=== PATIENT | male | born 1950 | race Caucasian/White ===

== ENCOUNTER → 2019-11-13 12:15 | Outpatient (CLI) | payer MEDICARE, SELFPAY ==
--- NOTE | ~2019-11-13 | MR_ITS ---
EXAMINATION: MR shoulder LT wo con DATE: 11/13/2019 13:08 INDICATION: Left shoulder pain and limited range of motion TECHNIQUE: Magnetic resonance imaging (MRI) of the left shoulder was performed without intravenous co ntrast. Sequences included axial PD-weighted FS FSE, coronal oblique PD-weighted FS FSE, coronal obli que T2-weighted FS FSE, sagittal PD-weighted FS FSE, and sagittal T1-weighted SE. COMPARISON: Left shoulder radiographs dated 11/04/2019 FINDINGS: Coracoacromial arch: The acromion undersurface is curved in morphology (type II). The coracoacromial ligament is normal. M ild acromioclavicular osteoarthritis. Rotator cuff: Mild supraspinatus and infraspinatus tendinopathy most prominent at the conjoined portion of the tend ons. The teres minor and subscapularis tendons are normal. No rotator cuff tendon tear. Normal rotato r cuff muscle bulk and signal. Biceps tendon, glenoid labrum and glenohumeral cartilage: Long head of the biceps tendon is normal. Circumferential labral tear most severe at the posterosuper ior glenoid where there is secondary degenerative tearing. Diffuse partial thickness cartilage loss a long the humeral head and glenoid with regions of more severe chondral ulceration and fissuring with minimal underlying subarticular edema at the cephalad aspect of the glenoid and at the superomedial a spect of the humeral head. Fluid: Proportional small amount of fluid in the glenohumeral joint and long head biceps tendon sheath. Ther e is mild synovitis at the axillary recess as well as along the biceps tendon sheath. No loose osteoc hondral bodies. Mild increased fluid signal in the subacromial/subdeltoid bursa consistent with minim al bursitis. Bones: Normal marrow signal with no edema, fracture or pathologic marrow replacing process. Mild cystic napoles ge at the greater tuberosity. IMPRESSION: 1. Moderate supraspinatus and infraspinatus tendinopathy without discrete tear. 2. Mild to moderate glenohumeral osteoarthritis with diffuse labral tear and with small regions of hi gh-grade chondromalacia at the glenoid and humeral head. 3. Mild acromioclavicular osteoarthritis. Reviewed, dictated and finalized at location A. IMPRESSION: 1. Moderate supraspinatus and infraspinatus tendinopathy without discrete tear. 2. Mild to moderate glenohumeral osteoarthritis with diffuse labral tear and wi th small regions of high-grade chondromalacia at the glenoid and humeral head. 3. Mild acromioclavicular osteoarthritis.
== END ==
PROVIDERS: Visit Provider Orthopaedic Surgery
DX: M19.012 Primary osteoarthritis, left shoulder (principal)
CPT/HCPCS: 73221

== ENCOUNTER 2019-12-18 12:51 | Outpatient (CLI) | payer MEDICARE, SELFPAY ==
--- NOTE | 2020-01-01 15:16 | WPDHOMESLEEP ---
Sleep Study - Home Date of Study: 12/18/19 Ordering Provider: Andrea Farias MD Interpreting Physician: Evette Carpenter MD Home Sleep Study Type: Apnea Link Air Height: 1.75 m Weight: 91.626 kg Body Mass Index: 29.8 Brawley: 9 Reason for Sleep Study Snoring, waking at night, nocturia, daytime sleepiness Sleep History Jonathan Quijano Jr is a 69 yo man 5 feet 9 inches tall weighing 202 lb with BMI 29.8 kg/m sq with poor quality of sleep. Some nights he wakes frequently to use the bathroom. The most sleep he can achieve is 5 -6 hours a night. He attributes waking at 5:00 a.m. to his wake time for work over the years. He has been having problems with his sleep for several years. There is a family history of sleep apnea in his father. He snores frequently, and frequently it is loud enough to disturb others. He rarely has trouble falling asleep with a cold, never wakes up gasping for breath and rarely has breathing problems at night witnessed by others. He never sweats excessively at night nor has noticed his heart pounding or beating irregularly at night. He occasionally falls asleep in the day, occasionally involuntarily, never while driving. He does not feel paralyzed on falling asleep or waking, rarely has vivid dream like scenes on waking or falling asleep. He is never afraid to go to sleep and rarely has nightmares. He rarely remembers his dreams and rarely has racing thoughts. He does not feel sad or depressed, rarely feels anxious, denies muscular tension, does not notice parts of his body jerking, and does not kick at night. He occasionally has uncomfortable feelings in his legs at night. He does not grind his teeth at night, often is awakened by pain at night, rarely feels stiff in the am. He has memory problems. He constantly is bothered by pain in the day. Bedtime is 10:00 - 11:00 p.m. falling asleep in 5 minutes or less, wakes in the middle of the night at most 2-4 times, and when he wakes at night, he usually will stay in bed but sometimes watches TV in the living room. He wakes between 4:30 - 5:30 a.m. often refreshed. He feels better in the morning than other times of day, however on occasion is so sleepy he can barely keep his eyes open. He has gained 25 lb in the last year. He drinks 10 cups of coffee in the morning, occasionally takes a nap. A short nap can be refreshing. 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, hypertension, hyperlipidemia, GERD [facility] Family History Family History (Updated 01/01/20 @ 16:37 by Evette Carpenter MD) Father Family history of thyroid disease Diabetes mellitus Family history of chronic obstructive pulmonary disease Obstructive sleep apnea Grandparent Diabetes mellitus Mother Depression Father Family history of diabetes mellitus in first degree relative Family history of emphysema Sibling Family history of malignant neoplasm of cervix Other Family history of congestive heart failure Social History Social History (Updated 01/01/20 @ 16:30 by Evette Carpenter MD) Smoking packs per day: 1 Smoking cigarettes per day: 20.0 Years smoked: 50 Smoking pack-years: 50.00 Smoking status: Former smoker Second hand tobacco smoke exposure: No Smoking end date: 02/05/19 Alcohol intake: current Alcohol use details: 6-8 beers once a month Substance use: never Substance use type: does not use Additional occupation/education comments: Retired from [employer] and [employer] Gender identity (if verbalized by the patient): Male Medications aspirin 81 mg tablet,delayed release 81 mg PO DAILY 05/03/19 [History Confirmed 12/19/19] simvastatin 10 mg tablet 10 mg PO QPM tablet 05/03/19 [History Confirmed 12/19/19] Bifidobacterium infantis 4 mg capsule 4 mg PO DAILY 10/03/19 [History Confirmed 12/19/19] ascorbic acid (vitamin C) 1,000 mg tablet 1 gm PO DAILY 10/03/19 [History Confirmed
[2020-01-01 16:38] VITALS: BMI 29.8
== END 2019-12-18 12:52 | disposition home or self-care (01) ==
LOC: ANHCSM 12:51
PROVIDERS: PCP Family Medicine; Visit Provider Family Medicine
DX: G47.33 Obstructive sleep apnea (adult) (pediatric) (principal); R40.0 Somnolence
CPT/HCPCS: 95806

== ENCOUNTER 2020-06-03 08:42 | Outpatient (CLI) | payer MEDICARE, SELFPAY ==
--- NOTE | ~2020-06-03 | CT_ITS ---
EXAMINATION: CT lung screening DATE: 06/03/2020 09:13 INDICATION: Z87.891 - Personal history of nicotine dependence Z12.2 Encounter for screening for malig nant neoplasm of respi... TECHNIQUE: Computed tomography (CT) of the chest was performed without intravenous contrast. Addition al 3D reconstructions utilizing coronal maximum intensity projection (MIP) were performed. Automated exposure control and iterative reconstruction technique were employed. The dose-length product was 19 8.32 mGy-cm. COMPARISON: None FINDINGS: Mild to moderate upper lobe predominant emphysema. There are fine reticular opacities with peripheral predominance along the anterior aspect of the bilateral upper lobes and at the basilar and lateral a spect of the bilateral lower lobes. Tiny calcified right upper lobe nodule consistent with old granul omatous disease. No other suspicious pulmonary nodules, pneumonia or pleural effusion. Heart size is normal. Atherosclerotic coronary artery calcification is. Small amount of aortic valve calcification. No pericardial effusion. Thoracic aorta is normal in caliber. No pathologically enlarged thoracic ly mphadenopathy. 8.4 cm exophytic cyst at the upper pole of the right kidney. Diffuse hepatic steatosis . Upper lumbar levoscoliosis centered at T3-T4 there is likely developmental fusion both anteriorly a nd of the right posterior elements. IMPRESSION: 1. Lung-RADS category 1: Negative. Continue annual screening with noncontrast low-dose chest CT in 12 months. 2. Mild to moderate upper lobe predominant emphysema with fine peripheral reticular opacities along p ortions of the upper and lower lobes which could represent atelectasis or nonspecific mild chronic in terstitial lung disease. Reviewed, dictated and finalized at location B. Y II PAINTER IMPRESSION: 1. Lung-RADS category 1: Negative. Continue annual screening with noncontrast l ow-dose chest CT in 12 months. 2. Mild to moderate upper lobe predominant emphysema with fine peripheral retic ular opacities along portions of the upper and lower lobes which could represen t atelectasis or nonspecific mild chronic interstitial lung disease.
--- NOTE | ~2020-06-03 | US_ITS ---
EXAMINATION: US aorta [facility] DATE: 06/03/2020 09:24 INDICATION: Abdominal aortic aneurysm screening. TECHNIQUE: Grayscale, color Doppler, and pulsed Doppler images of the aorta and common iliac arteries were obtained. COMPARISON: CT abdomen and pelvis/01/2006 FINDINGS: The aorta is normal in caliber. The right common iliac artery is normal in caliber. The left common i liac artery is normal in caliber. IMPRESSION: 1. No abdominal aortic aneurysm. Reviewed, dictated and finalized at location A. ICAL INSTRUMENT TECHNICIAN
== END 2020-06-03 08:43 | disposition home or self-care (01) ==
PROVIDERS: PCP Family Medicine; Visit Provider Family Medicine
DX: Z12.2 Encounter for screening for malignant neoplasm of respiratory organs (principal); Z87.891 Personal history of nicotine dependence
CPT/HCPCS: 71271; 76706

== ENCOUNTER 2020-06-10 23:55 | Inpatient (IN) | payer MEDICARE, SELFPAY ==
--- NOTE | ~2020-06-10 | XR_ITS ---
EXAMINATION: XR chest 1V portable INDICATION: Chest pain TECHNIQUE: Portable AP chest at 0016 hours COMPARISON: CT, 06/03/2020 FINDINGS: There is moderate emphysema. No pleural effusion or pneumothorax is identified. The cardiom ediastinal silhouette is normal. IMPRESSION: 1. No acute cardiopulmonary abnormality. Reviewed, dictated and finalized at location A. HIATRIC SOCIAL WORKER
[2020-06-10 23:57] VITALS: PULSE 91; RESP 30
[2020-06-11] VITALS (41 sets, daily range): BP systolic 86–156; BP diastolic 50–105; PULSE 67–96; RESP 11–30; TEMP 36.4–36.7; O2SAT 89–100; BMI 31.8
--- NOTE | 2020-06-11 | ECHO_ITS ---
Patient Info Name: Jonathan Quijano Age: 69 years : 1950 Gender: Male Ht: 69 in Wt: 202 lbs BSA: 2.14 m2 HR: 78 bpm BP: 156 / 95 mmHg Heart Rhythm: Sinus Rhythm Technical Quality: Good Exam Date: 06/11/2020 8:18 AM Exam Location: [facility] Pulmonary Patient Status: Inpatient Admit Date: 06/11/2020 Staff Ordering Physician: Ruben Perkins MD Electrical Equipment Assembler: Perry Samuel, EMILY, RT Attending Provider: Ruben Perkins MD Exam Type: CA echo dop color flow w con Study Info Indications I21.3 - ST elevation (STEMI) myocardial infarction of unspecified site Strain analysis performed. Complete two-dimensional, color flow and Doppler transthoracic echocardiogram is performed with contrast to opacify the left ventricle and to improve the deliniation of the left ventricle endocardial borders. Summary 1. Left ventricular chamber dimension is mildly enlarged. 2. Left ventricular systolic function is normal, estimated at 50-55%. 3. There is moderately increased left ventricular wall thickness. 4. The left ventricular diastolic function is grade II diastolic dysfunction. 5. Global longitudinal strain is abnormal at -14 %. 6. The inferior wall, basal anterolateral wall, mid anterolateral wall, basal inferolateral wall, and mid inferolateral wall are hypokinetic. 7. Left atrial chamber dimension is mildly enlarged. 8. There is mild aortic valve regurgitation. 9. There is moderate mitral valve regurgitation. 10. There is mild tricuspid valve regurgitation. 11. Moderate pulmonary hypertension, estimated pulmonary arterial systolic pressure is 52 mmHg. 12. There is mild pulmonic regurgitation. 13. Strain analysis performed. Left Ventricle Left ventricular chamber dimension is mildly enlarged. Left ventricular systolic function is normal, estimated at 50-55%. There is moderately increased left ventricular wall thickness. The left ventricular diastolic function is grade II diastolic dysfunction. Global longitudinal strain is abnormal at -14 %. The inferior wall, basal anterolateral wall, mid anterolateral wall, basal inferolateral wall, and mid inferolateral wall are hypokinetic. All other bundy appear normal. Right Ventricle Right ventricular chamber dimension is normal. Right ventricular systolic function is normal. Left Atria Left atrial chamber dimension is mildly enlarged. Right Atria Right atrial chamber dimension is normal. Atrial Septum Intact interatrial septum visualized by color flow imaging. Aortic Valve The aortic valve is trileaflet. There is moderate aortic valve sclerosis. There is no aortic valve stenosis. There is mild aortic valve regurgitation. Pulmonic Valve The pulmonic valve is normal. There is no pulmonic valve stenosis. There is mild pulmonic regurgitation. Mitral Valve The mitral valve has normal leaflets. There is no mitral valve stenosis. There is moderate mitral valve regurgitation. Tricuspid Valve The tricuspid valve leaflets are normal. There is no significant tricuspid valve stenosis. There is mild tricuspid valve regurgitation. Moderate pulmonary hypertension, estimated pulmonary arterial systolic pressure is 52 mmHg. Pericardium/Pleural The pericardium appears normal. There is trivial pericardial effusion. Inferior Vena Cava Normal inferior vena cava with <50% collapse upon inspiration consistent with elevated right atrial pressure, 10 mmHg. Aorta The aortic root size at the sinus of Valsal
--- NOTE | 2020-06-11 00:11 | ED.CHESTPAIN ---
HPI - Chest Pain General Chief Complaint: Chest Pain Stated Complaint: chest pain Time Seen by Provider: 06/11/20 00:07 History of Present Illness HPI narrative: 69 yo male presents to the ED for chest pain. Severe crushing chest pain for the past 2 hours. Associated with SOB and nausea. He has never had this type of pain before. He denies any active medical problems. Chart review shows that he has HTN, PAD. Related Data Home Medications Medication Instructions Recorded Confirmed aspirin 81 mg tablet,delayed 81 mg PO DAILY 05/03/19 04/28/20 release Bifidobacterium infantis 4 mg 4 mg PO DAILY 10/03/19 04/28/20 capsule ascorbic acid (vitamin C) 1,000 mg 1 gm PO DAILY 10/03/19 04/28/20 tablet omega-3 fatty acids 1,000 mg 1,000 mg PO DAILY 10/03/19 04/28/20 capsule nnjcsrhobfwh-objtljeu-wrkory PO 11/05/19 04/28/20 naproxen sodium PO BID 11/05/19 04/28/20 Allergies Allergy/AdvReac Type Severity Reaction Status Date / Time No Known Allergies Allergy Unknown Verified 06/11/20 00:18 Review of Systems Review of Systems: All systems reviewed & are unremarkable except as noted in HPI and below Constitutional: Constitutional: Denies fever(s) and Denies weakness Cardiovascular: Cardiovascular: Reports chest pain and Reports radiating jaw, neck or arm pain Respiratory: Respiratory: Reports dyspnea Gastrointestinal: Gastrointestinal: Reports nausea Musculoskeletal: Musculoskeletal: Denies back pain Neurologic: Reports system reviewed and no additional complaints, except as documented PMF Past Medical History Medical History Arthritis Dyslipidemia Erectile dysfunction Esophagitis Essential (primary) hypertension History of blood clots PAD (peripheral artery disease) Shortness of breath Vision abnormalities Weight gain Surgical History Surgical History H/O hemorrhoidectomy (~2009) H/O rectal sphincterotomy (~11/2010) 11/2010 History of femoropopliteal bypass left - right - 02/19 Family History Family History Father Family history of thyroid disease Diabetes mellitus Family history of chronic obstructive pulmonary disease Obstructive sleep apnea Grandparent Diabetes mellitus Mother Depression Father Family history of diabetes mellitus in first degree relative Family history of emphysema Sibling Family history of malignant neoplasm of cervix Other Family history of congestive heart failure Social History Social History Smoking packs per day: 1 Smoking cigarettes per day: 20.0 Years smoked: 50 Smoking pack-years: 50.00 Smoking status: Former smoker Second hand tobacco smoke exposure: No Smoking end date: 02/05/19 Alcohol intake: current Substance use: never Substance use type: does not use Additional occupation/education comments: Retired from [employer] Gender identity (if verbalized by the patient): Male Exam Const: General: alert and diaphoretic Orientation/consciousness: patient oriented x3 Other: moderate distress. HENMT: Head: normal to inspection Resp: Effort & Inspection: normal respiratory effort Auscultation: clear to auscultation bilaterally Cardio: Rate: regular rate Rhythm: regular rhythm GI: GI Palp: Yes Soft to palpation and No Tenderness to palpation present (GI) Skin: General skin exam: normal color Neuro: General: patient oriented x3, moves all extremities and CN's II-XI intact bilaterally Speech: normal speech Extrem: General: normal to inspection Course Vital Signs Vital signs: Vital Signs Pulse Rate 91 06/10/20 23:57 Respiratory Rate 30 H 06/10/20 23:57 Pulse Rate 89 06/11/20 00:47 Respiratory Rate 16 06/11/20 00:47
[2020-06-11 00:13] LABS: Basophils Absolute Auto 0.1 K/mm3 (0.0-0.1); Basophils Percent Auto 0.7 % (0.2-1.2); Eosinophils Absolute Auto 0.6 K/mm3 (0-0.3); Eosinophils Percent Auto 6.2 % (0-4.4); Hematocrit 47.3 % (42.0-52.0); Hemoglobin 15.6 g/dL (14.0-18.0); Immature Granulocyte Absolute 0.03 K/mm3 (0.00-0.031); Immature Granulocyte Percent A 0.3 % (0-0.5); Lymphocytes Absolute Auto 4.16 K/mm3 (0.9-3.2); Lymphocytes Percent Auto 45.2 % (18.3-44.2); Mean Corpuscular Hemoglobin 30.4 pg (26-34); Mean Platelet Volume 9.5 fl (7.4-10.4); Monocytes Absolute Auto 1.1 K/mm3 (0.1-0.6); Monocytes Percent Auto 11.8 % (2.6-8.5); Neutrophils Absolute Auto 3.3 K/mm3 (1.3-6.7); Neutrophils Percent Auto 35.8 % (45.5-73.1); Platelet Count Result 203 k/mm3 (150-375); Red Blood Count 5.14 M/mm3 (4.6-6.20); Red Cell Distribution Width 14.5 % (11.5-14.5); White Blood Count 9.2 K/mm3 (4.5-10.0)
[2020-06-11] MEDS: TICAGRELOR 90 MG TABLET 180 MG PO (00:20)
[2020-06-11 00:21] LABS: INR 0.9; Prothrombin Time 13.1 Seconds (11.1-14.7)
[2020-06-11 00:22] LABS: Partial Thromboplastin Time 28.7 SECONDS (22.3-36.8)
[2020-06-11 00:23] LABS: Alanine Aminotransferase 57 U/L (4-50); Albumin Level 4.2 g/dL (3.5-5.1); Alkaline Phosphatase 76 U/L (38-126); Anion Gap 7 mmol/L (8-16); Aspartate Amino Transferase 78 U/L (17-59); Bilirubin,Total 0.4 mg/dL (0.2-1.3); Blood Urea Nitrogen 29 mg/dL (9-20); Calcium 9.4 mg/dL (8.4-10.2); Carbon Dioxide 30 mmol/L (22-30); Chloride 103 mmol/L (98-107); Cholesterol 207 mg/dL (0-200); Estimated CRCL calculation 71 ml/min; Estimated Glomerular Filt Rate > 60; Glucose 124 mg/dL (75-110); HDL Direct 61 mg/dL; Potassium 3.6 mmol/L (3.4-5.0); Sodium 140 mmol/L (137-145); Triglycerides 198 mg/dL (<150)
[2020-06-11 00:34] LABS: LDL Cholesterol Direct 51 mg/dL
--- NOTE | 2020-06-11 01:03 | PM.CNCAR ---
Assessment and Plan Additional Plan STEMI, INF wall, Dyslipdiemia, PVD, HTN, plan heaprin Ticagrelor, Statin and emergency [facility] History of Present Illness History of Present Illness Consult date/time: 06/11/20 01:03 Consult reason: chest pain Reason For Visit: stemi Narrative: acute chest pain started 2 hours ago, middle of chest, pressure like, sever, radiates to rt arm and jaw associated with sweating Review of Systems Review of Systems: All systems reviewed & are unremarkable except as noted in HPI and below PMFSH Past Medical History Medical History Arthritis Dyslipidemia Erectile dysfunction Esophagitis Essential (primary) hypertension History of blood clots PAD (peripheral artery disease) Shortness of breath Vision abnormalities Weight gain Surgical History Surgical History H/O hemorrhoidectomy (~2009) H/O rectal sphincterotomy (~11/2010) 11/2010 History of femoropopliteal bypass left - right - 02/19 Family History Family History Father Family history of thyroid disease Diabetes mellitus Family history of chronic obstructive pulmonary disease Obstructive sleep apnea Grandparent Diabetes mellitus Mother Depression Father Family history of diabetes mellitus in first degree relative Family history of emphysema Sibling Family history of malignant neoplasm of cervix Other Family history of congestive heart failure Social History Social History Smoking packs per day: 1 Smoking cigarettes per day: 20.0 Years smoked: 50 Smoking pack-years: 50.00 Smoking status: Former smoker Second hand tobacco smoke exposure: No Smoking end date: 02/05/19 Alcohol intake: current Substance use: never Substance use type: does not use Additional occupation/education comments: Retired from [employer] and [employer] Gender identity (if verbalized by the patient): Male Meds Home Medications and Allergies Home Medications Medication Instructions Recorded Confirmed Type aspirin 81 mg tablet,delayed 81 mg PO DAILY 05/03/19 04/28/20 History release Bifidobacterium infantis 4 mg 4 mg PO DAILY 10/03/19 04/28/20 History capsule ascorbic acid (vitamin C) 1,000 mg 1 gm PO DAILY 10/03/19 04/28/20 History tablet omega-3 fatty acids 1,000 mg 1,000 mg PO DAILY 10/03/19 04/28/20 History capsule sildenafil 100 mg tablet 100 mg PO DAILY PRN #30 tablet 10/31/19 04/28/20 Rx [id number] PO 11/05/19 04/28/20 History naproxen sodium PO BID 11/05/19 04/28/20 History hydrochlorothiazide 12.5 mg tablet See Rx Instructions .ROUTE 01/24/20 04/28/20 Rx .COMPLEX #90 tablet lisinopril 10 mg tablet See Rx Instructions .ROUTE 01/24/20 04/28/20 Rx .COMPLEX #90 tablet clopidogrel 75 mg tablet 75 mg PO DAILY #90 tablet 02/18/20 04/28/20 Rx simvastatin 10 mg tablet See Rx Instructions .ROUTE 04/27/20 04/28/20 Rx .COMPLEX #90 tablet Allergies Allergy/AdvReac Type Severity Reaction Status Date / Time No Known Allergies Allergy Unknown Verified 06/11/20 00:18 Vital Signs Vital Signs - 24 hr 06/10/20 23:57 06/11/20 00:07 06/11/20 00:16 Pulse Rate 91 96 91 Respiratory Rate 30 H 22 H Blood Pressure 154/105 H Pulse Oximetry 100 06/11/20 00:30 06/11/20 00:47 Pulse Rate 95 89 Respiratory Rate 19 16 Blood Pressure 141/100 H 156/95 H Pulse Oximetry 100 100 Exam Const: General: comfortable and no acute distress Other: Able to lie flat HENMT: General nose exam: Normal nares present and no epistaxis Mouth: Yes moist mucous membranes Eyes: Sclera: sclerae normal Pupils: Equal, round and reactive pupils present Neck: Neck: supple and no JVD Carotids: no bruits Resp: Auscultation: luis
--- NOTE | 2020-06-11 01:29 | WPDCARDPROC ---
Cardiac Cath Procedure Note Date of procedure:: 06/11/20 Performing physician:: Ruben Perkins MD Assessment and Plan Additional Plan INDICATION: 1. STEMI HISTORY Patient presented with acute sever chest pain, EKG showed STEMI PROCEDURES 1. Coronary angiogram 2. LHC 3. PCI to LCX ACCESS SITE Rt Radial artery PROCEDURE DETAILS Consent obtained and time out done. Access site prepped and draped in sterile fashion. Moderate sedation given with 1 mg versed and 75 mcg fentanyl and tolerated well, start time 1:08 end time 1:34. Tolerated well and observed by myself and RN, at end he was fully conscious Access obtained with modified Seldinger technique with no difficulty. Coronary angiogram was recorded using JR4 and CLS 3 catheter in different angels LHC was done with JR 4 catheter HEMODYNAMIC FINDINGS Aorta: 142/104 LVEDP: 35 ANGIOGRAPHIC FINDINGS 1. Left main: normal, large, short, free of obstructive disease, gives LAD and LCX 2. LAD: gives one large diagonal. LAD has mid segment 50% stenosis and diagonal is free of disease. 3. LCX: large dominant vessel with acute proximal occlusion, LCX gives 3 intermediate size OM branches and large LPL and PDA which are free of obstructive disease. 4. RCA: non dominant vessel give RV marginal branches PCI DETAILS Pre intervention Lesion: acute total occlusion of LCX culprit lesion of STEMI, class B, ZOFIA 0 Guide catheter: CLS 3 Anticoagulation: Heparin to target ACT > 250 sec Antiplatelet therapy: ASA and Ticagrelor given Guide wire: Samurai used to cross to distal vessel Balloon dilation was done with Emerge balloon at 3.0 * 12 GEO Stent XIENCE Meredith 4.0 * 12 deployed at lesion at 18 GEO, post stent balloon dilation was done with Quantum NC balloon 5.0 * 8 at 18 GEO Post intervention: residual stenosis 0% and ZOFIA 3 flow established COMPLICATION: None Estimated blood loss: 30 ml patient tolerated procedure well, asymptomatic at end of procedure, awake, intact pulses and following commands CONCLUSION Acute total occlusion of LCX Culprit lesion of STEMI S/P Primary PCI with one LISA XIENCE Meredith 4.0 * 12 post dilated with 5.0 balloon RECOMMENDATION DAPT for at least one year
--- NOTE | 2020-06-11 01:37 | ECG_ITS ---
Measurements Intervals Stuart Rate: 88 P: 59 ID: [id number] QRS: 50 QRSD: 114 T: 23 QT: 351 QTc: 426 Interpretive Statements SINUS RHYTHM INTRAVENTRICULAR CONDUCTION DELAY DELAYED PRECORDIAL R/S TRANSITION INFERIOR ST ELEVATION MYOCARDIAL INJURY- ACUTE ABNORMAL ECG Electronically Signed On 06-11-2020 7:10:50 BINDER ROLLER by Gt BRADY
--- NOTE | 2020-06-11 02:08 | ADMGEN ---
This patient, Jonathan Quijano Jr., was admitted to Intensive Care Unit-3 at 0200 from the lab clerk. Patient/family oriented to hospital policies and general routines including ID bracelet, bed and alarms, visiting hours, pain management, procedures, bathroom and other care routines, personal items, smoking policy, room service/diet, and visiting hours. Information on how to activate the Rapid Response Team has been discussed. Patient/Family are encouraged to report perceived risks to care and to ask questions if they do not understand what they are told or what they should do.
[2020-06-11 03:40] LABS: Basophils Percent Auto 0.5 % (0.2-1.2); Eosinophils Absolute Auto 0.4 K/mm3 (0-0.3); Eosinophils Percent Auto 5.1 % (0-4.4); Hematocrit 42.9 % (42.0-52.0); Hemoglobin 14.3 g/dL (14.0-18.0); Immature Granulocyte Absolute 0.04 K/mm3 (0.00-0.031); Immature Granulocyte Percent A 0.5 % (0-0.5); Lymphocytes Absolute Auto 2.13 K/mm3 (0.9-3.2); Mean Corpuscular HGB Conc 33.3 g/dl (32-36); Mean Corpuscular Volume 89.9 fl (80-100); Mean Platelet Volume 9.9 fl (7.4-10.4); Monocytes Absolute Auto 0.8 K/mm3 (0.1-0.6); Monocytes Percent Auto 9.3 % (2.6-8.5); Neutrophils Absolute Auto 5.1 K/mm3 (1.3-6.7); Neutrophils Percent Auto 59.6 % (45.5-73.1); Platelet Count Result 170 k/mm3 (150-375); Red Blood Count 4.77 M/mm3 (4.6-6.20); Red Cell Distribution Width 14.2 % (11.5-14.5); White Blood Count 8.5 K/mm3 (4.5-10.0)
[2020-06-11 03:54] LABS: Partial Thromboplastin Time 84.7 SECONDS (22.3-36.8)
[2020-06-11 03:55] LABS: Anion Gap 5 mmol/L (8-16); Blood Urea Nitrogen 27 mg/dL (9-20); Calcium 8.8 mg/dL (8.4-10.2); Carbon Dioxide 27 mmol/L (22-30); Chloride 105 mmol/L (98-107); Estimated CRCL calculation 90 ml/min; Estimated Glomerular Filt Rate > 60; Glucose 114 mg/dL (75-110); Potassium 4.1 mmol/L (3.4-5.0); Sodium 137 mmol/L (137-145)
[2020-06-11 04:11] LABS: Troponin I > 80.000 ng/mL (0.000-0.034)
[2020-06-11 05:30] LABS: Partial Thromboplastin Time 38.5 SECONDS (22.3-36.8)
[2020-06-11 07:24] LABS: Troponin I > 80.000 ng/mL (0.000-0.034)
--- NOTE | 2020-06-11 08:27 | WPDCNINT ---
Assessment and Plan Assessment and plan (1) ST elevation (STEMI) myocardial infarction: Qualifiers: Involved coronary artery: unspecified coronary artery Qualified Code(s): I21.3 - ST elevation (STEMI) myocardial infarction of unspecified site Code(s): I21.3 - ST elevation (STEMI) myocardial infarction of unspecified site Status: Acute Assessment and Plan: Patient presented with substernal chest pain, rated in the right arm in shock, associated with nausea, vomiting, shortness of breath and diaphoresis -EKG in the ER revealed acute inferior ST-elevation myocardial infarction -patient status post PTCA/PCI with LISA x1 to proximal left circumflex with balloon dilatation. Angiogram was done via right radial artery approach -aspirin, HCTZ, lisinopril, simvastatin, Brilinta, metoprolol -cardiology following the patient closely (2) Essential (primary) hypertension: Code(s): I10 - Essential (primary) hypertension Status: Acute Assessment and Plan: Continue HCTZ, lisinopril metoprolol (3) Dyslipidemia: Code(s): E78.5 - Hyperlipidemia, unspecified Status: Acute Assessment and Plan: Continue simvastatin Additional Plan Discussed with patient updated with his condition and plan of care. Code status: Full code Critical care time spent: 42 minutes This dictation may have been done utilizing a voice recognition system. Attempts have been made to correct errors. However, there may be uncorrected grammatical, spelling, and recognition errors present. Due to a high probability of clinically significant, life threatening deterioration, the patient required my highest level of preparedness to intervene emergently and I personally spent this critical care time directly and personally managing the patient. This critical care time included obtaining a history; examining the patient; pulse oximetry; ordering and review of studies; arranging urgent treatment with development of a management plan; evaluation of patient's response to treatment; frequent reassessment; and discussions with other providers. It was exclusive of separately billable procedures and treating other patients and teaching time. Please see Assessment and Plan section and the rest of the note for further information on patient assessment and treatment Cardiology Nurse Consult Note Consult date: 06/11/20 Time Seen: 07:14 Reason for consult: STEMI status post PTCA/PCI to left circumflex with LISA x1 HPI: Jonathan Quijano Jr. is a 69 year old male past medical history of dyslipidemia, essential hypertension, history of blood clots, peripheral arterial disease, total dysfunction, arthritis presents to the ED in the early hours of 06/11/2020 with complains of severe chest pain that started 2 hours prior to arrival at the ED. Patient stated that his chest pain was associated with shortness of breath nausea and diaphoresis Pain was substernal, pressure-like and radiating to the right arm and jaw. EKG in the ER showed inferior ST-elevation MT, code STEMI was called, patient was taken to the cardiac cath lab technologist, angiographic findings showed acute proximal the left circumflex, Status post LISA x1 with balloon dilatation. Angiogram was done through right radial artery approach. Patient started on aspirin, lisinopril, simvastatin, Brilinta. Was transfer the ICU for further management Patient seen examined the ICU, states he feels much better, complains of mild chest discomfort but nothing compared to what he presented with. Denies any shortness of breath, no jaw pain or any pain in the arm. Denies any nausea vomiting. Hemodynamically stable at this time Review of Systems Review of Systems: All systems reviewed & are unremarkable except as noted in HPI and below PMFSH Past Medical History Medical History Arthritis Dyslipidemia Erectile dysfunction Esophagitis Essential (primary) hyper
[2020-06-11] MEDS: PERFLUTREN LIPID MICROSPHERES 1.5 ML VIAL DILUTED TO 10 ML TOTAL VOLUME IV PUSH (08:48)
[2020-06-11] MEDS: lisinopriL 20 MG TABLET 40 MG BY MOUTH (08:50)
[2020-06-11] MEDS: ASPIRIN 81 MG ENTERIC TABLET PO (08:50)
[2020-06-11] MEDS: hydroCHLOROthiazide 25 MG TABLET BY MOUTH (08:50)
[2020-06-11] MEDS: METOPROLOL TARTRATE 25 MG TABLET PO (08:50)
[2020-06-11] MEDS: ASCORBIC ACID 500 MG TABLET 1000 MG PO (08:50)
[2020-06-11] MEDS: TICAGRELOR 90 MG TABLET PO ×2 (08:50→20:28)
[2020-06-11] MEDS: OMEGA 3 POLYUNSAT FATTY ACIDS 1 GM CAP PO (08:50)
--- NOTE | 2020-06-11 14:01 | PC.NURSE ---
Notified Dr. Koo of patient's BP decreasing as the day has gone on after receiving new dose of 25mg of Metoprolol PO this AM. Pt is currently sleeping with SBP in the 80's. MAPs have been >60 at all times and pt has been asymptomatic. Continue to monitor BP and notify personal chef if pt becomes symptomatic.
[2020-06-11] MEDS: SIMVASTATIN 20 MG TABLET 40 MG PO (17:06)
[2020-06-12] VITALS (15 sets, daily range): BP systolic 82–139; BP diastolic 57–72; PULSE 75–93; RESP 18–27; TEMP 36.4–37.2; O2SAT 93–100
[2020-06-12 04:28] LABS: Basophils Percent Auto 0.3 % (0.2-1.2); Eosinophils Absolute Auto 0.3 K/mm3 (0-0.3); Eosinophils Percent Auto 3.8 % (0-4.4); Hematocrit 40.9 % (42.0-52.0); Hemoglobin 13.7 g/dL (14.0-18.0); Immature Granulocyte Absolute 0.04 K/mm3 (0.00-0.031); Immature Granulocyte Percent A 0.4 % (0-0.5); Lymphocytes Percent Auto 25.6 % (18.3-44.2); Mean Corpuscular HGB Conc 33.5 g/dl (32-36); Mean Corpuscular Hemoglobin 30.4 pg (26-34); Mean Corpuscular Volume 90.7 fl (80-100); Mean Platelet Volume 9.6 fl (7.4-10.4); Monocytes Absolute Auto 1.1 K/mm3 (0.1-0.6); Monocytes Percent Auto 12.1 % (2.6-8.5); Neutrophils Absolute Auto 5.2 K/mm3 (1.3-6.7); Neutrophils Percent Auto 57.8 % (45.5-73.1); Platelet Count Result 155 k/mm3 (150-375); Red Blood Count 4.51 M/mm3 (4.6-6.20); Red Cell Distribution Width 14.6 % (11.5-14.5)
[2020-06-12 04:45] LABS: Anion Gap 2 mmol/L (8-16); Blood Urea Nitrogen 27 mg/dL (9-20); Calcium 8.6 mg/dL (8.4-10.2); Carbon Dioxide 29 mmol/L (22-30); Chloride 104 mmol/L (98-107); Estimated CRCL calculation 81 ml/min; Estimated Glomerular Filt Rate > 60; Glucose 120 mg/dL (75-110); Phosphorus 3.5 mg/dL (2.5-4.5); Potassium 3.9 mmol/L (3.4-5.0); Sodium 135 mmol/L (137-145)
[2020-06-12] MEDS: ASCORBIC ACID 500 MG TABLET 1000 MG PO (08:15)
[2020-06-12] MEDS: hydroCHLOROthiazide 25 MG TABLET BY MOUTH (08:15)
[2020-06-12] MEDS: TICAGRELOR 90 MG TABLET PO ×2 (08:15→20:34)
[2020-06-12] MEDS: OMEGA 3 POLYUNSAT FATTY ACIDS 1 GM CAP PO (08:15)
[2020-06-12] MEDS: ASPIRIN 81 MG ENTERIC TABLET PO (08:15)
[2020-06-12] MEDS: lisinopriL 20 MG TABLET 40 MG BY MOUTH (08:15)
--- NOTE | 2020-06-12 09:59 | WPDINTPN ---
Progress Note: A&P Assessment and Plan (1) ST elevation (STEMI) myocardial infarction: Qualifiers: Involved coronary artery: unspecified coronary artery Qualified Code(s): I21.3 - ST elevation (STEMI) myocardial infarction of unspecified site Code(s): I21.3 - ST elevation (STEMI) myocardial infarction of unspecified site Status: Acute Assessment and Plan: Patient presented to the ED with substernal chest pain, rated in the right arm in shock, associated with nausea, vomiting, shortness of breath and diaphoresis -EKG in the ER revealed acute inferior ST-elevation myocardial infarction -patient status post PTCA/PCI with LISA x1 to proximal left circumflex with balloon dilatation. Angiogram was done via right radial artery approach -aspirin, HCTZ, lisinopril, simvastatin, Brilinta, metoprolol -cardiology following the patient closely (2) Essential (primary) hypertension: Code(s): I10 - Essential (primary) hypertension Status: Acute Assessment and Plan: -blood pressures have been borderline, will discuss with cardiology regarding decreasing doses and possible eliminating HCTZ (3) Dyslipidemia: Code(s): E78.5 - Hyperlipidemia, unspecified Status: Acute Assessment and Plan: Continue simvastatin Additional Plan Discussed with patient updated with his condition and plan of care. Code status: Full code Critical care time spent: 31 minutes This dictation may have been done utilizing a voice recognition system. Attempts have been made to correct errors. However, there may be uncorrected grammatical, spelling, and recognition errors present. Due to a high probability of clinically significant, life threatening deterioration, the patient required my highest level of preparedness to intervene emergently and I personally spent this critical care time directly and personally managing the patient. This critical care time included obtaining a history; examining the patient; pulse oximetry; ordering and review of studies; arranging urgent treatment with development of a management plan; evaluation of patient's response to treatment; frequent reassessment; and discussions with other providers. It was exclusive of separately billable procedures and treating other patients and teaching time. Please see Assessment and Plan section and the rest of the note for further information on patient assessment and treatment Subjective Date/time seen: 06/12/20 09:59 Interval history: Reason for consult: STEMI status post PTCA/PCI to left circumflex with LISA x1 06/12/2020: Patient seen examined this morning in the ICU. Denies any chest pain, shortness of breath, nausea, vomiting, abdominal pain. Patient has been tolerating his diet well. Hemodynamically stable. Has been adequate. No complaint Review of Systems Review of Systems: All systems reviewed & are unremarkable except as noted in HPI and below Exam Const: General: comfortable and no acute distress HENMT: Mouth: Yes moist mucous membranes Eyes: Sclera: sclerae normal Pupils: Equal, round and reactive pupils present Neck: Neck: supple Resp: Effort & Inspection: normal respiratory effort Auscultation: clear to auscultation bilaterally Cardio: Rate: regular rate Rhythm: regular rhythm GI: Inspection: non-distended GI Palp: Yes Soft to palpation and No Tenderness to palpation present (GI) Auscultation: normal bowel sounds Other: Protuberant abdomen : Other: Deferred Urinary Catheter: Urinary Catheter: urine clear Skin: General skin exam: normal color and no rashes or lesions noted Neuro: Cranial nerves: Yes Equal, round and reactive pupils present Other: Patient is awake, alert, oriented, nonfocal, answers to questions appropriately and follows simple commands in all extremities Extrem: General: normal to inspection, no edema and pedal edema Other: Right radial artery site with dressing, no ecchymosis or hematom
--- NOTE | 2020-06-12 14:04 | PM.PNCARD ---
Progress Note: A&P Assessment and Plan (1) ST elevation (STEMI) myocardial infarction: Qualifiers: Involved coronary artery: unspecified coronary artery Qualified Code(s): I21.3 - ST elevation (STEMI) myocardial infarction of unspecified site Code(s): I21.3 - ST elevation (STEMI) myocardial infarction of unspecified site Status: Acute Assessment and Plan: Continue dual anti-platelet therapy with aspirin 81 mg p.o. daily as well as Brilinta 90 mg p.o. b.i.d.. Metoprolol tartrate 12.5 mg p.o. b.i.d. to be initiated. Discontinue his hydrochlorothiazide to allow some blood pressure further metoprolol. Also will reduce his lisinopril down to 20 mg p.o. daily as his blood pressure has been soft since his myocardial infarction. Continue high-dose statin. Will need follow-up with me upon discharge. Anticipate DC home tomorrow (2) CAD (coronary artery disease): Code(s): I25.10 - Atherosclerotic heart disease of [place] coronary artery without angina pectoris Status: Acute Assessment and Plan: As above (3) PAD (peripheral artery disease): Code(s): I73.9 - Peripheral vascular disease, unspecified Status: Acute Assessment and Plan: As above (4) Essential (primary) hypertension: Code(s): I10 - Essential (primary) hypertension Status: Acute Assessment and Plan: At goal Additional Plan INDICATION: 1. STEMI HISTORY Patient presented with acute sever chest pain, EKG showed STEMI PROCEDURES 1. Coronary angiogram 2. LHC 3. PCI to LCX ACCESS SITE Rt Radial artery PROCEDURE DETAILS Consent obtained and time out done. Access site prepped and draped in sterile fashion. Moderate sedation given with 1 mg versed and 75 mcg fentanyl and tolerated well, start time 1:08 end time 1:34. Tolerated well and observed by myself and RN, at end he was fully conscious Access obtained with modified Seldinger technique with no difficulty. Coronary angiogram was recorded using JR4 and CLS 3 catheter in different angels LHC was done with JR 4 catheter HEMODYNAMIC FINDINGS Aorta: 142/104 LVEDP: 35 ANGIOGRAPHIC FINDINGS 1. Left main: normal, large, short, free of obstructive disease, gives LAD and LCX 2. LAD: gives one large diagonal. LAD has mid segment 50% stenosis and diagonal is free of disease. 3. LCX: large dominant vessel with acute proximal occlusion, LCX gives 3 intermediate size OM branches and large LPL and PDA which are free of obstructive disease. 4. RCA: non dominant vessel give RV marginal branches PCI DETAILS Pre intervention Lesion: acute total occlusion of LCX culprit lesion of STEMI, class B, ZOFIA 0 Guide catheter: CLS 3 Anticoagulation: Heparin to target ACT > 250 sec Antiplatelet therapy: ASA and Ticagrelor given Guide wire: Samurai used to cross to distal vessel Balloon dilation was done with Emerge balloon at 3.0 * 12 GEO Stent XIENCE Meredith 4.0 * 12 deployed at lesion at 18 GEO, post stent balloon dilation was done with Quantum NC balloon 5.0 * 8 at 18 GEO Post intervention: residual stenosis 0% and ZOFIA 3 flow established COMPLICATION: None Estimated blood loss: 30 ml patient tolerated procedure well, asymptomatic at end of procedure, awake, intact pulses and following commands CONCLUSION Acute total occlusion of LCX Culprit lesion of STEMI S/P Primary PCI with one LISA XIENCE Meredith 4.0 * 12 post dilated with 5.0 balloon RECOMMENDATION DAPT for at least one year Subjective Date/time seen: 06/12/20 14:04 Interval history: Reason for admission: 69-year-old with chest pain which ended up being a STEMI status post PTCA/PCI to left circumflex with LISA x1 date of service 06/12/2020: Feels very well. He denies any chest pain, shortness of breath. Review of Systems Review of Systems: All systems reviewed & are unremarkable except as noted in HPI and below Constitutional: Constitutional: Denies weaknes
[2020-06-12] MEDS: SIMVASTATIN 20 MG TABLET 40 MG PO (16:55)
[2020-06-12] MEDS: METOPROLOL TARTRATE 12.5 MG TABLET PO (20:34)
[2020-06-13] VITALS: BP 127/78; PULSE 81; PULSE 95; RESP 24; TEMP 36.8; O2SAT 98
[2020-06-13 02:00] VITALS: PULSE 72
[2020-06-13 04:00] VITALS: BP 111/69; PULSE 76; RESP 24; TEMP 36.7; O2SAT 94
[2020-06-13 06:00] VITALS: PULSE 88
[2020-06-13] MEDS: ASCORBIC ACID 500 MG TABLET 1000 MG PO (07:49)
[2020-06-13 07:50] VITALS: PULSE 94
[2020-06-13] MEDS: TICAGRELOR 90 MG TABLET PO (07:50)
[2020-06-13] MEDS: lisinopriL 20 MG TABLET BY MOUTH (07:50)
[2020-06-13] MEDS: OMEGA 3 POLYUNSAT FATTY ACIDS 1 GM CAP PO (07:50)
[2020-06-13] MEDS: METOPROLOL TARTRATE 12.5 MG TABLET PO (07:50)
[2020-06-13] MEDS: ASPIRIN 81 MG ENTERIC TABLET PO (07:52)
[2020-06-13 08:00] VITALS: PULSE 84; RESP 21; O2SAT 97
--- NOTE | 2020-06-13 09:40 | PM.PNCARD ---
Progress Note: A&P Assessment and Plan (1) ST elevation (STEMI) myocardial infarction: Qualifiers: Involved coronary artery: unspecified coronary artery Qualified Code(s): I21.3 - ST elevation (STEMI) myocardial infarction of unspecified site Code(s): I21.3 - ST elevation (STEMI) myocardial infarction of unspecified site Status: Acute Assessment and Plan: Continue dual anti-platelet therapy with aspirin 81 mg p.o. daily as well as Brilinta 90 mg p.o. b.i.d.. Metoprolol tartrate 12.5 mg p.o. b.i.d. hydrochlorothiazide stopped. Continue lisinopril 20 mg daily. Continue high-dose statin. Follow-up with Dr. Koo as scheduled as an outpatient. Reviewed post catheterization precautions. No sexual strenuous activity for 2 weeks. No lifting for 1 week with right arm. May shower, remove bandage, keep right wrist dry. Monitor for bleeding, swelling notify office immediately hold pressure and or present to ER if noted. Discharge home today in stable and improved condition. (2) CAD (coronary artery disease): Code(s): I25.10 - Atherosclerotic heart disease of [place] coronary artery without angina pectoris Status: Acute Assessment and Plan: As above (3) PAD (peripheral artery disease): Code(s): I73.9 - Peripheral vascular disease, unspecified Status: Acute Assessment and Plan: As above stable. (4) Essential (primary) hypertension: Code(s): I10 - Essential (primary) hypertension Status: Acute Assessment and Plan: At goal hypotension resolved with discontinuation of hydrochlorothiazide. Additional Plan INDICATION: 1. STEMI HISTORY Patient presented with acute sever chest pain, EKG showed STEMI PROCEDURES 1. Coronary angiogram 2. LHC 3. PCI to LCX ACCESS SITE Rt Radial artery PROCEDURE DETAILS Consent obtained and time out done. Access site prepped and draped in sterile fashion. Moderate sedation given with 1 mg versed and 75 mcg fentanyl and tolerated well, start time 1:08 end time 1:34. Tolerated well and observed by myself and RN, at end he was fully conscious Access obtained with modified Seldinger technique with no difficulty. Coronary angiogram was recorded using JR4 and CLS 3 catheter in different angels LHC was done with JR 4 catheter HEMODYNAMIC FINDINGS Aorta: 142/104 LVEDP: 35 ANGIOGRAPHIC FINDINGS 1. Left main: normal, large, short, free of obstructive disease, gives LAD and LCX 2. LAD: gives one large diagonal. LAD has mid segment 50% stenosis and diagonal is free of disease. 3. LCX: large dominant vessel with acute proximal occlusion, LCX gives 3 intermediate size OM branches and large LPL and PDA which are free of obstructive disease. 4. RCA: non dominant vessel give RV marginal branches PCI DETAILS Pre intervention Lesion: acute total occlusion of LCX culprit lesion of STEMI, class B, ZOFIA 0 Guide catheter: CLS 3 Anticoagulation: Heparin to target ACT > 250 sec Antiplatelet therapy: ASA and Ticagrelor given Guide wire: Samurai used to cross to distal vessel Balloon dilation was done with Emerge balloon at 3.0 * 12 GEO Stent XIENCE Meredith 4.0 * 12 deployed at lesion at 18 GEO, post stent balloon dilation was done with Quantum NC balloon 5.0 * 8 at 18 GEO Post intervention: residual stenosis 0% and ZOFIA 3 flow established COMPLICATION: None Estimated blood loss: 30 ml patient tolerated procedure well, asymptomatic at end of procedure, awake, intact pulses and following commands CONCLUSION Acute total occlusion of LCX Culprit lesion of STEMI S/P Primary PCI with one LISA XIENCE Meredith 4.0 * 12 post dilated with 5.0 balloon RECOMMENDATION DAPT for at least one year Subjective Date/time seen: Date of service: 06/13/20 09:40 Interval history: Reason for admission: 69-year-old with chest pain which ended up being a STEMI status post PTCA/PCI to left circumflex with LISA x1 Feels very w
--- NOTE | 2020-06-13 09:51 | PM.DS ---
DS: Admitting Diagnosis Admitting Diagnosis Admitting Diagnosis: STEMI DS: Discharge Diagnosis Discharge Diagnosis (1) ST elevation (STEMI) myocardial infarction: Qualifiers: Involved coronary artery: unspecified coronary artery Qualified Code(s): I21.3 - ST elevation (STEMI) myocardial infarction of unspecified site Code(s): I21.3 - ST elevation (STEMI) myocardial infarction of unspecified site Status: Acute Assessment and Plan: Continue dual anti-platelet therapy with aspirin 81 mg p.o. daily as well as Brilinta 90 mg p.o. b.i.d.. Metoprolol tartrate 12.5 mg p.o. b.i.d. hydrochlorothiazide stopped. Continue lisinopril 20 mg daily. Continue high-dose statin. Follow-up with Dr. Koo as scheduled as an outpatient. Reviewed post catheterization precautions. No sexual strenuous activity for 2 weeks. No lifting for 1 week with right arm. May shower, remove bandage, keep right wrist dry. Monitor for bleeding, swelling notify office immediately hold pressure and or present to ER if noted. Discharge home today in stable and improved condition. (2) CAD (coronary artery disease): Code(s): I25.10 - Atherosclerotic heart disease of [place] coronary artery without angina pectoris Status: Acute Assessment and Plan: As above (3) PAD (peripheral artery disease): Code(s): I73.9 - Peripheral vascular disease, unspecified Status: Acute Assessment and Plan: As above stable. (4) Essential (primary) hypertension: Code(s): I10 - Essential (primary) hypertension Status: Acute Assessment and Plan: At goal hypotension resolved with discontinuation of hydrochlorothiazide. DS: Summary Hospital Course Reason for hospitalization: STEMI Hospital Course: 69-year-old with chest pain which ended up being a STEMI status post PTCA/PCI to left circumflex with LISA x1 Feels very well this morning. No dizziness, palpitations. No new issues overnight. He denies any chest pain, shortness of breath. Access through right radial artery, no complications. Patient observed overnight. Blood pressure was low at 1 point necessitating discontinuation of hydrochlorothiazide and lisinopril to 20 mg daily. Tolerating medications prior to discharge. Plavix discontinued, Brilinta initiated 90 mg twice daily in addition to aspirin 81 mg daily. Simvastatin increased to 40 mg at bedtime. Counseled on the utmost importance of compliance with aspirin and Brilinta and all his medications. Patient verbalized understanding. Patient stable and improved condition for discharge today. Status at Discharge Cognitive/behavioral status at discharge: Competent. Functional status at discharge: independent ambulation Overall status at discharge: patient is progressing back to baseline Time Spent with Patient Time attestation: Total time spent providing and/or coordinating discharge services: 36 minutes Time spent: Greater than 30 minutes Exam Const: General: comfortable and no acute distress Other: Able to lie flat HENMT: General nose exam: Normal nares present and no epistaxis Mouth: Yes moist mucous membranes Eyes: Sclera: sclerae normal Pupils: Equal, round and reactive pupils present Neck: Neck: supple and no JVD Carotids: no bruits Resp: Auscultation: clear to auscultation bilaterally and lung sounds not diminished Other: No chest wall tenderness Cardio: Rate: regular rate Rhythm: regular rhythm Heart sounds: no gallops, no murmurs and no rubs GI: Auscultation: normal bowel sounds Skin: General skin exam: normal color, rashes and/or lesions noted and no erythema Other: Warm Neuro: Cranial nerves: Yes Equal, round and reactive pupils present Speech: normal speech and No Abnormal speech present Other: No obvious focal deficit or facial asymmetry Extrem: General: no edema Other: Normal capillary refills Intact distal pulses. Right radial access soft, slight bruising, no mike
== END 2020-06-13 10:15 | disposition home or self-care (01) | DRG 247 ==
LOC: ANHED 06-11 00:50 → ANHICU 06-11 06:06
PROVIDERS: Internal Medicine; Admitting Provider Internal Medicine Interventional Cardiology; Emergency Provider Emergency Medicine; PCP Family Medicine; Visit Provider Internal Medicine Cardiovascular Disease
PROC: 4A023N7 Measurement of Cardiac Sampling and Pressure, Left Heart, Percutaneous Approach (ICD-10-PCS; CPT 93452; principal; 2020-06-11 00:30)
PROC: 027034Z Dilation of Coronary Artery, One Artery with Drug-eluting Intraluminal Device, Percutaneous Approach (ICD-10-PCS; 2020-06-11 00:30)
DX: I21.21 ST elevation (STEMI) myocardial infarction involving left circumflex coronary artery (principal); I25.10 Atherosclerotic heart disease of native coronary artery without angina pectoris; I10 Essential (primary) hypertension; I73.9 Peripheral vascular disease, unspecified; E78.5 Hyperlipidemia, unspecified; Z79.82 Long term (current) use of aspirin; Z79.899 Other long term (current) drug therapy; Z87.891 Personal history of nicotine dependence
CPT/HCPCS: 36415; 71045; 80048; 80053; 80061; 83735; 84100; 84484; 85025; 85610; 85730; 86850; 86900; 86901; 93005; 93458; 99285; A9270; C1725; C1874; C1887; C1894; C8929; C9606; J1644; J2250; J2270; J2405; J3010; J7040; Q9957

== ENCOUNTER 2020-08-06 07:30 | Outpatient (RCR) | payer MEDICARE, SELFPAY ==
[2020-06-30 08:59] VITALS: PULSE 64
== END 2020-08-06 09:30 | disposition home or self-care (01) ==
LOC: ANHCPREHAB 07:30
PROVIDERS: PCP Family Medicine; Visit Provider Nurse Practitioner Adult Health
DX: Z95.5 Presence of coronary angioplasty implant and graft (principal)
CPT/HCPCS: 93798

== ENCOUNTER 2021-10-14 09:05 | Outpatient (CLI) | payer MEDICARE, SELFPAY | END 2021-10-14 09:06 | disposition home or self-care (01) | LOC: ANHGOSHLAB 09:08 | PROVIDERS: PCP Family Medicine; Visit Provider Family Medicine | DX: E78.5 Hyperlipidemia, unspecified (principal); E55.9 Vitamin D deficiency, unspecified; M25.561 Pain in right knee; Z12.5 Encounter for screening for malignant neoplasm of prostate; G89.29 Other chronic pain; R73.03 Prediabetes; I10 Essential (primary) hypertension | CPT/HCPCS: 99199; 36415 ==

== ENCOUNTER 2021-10-22 13:28 | Outpatient (CLI) | payer MEDICARE, SELFPAY ==
--- NOTE | ~2021-10-22 | XR_ITS ---
XR knee RT 3V 10/22/2021 13:58 Indication: Right knee pain Procedure: 3 views right knee Comparison: 08/19/2015 Findings: There is anatomic alignment. No significant joint space narrowing. No fracture, subluxation or dislocation. No joint space narrowing. No joint effusion. Impression: 1: No significant bone or joint abnormality. Reviewed, dictated and finalized at location A. Impression: 1: No significant bone or joint abnormality.
--- NOTE | ~2021-10-22 | CT_ITS ---
EXAMINATION:CT lung screening DATE: 10/22/2021 13:54 INDICATION: Tobacco use. Smoker who quit 3 years ago with 50 pack year history. TECHNIQUE: Computed tomography (CT) of the chest was performed without intravenous contrast. Automate d exposure control and iterative reconstruction technique were employed. The dose-length product (DLP ) was 209.34 mGy-cm. COMPARISON: Chest CT 06/03/2020 FINDINGS: There is moderate emphysema. There is chronic septal thickening in the peripheral lungs. No pleural effusion. The heart size is normal. There are coronary artery calcifications. No pericardial effusion. There is a 3.9 cm cyst in right kidney. There is mild thoracic spondylosis. IMPRESSION: 1. Lung-RADS category 1: Negative. Continue annual screening with noncontrast low-dose chest CT in 12 months. Reviewed, dictated and finalized at location A. IMPRESSION: 1. Lung-RADS category 1: Negative. Continue annual screening with noncontrast l ow-dose chest CT in 12 months.
== END 2021-10-22 13:29 | disposition home or self-care (01) ==
PROVIDERS: PCP Family Medicine; Visit Provider Family Medicine
DX: Z12.2 Encounter for screening for malignant neoplasm of respiratory organs (principal); G89.29 Other chronic pain; M25.561 Pain in right knee; Z87.891 Personal history of nicotine dependence
CPT/HCPCS: 71271; 73562

== ENCOUNTER 2022-01-19 01:46 | Day surgery (SDC) | payer MEDICARE, SELFPAY ==
[2022-01-05 13:23] VITALS: BMI 30.2
--- NOTE | 2022-01-18 17:10 | PM.HPGS ---
History of Present Illness History of Present Illness Consent: Risks, benefits, and alternatives have been discussed and questions answered. Patient agrees to proceed with procedure. Chief complaint: neoplasm screening Narrative: Jonathan Quijano Jr. is a 71 year old male referred for colon cancer screening. His last colonoscopy was 11 years ago. Review of Systems Review of Systems: All systems reviewed & are unremarkable except as noted in HPI and below PMFSH Past Medical History Medical History Arthritis Dyslipidemia Erectile dysfunction Esophagitis Essential (primary) hypertension H/O cardiovascular stress test History of COVID-02/2020 PAD (peripheral artery disease) Peripheral neuropathy Pre-diabetes ST elevation (STEMI) myocardial infarction 06/2020 Tendinitis of left rotator cuff Vitamin D deficiency Weight gain Surgical History Surgical History H/O heart artery stent (~06/2020) H/O hemorrhoidectomy (~2009) H/O rectal sphincterotomy (~11/2010) 11/2010 History of femoropopliteal bypass left - right - 02/19 Family History Family History Father Obstructive sleep apnea Diabetes mellitus Family history of thyroid disease Family history of chronic obstructive pulmonary disease Macular degeneration disease Grandparent Diabetes mellitus Heart attack Mother Depression Father Family history of diabetes mellitus in first degree relative Family history of emphysema Sibling Family history of malignant neoplasm of cervix Other Family history of congestive heart failure Social History Social History Smoking packs per day: 1.5 Smoking cigarettes per day: 30.0 Years smoked: 50 Smoking pack-years: 75.00 Smoking status: Former smoker Tobacco type: cigarettes Second hand tobacco smoke exposure: No Smoking end date: 02/05/19 Alcohol intake: current Alcohol use details: occasionally Substance use: never Substance use type: does not use Living arrangements: with family Additional occupation/education comments: Retired from [employer] and [employer] Gender identity (if verbalized by the patient): Male Sexual Orientation (if Verbalized by the Patient): Straight or Heterosexual Spiritual care concerns: No Meds Home Medications and Allergies Home Medications Medication Instructions Recorded Confirmed Type Bifidobacterium infantis 4 mg 4 mg PO DAILY 10/03/19 01/19/22 History capsule (Align) ascorbic acid (vitamin C) 1,000 mg 1 gm PO DAILY 10/03/19 01/19/22 History tablet omega-3 fatty acids 1,000 mg 1,000 mg PO DAILY 10/03/19 01/19/22 History capsule (Fish Oil Concentrate) [id number] 1 tablet PO DAILY 11/05/19 01/19/22 History [Centrum Silver] aspirin 81 mg tablet,delayed 81 mg PO DAILY 30 days #30 tabs 06/13/20 01/19/22 Rx release metoprolol tartrate 25 mg tablet 12.5 mg PO BID #30 tabs 06/13/20 01/19/22 Rx sildenafil 100 mg tablet 100 mg PO DAILY PRN sexual 10/14/21 01/19/22 Rx activity #30 tabs ticagrelor 60 mg tablet (Brilinta) 60 mg PO Q12H 10/14/21 01/19/22 History simvastatin 40 mg tablet 40 mg PO QHS #90 tabs 10/28/21 01/19/22 Rx lisinopril 20 mg tablet 20 mg PO DAILY #90 tabs 12/07/21 01/19/22 Rx cholecalciferol (vitamin D3) 50 50 mcg PO DAILY 01/05/22 01/19/22 History mcg (2,000 unit) tablet (Vitamin D3) Allergies Allergy/AdvReac Type Severity Reaction Status Date / Time No Known Allergies Allergy Unknown Verified 01/19/22 08:06 Exam Resp: Auscultation: clear to auscultation bilaterally Cardio: Rate: regular rate Rhythm: regular rhythm GI: GI Palp: Yes Soft to palpation and No Tenderness to palpation present (GI) Assessment and Plan
[2022-01-19 08:00] VITALS: BP 145/94; PULSE 75; RESP 18; TEMP 36.2; O2SAT 98; BMI 30.4
[2022-01-19] MEDS: LACTATED RINGERS 1,000 ML 150 ML IV CONT (08:20)
--- NOTE | 2022-01-19 08:23 | WPDANESEPPF ---
Anes - Initial Pre Proc Eval Procedure: Operation Date: 01/19/22 09:00 Proposed Procedures p Screening Colonoscopy - Yousuf Marie MD Date/Time: 01/19/22 08:23 Surgeon: Yousuf Marie MD Pre Op Diagnosis: neoplasm screening Patient Data Age: 71 Gender: M Height: 1.75 m Weight: 93.3 kg Last Vital Signs Temp 97.2 F L 01/19/22 08:00 Pulse 75 01/19/22 08:00 Resp 18 01/19/22 08:00 BP 145/94 H 01/19/22 08:00 Pulse Ox 98 01/19/22 08:00 O2 Del Method Room Air 01/19/22 08:00 Allergies Allergy/AdvReac Type Severity Reaction Status Date / Time No Known Allergies Allergy Unknown Verified 01/19/22 08:06 Home Medications Medication Instructions Recorded Confirmed Type Bifidobacterium infantis 4 mg 4 mg PO DAILY 10/03/19 01/19/22 History capsule (Align) ascorbic acid (vitamin C) 1,000 mg 1 gm PO DAILY 10/03/19 01/19/22 History tablet omega-3 fatty acids 1,000 mg 1,000 mg PO DAILY 10/03/19 01/19/22 History capsule (Fish Oil Concentrate) [id number]-[id number]-[id number] 1 tablet PO DAILY 11/05/19 01/19/22 History [Centrum Silver] aspirin 81 mg tablet,delayed 81 mg PO DAILY 30 days #30 tabs 06/13/20 01/19/22 Rx release metoprolol tartrate 25 mg tablet 12.5 mg PO BID #30 tabs 06/13/20 01/19/22 Rx sildenafil 100 mg tablet 100 mg PO DAILY PRN sexual 10/14/21 01/19/22 Rx activity #30 tabs ticagrelor 60 mg tablet (Brilinta) 60 mg PO Q12H 10/14/21 01/19/22 History simvastatin 40 mg tablet 40 mg PO QHS #90 tabs 10/28/21 01/19/22 Rx lisinopril 20 mg tablet 20 mg PO DAILY #90 tabs 12/07/21 01/19/22 Rx cholecalciferol (vitamin D3) 50 50 mcg PO DAILY 01/05/22 01/19/22 History mcg (2,000 unit) tablet (Vitamin D3) Patient hx anesthesia problems: none Family hx anesthesia problems: none Results Review: All pre-operative results and documents have been reviewed as part of the pre-operative evaluation. [facility] Past Medical History Medical History Arthritis Dyslipidemia Erectile dysfunction Esophagitis Essential (primary) hypertension H/O cardiovascular stress test History of COVID-19 02/2020 PAD (peripheral artery disease) Peripheral neuropathy Pre-diabetes ST elevation (STEMI) myocardial infarction 06/2020 Tendinitis of left rotator cuff Vitamin D deficiency Weight gain Surgical History Surgical History H/O heart artery stent (~06/2020) H/O hemorrhoidectomy (~2009) H/O rectal sphincterotomy (~11/2010) 11/2010 History of femoropopliteal bypass left - right - 02/19 Family History Family History Father Obstructive sleep apnea Diabetes mellitus Family history of thyroid disease Family history of chronic obstructive pulmonary disease Macular degeneration disease Grandparent Diabetes mellitus Heart attack Mother Depression Father Family history of diabetes mellitus in first degree relative Family history of emphysema Sibling Family history of malignant neoplasm of cervix Other Family history of congestive heart failure Social History Social History Smoking packs per day: 1.5 Smoking cigarettes per day: 30.0 Years smoked: 50 Smoking pack-years: 75.00 Smoking status: Former smoker Tobacco type: cigarettes Second hand tobacco smoke exposure: No Smoking end date: 02/05/19 Alcohol intake: current Alcohol use details: occasionally Substance use: never Substance use type: does not use Living arrangements: with family Additional occupation/education comments: Retired from [employer] and [employer] Gender identity (if verbalized by the patient): Male Sexual Orientation (if Verbalized by the Patient): Straight or Heterosexual Spiritual care concerns: No Fei - Bety Bailey
[2022-01-19 08:54] VITALS: BP 110/60; PULSE 68; RESP 20; O2SAT 95
[2022-01-19 09:04] VITALS: BP 100/59; PULSE 68; RESP 20; O2SAT 96
== END 2022-01-19 09:21 | disposition home or self-care (01) ==
PROVIDERS: PCP Family Medicine; Visit Provider Internal Medicine Gastroenterology
PROC: 0DJD8ZZ Inspection of Lower Intestinal Tract, Via Natural or Artificial Opening Endoscopic (ICD-10-PCS; CPT 45378; principal; 2022-01-19 09:00)
DX: Z12.11 Encounter for screening for malignant neoplasm of colon (principal); K57.30 Diverticulosis of large intestine without perforation or abscess without bleeding; I10 Essential (primary) hypertension; E78.5 Hyperlipidemia, unspecified; I73.9 Peripheral vascular disease, unspecified; R73.03 Prediabetes; E55.9 Vitamin D deficiency, unspecified; I25.2 Old myocardial infarction; Z95.5 Presence of coronary angioplasty implant and graft; Z87.891 Personal history of nicotine dependence; E66.9 Obesity, unspecified; Z68.30 Body mass index [BMI] 30.0-30.9, adult; Z79.82 Long term (current) use of aspirin; Z79.01 Long term (current) use of anticoagulants
CPT/HCPCS: G0121; J2704; J7120

== ENCOUNTER 2022-04-11 10:09 | Outpatient (CLI) | payer MEDICARE, SELFPAY ==
[2022-04-11 19:07] LABS: Alanine Aminotransferase 49 U/L (6-50); Albumin Level 4.3 g/dL (3.5-5.1); Alkaline Phosphatase 83 U/L (38-126); Anion Gap 6 mmol/L (8-16); Aspartate Amino Transferase 61 U/L (17-59); Bilirubin,Total 0.5 mg/dL (0.2-1.3); Blood Urea Nitrogen 17 mg/dL (9-20); Carbon Dioxide 27 mmol/L (22-30); Chloride 106 mmol/L (98-107); Cholesterol 179 mg/dL (0-200); Estimated Glomerular Filt Rate > 60; Glucose 89 mg/dL (65-110); HDL Direct 58 mg/dL; Potassium 4.6 mmol/L (3.4-5.0); Sodium 139 mmol/L (137-145); Triglycerides 229 mg/dL (<150)
[2022-04-11 19:19] LABS: LDL Cholesterol Direct 32 mg/dL
[2022-04-11 20:58] LABS: Hemoglobin A1C 6.5 % (<5.7)
== END 2022-04-11 10:10 | disposition home or self-care (01) ==
LOC: ANHGOSHLAB 10:09
PROVIDERS: PCP Family Medicine; Visit Provider Family Medicine
DX: R73.03 Prediabetes (principal); I10 Essential (primary) hypertension; E78.5 Hyperlipidemia, unspecified
CPT/HCPCS: 36415; 80053; 80061; 83036

== ENCOUNTER 2022-06-12 14:10 | Observation (INO) | payer MEDICARE, SELFPAY ==
[2022-06-12] VITALS (12 sets, daily range): BP systolic 111–142; BP diastolic 58–95; PULSE 71–101; RESP 12–20; TEMP 36.3–36.8; O2SAT 96–100; BMI 31.2
--- NOTE | ~2022-06-12 | XR_ITS ---
Clinical Indication: Shortness of breath PA and lateral views of the chest: Comparison: 06/11/2020 Findings: The lungs are clear, without evidence of focal consolidation or pleural effusion. Cardiome diastinal silhouette is within normal limits. Bones and soft tissues are unremarkable. Impression: Normal chest. Reviewed, dictated and finalized at location . Impression: Normal chest.
--- NOTE | ~2022-06-12 | CT_ITS ---
Clinical Indication: Dyspnea CT Scan of the Chest with Contrast: Technique: Contiguous sections were acquired throughout the chest after intravenous administration of 100 cc of Omnipaque 350. Dose reduction technique was used on this scan by utilizing automated expos ure control and iterative reconstruction technique. The dose-length product (DLP) was 713.75 mGy-cm. COMPARISON: 10/22/2021 Findings: There is no evidence of any significant mediastinal, hilar or axillary lymphadenopathy. There is no f illing defect in the pulmonary arterial tree to suggest pulmonary embolus. There is no evidence of ao rtic dissection or aneurysm. There is no evidence of pleural or pericardial effusion. Moderate emphysema noted. No suspicious pulmonary nodule or consolidation. Images through the upper abdomen reveal no abnormalities. Impression: No evidence of pulmonary embolus, aortic dissection, or aortic aneurysm. Moderate emphysema. Reviewed, dictated and finalized at [facility]. Impression: No evidence of pulmonary embolus, aortic dissection, or aortic aneurysm. Moderate emphysema.
--- NOTE | 2022-06-12 14:14 | ECG_ITS ---
Measurements Intervals [place] Rate: 81 P: 47 MI: 159 QRS: 43 QRSD: 102 T: 41 QT: 362 QTc: 423 Interpretive Statements SINUS RHYTHM POSSIBLE LEFT ATRIAL ENLARGEMENT BASELINE ARTIFACT- I, II, III, AVR, AVL, AVF BORDERLINE ECG COMPARED TO ECG 06/11/2020 00:01:33 NO SIGNIFICANT CHANGES Electronically Signed On 06-12-2022 20:19:56 CDT by Gt Hector D.O.
[2022-06-12 14:38] LABS: Basophils Absolute Auto 0.1 K/mm3 (0.0-0.1); Basophils Percent Auto 0.6 % (0.2-1.2); Eosinophils Absolute Auto 0.4 K/mm3 (0-0.3); Hemoglobin 14.5 g/dL (14.0-18.0); Immature Granulocyte Absolute 0.02 K/mm3 (0.00-0.031); Immature Granulocyte Percent A 0.3 % (0-0.5); Lymphocytes Absolute Auto 1.64 K/mm3 (0.9-3.2); Lymphocytes Percent Auto 20.9 % (18.3-44.2); Mean Corpuscular Hemoglobin 30.7 pg (26-34); Mean Corpuscular Volume 93.2 fl (80-100); Mean Platelet Volume 9.4 fl (7.4-10.4); Monocytes Absolute Auto 1.3 K/mm3 (0.1-0.6); Monocytes Percent Auto 15.9 % (2.6-8.5); Neutrophils Absolute Auto 4.5 K/mm3 (1.3-6.7); Neutrophils Percent Auto 57.3 % (45.5-73.1); Platelet Count Result 178 k/mm3 (150-375); Red Blood Count 4.72 M/mm3 (4.6-6.20); Red Cell Distribution Width 14.2 % (11.5-14.5); White Blood Count 7.8 K/mm3 (4.5-10.0)
[2022-06-12 14:48] LABS: Alanine Aminotransferase 40 U/L (6-50); Albumin Level 4.4 g/dL (3.5-5.1); Alkaline Phosphatase 82 U/L (38-126); Anion Gap 6 mmol/L (8-16); Aspartate Amino Transferase 32 U/L (17-59); Bilirubin,Total 0.7 mg/dL (0.2-1.3); Blood Urea Nitrogen 22 mg/dL (9-20); Calcium 9.1 mg/dL (8.4-10.2); Carbon Dioxide 24 mmol/L (22-30); Chloride 104 mmol/L (98-107); Estimated CRCL calculation 70 ml/min; Estimated Glomerular Filt Rate > 60; Glucose 101 mg/dL (65-110); Lipase 106 U/L (23-300); Potassium 4.1 mmol/L (3.4-5.0); Sodium 134 mmol/L (137-145)
[2022-06-12 14:49] LABS: INR 1.1; Prothrombin Time 13.5 Seconds (11.1-14.7)
[2022-06-12 14:59] LABS: Troponin I < 0.012 ng/mL (0.000-0.034)
[2022-06-12 15:14] LABS: Influenza A QL RT-PCR Negative (Negative); Influenza B QL RT-PCR Negative (Negative); SARS-CoV-2 RNA PCR Positive
--- NOTE | 2022-06-12 15:31 | ED.CHESTPAIN ---
HPI - Chest Pain General Chief Complaint: Chest Pain Stated Complaint: Chest pain, SOB Time Seen by Provider: 06/12/22 15:25 Source: RN notes reviewed History of Present Illness HPI narrative: Patient presents emergency department from home for chest pain patient states that chest pain began in the middle of the night last night the pain is located across the chest and described as a tightness in nature. States that the pain does not radiate he does note some mild shortness of breath with the symptoms. States that he took nitroglycerin for his pain but does improve his pain but then it returns. States he has a history of a previous PA and is followed by Dr. Koo with stent placement. Patient also states that he tested positive for COVID-19 yesterday. Patient also states that he just recently returned from [place] with his return flight this past Monday. He denies any abdominal pain nausea or vomiting Related Data Home Medications Medication Instructions Recorded Confirmed ascorbic acid (vitamin C) 1,000 mg 1 gm PO DAILY 10/03/19 04/11/22 tablet omega-3 fatty acids 1,000 mg 1,000 mg PO DAILY 10/03/19 04/11/22 capsule (Fish Oil Concentrate) [id number] 1 tablet PO DAILY 11/05/19 04/11/22 [Centrum Silver] ticagrelor 60 mg tablet (Brilinta) 60 mg PO Q12H 10/14/21 04/11/22 cholecalciferol (vitamin D3) 50 50 mcg PO DAILY 01/05/22 04/11/22 mcg (2,000 unit) tablet (Vitamin D3) metoprolol tartrate 25 mg tablet 25 mg PO BID 04/11/22 04/11/22 Allergies Allergy/AdvReac Type Severity Reaction Status Date / Time No Known Allergies Allergy Unknown Verified 06/12/22 14:19 Review of Systems Review of Systems: Gen.: Denies fevers or chills ENT: Denies congestion Respiratory: Reports shortness of breath CV: See HPI GI: Denies abdominal pain nausea, emesis or diarrhea Musculoskeletal: Denies back pain or muscle pain Neuro: Denies numbness, tingling, weakness or focal weakness Skin: Denies rash Except as documented, all other systems reviewed and negative PMFSH Past Medical History Medical History Arthritis CAD (coronary artery disease) Dyslipidemia Erectile dysfunction Esophagitis Essential (primary) hypertension History of COVID-19 02/2020 Obstructive sleep apnea PAD (peripheral artery disease) Peripheral neuropathy Pre-diabetes ST elevation (STEMI) myocardial infarction 06/2020 Tendinitis of left rotator cuff Vitamin D deficiency Weight gain Surgical History Surgical History H/O heart artery stent (~06/2020) H/O hemorrhoidectomy (~2009) H/O rectal sphincterotomy (~11/2010) 11/2010 History of femoropopliteal bypass left - right - 02/19 Family History Family History Father Obstructive sleep apnea Diabetes mellitus Family history of thyroid disease Family history of chronic obstructive pulmonary disease Macular degeneration disease Grandparent Diabetes mellitus Heart attack Mother Depression Father Family history of diabetes mellitus in first degree relative Family history of emphysema Sibling Family history of malignant neoplasm of cervix Other Family history of congestive heart failure Social History Social History Smoking packs per day: 1.5 Smoking cigarettes per day: 30.0 Years smoked: 50 Smoking pack-years: 75.00 Smoking status: Former smoker Tobacco type: cigarettes Second hand tobacco smoke exposure: No Smoking end date: 02/05/19 Alcohol intake: current Alcohol use details: occasionally Substance use: never Substance use type: does not use Lack of Transportation: No Lack of Food: Sometimes True Current Housing: I Have Housing Concerned About Future Housing: No Difficulty Paying Gas/Electri
--- NOTE | 2022-06-12 17:05 | PC.NURSE ---
Patient states he is not having chest pain until he begins coughing.
[2022-06-12] MEDS: NITROGLYCERIN OINTMENT 1 INCH DOSE 0.5 INCH TRANSDERM (17:13)
--- NOTE | 2022-06-12 18:57 | PM.IMHP ---
H&P: HPI History of Present Illness Date/Time: 06/12/22 18:57 Chief Complaint: Chest pain Narrative: this is a 71-year-old male patient who came to the emergency room with complaints of chest pain. The patient recently had a trip to [place] and recently came back home This past Monday. The patient stated his was sick at the beginning of the trip but then she took some nausea medicine and felt better. The patient stated on the way home in the plane the patient started to feel sick. He had nasal congestion and chest tightness. The patient stated that he had pain across his chest and he has had a cough. He has had chills he has been hot and cold. Patient has some mild shortness of breath. The patient did take some nitroglycerin for his chest pain but it did in improved the pain. He stated is more if a tightness. The patient tested positive for COVID yesterday. The patient has had a previous myocardial infarction in the past. Cardiology has been consulted. Troponin nonreactive x2. The patient was negative for influenza a and B and was positive for COVID. The patient was given aspirin and nitroglycerin in the Emergency room. The patient is being admitted to observation status on the date of service of 06/12/2022 Review of Systems Review of Systems: see HPI All systems reviewed & are unremarkable except as noted in HPI and below Constitutional: Constitutional: Reports as per HPI and Reports no additional constitutional complaints Eyes: Eyes: Reports as per HPI and Reports no additional eye complaints ENT: Reports system reviewed and no additional complaints, except as documented and Reports Normal hearing present Cardiovascular: Cardiovascular: Reports no additional cardiovascular complaints Respiratory: Respiratory: Reports no additional respiratory complaints and Reports no additional respiratory complaints Gastrointestinal: Gastrointestinal: Reports as per HPI and Reports no additional gastrointestinal complaints Musculoskeletal: Musculoskeletal: Reports no additional musculoskeletal complaints Integumentary/Breasts: Skin/Breast: Reports system reviewed and no additional complaints, except as docu and Reports as per HPI Neurologic: Reports system reviewed and no additional complaints, except as documented, Reports as per HPI and Reports Normal hearing present Psychiatric: Psychiatric: Reports no additional psychiatric complaints and Reports as per HPI Endocrine: Endocrine: Reports no additional endocrine complaints Hematologic/Lymphatic: Hematologic/Lymphatic: Reports no additional hematologic/lymphatic complaints Allergic/Immunologic: Allergic/Immunologic: Reports no additional allergic/immunologic complaints [facility] Past Medical History Medical History (Updated 06/12/22 @ 23:11 by Jessie Cancino NP) Arthritis CAD (coronary artery disease) Dyslipidemia Erectile dysfunction Esophagitis Essential (primary) hypertension History of COVID-19 02/2020 History of diverticulitis History of kidney stones Obstructive sleep apnea PAD (peripheral artery disease) Peripheral neuropathy Pre-diabetes ST elevation (STEMI) myocardial infarction 06/2020 Tendinitis of left rotator cuff Vitamin D deficiency Weight gain Surgical History Surgical History (Updated 06/12/22 @ 23:11 by Jessie Cancino NP) H/O heart artery stent (~06/2020) H/O hemorrhoidectomy (~2009) H/O rectal sphincterotomy (~11/2010) 11/2010 History of colonoscopy History of femoropopliteal bypass left - right - 02/19 Hx of vasectomy Family History Family History Father Obstructive sleep apnea Diabetes mellitus Family history of thyroid disease Family history of chronic obstructive pulmonary disease Macular degeneration disease Grandparent Diabetes mellitus Heart attack Mother Depression Father Family history of diabetes mellitus in first degree relative F
--- NOTE | 2022-06-12 19:50 | ADMGEN ---
This patient, Jonathan Quijano Jr., was admitted to IMU Room 207-01. Patient/family oriented to hospital policies and general routines including ID bracelet, bed and alarms, visiting hours, pain management, procedures, bathroom and other care routines, personal items, smoking policy, room service/diet, and visiting hours. Information on how to activate the Rapid Response Team has been discussed. Patient/Family are encouraged to report perceived risks to care and to ask questions if they do not understand what they are told or what they should do.
[2022-06-12] MEDS: BARICITINIB 2 MG TABLET 4 MG PO (20:18)
[2022-06-12 20:27] LABS: Basophils Percent Auto 0.5 % (0.2-1.2); Eosinophils Absolute Auto 0.5 K/mm3 (0-0.3); Eosinophils Percent Auto 5.3 % (0-4.4); Hematocrit 45.6 % (42.0-52.0); Hemoglobin 14.9 g/dL (14.0-18.0); Immature Granulocyte Absolute 0.04 K/mm3 (0.00-0.031); Immature Granulocyte Percent A 0.5 % (0-0.5); Lymphocytes Absolute Auto 1.96 K/mm3 (0.9-3.2); Lymphocytes Percent Auto 22.5 % (18.3-44.2); Mean Corpuscular HGB Conc 32.7 g/dl (32-36); Mean Corpuscular Hemoglobin 30.9 pg (26-34); Mean Corpuscular Volume 94.6 fl (80-100); Mean Platelet Volume 9.5 fl (7.4-10.4); Monocytes Absolute Auto 1.1 K/mm3 (0.1-0.6); Monocytes Percent Auto 13.1 % (2.6-8.5); Neutrophils Absolute Auto 5.1 K/mm3 (1.3-6.7); Neutrophils Percent Auto 58.1 % (45.5-73.1); Platelet Count Result 169 k/mm3 (150-375); Red Blood Count 4.82 M/mm3 (4.6-6.20); Red Cell Distribution Width 14.1 % (11.5-14.5); White Blood Count 8.7 K/mm3 (4.5-10.0)
[2022-06-12 20:43] LABS: Alanine Aminotransferase 40 U/L (6-50); Aspartate Amino Transferase 29 U/L (17-59); Estimated CRCL calculation 70 ml/min; Estimated Glomerular Filt Rate > 60
[2022-06-12 20:56] LABS: Troponin I < 0.012 ng/mL (0.000-0.034)
[2022-06-12] MEDS: FLUTICASONE PROPIONATE 0.05% NA SPR 16 GM BTL (*BKC) 1 SPRAY NASAL (21:39)
[2022-06-12] MEDS: guaiFENesin 12 HR 600 MG TABCR 1200 MG PO (21:39)
[2022-06-12] MEDS: TICAGRELOR 60 MG TABLET PO (23:54)
[2022-06-12] MEDS: METOPROLOL TARTRATE 25 MG TABLET PO (23:54)
[2022-06-13] VITALS (8 sets, daily range): BP systolic 118–125; BP diastolic 60–63; PULSE 68–87; RESP 16–20; TEMP 36.4–36.6; O2SAT 95–97
--- NOTE | 2022-06-13 | ECHO_ITS ---
Patient Info Name: Jonathan Quijano Age: 71 years : 1950 Gender: Male Ht: 69 in Wt: 211 lbs BSA: 2.19 m2 HR: 69 bpm BP: 154 / 58 mmHg Heart Rhythm: Sinus Rhythm Exam Date: 06/13/2022 8:42 AM Exam Location: [facility] Pulmonary Patient Status: Inpatient Admit Date: 06/12/2022 Staff Ordering Physician: Jessie Cancino NP Social Worker Clinical: Perry Samuel RDCS, RT Attending Provider: Giuliano Sahni MD Referring Physician: Barak ROTHMAN; Exam Type: CA echo doppler color flow Study Info Indications R07.89 - Other chest pain Complete two-dimensional, color flow and Doppler transthoracic echocardiogram is performed. Strain analysis performed. Summary 1. Complete two-dimensional, color flow and Doppler transthoracic echocardiogram is performed. 2. Left ventricular chamber dimension is normal. 3. Left ventricular systolic function is normal, estimated at 50-55%. 4. There is mildly increased left ventricular wall thickness. 5. The inferolateral, basal-mid anterolateral bundy are hypokinetic, which was noted on previous study as well. 6. The left ventricular diastolic function is grade I diastolic dysfunction. 7. Right ventricular systolic function is normal. 8. There is moderate mitral valve regurgitation. 9. There is trace tricuspid valve regurgitation. 10. There is mild pulmonic regurgitation. Left Ventricle The inferolateral, basal-mid anterolateral bundy are hypokinetic, which was noted on previous study as well. Left ventricular chamber dimension is normal. Left ventricular systolic function is normal, estimated at 50-55%. There is mildly increased left ventricular wall thickness. The left ventricular diastolic function is grade I diastolic dysfunction. Global longitudinal strain is abnormal at -15 %. Right Ventricle Right ventricular chamber dimension is normal. Right ventricular systolic function is normal. Left Atria Left atrial chamber dimension is normal. Right Atria Right atrial chamber dimension is normal. Atrial Septum Intact interatrial septum visualized by color flow imaging. Aortic Valve The aortic valve is trileaflet. There is no aortic valve stenosis. There is no aortic valve regurgitation. There is mild aortic valve calcification. Pulmonic Valve The pulmonic valve is not well visualized. There is mild pulmonic regurgitation. Mitral Valve The mitral valve has normal leaflets. There is no mitral valve stenosis. There is moderate mitral valve regurgitation. Tricuspid Valve There is no significant tricuspid valve stenosis. There is trace tricuspid valve regurgitation. Pericardium/Pleural There is no pericardial effusion. Inferior Vena Cava Normal inferior vena cava with >50% collapse upon inspiration consistent with normal right atrial pressure, 3 mmHg. Aorta The aortic root size at the sinus of Valsalva is normal. Left Ventricular Outflow Tract Name Value Normal LVOT 2D LVOT Diameter 2.2 cm LVOT Doppler LVOT Peak Gradient 2 mmHg LVOT Mean Gradient 1 mmHg LVOT VTI
[2022-06-13 05:01] LABS: Basophils Percent Auto 0.5 % (0.2-1.2); Eosinophils Absolute Auto 0.4 K/mm3 (0-0.3); Eosinophils Percent Auto 6.2 % (0-4.4); Hematocrit 43.3 % (42.0-52.0); Hemoglobin 14.2 g/dL (14.0-18.0); Immature Granulocyte Absolute 0.02 K/mm3 (0.00-0.031); Immature Granulocyte Percent A 0.3 % (0-0.5); Lymphocytes Absolute Auto 2.49 K/mm3 (0.9-3.2); Lymphocytes Percent Auto 39.8 % (18.3-44.2); Mean Corpuscular HGB Conc 32.8 g/dl (32-36); Mean Corpuscular Hemoglobin 30.9 pg (26-34); Mean Corpuscular Volume 94.1 fl (80-100); Mean Platelet Volume 9.6 fl (7.4-10.4); Monocytes Absolute Auto 0.8 K/mm3 (0.1-0.6); Monocytes Percent Auto 12.6 % (2.6-8.5); Neutrophils Absolute Auto 2.5 K/mm3 (1.3-6.7); Neutrophils Percent Auto 40.6 % (45.5-73.1); Platelet Count Result 163 k/mm3 (150-375); Red Cell Distribution Width 14.1 % (11.5-14.5); White Blood Count 6.3 K/mm3 (4.5-10.0)
[2022-06-13 05:15] LABS: Alanine Aminotransferase 38 U/L (6-50); Alkaline Phosphatase 82 U/L (38-126); Anion Gap 9 mmol/L (8-16); Aspartate Amino Transferase 30 U/L (17-59); Bilirubin,Total 0.7 mg/dL (0.2-1.3); Blood Urea Nitrogen 21 mg/dL (9-20); Calcium 8.6 mg/dL (8.4-10.2); Carbon Dioxide 23 mmol/L (22-30); Chloride 104 mmol/L (98-107); Estimated CRCL calculation 70 ml/min; Estimated Glomerular Filt Rate > 60; Glucose 101 mg/dL (65-110); Lactate Dehydrogenase 143 U/L (120-246); Magnesium 2.2 mg/dL (1.6-2.3); Potassium 4.1 mmol/L (3.4-5.0); Sodium 136 mmol/L (137-145)
--- NOTE | 2022-06-13 09:00 | PM.CNCAR ---
Assessment and Plan Assessment and plan (1) Chest pain: Code(s): R07.9 - Chest pain, unspecified Status: Acute Assessment and Plan: Atypical chest pain likely related to his upper respiratory infection. He has had negative serial troponins and his EKG did not have any STTW changes concerning for ischemia. No objective evidence for ACS. No further cardiac workup indicated at this time. OK for discharge from a cardiac standpoint. (2) CAD (coronary artery disease): Qualifiers: Associated angina: without angina Coronary Disease-Associated Artery/Lesion type: [place] artery [place] vs. transplanted heart: [place] heart Qualified Code(s): I25.10 - Atherosclerotic heart disease of [place] coronary artery without angina pectoris Code(s): I25.10 - Atherosclerotic heart disease of [place] coronary artery without angina pectoris Status: Acute Assessment and Plan: He does have known CAD. Recent stress test in our office with positive EKG changes for ischemia but no reversible ischemia on perfusion imaging. Outpatient C was discussed with patient at last office visit but patient elected not to pursue this before his recent vacation. He has follow up with Dr. Koo on 06/27 to discuss this further. He is denying any exertional angina or symptoms consistent with unstable angina. Continue ASA, statin. History of Present Illness History of Present Illness Consult date/time: 06/13/22 09:00 Requesting physician: Fred Cedeno DO Consult reason: chest pain Reason For Visit: Chest Pain, COVID 19 Narrative: Mr. Sommer a 71-year-old male with a past medical history of peripheral arterial disease, hyperlipidemia, coronary artery disease presenting with STEMI in June of 2020. This is a patient who is followed in our clinic by Dr. Koo. He presents to the hospital now with complaints of sore throat, chest congestion, and chest pressure. He was found to be COVID positive. He began experiencing the symptoms mid last week after returning from a trip to [place]. He began developing increasing chest pressure in addition to his worsening upper respiratory symptoms. Prior to developing his COVID symptoms he had not been experiencing any chest pressure or exertional chest pain. Chest pain began with his other symptoms. It has been constant and not severe. Chest discomfort is worse with coughing. Patient denies any exertional chest pain. He states that since he is been admitted and treated for his COVID his chest pressure has improved. Review of Systems Review of Systems: All systems reviewed & are unremarkable except as noted in HPI and below PMFSH Past Medical History Medical History Arthritis CAD (coronary artery disease) Dyslipidemia Erectile dysfunction Esophagitis Essential (primary) hypertension History of COVID-19 02/2020 History of diverticulitis History of kidney stones Obstructive sleep apnea PAD (peripheral artery disease) Peripheral neuropathy Pre-diabetes ST elevation (STEMI) myocardial infarction 06/2020 Tendinitis of left rotator cuff Vitamin D deficiency Weight gain Surgical History Surgical History H/O heart artery stent (~06/2020) H/O hemorrhoidectomy (~2009) H/O rectal sphincterotomy (~11/2010) 11/2010 History of colonoscopy History of femoropopliteal bypass left - right - 02/19 Hx of vasectomy Family History Family History Father Obstructive sleep apnea Diabetes mellitus Family history of thyroid disease Family history of chronic obstructive pulmonary disease Macular degeneration disease Grandparent Diabetes mellitus Heart attack Mother Depression Father Family history of diabetes mellitus in first degree relative Family history of emphysema Sibling Family history
[2022-06-13] MEDS: ASPIRIN 81 MG ENTERIC TABLET PO (09:02)
[2022-06-13] MEDS: FLUTICASONE PROPIONATE 0.05% NA SPR 16 GM BTL (*BKC) 1 SPRAY NASAL (09:02)
[2022-06-13] MEDS: CHOLECALCIFEROL 1,000 UNITS TABLET 1000 UNITS PO (09:02)
[2022-06-13] MEDS: OMEGA 3 POLYUNSAT FATTY ACIDS 1 GM CAP 2 GM PO (09:02)
[2022-06-13] MEDS: METOPROLOL TARTRATE 25 MG TABLET PO (09:02)
[2022-06-13] MEDS: lisinopriL 20 MG TABLET PO (09:02)
[2022-06-13] MEDS: guaiFENesin 12 HR 600 MG TABCR 1200 MG PO (09:02)
[2022-06-13] MEDS: MULTIVITAMINS /C LUTEIN (CENTRUM SILVER) TABLET *BKC 1 TAB PO (09:02)
[2022-06-13] MEDS: ASCORBIC ACID 500 MG TABLET 1000 MG PO (09:02)
[2022-06-13] MEDS: TICAGRELOR 60 MG TABLET PO (09:04)
--- NOTE | 2022-06-13 12:23 | PM.DS ---
DS: Admitting Diagnosis Discharge Date June 13, 2022 Admitting Diagnosis COVID, chest pain DS: Discharge Diagnosis Discharge Diagnosis (1) Chest pain: Code(s): R07.9 - Chest pain, unspecified Status: Acute Assessment and Plan: patient's troponins are negative x2. He does have a history of having a cardiac stent. The patient is currently on aspirin and Brilinta. The patient took nitroglycerin without any relief. Dr. Meyers is his exchange trouble shooter. (2) COVID-19: Code(s): U07.1 - COVID-19 Status: Acute Assessment and Plan: Patient was started on olimiant (3) Obstructive sleep apnea: Code(s): G47.33 - Obstructive sleep apnea (adult) (pediatric) Status: Acute Assessment and Plan: I did order a CPAP however the patient does have COVID so I am not sure if he will be able to use it. (4) CAD (coronary artery disease): Qualifiers: Coronary Disease-Associated Artery/Lesion type: [place] artery [place] vs. transplanted heart: [place] heart Associated angina: without angina Qualified Code(s): I25.10 - Atherosclerotic heart disease of [place] coronary artery without angina pectoris Code(s): I25.10 - Atherosclerotic heart disease of [place] coronary artery without angina pectoris Status: Acute Assessment and Plan: Continue with aspirin and Brilinta. Continue with metoprolol continue simvastatin (5) Essential (primary) hypertension: Code(s): I10 - Essential (primary) hypertension Status: Acute Assessment and Plan: continue with lisinopril and metoprolol (6) Dyslipidemia: Code(s): E78.5 - Hyperlipidemia, unspecified Status: Acute Assessment and Plan: continue with simvastatin (7) PAD (peripheral artery disease): Code(s): I73.9 - Peripheral vascular disease, unspecified Status: Acute Assessment and Plan: continue with aspirin and Brilinta the patient has had of fem-pop bypass DS: Summary Hospital Course Hospital Course: Patient is a 71-year-old gentleman came in with chest pain. Negative cardiac workup in Cardiology does not want to do any further inpatient evaluation. Otherwise patient was found to be COVID positive. He is on room air. He wants to go home and feels like he would be fine at home. He can be discharged home. Time Spent with Patient Time attestation: Total time spent providing and/or coordinating discharge services: Exam Const: General: cooperative, healthy appearing, comfortable, no acute distress, well developed, alert, awake, Physically active, average body habitus and well nourished Nutritional Appearance: average body habitus and well nourished Orientation/consciousness: oriented to person, oriented to place, oriented to time and patient oriented x3 Limitations: no limitations HENMT: Head: normal to inspection, No palpable skull fracture present, normocephalic and atraumatic Ears: hearing grossly normal bilaterally and external ears normal Face/Nose/Sinus: Normal external nose present and Normal nares present Eyes: General: appearance normal, both eyes and all related structures Alignment and Position: alignment normal Periorbital: periorbital findings normal Eyelids: eyelids normal Sclera: sclerae normal Pupils: Equal, round and reactive pupils present EOM: EOMs intact bilaterally Neck: Neck: normal visual inspection, full ROM, no lymphadenopathy, trachea midline and supple Chest: Chest palpation & inspection: normal inspection of the chest Resp: Effort & Inspection: normal respiratory effort Auscultation: clear to auscultation bilaterally Cardio: Palpation: normal PMI Rate: regular rate Rhythm: regular rhythm Heart sounds: S1 normal heart sound present and S2 normal heart sound present Peripheral pulses: Peripheral pulses 2+ throughout GI: Inspection: normal to inspection Auscultation: normal bowel sounds Rectal Exam: deferred Back
== END 2022-06-13 12:45 | disposition home or self-care (01) ==
LOC: ANHED 18:02 → ANHIMU 19:43
PROVIDERS: Emergency Medicine; Nurse Practitioner; Admitting Provider Internal Medicine; Emergency Provider Emergency Medicine; PCP Family Medicine; Visit Provider Chiropractor
DX: R07.9 Chest pain, unspecified (principal); U07.1 COVID-19; G47.33 Obstructive sleep apnea (adult) (pediatric); I25.10 Atherosclerotic heart disease of native coronary artery without angina pectoris; I11.9 Hypertensive heart disease without heart failure; E78.5 Hyperlipidemia, unspecified; I73.9 Peripheral vascular disease, unspecified; I25.2 Old myocardial infarction; Z95.5 Presence of coronary angioplasty implant and graft; J43.9 Emphysema, unspecified; M19.90 Unspecified osteoarthritis, unspecified site; Z86.16 Personal history of COVID-19; I37.1 Nonrheumatic pulmonary valve insufficiency; G62.9 Polyneuropathy, unspecified; R73.03 Prediabetes; E55.9 Vitamin D deficiency, unspecified; R63.5 Abnormal weight gain; R19.7 Diarrhea, unspecified; Z68.31 Body mass index [BMI] 31.0-31.9, adult; F10.90 Alcohol use, unspecified, uncomplicated; Z87.891 Personal history of nicotine dependence; Z79.02 Long term (current) use of antithrombotics/antiplatelets; Z79.1 Long term (current) use of non-steroidal anti-inflammatories (NSAID); Z79.899 Other long term (current) drug therapy
CPT/HCPCS: 36415; 71046; 71275; 80053; 82565; 83615; 83690; 83735; 84443; 84450; 84460; 84484; 85025; 85610; 85730; 87636; 93005; 93306; 99285; A9270; G0378; Q9967

== ENCOUNTER 2022-07-06 01:25 | Day surgery (SDC) | payer MEDICARE, SELFPAY ==
[2022-07-06] VITALS (9 sets, daily range): BP systolic 99–129; BP diastolic 65–86; PULSE 60–68; RESP 14–25; TEMP 36.1–36.2; O2SAT 97–100; BMI 32.0
[2022-07-06 07:34] LABS: Basophils Absolute Auto 0.1 K/mm3 (0.0-0.1); Basophils Percent Auto 0.7 % (0.2-1.2); Eosinophils Absolute Auto 0.5 K/mm3 (0-0.3); Eosinophils Percent Auto 6.8 % (0-4.4); Hematocrit 43.7 % (42.0-52.0); Hemoglobin 14.1 g/dL (14.0-18.0); Immature Granulocyte Absolute 0.03 K/mm3 (0.00-0.031); Immature Granulocyte Percent A 0.4 % (0-0.5); Lymphocytes Percent Auto 33.3 % (18.3-44.2); Mean Corpuscular HGB Conc 32.3 g/dl (32-36); Mean Corpuscular Hemoglobin 30.5 pg (26-34); Mean Corpuscular Volume 94.6 fl (80-100); Mean Platelet Volume 9.6 fl (7.4-10.4); Monocytes Absolute Auto 0.6 K/mm3 (0.1-0.6); Monocytes Percent Auto 9.1 % (2.6-8.5); Neutrophils Absolute Auto 3.4 K/mm3 (1.3-6.7); Neutrophils Percent Auto 49.7 % (45.5-73.1); Platelet Count Result 198 k/mm3 (150-375); Red Blood Count 4.62 M/mm3 (4.6-6.20); White Blood Count 6.9 K/mm3 (4.5-10.0)
[2022-07-06 07:46] LABS: Anion Gap 9 mmol/L (8-16); Blood Urea Nitrogen 22 mg/dL (9-20); Calcium 8.8 mg/dL (8.4-10.2); Carbon Dioxide 21 mmol/L (22-30); Chloride 109 mmol/L (98-107); Estimated CRCL calculation 88 ml/min; Estimated Glomerular Filt Rate > 60; Glucose 104 mg/dL (65-110); Potassium 4.4 mmol/L (3.4-5.0); Sodium 139 mmol/L (137-145)
--- NOTE | 2022-07-06 08:57 | WPDHPUPDATE1 ---
History and Physical Update Update Date/Time: 07/06/22 08:57 History and Physical has been reviewed, including an updated exam of the patient. There are NO changes in the patient's condition. Risks, benefits, and alternatives have been discussed and questions answered. Patient agrees to proceed with procedure.
--- NOTE | 2022-07-06 08:57 | WPDMODSED ---
Moderate Sedation Note-Pt Data Patient Data Diagnosis: CAD Present Complaint: Chest pain Procedure to be performed/Plan: Coronary angiography, LHC, +/- PCI Allergies Allergy/AdvReac Type Severity Reaction Status Date / Time No Known Allergies Allergy Unknown Verified 07/06/22 07:13 Home Medications Medication Instructions Recorded Confirmed Type ascorbic acid (vitamin C) 1,000 mg 1 gm PO DAILY 10/03/19 07/06/22 History tablet omega-3 fatty acids 1,000 mg 1,000 mg PO DAILY 10/03/19 07/06/22 History capsule (Fish Oil Concentrate) [id number]-ryrcicah-qtzaxh 1 tablet PO DAILY 11/05/19 07/06/22 History [Centrum Silver] aspirin 81 mg tablet,delayed 81 mg PO DAILY 30 days #30 tabs 06/13/20 07/06/22 Rx release ticagrelor 60 mg tablet (Brilinta) 60 mg PO Q12H 10/14/21 07/06/22 History cholecalciferol (vitamin D3) 50 50 mcg PO DAILY 01/05/22 07/06/22 History mcg (2,000 unit) tablet (Vitamin D3) metoprolol tartrate 25 mg tablet 25 mg PO BID 04/11/22 07/06/22 History sildenafil 100 mg tablet 100 mg PO DAILY PRN sexual 04/11/22 07/05/22 Rx activity #30 tabs simvastatin 40 mg tablet 40 mg PO QHS #90 tabs 04/27/22 07/05/22 Rx diphenhydramine 25 3 tablet PO HS PRN Diarrhea 06/12/22 07/05/22 History mg-acetaminophen 500 mg tablet (Tylenol PM Extra Strength) loperamide 2 mg capsule 2 mg PO Q4H PRN Diarrhea 06/12/22 07/05/22 History nitroglycerin 0.4 mg sublingual 0.4 mg sublingual Q5M 06/12/22 07/05/22 History tablet lisinopril 20 mg tablet 20 mg PO DAILY #90 tabs 06/29/22 07/06/22 Rx ICaps AREDS 1 PO DAILY 07/05/22 History Current Medications: Active Medications Sodium Chloride (Normal Saline Iv) 500 mls @ 100 mls/hr IV CONT .Q5H YSABEL Sedation/Anesthesia: No previous sedation/anesthesia problems (including family history). [facility] Past Medical History Medical History Arthritis CAD (coronary artery disease) Dyslipidemia Erectile dysfunction Esophagitis Essential (primary) hypertension History of COVID-19 02/2020 History of diverticulitis History of kidney stones Obstructive sleep apnea PAD (peripheral artery disease) Peripheral neuropathy Pre-diabetes ST elevation (STEMI) myocardial infarction 06/2020 Tendinitis of left rotator cuff Vitamin D deficiency Weight gain Surgical History Surgical History H/O heart artery stent (~06/2020) H/O hemorrhoidectomy (~2009) H/O rectal sphincterotomy (~11/2010) 11/2010 History of colonoscopy History of femoropopliteal bypass left - right - 02/19 Hx of vasectomy Family History Family History Father Obstructive sleep apnea Diabetes mellitus Family history of thyroid disease Family history of chronic obstructive pulmonary disease Macular degeneration disease Grandparent Diabetes mellitus Heart attack Mother Depression Father Family history of diabetes mellitus in first degree relative Family history of emphysema Sibling Family history of malignant neoplasm of cervix Other Family history of congestive heart failure Social History Social History Social History: the patient lives with his . he has 2 children .Retired from [employer] Code status full code Smoking packs per day: 1.5 Smoking cigarettes per day: 30.0 Years smoked: 50 Smoking pack-years: 75.00 Smoking status: Former smoker Tobacco type: cigarettes Second hand tobacco smoke exposure: No Smoking end date: 02/05/19 Alcohol intake: current Alcohol use details: occassionally 1-2 per month Substance use: never Substance use type: does not use Lack of Transportation: No Lack of Food: Never True Current Housing: I Have Housing Concerned About Future Housing: No D
--- NOTE | 2022-07-06 09:01 | WPDCARDPROC ---
Cardiac Cath Procedure Note Date of procedure:: 07/06/22 Performing physician:: CATHETERIZATION LABORATORY REPORT Procedure Date: 07/06/2022 [employer] Umpire: Bryce Lawson M.D., [facility]? Referring Physician: Dr. Koo ? Anesthesia: Versed and Fentanyl were ordered and given in my presence at 08:29, procedure ended at 08:53. Supervision of nurse monitored moderate sedation with Versed and Fentanyl was provided for 24 minutes. Total of Versed 2mg and Fentanyl 50mcg were administered by the Trigonometry Tutor RN Mayra Diaz. Pre-op Diagnosis: Coronary artery disease Post-op Diagnosis: Non-obstructive coronary artery disease with widely patent proximal left circumflex stent Left-dominant coronary artery system Left ventricular end-diastolic pressure of 22mmHg Procedure(s): Left heart catheterization with coronary angiography Access Site: Right radial artery Brief History and Clinical Indications: Patient is a 71 year old male with a history of CAD with STEMI in 06/2020 who is referred for [facility] for anginal symptoms. All risks, benefits and alternatives to left heart catheterization with or without percutaneous coronary intervention was discussed at length with the patient. Risk of complications including but not limited to bleeding, infection, arrhythmia, stroke, worsening kidney function, blood loss, groin hematoma, limb loss, emergency coronary artery bypass grafting, and even were discussed with the patient and all questions were answered. The patient understood and wished to proceed. Time out called, patient name, date of , medical record number, allergies, procedure performed, identify [employer] Umpire, patient and staff member concurred with accurate data, procedure carried on. Findings: LEFT HEART CATHETERIZATION FINDINGS: 1. Left main: Large caliber vessel. The left main coronary artery is widely patent without any significant obstructive disease. 2. Left anterior descending: The proximal LAD has mild luminal irregularities. The mid portion has mild 30% calcific disease. The remainder of the LAD has mild luminal irregularities. Diagonal-1 branch is without any obstructive disease. Mildly slow flow noted in the LAD on initial angiograms. 3. Left circumflex: The left circumflex artery is the dominant vessel. Large caliber vessel. There is a widely patent stent in the proximal segment. There is mild diffuse disease in the mid portion. The distal left circumflex has mild luminal irregularities. The mid LPDA has a mild 20% focal stenosis. The mid portion of the LPL vessel has mild 30-40% disease. OM vessels are without any obstructive disease. 4. Right coronary artery: The RCA is a nondominant small caliber vessel. No obstructive disease. 5. Left ventricle: A. End-diastolic pressure 22mmHg. B. LV gram deferred. C. No significant gradient across aortic valve on catheter pullback. Description of Procedure: Informed consent signed and placed in the chart. Patient transferred to veterinarian laboratory animal care room. Prepped and draped in usual sterile fashion. 2% lidocaine injected subcutaneously in right wrist area. 22-gauge venipuncture catheter used to access the right radial artery with the Seldinger technique. 6-FR slender sheath placed in right radial artery. Nitroglycerine and Verapamil were given intraarterial through the sheath. Versacore wire advanced under fluoroscopy 5F Tig 4 diagnostic catheter engaged Left Main Coronary Artery. 5F Tig 4 diagnostic catheter engaged Right Coronary Artery Multiple orthogonal angiogram obtained and reviewed 5F Tig 4 diagnostic catheter crossed aortic valve to obtain LVEDP, LV angiogram deferred. Hemostasis was achieved by application of TR band. ? Assessment: Non-obstructive coronary artery disease with widely patent proximal left circumflex stent Left-dominant coronary artery system Left ventricular end-diastolic pressure of 22mmHg Post Operative Condition: Stable No significant blood loss
--- NOTE | 2022-07-06 11:45 | SUR.PHASEII ---
d/c instructions given to patient. iv d/c tip intact. all questions and concerns address. patient has f/u with his grave cleaner dr schumacher in 6 weeks. patient's right wrist is soft/non tender/ pink/ warm.
--- NOTE | 2022-07-06 11:59 | SUR.PHASEII ---
patient taken via [facility] to personal vehicle w/ family member driving.
== END 2022-07-06 11:59 | disposition home or self-care (01) ==
PROVIDERS: PCP Family Medicine; Visit Provider Internal Medicine
PROC: 4A023N7 Measurement of Cardiac Sampling and Pressure, Left Heart, Percutaneous Approach (ICD-10-PCS; CPT 93452; principal; 2022-07-06 08:30)
DX: I25.118 Atherosclerotic heart disease of native coronary artery with other forms of angina pectoris (principal); I25.2 Old myocardial infarction; R93.1 Abnormal findings on diagnostic imaging of heart and coronary circulation; Z95.5 Presence of coronary angioplasty implant and graft; E78.5 Hyperlipidemia, unspecified; I10 Essential (primary) hypertension; G47.33 Obstructive sleep apnea (adult) (pediatric); I73.9 Peripheral vascular disease, unspecified; R73.03 Prediabetes; E55.9 Vitamin D deficiency, unspecified; G62.9 Polyneuropathy, unspecified; Z87.891 Personal history of nicotine dependence; Z86.16 Personal history of COVID-19; Z79.01 Long term (current) use of anticoagulants; Z79.82 Long term (current) use of aspirin
CPT/HCPCS: 36415; 80048; 85025; 93458; C1769; C1887; C1894; J1644; J2250; J3010; J7040

== ENCOUNTER 2022-09-15 17:08 | Emergency (ER) | payer MEDICARE, SELFPAY ==
[2022-09-15 17:22] VITALS: BP 145/92; PULSE 85; RESP 15; TEMP 36.3; O2SAT 97
[2022-09-15] MEDS: LIDOCAINE HCL 1% LOCAL INJ 10 ML VIAL 5 ML INFILTRATE (19:31)
--- NOTE | 2022-09-15 20:02 | ED.SKABFB ---
HPI - Skin/Abscess/Foreign Bdy General Chief complaint: Skin/Abscess/Foreign Body <Katiuska Chacon PA-C - Last Filed: 09/15/22 21:34> Stated complaint: fish hook to face <Katiuska Chacon PA-C - Last Filed: 09/15/22 21:34> Time Seen by Provider: 09/15/22 18:45 <Katiuska Chacon PA-C - Last Filed: 09/15/22 21:34> History of Present Illness HPI narrative: Patient is a 71 year male here for evaluation of retained fish hook in right cheek. States the hook came out of the fish's mouth and flew into his cheek. Tdap UTD. Attempted to remove it but was unsuccessful. He did cut off the top of the eileen. <Katiuska Chacon PA-C - Last Filed: 09/15/22 21:34> Related Data Home medications: Home Medications Medication Instructions Recorded Confirmed ascorbic acid (vitamin C) 1,000 mg 1 gm PO DAILY 10/03/19 07/06/22 tablet omega-3 fatty acids 1,000 mg 1,000 mg PO DAILY 10/03/19 07/06/22 capsule (Fish Oil Concentrate) [id number]-obtuufdb-[id number] 1 tablet PO DAILY 11/05/19 07/06/22 [Centrum Silver] ticagrelor 60 mg tablet (Brilinta) 60 mg PO Q12H 10/14/21 07/06/22 cholecalciferol (vitamin D3) 50 50 mcg PO DAILY 01/05/22 07/06/22 mcg (2,000 unit) tablet (Vitamin D3) metoprolol tartrate 25 mg tablet 25 mg PO BID 04/11/22 07/06/22 diphenhydramine 25 3 tablet PO HS PRN Diarrhea 06/12/22 07/05/22 mg-acetaminophen 500 mg tablet (Tylenol PM Extra Strength) loperamide 2 mg capsule 2 mg PO Q4H PRN Diarrhea 06/12/22 07/05/22 nitroglycerin 0.4 mg sublingual 0.4 mg sublingual Q5M 06/12/22 07/05/22 tablet ICaps AREDS 1 PO DAILY 07/05/22 <KENNY HorvathC - Last Filed: 09/15/22 21:34> Allergies/Adverse reactions: Allergies Allergy/AdvReac Type Severity Reaction Status Date / Time No Known Allergies Allergy Unknown Verified 09/15/22 17:11 <Katiuska Chacon PA-C - Last Filed: 09/15/22 21:34> Review of Systems Review of Systems: Gen.: Denies fevers or chills Eyes: Denies eye pain or visual change ENT: Denies congestion Respiratory: Denies shortness of breath or cough CV: Denies chest pain or palpitations GI: Denies abdominal pain nausea, emesis or diarrhea denies burning, urgency, frequency or hematuria Musculoskeletal: Denies back pain or muscle pain Neuro: Denies numbness, tingling, weakness or focal weakness Skin: Retained fishhook in cheek Except as documented, all other systems reviewed and negative <Katiuska Chacon PA-C - Last Filed: 09/15/22 21:34> [facility] Past Medical History Medical History: Medical History Arthritis CAD (coronary artery disease) Dyslipidemia Erectile dysfunction Esophagitis Essential (primary) hypertension History of COVID-19 02/2020 History of diverticulitis History of kidney stones Obstructive sleep apnea PAD (peripheral artery disease) Peripheral neuropathy Pre-diabetes ST elevation (STEMI) myocardial infarction 06/2020 Tendinitis of left rotator cuff Vitamin D deficiency Weight gain <Katiuska Chacon PA-C - Last Filed: 09/15/22 21:34> Surgical History Surgical History: Surgical History H/O heart artery stent (~06/2020) H/O hemorrhoidectomy (~2009) H/O rectal sphincterotomy (~11/2010) 11/2010 History of colonoscopy History of femoropopliteal bypass left - right - 02/19 Hx of vasectomy <Katiuska Chacon PA-C - Last Filed: 09/15/22 21:34> Family History Family History: Family History Father Obstructive sleep apnea Diabetes mellitus Family history of thyroid disease Family history of chronic obstructive pulmonary disease Macular degeneration disease Grandparent Diabetes mellitus Heart attack Mother Depression Father Family history of diabetes mellitus in f
[2022-09-15 20:08] VITALS: BP 138/80; PULSE 69; RESP 17; O2SAT 99
== END 2022-09-15 20:09 | disposition home or self-care (01) ==
PROVIDERS: Emergency Provider Physician Assistant; PCP Family Medicine
DX: S00.85XA Superficial foreign body of other part of head, initial encounter (principal); I25.10 Atherosclerotic heart disease of native coronary artery without angina pectoris; E78.5 Hyperlipidemia, unspecified; I10 Essential (primary) hypertension; I73.9 Peripheral vascular disease, unspecified; I25.2 Old myocardial infarction; R73.03 Prediabetes; G62.9 Polyneuropathy, unspecified; E55.9 Vitamin D deficiency, unspecified; M19.90 Unspecified osteoarthritis, unspecified site; Z95.5 Presence of coronary angioplasty implant and graft; Z86.16 Personal history of COVID-19; Z87.442 Personal history of urinary calculi; Z87.891 Personal history of nicotine dependence; W26.8XXA Contact with other sharp object(s), not elsewhere classified, initial encounter; W45.8XXA Other foreign body or object entering through skin, initial encounter
CPT/HCPCS: 99283

== ENCOUNTER 2022-10-17 10:11 | Outpatient (CLI) | payer MEDICARE, SELFPAY ==
[2022-10-17 13:52] LABS: Basophils Absolute Auto 0.1 K/mm3 (0.0-0.1); Basophils Percent Auto 0.9 % (0.2-1.2); Eosinophils Absolute Auto 0.6 K/mm3 (0-0.3); Eosinophils Percent Auto 6.9 % (0-4.4); Hematocrit 48.2 % (42.0-52.0); Hemoglobin 15.5 g/dL (14.0-18.0); Immature Granulocyte Absolute 0.02 K/mm3 (0.00-0.031); Immature Granulocyte Percent A 0.2 % (0-0.5); Lymphocytes Absolute Auto 2.46 K/mm3 (0.9-3.2); Lymphocytes Percent Auto 30.1 % (18.3-44.2); Mean Corpuscular HGB Conc 32.2 g/dl (32-36); Mean Corpuscular Hemoglobin 30.6 pg (26-34); Mean Corpuscular Volume 95.3 fl (80-100); Monocytes Absolute Auto 0.7 K/mm3 (0.1-0.6); Monocytes Percent Auto 8.8 % (2.6-8.5); Neutrophils Absolute Auto 4.3 K/mm3 (1.3-6.7); Neutrophils Percent Auto 53.1 % (45.5-73.1); Platelet Count Result 206 k/mm3 (150-375); Red Blood Count 5.06 M/mm3 (4.6-6.20); Red Cell Distribution Width 13.5 % (11.5-14.5); White Blood Count 8.2 K/mm3 (4.5-10.0)
[2022-10-17 14:02] LABS: Alanine Aminotransferase 48 U/L (6-50); Albumin Level 4.6 g/dL (3.5-5.1); Alkaline Phosphatase 101 U/L (38-126); Anion Gap 6 mmol/L (8-16); Aspartate Amino Transferase 56 U/L (17-59); Bilirubin,Total 0.6 mg/dL (0.2-1.3); Blood Urea Nitrogen 20 mg/dL (9-20); Calcium 9.7 mg/dL (8.4-10.2); Carbon Dioxide 29 mmol/L (22-30); Chloride 103 mmol/L (98-107); Cholesterol 186 mg/dL (0-200); Estimated Glomerular Filt Rate > 60; Glucose 98 mg/dL (65-110); HDL Direct 55 mg/dL; Potassium 5.3 mmol/L (3.4-5.0); Sodium 138 mmol/L (137-145); Triglycerides 291 mg/dL (<150)
[2022-10-17 14:16] LABS: Vitamin D 25 Hydroxy 46.3 ng/mL
[2022-10-17 14:21] LABS: Creatinine Urine 127.5 mg/dL
[2022-10-17 14:23] LABS: MALB Creatinine Ratio 6.6 mg/g (0-30); Microalbumin Urine Random 8.4 mg/L (0-16.7)
[2022-10-17 14:29] LABS: Thyroid Stimulating Hormone Reflex 0.781 uIU/mL (0.465-4.68)
[2022-10-17 14:34] LABS: Prostate Specific Antigen 0.6 ng/mL (< OR = 4.0)
[2022-10-17 15:01] LABS: LDL Cholesterol Direct < 30 mg/dL
[2022-10-17 16:40] LABS: Hemoglobin A1C 6.1 % (<5.7)
== END 2022-10-17 10:12 | disposition home or self-care (01) ==
LOC: ANHGOSHLAB 10:13
PROVIDERS: PCP Family Medicine; Visit Provider Family Medicine
DX: Z00.00 Encounter for general adult medical examination without abnormal findings (principal); E11.9 Type 2 diabetes mellitus without complications; E53.8 Deficiency of other specified B group vitamins; E78.5 Hyperlipidemia, unspecified; Z12.5 Encounter for screening for malignant neoplasm of prostate; I10 Essential (primary) hypertension; E55.9 Vitamin D deficiency, unspecified
CPT/HCPCS: 36415; 80053; 80061; 82043; 82306; 82607; 83036; 84153; 84443; 85025; G0103

== ENCOUNTER 2022-11-02 08:13 | Outpatient (CLI) | payer MEDICARE, SELFPAY ==
[2022-11-02 19:12] LABS: Anion Gap 4 mmol/L (8-16); Blood Urea Nitrogen 21 mg/dL (9-20); Calcium 9.2 mg/dL (8.4-10.2); Carbon Dioxide 25 mmol/L (22-30); Chloride 105 mmol/L (98-107); Estimated Glomerular Filt Rate > 60; Glucose 91 mg/dL (65-110); Potassium 4.2 mmol/L (3.4-5.0); Sodium 134 mmol/L (137-145)
== END 2022-11-02 08:14 | disposition home or self-care (01) ==
LOC: ANHGOSHLAB 08:15
PROVIDERS: PCP Family Medicine; Visit Provider Family Medicine
DX: E87.5 Hyperkalemia (principal)
CPT/HCPCS: 36415; 80048

== ENCOUNTER 2023-04-20 09:50 | Outpatient (CLI) | payer MEDICARE, SELFPAY ==
[2023-04-20 13:07] LABS: Hemoglobin A1C 6.8 % (<5.7)
[2023-04-20 13:17] LABS: Alanine Aminotransferase 42 U/L (6-50); Albumin Level 4.4 g/dL (3.5-5.1); Alkaline Phosphatase 71 U/L (38-126); Anion Gap 6 mmol/L (8-16); Aspartate Amino Transferase 61 U/L (17-59); Bilirubin,Total 0.6 mg/dL (0.2-1.3); Blood Urea Nitrogen 23 mg/dL (9-20); Calcium 9.7 mg/dL (8.4-10.2); Carbon Dioxide 28 mmol/L (22-30); Chloride 104 mmol/L (98-107); Estimated Glomerular Filt Rate > 60; Glucose 96 mg/dL (65-110); Potassium 4.6 mmol/L (3.4-5.0); Sodium 138 mmol/L (137-145)
== END 2023-04-20 09:51 | disposition home or self-care (01) ==
LOC: ANHGOSHLAB 09:52
PROVIDERS: PCP Family Medicine; Visit Provider Family Medicine
DX: R73.03 Prediabetes (principal); I10 Essential (primary) hypertension
CPT/HCPCS: 36415; 80053; 83036

== ENCOUNTER 2024-01-15 09:56 | Outpatient (CLI) | payer MEDICARE, SELFPAY ==
[2024-01-15 14:39] LABS: Basophils Absolute Auto 0.1 K/mm3 (0.0-0.1); Basophils Percent Auto 0.7 % (0.2-1.2); Eosinophils Absolute Auto 0.5 K/mm3 (0-0.3); Eosinophils Percent Auto 5.3 % (0-4.4); Hematocrit 45.3 % (42.0-52.0); Hemoglobin 14.6 g/dL (14.0-18.0); Immature Granulocyte Absolute 0.04 K/mm3 (0.00-0.031); Immature Granulocyte Percent A 0.5 % (0-0.5); Lymphocytes Absolute Auto 1.92 K/mm3 (0.9-3.2); Lymphocytes Percent Auto 22.7 % (18.3-44.2); Mean Corpuscular HGB Conc 32.2 g/dl (32-36); Mean Corpuscular Hemoglobin 30.4 pg (26-34); Mean Corpuscular Volume 94.4 fl (80-100); Mean Platelet Volume 9.7 fl (7.4-10.4); Monocytes Absolute Auto 0.6 K/mm3 (0.1-0.6); Monocytes Percent Auto 7.6 % (2.6-8.5); Neutrophils Absolute Auto 5.3 K/mm3 (1.3-6.7); Neutrophils Percent Auto 63.2 % (45.5-73.1); Platelet Count Result 220 k/mm3 (150-375); Red Cell Distribution Width 13.4 % (11.5-14.5); White Blood Count 8.4 K/mm3 (4.5-10.0)
[2024-01-15 14:47] LABS: Alanine Aminotransferase 29 U/L (6-50); Albumin Level 4.5 g/dL (3.5-5.1); Alkaline Phosphatase 61 U/L (38-126); Anion Gap 7 mmol/L (4-12); Aspartate Amino Transferase 62 U/L (17-59); Bilirubin,Total 0.8 mg/dL (0.2-1.3); Blood Urea Nitrogen 21 mg/dL (9-20); Calcium 9.7 mg/dL (8.4-10.2); Carbon Dioxide 26 mmol/L (22-30); Chloride 104 mmol/L (98-107); Cholesterol 135 mg/dL (0-200); Estimated Glomerular Filt Rate > 60; Glucose 91 mg/dL (65-110); HDL Direct 67 mg/dL; Potassium 4.8 mmol/L (3.4-5.0); Sodium 137 mmol/L (137-145); Triglycerides 103 mg/dL (<150)
[2024-01-15 15:06] LABS: Creatinine Urine 85.3 mg/dL
[2024-01-15 15:07] LABS: LDL Cholesterol Direct < 30 mg/dL
[2024-01-15 15:11] LABS: Prostate Specific Antigen 1.4 ng/mL (< OR = 4.0)
[2024-01-15 15:12] LABS: Hemoglobin A1C 6.4 % (<5.7)
[2024-01-15 15:13] LABS: MALB Creatinine Ratio < 7.0 mg/g (0-30); Microalbumin Urine Random < 6.0 mg/L (0-16.7)
[2024-01-15 15:14] LABS: Vitamin D 25 Hydroxy 44.8 ng/mL
[2024-01-15 15:42] LABS: Hepatitis C Virus Antibody Negative (Negative)
== END 2024-01-15 09:57 | disposition home or self-care (01) ==
LOC: ANHGOSHLAB 09:57
PROVIDERS: PCP Family Medicine; Visit Provider Family Medicine
DX: E11.9 Type 2 diabetes mellitus without complications (principal); I10 Essential (primary) hypertension; Z12.5 Encounter for screening for malignant neoplasm of prostate; I25.10 Atherosclerotic heart disease of native coronary artery without angina pectoris; E78.5 Hyperlipidemia, unspecified; G62.9 Polyneuropathy, unspecified; E53.8 Deficiency of other specified B group vitamins; E55.9 Vitamin D deficiency, unspecified; Z11.59 Encounter for screening for other viral diseases
CPT/HCPCS: 36415; 80053; 80061; 82043; 82306; 82607; 83036; 84153; 84443; 85025; 86803; G0103

== ENCOUNTER 2024-07-22 09:29 | Outpatient (CLI) | payer MEDICARE, SELFPAY ==
--- OUTSIDE RECORDS SUMMARY | 2024-07-22 10:32 | XMS_ITS | Referral Summary ---
Author Organization [facility] [place] [address] [place] [address] Address [address] [facility] [address] [place] [address] Care Team Providers Care Dairy Cattle Farm Manager Name Role Phone Manisha Farias MD Primary Care Provider Encounters Date Type Department Care Team Description 05/01/2024 Orders Only [facility] Medical Group Vascular at [address] [place] [address] Robert Chavira MD Atherosclerosis of [place] artery of both lower extremities with intermittent claudication (Primary Dx) 05/01/2024 10:30 AM MOLDER OPERATOR Office Visit [facility] Group Vascular at [address] [place] [address] Ara Chen NP Peripheral arterial disease with history of revascularization (Primary Dx); Essential hypertension; Dyslipidemia, goal LDL below 70; Bilateral carotid artery stenosis 05/01/2024 8:45 AM MOLDER OPERATOR Office Visit [facility] Medical [facility] Cardiology [address] [facility] [address] [place] [address] Ulises Koo MD Coronary artery disease of [place] artery of [place] heart with stable angina pectoris (Primary Dx); Nonrheumatic mitral valve regurgitation; Peripheral arterial disease with history of revascularization; TANYA (obstructive sleep apnea) from Last 3 Months Allergies No known active allergies Medications multivitamin-mi nerals-lutein tablet Take by mouth Active simvastatin (ZOCOR) 40 mg tablet Take 1 tablet (40 mg total) by mouth nightly 90 tablet 2 1 Active aspirin 81 mg enteric coated tablet Take 1 tablet (81 mg total) by mouth daily 90 tablet 1 Active diphenhydrAMINE -acetaminophen (TYLENOL PM) 25-500 mg tablet Take 1 tablet by mouth Active cholecalciferol (VITAMIN D-3) 2000 unit capsule Take 1 capsule (2,000 Units total) by mouth daily Active sildenafiL (VIAGRA) 100 mg tablet Take 1 tablet (100 mg total) by mouth as needed for erectile dysfunction Active lisinopriL (PRINIVIL,ZESTR IL) 20 mg tablet Take 1 tablet (20 mg total) by mouth daily 90 tablet 1 2 Active loperamide (Imodium A-D) 2 mg tablet Take 1 tablet (2 mg total) by mouth as needed for diarrhea Active tamsulosin (FLOMAX) 0.4 mg extended release capsule Take 1 capsule (0.4 mg total) by mouth 4 Active icosapent ethyL (VASCEPA) 1 gram capsule Take 1 capsule (1 g total) by mouth 2 (two) times a day 4 Active fenofibrate (TRIGLIDE) 160 mg tablet Take 1 tablet (160 mg total) by mouth daily 4 Active metoprolol tartrate (LOPRESSOR) 25 mg immediate release tablet TAKE 1 TABLET(25 MG) BY MOUTH TWICE DAILY 180 tablet 2 4 Active Brilinta 60 mg tabletIndicatio ns:Coronary artery disease involving [place] coronary artery of [place] heart without angina pectoris TAKE 1 TABLET(60 MG) BY MOUTH TWICE DAILY 180 tablet 1 4 Active nitroglycerin (NITROSTAT) 0.[address] 1 TABLET SUBLINGUALLY EVERY 5 MINUTES NEEDED ANGINA, MAY REPEAT AFTER 5 MINUTES FOR UP TO 3 DOSES IF SYMPTOMS PERSIST 25 tablet 11 5 Active Jardiance 25 mg tablet Take 1 tablet (25 mg total) by mouth every morning 5 Active vitamins A,C,E-zinc-uhmble er (ICAPS) 4,296 mcg-226 mg-90 mg capsule Take by mouth Active Active Problems Problem Noted Date Diagnosed Date Bilateral carotid artery stenosis 10/04/2023 Assessment & Plan (05/02/2024 11:02 AM MOLDER OPERATOR): Patient remains asymptomatic. Is scheduled to follow-up in the summer for his annual carotid duplex/evaluation. Assessment & Plan (10/26/2023 10:45 AM CDT): Asymptomatic moderate 50-69% stenosis of bilateral internal carotid arteries. We will need ongoing surveillance with repeat duplex in 1 year. Continue ASA statin therapy good blood pressure control. Assessment & Plan (10/04/2023 4:07 PM CDT): Carotid stenosis remains asymptomatic and compliant with medications. Last scan was in January of 2023. Plan follow-up in the next couple of weeks with a carotid duplex. Nonrheumatic mitral valve regurgitation 09/03/19 TANYA (obstructive sleep apnea) 10/07/2020 Coronary artery disease of n ative artery of [place] heart with stable angina pectoris 06/23/2020 Peripheral arterial disease with history of revascularization 06/23/2020 Assessment & Plan (05/02/2024 10:59 AM MOLDER OPERATOR): Patient is continuing doing well denying any claudication or rest pain. Bilateral fem-pop bypasses by Dr. Starkey remain patent. Continue aspirin statin therapy and follow up in 1 year for routine surveillance with lower extremity arterial duplex Assessment & Plan (10/26/2023 10:45 AM CDT): History of bilateral fem-pop bypasses by Dr. Leonardo, overall doing well. Continue ongoing surveillance and risk factor modification with ASA statin therapy. Follow up in 6 months with repeat noninvasives. Assessment & Plan (10/04/2023 4:06 PM CDT): Status post bilateral fem-pop bypasses last duplex was in 2022. Delete that. Follow-up in the next couple of weeks with lower extremity arterial duplex. Essential hypertension 06/23/2020 Assessment & Plan (10/26/2023 10:45 AM CDT): Stable continue lisinopril 20 mg. Dyslipidemia, goal LDL below 70 06/23/[address] elevation myocardial infarction (S JOSUÉ) 06/11/2020 Social History Tobacco Use Types Packs/Day Years Used Date Smoking Tobacco: Former Cigarettes Q uit: 02/05/2019 Smokeless Tobacco: Never Tobacco Cessation:Counseling Given: Not Answered Sex and Gender Information Value Date Recorded Sex Assigned at Not on file Legal Sex Male 3:47 PM MOLDER OPERATOR Gender Identity Not on file Sexual Orientation Not on file Last Filed Vital Signs Vital Sign Reading Time Taken Comments Blood Pressure 128/71 05/01/2024 10:39 AM MOLDER OPERATOR Pulse 76 05/01/2024 10:39 AM MOLDER OPERATOR Temperature - - Respiratory Rate - - Oxygen Saturation 97% 05/01/2024 10:39 AM MOLDER OPERATOR Inhaled Oxygen Concentration - - Weight 94.3 kg (208 lb) 05/01/2024 10:39 AM MOLDER OPERATOR Height 175.3 cm (5' 9 ) 05/01/2024 10:39 AM MOLDER OPERATOR Body Mass Index 30.72 05/01/2024 10:39 AM MOLDER OPERATOR Plan of Treatment Not on file Insurance [facility] MEDICARE [employer] MEDICARE Care Teams Dairy Cattle Farm Manager Relationship Specialty Start Date End Date Manisha Farias MD PCP - General Family Practice 06/11/20
--- OUTSIDE RECORDS SUMMARY | 2024-07-22 10:32 | XMS_ITS | Clinical Summary ---
Author Organization [facility] Address [address] [place] [id number] Care Team Providers Care Automobile Travel Club Counselor Name Role Phone Unavailable Primary Care Provider Unavailabl e Immunizations Immunization Administration Dates Next Due Covid-19, Mrna, Lnp-s, Pf, 30 Mcg/0.3 Ml Dose (P sabine) 02/05/2021 Social History Tobacco Use Types Packs/Day Years Used Date Smoking Tobacco: Never Assessed Sex and Gender Information Value Date Recorded Sex Assigned at Not on file Legal Sex Male 12:25 AM CDT Gender Identity Not on file Sexual Orientation Not on file Plan of Treatment Health Maintenance Due Date Last Done Comments Hepatitis C Virus (HCV) Screening 1950 Colonoscopy 1997 Colorectal Cancer Screening 1997 Cologuard 2002 Immunochemical Fecal Occult Blood 2002 Zoster Immunization (1 of 2) 2002 Pneumococcal Immunization (5 0+ years) (2 of 2 - PCV) 12/20/2020 12/21/2019 Influenza Immunization (#1) 12/03/202312/02, 02/12/2019, 01/25/2017 SARS-COV-2 Immunization ( - season) 2023 02/05/2021, 06/07/2020, 05/17/2020 Respiratory Syncytial Virus (RSV) Immunization (Adult) (1 - 1-dose 75+ series) 12/04/2027 DTaP/Tdap/Td Immunization Discontinued 12/19/2019 TdaP Immunization Completed 12/19/2019 Hepatitis B Immunization Aged Out No longer eligible based on patient's age to complete this topic Meningococcal Immunization (ACWY) Aged Out No longer eligible based on patient's age to complete this topic Rotavirus Immunization Aged Out No lo nger eligible based on patient's age to complete this topic
--- OUTSIDE RECORDS SUMMARY | 2024-07-22 10:32 | XMS_ITS | Clinical Summary ---
Author Organization [facility] [place] [address] Address [address] [place] [address] Care Team Providers Care Social Contact Worker Name Role Phone Manisha Farias MD Primary Care Provider Allergies No known active allergies Medications multivitamin-mi [...] 60 mg tabletIndicatio ns:Coronary artery disease involving [place] coronary artery of [place] heart without angina pectoris TAKE 1 TABLET(60 [...] by mouth every morning 5 Active vitamins A,C,E-zinc-humble er (ICAPS) 4,296 mcg-226 mg-90 mg capsule Take by mouth Active Active Problems Problem Noted Date Diagnosed Date Bilateral carotid artery stenosis 10/04/2023 Assessment & Plan (05/02/2024 11:02 AM SUPERINTENDENT REFUSE DISPOSAL): Patient remains asymptomatic. Is scheduled to follow-up [...] artery disease of n ative artery of [place] heart with stable angina pectoris 06/23/2020 Peripheral arterial disease with history of revascularization 06/23/2020 Assessment & Plan (05/02/2024 10:59 AM SUPERINTENDENT REFUSE DISPOSAL): Patient is continuing doing well denying any [...] ST elevation myocardial infarction (S JOSUÉ) 06/11/2020 Encounters Date Type Department Care Team Description 05/01/2024 10:30 AM SUPERINTENDENT REFUSE DISPOSAL Office Visit [facility] Group Vascular at [address] [place] [address] Ara Chen NP Peripheral arterial disease with history of revascularization (Primary Dx); Essential hypertension; Dyslipidemia, goal LDL below 70; Bilateral carotid artery stenosis 05/01/2024 8:45 AM SUPERINTENDENT REFUSE DISPOSAL Office Visit [facility] Medical [facility] Cardiology [address] [facility] [address] [place] [address] Ulises Koo MD Coronary artery disease of [place] artery of [place] heart with stable angina pectoris (Primary Dx); Nonrheumatic mitral valve regurgitation; Peripheral arterial disease with history of revascularization; TANYA (obstructive sleep apnea) 05/01/2024 Orders Only [facility] Group Vascular at [address] [place] [address] Robert Chavira MD Atherosclerosis of [place] artery of both lower extremities with intermittent claudication (Primary Dx) from Last 3 Months Medical History Medical History Date Comments Hypertension History of heart attack Obesity Hyperlipidemia Bypass graft mechanical complication Legs Hiatal hernia Sleep apnea Peripheral artery disease Family History Medical History Relation Name Comments COPD Father enlarged heart Father Cancer Sister 1 Relation Name Status Comments Brother Alive Father (Age 74) Mother (Age 83) Sister 1 (Age 62) Sister 2 Alive Sister 3 Alive Social History Tobacco Use Types Packs/Day Years Used Date Smoking Tobacco: Former Cigarettes Q uit: 02/05/2019 Smokeless Tobacco: Never Tobacco Cessation:Counseling Given: Not Answered Sex and Gender Information Value Date Recorded Sex Assigned at Not on file Legal Sex Male 3:47 PM SUPERINTENDENT REFUSE DISPOSAL Gender Identity Not on file Sexual Orientation Not on file Obstetrics History Last Filed Vital Signs Vital Sign Reading Time Taken Comments Blood Pressure 128/71 05/01/2024 10:39 AM SUPERINTENDENT REFUSE DISPOSAL Pulse 76 05/01/2024 10:39 AM SUPERINTENDENT REFUSE DISPOSAL Temperature - - Respiratory Rate - - Oxygen Saturation 97% 05/01/2024 10:39 AM SUPERINTENDENT REFUSE DISPOSAL Inhaled Oxygen Concentration - - Weight 94.3 kg (208 lb) 05/01/2024 10:39 AM SUPERINTENDENT REFUSE DISPOSAL Height 175.3 cm (5' 9 ) 05/01/2024 10:39 AM SUPERINTENDENT REFUSE DISPOSAL Body Mass Index 30.72 05/01/2024 10:39 AM SUPERINTENDENT REFUSE DISPOSAL Plan of Treatment Health Maintenance Due Date Last Done Comments Colon Cancer Screening-Colonoscopy 1950 Depression Screening 1952 Fall Risk Assessment 1950 Hepatitis C Screening 1950 Hepatitis B Screening 1970 Zoster Vaccine (1 of 2) 2002 Abdominal Aortic Aneurysm (A AA) Screen 2017 Well Visit 65+ 2017 Pneumococcal vaccine 65+ (2 of 2 - PCV) 12/20/2020 12/21/2019 Covid-19 Vaccine ( season) 2023 02/05/2021, 06/07/2020, 05/17/2020 Influenza Vaccine (#1) 2023 0, 02/12/2019, 01/25/2017 DTaP/Tdap/Td Vaccine (2 - Td or Tdap) 12/18/2029 Insurance [employer] MEDICARE [facility] MEDICARE Care Teams Social Contact Worker Relationship Specialty Start Date End Date Manisha Farias MD PCP - General Family Practice 06/11/20
--- OUTSIDE RECORDS SUMMARY | 2024-07-22 10:32 | XMS_ITS | Encounter Summary ---
Author Organization [facility] Address [address] [place] [address] Care Team Providers Care Car Record Clerk Name Role Phone Manisha Farias MD Primary Care Provider Gt Hector DO Unavailable Fred Leonardo MD Unavailable Encounter Details Date Type Department Care Team (Late st Contact Info) Description 05/03/2019 Prep for Procedure [place] Pre-Ad[facility] Testing [place] [address] Fred Leonardo MD [address] [place] [id number] Social History Tobacco Use Types Packs/Day Years Used Date Smoking Tobacco: Former Cigarettes 1 50 1 04/06/1968 - 02/04/2019 Smokeless Tobacco: Never Comments:up to a pack a day- recently 10 cigs a day- gave them up yesterday Alcohol Use Standard Drinks/Week Comments Yes 0 (1 standard drink = 0.6 oz pur e alcohol) social- 5-8 per month Sex and Gender Information Value Date Recorded Sex Assigned at Not on file Legal Sex Male 1:56 PM CDT Gender Identity Not on file Sexual Orientation Not on file documented as of this encounter Functional Status * Question Answer Date of Assessment Author Status Do you have serious difficulty walking or climbing stairs? No 05/06/2019 3:44 PM Sia Jorgensen RN A ctive * Question Answer Date of Assessment Author Status Do you have difficulty dressing or bathing? No 05/06/2019 3:44 PM Sia Jorgensen RN Active Because of a physical, mental, or emotional condition, do you have difficulty doing errands alone such as visiting a doctor's office or shopping? No 05/06/2019 3:44 PM Sia Jorgensen RN Ac tive * RETIRED Are you deaf or do you have serious difficulty hearing Answer Date of Assessment Author Status No 04/02/2019 8:26 PM SECURITY SYSTEM ENGINEER Activ e * RETIRED Are you blind or do you have serious difficulty seeing, even when wearing glasses? Answer Date of Assessment Author Status No 04/02/2019 8:26 PM SECURITY SYSTEM ENGINEER Activ e * Do you have serious difficulty walking or climbing stairs? Answer Date of Assessment Author Status No 04/02/2019 8:26 PM Jessi Maurice RN Active * Do you have difficulty dressing or bathing? Answer Date of Assessment Author Status No 04/02/2019 8:26 PM Jessi Maurice RN Active * Because of a physical, mental, or emotional condition, do you have difficulty doing errands alone such as visiting a doctor's office or shopping? Answer Date of Assessment Author Status No 04/02/2019 8:26 PM Jessi Maurice RN Active documented as of this encounter Mental Status * Question Answer Entry Date Author Status Because of a physical, mental, or emotional condition, do you have serious difficulty concentrating, remembering, or making decisions? No 05/06/2019 3:44 PM Sia Jorgensen RN Active * Because of a physical, mental, or emotional condition, do you have serious difficulty concentrating, remembering, or making decisions? Answer Entry Date Author Status No 04/02/2019 8:26 PM Jessi Maurice RN Active documented in this encounter Plan of Treatment Not on file documented as of this encounter Results * (ABNORMAL) BASIC METABOLIC PANEL (05/06/2019 9:09 AM [facility] GLUCOSE 103(H) 70 - 99 MG/DL 05/06/2019 9:44 AM [facility] BUN 17 7 - 18 MG/DL 05/06/2019 9:44 AM [facility] CREATININE S/P/B 0.87 0.7 - 1.3 MG/DL 05/06/2019 9:44 AM [facility] SODIUM S/P/B 143 136 - 145 MMOL/L 05/06/2019 9:44 AM [facility] POTASSIUM S/P/B 4.6 3.5 - 5.1 MMOL/L 05/06/2019 9:44 AM [facility] CHLORIDE S/P/B 111(H) 100 - 108 MMOL/L 05/06/2019 9:44 AM [facility] CO2 28.4 21 - 32 MMOL/L 05/06/2019 9:44 AM [facility] CALCIUM S/P/B 9.2 8.5 - 10.1 MG/DL 05/06/2019 9:44 AM [facility] ANION GAP 3.6(L) 5 - 15 MMOL/L 05/06/2019 9:44 AM [facility] BUN CREATININE RATIO 19.6 6 - 26 05/06/2019 9:44 AM [facility] EGFR NON-AFR. AMER. 90(L) >90 ML/MIN/1.7 3 M2 05/06/2019 9:44 AM [facility] EGFR AFR. AMER. >90 >90 ML/MIN/1.7 3 M2 05/06/2019 9:44 AM [facility] Comment: NOTE: eGFR is not calculated for patients <18 years of age. This is an estimated GFR (CKD EPI) and should not be used for calculating drug doses. 05/06/2019 9:09 AM SECURITY SYSTEM ENGINEER us Fred Leonardo MD LABORATORY Final Result [facility] [address] [place] [address], [place] [phone] * PTT, PARTIAL THROMBOPLASTIN TIME (05/06/2019 9:09 AM SECURITY SYSTEM ENGINEER) PTT 33.4 25.5 - 37.6 SEC 05/06/2019 9:42 AM SECURITY SYSTEM ENGINEER [facility] 05/06/2019 9:09 AM SECURITY SYSTEM ENGINEER Fred Leonardo MD LABORATORY Final Result [facility] [address] [place] [address], * PROTIME/INR, VENOUS (05/06/2019 9:09 AM SECURITY SYSTEM ENGINEER) PROTIME 11.3 9.6 - 12.2 SEC 05/06/2019 9:42 AM SECURITY SYSTEM ENGINEER [facility] INR 1.0 05/06/2019 9:42 AM SECURITY SYSTEM ENGINEER [facility] Comment: Recommended INR Therapeutic Goals: 2.0-3.0 Routine Therapy 2.5-3.5 Mechanical Prosthetic Valves (High Risk) 3.0-4.0 Acute RI (to prevent Systemic Embolism) The INR is used only for patients on stable oral anticoagulant therapy. It makes no significant contribution to the diagnosis or treatment of patients whose Protime is prolonged for other reasons. 05/06/2019 9:09 AM SECURITY SYSTEM ENGINEER Fred Leonardo MD LABORATORY Final Result [address] [address], documented in this encounter Visit Diagnoses Diagnosis Atherosclerotic PVD with intermittent claudication- Primary Atherosclerosis of [place] arteries of the extremities with intermittent claudication Preop examination Preoperative examination, unspecified documented in this encounter Care Teams Car Record Clerk Relationship Specialty Start Date End Date Manisha Farias MD PCP - General FAMILY PRACTICE 01/09/19 Gt Hector DO [address] [place] [address] INTERNAL MEDICINE 02/05/19 Fred Leonardo MD [address] [place] [address] Vascular/Implementation Project Manager SURGERY 02/05/19 documented as of this encounter
--- OUTSIDE RECORDS SUMMARY | 2024-07-22 10:32 | XMS_ITS | Encounter Summary ---
Author Organization [facility] Address [address] [place] [address] Care Team Providers Care Metal Painter Name Role Phone Manisha Farias MD Primary Care Provider Gt Hector DO Unavailable Fred Leonardo MD Unavailable Encounter Details Date Type Department Care Team (Late st Contact Info) Description 04/01/2019 Hospital Orders Only [facility] Med/Surg [address] [place] [address] Fred Leonardo MD [address] [place] [id number] Social History Tobacco Use Types Packs/Day [...] Assessment Author Status Do you have serious difficul ty walking or climbing stairs? No 04/02/2019 8:26 PM SUPPORTIVE EMPLOYMENT CASE MANAGER Don, Jessi , RN Active * Question Answer Date of Assessment Author Status Do you have difficulty dressing or bathing? No 04/02/2019 8:26 PM Jessi Maurice RN Ac tive Because of a physical, menta l, or emotional condition, do you have difficulty doing errands alone such as visiting a doctor's office or shopping? No 04/02/2019 8:26 PM Kenneth Maurice RN Active * RETIRED Are you deaf or do you have serious difficulty hearing Answer Date of Assessment Author Status No 02/11/2019 2:31 PM SUPPORTIVE EMPLOYMENT CASE MANAGER Activ e * RETIRED Are you blind or do you have serious difficulty seeing, even when wearing glasses? Answer Date of Assessment Author Status No 02/11/2019 2:31 PM SUPPORTIVE EMPLOYMENT CASE MANAGER Activ e * Do you have serious difficulty walking or climbing stairs? Answer Date of Assessment Author Status No 02/11/2019 2:31 PM Ara Barton RN Active * Do you have difficulty dressing or bathing? Answer Date of Assessment Author Status No 02/11/2019 2:31 PM Ara Barton RN Active * Because of a physical, mental, or emotional condition, do you have difficulty doing errands alone such as visiting a doctor's office or shopping? Answer Date of Assessment Author Status No 02/11/2019 2:31 PM Ara Barton RN Active documented as of this encounter Mental Status * Question Answer Entry Date Author Status Because of a physical, menta l, or emotional condition, do you have serious difficulty concentrating, remembering, or making decisions? No 04/02/2019 8:26 PM Jessi Maurice RN Activ e * Because of a physical, mental, or emotional condition, do you have serious difficulty concentrating, remembering, or making decisions? Answer Entry Date Author Status No 02/11/2019 2:31 PM Ara Barton RN Active documented in this encounter Plan of Treatment Not on file documented as of this encounter Visit Diagnoses Not on filedocumented in this encounter Care Teams Metal Painter Relationship Specialty Start Date End Date Manisha Farias MD PCP - General FAMILY PRACTICE 01/09/19 Gt Hector DO [address] [place] [address] INTERNAL MEDICINE 02/05/19 Fred Leonardo MD [address] [place] [address] Vascular/Maintenance Services Dispatcher SURGERY 02/05/19 documented as of this encounter
--- OUTSIDE RECORDS SUMMARY | 2024-07-22 10:32 | XMS_ITS | Clinical Summary ---
Author Organization [facility] Address [facility] [place] [address] Care Team Providers Care Airport Refueling Handler Name Role Phone Manisha Farias MD Primary Care Provider Gt Hector DO Unavailable Fred Leonardo MD Unavailable Allergies No known active allergies Medications multi vitamin/minera ls tabletIndicati ons:Nutritiona l Support Take 1 tablet by mouth daily. Indications: Nutritional Support 9 Active aspirin 81 MG chewable tabletIndicati ons:Anticoagul ant Therapy Chew 81 mg by mouth daily. Indications: Anticoagulant Therapy 9 Active fish oil 1000 MG Cap capsuleIndicat ions:Nutrition al Support Take 1,000 mg by mouth daily. Indications: Nutritional Support 9 Active sildenafil 100 MG tablet Take 100 mg by mouth as needed for Erectile Dysfunction. 9 Active simvastatin (ZOCOR) 40 MG tablet Take 1 tablet (40 mg total) by mouth nightly at bedtime. 3 Active Active Problems Problem Noted Date Diagnosed Date Nonrheumatic mitral valve regurgitation 09/03/19 23 TANYA (obstructive sleep apnea) 10/07/2020 Coronary artery disease of n ative artery of [place] heart with stable angina pectoris 06/23/2020 Dyslipidemia, goal LDL below 70 06/23/2020 Essential hypertension 06/23/[address] elevation myocardial infarction (S JOSUÉ) 06/11/2020 Rest pain of left lower extr emity concurrent with and due to atherosclerosis of bypass graft 05/06/2019 Claudication 04/02/2019 Atherosclerotic PVD with intermittent claudicati on 02/11/2019 Immunizations Immunization Administration Dates Next Due Afluria 36 MONTHS+ (Prefille d Syringe IIV4) 02/12/2019,02/11/2019(Deferred: Other - retimed) PFIZER COVID-19 (ORIGINAL FORMULATION, PURPLE CAP) mRNA, LNP-S, PF, 30 MCG/0.3 ML DOSE 02/05/2021 Pneumococcal (Pneumovax 23) 12/21/2019 Tdap (Boostrix) 12/19/2019 Family History Medical History Relation Comments Seizures Brother COPD Father Diabetes Father Heart Disease Father enlarged heart Macular Degeneration Father pituitary gland issues Father Depression Mother Osteoporosis Mother hypotension Mother Cancer Sister 1 ovarian/cervial Cancer Sister 2 breast Relation Status Comments Brother Alive Father (Age 73) Mother (Age 87) Sister 1 Sister 2 Alive Social History Tobacco Use Types Packs/Day [...] Sign Reading Time Taken Comments Blood Pressure 138/76 11/23/2022 10:36 AM CDT Pulse 88 11/23/2022 10:36 AM CDT Temperature 36.7 C (98 F) 05/10/2019 2:20 PM MARINE EXTENSION AGENT Respiratory Rate 18 05/10/2019 2:20 PM MARINE EXTENSION AGENT Oxygen Saturation 96% 05/10/2019 2:20 PM MARINE EXTENSION AGENT Inhaled Oxygen Concentration - - Weight 93.9 kg (207 lb) 11/23/2022 10:36 AM CDT Height 175.3 cm (5' 9 ) 11/23/2022 10:36 AM CDT Body Mass Index 30.57 11/23/2022 10:36 AM CDT Plan of Treatment Health Maintenance Due Date Last Done Comments ASCVD LDL 1950 ASCVD Statin 1950 Colorectal Cancer Screening Colonoscopy (10 Years) 1952 Hepatitis C 1970 Zoster Vaccines (1 of 2) 2002 RSV Immunization or 60+ Years (1 - Risk 60-74 years 1-dose series) 2012 Annual Medicare Wellness Visit 2017 Pneumococcal Vaccine: 50+ Ye ars (2 of 2 - PCV) 12/20/2020 12/21/2019 COVID-19 Vaccine (2 - 2023-2 5 season) 2023 02/05/2021 DTaP, Tdap and Td Vaccines ( 2 - Td or Tdap) 12/18/2029 12/19/2019 Meningococcal B Vaccine Aged Out No l onger eligible based on patient's age to complete this topic Meningococcal Vaccine Aged Out No sugar andra eligible based on patient's age to complete this topic RSV Immunizations Under 20 Months Aged Out No longer eligible based on patient's age to complete this topic Medical Devices Implanted Type Area Network Cable Installer Device Identifier Shelf Expiration Date Model / Serial / Lot Graft Gortex 45 Access Stnd Wall Stretch 4-7mm - [id number] Implanted:Qty: 1 on 02/11/[facility] G[facility] Right: Leg [employer] 02/05/2023 [id number] / [id number] / Description:Femoral to popli teal Propaten Vascular Graft Implanted:Qty: 1 on 05/06/2019 [facility] Graft Left: Leg [employer] 06/28/2022 [id number] / [id number] / Description:RIGHT COMMON FEM ORAL TO ABOVE KNEE POPLITEAL ARTERY BYPASS GRAFT Insurance [employer] Advance Directives Documents on File Type Date Recorded Patient Inventory Specialist Manager Expl anation Power of 911 Emergency Dispatcher Advance Directives and Living Will 02/15/2019 1:21 PM DECLARATION PURSUANT TO LIVING WILL ACT SIGNED 05/27/2009 * Full Code (Latest Code Status on File) Date Activated Date Inactivated Comments 05/06/2019 3:37 PM 05/10/2019 8:18 PM * Full Code Date Activated Date Inactivated Comments 04/03/2019 9:56 AM 04/05/2019 7:44 PM * Full Code Date Activated Date Inactivated Comments 04/02/2019 3:38 PM 04/03/2019 9:56 AM * Full Code Date Activated Date Inactivated Comments 03/22/2019 9:21 AM 03/22/2019 7:52 PM * Full Code Date Activated Date Inactivated Comments 02/16/2019 3:43 PM 03/22/2019 5:49 AM Care Teams Airport Refueling Handler Relationship Specialty Start Date End Date Manisha Farias MD PCP - General FAMILY PRACTICE 01/09/19 Gt Hector DO [address] [place], [place] [id number] INTERNAL MEDICINE 02/05/19 Fred Leonardo MD [address] [place] [address] Vascular/Supervisor Cigar Processing SURGERY 02/05/19
[2024-07-22 15:44] LABS: Hemoglobin A1C 6.3 % (<5.7)
[2024-07-22 16:02] LABS: Alanine Aminotransferase 29 U/L (6-50); Albumin Level 4.4 g/dL (3.5-5.1); Alkaline Phosphatase 71 U/L (38-126); Anion Gap 13 mmol/L (4-12); Aspartate Amino Transferase 58 U/L (17-59); Bilirubin,Total 0.7 mg/dL (0.2-1.3); Blood Urea Nitrogen 27 mg/dL (9-20); Calcium 9.2 mg/dL (8.4-10.2); Carbon Dioxide 18 mmol/L (22-30); Chloride 107 mmol/L (98-107); Estimated Glomerular Filt Rate > 60; Glucose 76 mg/dL (65-110); Potassium 4.5 mmol/L (3.4-5.0); Sodium 138 mmol/L (137-145)
== END 2024-07-22 09:30 | disposition home or self-care (01) ==
LOC: ANHGOSHLAB 09:29
PROVIDERS: PCP Family Medicine; Visit Provider Family Medicine
DX: E11.9 Type 2 diabetes mellitus without complications (principal); I10 Essential (primary) hypertension
CPT/HCPCS: 36415; 80053; 83036

== ENCOUNTER 2025-02-13 09:18 | Outpatient (CLI) | payer MEDICARE, SELFPAY ==
--- OUTSIDE RECORDS SUMMARY | 2025-02-13 09:47 | XMS_ITS | Encounter Summary ---
Author Organization [facility] Address [address] [place] [id number] Care Team Providers Care Continuous Mining Machine Operator Name Role Phone Manisha Farias MD Primary Care Provider Gt Hector DO Unavailable Fred Leonardo MD Unavailable Encounter Details Date Type Department Care Team (Late st Contact Info) Description 05/03/2019 Prep for Procedure [facility] Pre-Admission Testing [place] [address] Fred Leonardo MD [address] [place] [id number] Social History Tobacco Use Types Packs/Day [...] Assessment Author Status No 04/02/2019 8:26 PM INTELLIGENCE OPERATIONS SPECIALIST Activ e * RETIRED Are you blind or do you have serious difficulty seeing, even when wearing glasses? Answer Date of Assessment Author Status No 04/02/2019 8:26 PM INTELLIGENCE OPERATIONS SPECIALIST Activ e * Do you have serious [...] (ABNORMAL) BASIC METABOLIC PANEL (05/06/2019 9:09 AM [facility]) [facility] GLUCOSE 103(H) 70 - 99 MG/DL 05/06/2019 9:44 AM [facility] BUN 17 7 - 18 MG/DL 05/06/2019 9:44 AM [facility] CREATININE S/P/B 0.87 0.7 - 1.3 MG/DL 05/06/2019 9:44 AM [facility] SODIUM S/P/B 143 136 - 145 MMOL/L 05/06/2019 9:44 AM [facility] POTASSIUM S/P/B 4.6 3.5 - 5.1 MMOL/L 05/06/2019 9:44 AM [facility] CHLORIDE S/P/B 111(H) 100 - 108 MMOL/L 05/06/2019 9:44 AM [facility] CO2 28.4 21 - 32 MMOL/L 05/06/2019 9:44 AM [facility] CALCIUM S/P/B 9.2 8.5 - 10.1 MG/DL 05/06/2019 9:44 AM [facility] ANION GAP 3.6(L) 5 - 15 MMOL/L 05/06/2019 9:44 AM [facility] BUN CREATININE RATIO 19.6 6 - 26 05/06/2019 9:44 AM [facility] EGFR NON-AFR. AMER. 90(L) >90 ML/MIN/1.7 3 M2 05/06/2019 9:44 AM [facility] EGFR AFR. AMER. >90 >90 ML/MIN/1.7 3 M2 05/06/2019 9:44 AM [facility] Comment: NOTE: eGFR is not calculated for patients <18 years of age. This is an estimated GFR (CKD EPI) and should not be used for calculating drug doses. 05/06/2019 9:09 AM INTELLIGENCE OPERATIONS SPECIALIST us Fred Leonardo MD LABORATORY Final Result [facility] [address] [facility] [address], [place] [phone] * PTT, PARTIAL THROMBOPLASTIN TIME (05/06/2019 9:09 AM INTELLIGENCE OPERATIONS SPECIALIST) PTT 33.4 25.5 - 37.6 SEC 05/06/2019 9:42 AM INTELLIGENCE OPERATIONS SPECIALIST [facility] 05/06/2019 9:09 AM INTELLIGENCE OPERATIONS SPECIALIST Fred Leonardo MD LABORATORY Final Result [facility] [address] [place] [id number], * PROTIME/INR, VENOUS (05/06/2019 9:09 AM INTELLIGENCE OPERATIONS SPECIALIST) PROTIME 11.3 9.6 - 12.2 SEC 05/06/2019 9:42 AM INTELLIGENCE OPERATIONS SPECIALIST [facility] INR 1.0 05/06/2019 9:42 AM INTELLIGENCE OPERATIONS SPECIALIST [facility] Comment: Recommended INR Therapeutic Goals: 2.0-3.0 Routine Therapy 2.5-3.5 Mechanical Prosthetic Valves (High Risk) 3.0-4.0 Acute NM (to prevent Systemic Embolism) The INR is used only for patients on stable oral anticoagulant therapy. It makes no significant contribution to the diagnosis or treatment of patients whose Protime is prolonged for other reasons. 05/06/2019 9:09 AM INTELLIGENCE OPERATIONS SPECIALIST Fred Leonardo MD LABORATORY Final Result [address] [address], documented in this encounter Visit Diagnoses Diagnosis Atherosclerotic PVD with intermittent claudication- Primary Atherosclerosis of [place] arteries of the extremities with intermittent claudication Preop examination Preoperative examination, unspecified documented in this encounter Care Teams Continuous Mining Machine Operator Relationship Specialty Start Date End Date Manisha Farias MD PCP - General FAMILY PRACTICE 01/09/19 Gt Hector DO [address] [place] [address] INTERNAL MEDICINE 02/05/19 Fred Leonardo MD [address] [place] [id number] Vascular/Wood Fence Erector SURGERY 02/05/19 documented as of this encounter
--- OUTSIDE RECORDS SUMMARY | 2025-02-13 09:47 | XMS_ITS | Clinical Summary ---
Author Organization [facility] Address [address] [place] [address] Care Team Providers Care Twister Tender Paper Name Role Phone Unavailable Primary Care Provider Unavailabl e Immunizations Immunization Administration Dates Next Due Covid-19, Mrna, Lnp-s, Pf, 30 Mcg/0.3 Ml Dose (Thomas regalado) 02/05/2021 Social History Tobacco Use Types Packs/Day Years Used Date Smoking Tobacco: Never Assessed Sex and Gender Information Value Date Recorded Sex Assigned at Not on file Legal Sex Male 12:25 AM CDT Gender Identity Not on file Sexual Orientation Not on file Plan of Treatment Health Maintenance Due Date Last Done Comments Hepatitis C Virus (HCV) Screening 1950 Cologuard 1997 Colonoscopy 1997 Colorectal Cancer Screening 1997 Immunochemical Fecal Occult Blood 1997 Zoster Immunization (1 of 2) 2002 Pneumococcal Immunization (5 0+ years) (2 of 2 - PCV) 12/20/2020 12/21/2019 Influenza Immunization (#1) 12/02/202412/02, 02/12/2019, 01/25/2017 SARS-COV-2 Immunization ( - 2024- season) 2024 02/05/2021, 06/07/2020, 05/17/2020 Respiratory Syncytial Virus (RSV) Immunization (Adult) (1 - 1-dose 75+ series) 12/04/2027 DTaP/Tdap/Td Immunization Discontinued 12/19/2019 TdaP Immunization Completed 12/19/2019 Hepatitis B Immunization Aged Out No longer eligible based on patient's age to complete this topic Human Papillomavirus (HPV) Immunization Aged Out No longer eligible based on patient's age to complete this topic Meningococcal Immunization (ACWY) Aged Out No longer eligible based on patient's age to complete this topic Rotavirus Immunization Aged Out No lo nger eligible based on patient's age to complete this topic
--- OUTSIDE RECORDS SUMMARY | 2025-02-13 09:47 | XMS_ITS | Clinical Summary ---
Author Organization [facility] [address] Address [address] [place] [address] Care Team Providers Care Special Procedures Tech Name Role Phone Manisha Farias MD Primary Care Provider Allergies No known active allergies Medications multivitamin-m inerals-lutein tablet Take by mouth Active simvastatin (ZOCOR) 40 mg tablet Take 1 tablet (40 mg total) by mouth nightly 90 tablet 2 1 Active aspirin 81 mg enteric coated tablet Take 1 tablet (81 mg total) by mouth daily 90 tablet 1 Active cholecalcifero l (VITAMIN D-3) 2000 unit capsule Take 1 capsule (2,000 Units total) by mouth daily Active sildenafiL (VIAGRA) 100 mg tablet Take 1 tablet (100 mg total) by mouth as needed for erectile dysfunction Active lisinopriL (PRINIVIL,ZEST RIL) 20 mg tablet Take 1 tablet (20 [...] mg total) by mouth daily 4 Active nitroglycerin (NITROSTAT) 0.[address] 1 TABLET SUBLINGUALLY EVERY 5 MINUTES NEEDED ANGINA, MAY REPEAT AFTER 5 MINUTES FOR UP TO 3 DOSES IF SYMPTOMS PERSIST 25 tablet 11 5 Active Jardiance 25 mg tablet Take 1 tablet (25 mg total) by mouth every morning 5 Active vitamins A,C,E-zinc-coping machine operator per (ICAPS) 4,296 mcg-226 mg-90 mg capsule Take by mouth Active Brilinta 60 mg tabletIndicati ons:Coronary artery disease involving [place] coronary artery of [place] heart without angina pectoris TAKE 1 TABLET(60 MG) BY MOUTH TWICE DAILY 180 tablet 1 5 Active metoprolol tartrate (LOPRESSOR) 25 mg immediate release tablet TAKE 1 TABLET(25 MG) BY MOUTH TWICE DAILY 180 tablet 2 5 Active gabapentin (NEURONTIN) 100 mg capsule Take 1 capsule (100 mg total) by mouth 2 (two) times a day 5 Active rivaroxaban (XARELTO) 20 mg tabletIndicati ons:Venous Thrombosis Take 1 tablet (20 mg total) by mouth daily with dinner 30 tablet 3 5 Active rivaroxaban (XARELTO) 15 mg tablet Take 1 tablet (15 mg total) by mouth 2 (two) times a day for 20 days 40 tablet 5 Active diphenhydrAMIN E-acetaminophe n (TYLENOL PM) 25-500 mg tablet Take 1 tablet by mouth 025 Discontin ued(Thera py completed ) ascorbic acid (vitamin C) 1,000 mg tablet Take 1 tablet (1,000 mg total) by mouth daily 025 Discontin ued(Thera py completed ) rivaroxaban (XARELTO) 2.5 mg tabletIndicati ons:deep venous thrombosis Take 6 tablets (15 mg total) by mouth 2 (two) times a day with meals for 20 days, THEN 8 tablets (20 mg total) daily with dinner. 720 tablet 5 025 Discontin ued(Stop Taking at Discharge ) Active Problems Problem Noted Date Diagnosed Date Acute blood loss anemia 01/20/2025 Assessment & Plan (01/20/2025 1:17 PM CDT): 01/20/25 Hgb 16.4 on admission, 13.9, 14.8 post procedures Ecchymosis noted in R arm Hgb 12.8, 12.9 on 01/20/25 Likely from losses during procedure and from ecchymosis in right arm Outpatient CBC tomorrow, CC: Tony Sesay MD patient's PCP and Dr. Chavira Outpatient work up of iron deficiency Ferritin and CRP ordered add on Vitamin D deficiency 01/20/2025 Assessment & Plan (01/20/2025 11:26 AM CDT): 01/20/25 Vitamin D 25-OH 23 Vitamin D3 2000 international units PO daily Recheck level in 3 months Vitamin B12 deficiency 01/20/2025 Overview (01/20/2025): B12 472, ideal >600 Folate >20 Assessment & Plan (01/20/2025 11:26 AM CDT): 01/20/25 Vitamin B12 472, ideal >600 Folate >20 Iron deficiency anemia 01/20/2025 Assessment & Plan (01/20/2025 1:17 PM CDT): 01/20/25 Hgb 16.4 on admission, 13.9, 14.8 post procedures Ecchymosis noted in R arm Hgb 12.8, 12.9 on 01/20/25 Likely from losses during procedure and from ecchymosis in right arm Outpatient CBC tomorrow, CC: Tony Sesay MD patient's PCP and Dr. Chavira Outpatient work up of iron deficiency Ferritin and CRP ordered add on Chronic kidney disease (CKD), stage 2 01/19/2025 PVD (peripheral vascular disease) 01/17/2025 Assessment & Plan (01/20/2025 6:53 PM CDT): 01/20/25 Palpable L DP pulse OK for discharge from medical standpoint Home on Xarelto 15mg PO BID for 20 days then Xarelto 20mg PO daily 01/19/25 Xarelto anticoagulation Observe overnight for patency of bypass graft Assessment & Plan (01/19/2025 3:21 PM CDT): 01/19/25 Xarelto anticoagulation Observe overnight for patency of bypass graft Thrombosis of femoro-popliteal bypass graft 01/01 Bilateral carotid artery stenosis 10/04/2023 Assessment & Plan (10/30/2024 10:23 AM CDT): Asymptomatic moderate 50-69% stenosis bilateral internal carotid arteries. Continue risk factor modification with ASA statin therapy good blood pressure control. Follow up in 1 year with repeat carotid duplex Assessment & Plan (05/02/2024 11:02 AM HEMMING AND TACKING MACHINE OPERATOR): Patient remains asymptomatic. Is scheduled to [...] artery disease of n ative artery of [place] heart with stable angina pectoris 06/23/2020 Peripheral arterial disease with history of revascularization 06/23/2020 Assessment & Plan (02/05/2025 8:42 AM HEMMING AND TACKING MACHINE OPERATOR): Impression: Patient with a history of bilateral common femoral to [id number] popliteal bypass graft who recently underwent thrombolysis of his left common femoral to popliteal artery bypass graft with balloon angioplasty to the left common femoral and left popliteal artery. Patient reports ischemic rest pain has resolved. Lower extremity arterial duplex reveals triphasic waveforms to bilateral lower extremities with normal ABIs. Plan: Patient is currently on Brilinta Xarelto and aspirin. Recommend patient to be on triple therapy for at least 1 month. Instructed patient to stop aspirin after 1 month. Patient voices understanding. -Patient had questions regarding undergoing dental work while on anticoagulation. Recommend to continue anticoagulation for at least 3-6 months from the time his surgical procedure before proceeding with any dental work due to the risk of rethrombosis of his bypass grafts. Patient voices understanding. -We will have patient follow-up in 6 months for re-evaluation with repeat lower extremity arterial duplex. Encouraged patient to make a sooner appointment if he develops ischemic rest pain or any concerns for his lower extremity. Assessment & Plan (01/16/2025 1:36 PM CDT): Impression: Patient with a history of bilateral common femoral to etmri-syb-hyzk popliteal bypass graft who complains of left lower extremity pain for the past 2 days. Patient underwent a lower extremity arterial duplex which confirms a thrombosed bypass graft the left lower extremity. Motor and sensory remain intact. Distal pulses of the left lower extremity are nonpalpable and left foot is cooler to touch. Plan: Recommend left lower extremity pharmacomechanical thrombectomy. Risks of the procedure communicated with the patient to include bleeding, infection, perforation, injury, requiring further surgery, limb loss and . Discussed potential risk of internal bleeding to include intracranial hemorrhage if thrombolytics are indicated. Patient voices understanding of these risks and wishes to proceed. Patient is scheduled to undergo thrombectomy tomorrow. Assessment & Plan (10/30/2024 10:23 AM CDT): Stable lower extremity occlusive disease status post bilateral fem-pop bypasses done by Dr. Leonardo. Noninvasives testing, bypasses are patent. Continue risk factor modification with ASA statin therapy, follow up in 1 year with repeat noninvasive testing Assessment & Plan (05/02/2024 10:59 AM HEMMING AND TACKING MACHINE OPERATOR): Patient is continuing doing well denying [...] duplex. Essential hypertension 06/23/2020 Assessment & Plan (02/05/2025 8:43 AM HEMMING AND TACKING MACHINE OPERATOR): Chronic and stable. Continue lisinopril, metoprolol Assessment & Plan (01/20/2025 11:26 AM CDT): 01/20/25 Low BP not confirmed by manual cuff measurement in L arm, may have been affected by ecchymosis in R arm BP controlled, OK to go home on home meds Assessment & Plan (01/16/2025 1:36 PM CDT): Chronic and stable. Continue lisinopril Assessment & Plan (10/30/2024 10:23 AM CDT): Stable continue lisinopril Assessment & Plan (10/26/2023 10:45 AM CDT): Stable continue lisinopril 20 mg. Dyslipidemia, goal LDL below 70 06/23/2020 Assessment & Plan (02/05/2025 8:42 AM HEMMING AND TACKING MACHINE OPERATOR): Chronic stable. Continue fenofibrate Assessment & Plan (01/16/2025 1:36 PM CDT): Chronic and stable. Continue fenofibrate History of ST elevation myocardial infarction (S JOSUÉ) 06/11/2020 Encounters Date Type Department Care Team Description 02/05/2025 8:30 AM HEMMING AND TACKING MACHINE OPERATOR Office Visit [facility] Medical Group Vascular at [address] [place] [address] Cindy Zuñiga NP Peripheral arterial disease with history of revascularization (Primary Dx); Dyslipidemia, goal LDL below 70; Essential hypertension 02/05/2025 Orders Only [facility] Medical [facility] Vascular at [address] [phone] Stacy Chavira MD 02/05/2025 Telephone [facility] Vascular and Vein Surgery [address] [place] [phone] Stacy Chavira MD 02/04/2025 11:00 AM HEMMING AND TACKING MACHINE OPERATOR Ancillary Procedure [facility] Vascular and Vein Surgery at [address] [place] [phone] Aftercare following surgery of the circulatory system 02/04/2025 11:00 AM HEMMING AND TACKING MACHINE OPERATOR Ancillary Procedure [facility] Vascular and Vein Surgery at [address] [phone] Aftercare following surgery of the circulatory system 01/28/2025 Telephone [facility] Vascular and Vein Surgery [address] [place] [phone] Alicia Azul MA 01/21/2025 Orders Only [facility] Vascular and Vein Surgery [address] [place] [phone] Stacy Chavira MD 01/20/2025 Telephone [facility] Vascular at [address] [phone] Mali Brand, RN 01/20/2025 Orders Only [facility] Vascular and Vein Surgery [address] [place] [phone] Stacy Chavira MD Aftercare following surgery of the circulatory system (Primary Dx) 01/18/2025 9:00 AM CDT - 01/18/2025 10:02 AM CDT Surgery [facility] Cardiac [employer] [place] [address] Stacy Chavira MD ANGIOGRAPHY - UNILATERAL EXTREMITY S&I [id number] 01/17/2025 2:00 PM CDT - 01/17/2025 3:25 PM CDT Surgery [facility] [employer] [facility] [employer] [facility] [address] [place] [phone] Stacy Chavira MD LEFT LOWER EXTREMITY PHARMACOMECHANICAL THROMBECTOMY 01/17/2025 11:53 AM CDT - 01/20/2025 2:00 PM CDT Hospital Encounter [facility] [address] [place] [address] Stacy Chavira MD Kurtz, Bernard Gorman MD Thrombosis of femoro-popliteal bypass graft, initial encounter (Primary Dx); Other disorder of circulatory system; Type 2 diabetes mellitus with other circulatory complication, without long-term current use of insulin; PVD (peripheral vascular disease); Peripheral arterial disease with history of revascularization; Acute blood loss anemia; Iron deficiency anemia, unspecified iron deficiency anemia type Discharge Disposition: Discharge to home or self care 01/16/2025 1:00 PM CDT Office Visit [facility] Medical Group Vascular and Vein Surgery [address] [place] [phone] Cindy Zuñiga NP Peripheral arterial disease with history of revascularization (Primary Dx); Essential hypertension; Dyslipidemia, goal LDL below 70 01/16/2025 10:48 AM CDT - 01/16/2025 11:59 PM CDT Hospital Encounter [facility] Medical Office Building [address] [place] [phone] Peripheral arterial disease with history of revascularization Discharge Disposition: Discharge to home or self care 01/16/2025 10:48 AM CDT - 01/16/2025 11:59 PM CDT Hospital Encounter [facility] Medical Office Building [address] [place] [phone] Peripheral arterial disease with history of revascularization Discharge Disposition: Discharge to home or self care 01/16/2025 Documentation [facility] Medical Group Vascular and Vein Surgery [address] [place] [phone] Mali Brand, TORI 01/16/2025 Orders Only [facility] Medical Group Vascular and Vein Surgery [address] [place] [address] [place] [phone] Stacy Chavira MD 01/16/2025 Orders Only [facility] Medical Group Vascular and Vein Surgery [address] [place] [address] Stacy Chavira MD Peripheral arterial disease with history of revascularization (Primary Dx) 01/16/2025 Telephone [facility] Medical [facility] Vascular and Vein Surgery [address] [place] [phone] Alicia Azul MA 01/16/2025 Orders Only [facility] Group Vascular and Vein Surgery [address] [place] [phone] Stacy Chavira MD Peripheral arterial disease with history of revascularization (Primary Dx) from Last 3 Months Surgical History Surgery Date Site/Laterality Comments FEMORAL ARTERY - POPLITEAL ARTERY BYPASS GRAFT 05/06/[address] Fred Leonardo at [facility] LEFT COMMON FEMORAL ARTERY TO ABOVE KNEE POPLITEAL ATERY BYPASS WITH POLYTETRAFLUOROETHYLENE GRAFT FEMORAL ARTERY - POPLITEAL ARTERY BYPASS GRAFT 02/11/2019 Right Right common femoral to above-knee popliteal artery bypass graft. CARDIAC CATHETERIZATION stent LCX CORONARY ANGIOPLASTY VASCULAR SURGERY PROCEDURE 01/17/2025 Left Procedure: LEFT LOWER EXTREMITY PHARMACOMECHANICAL THROMBECTOMY; Surgeon: Stacy Chavira MD; Location: [facility] CARDIAC SERVICE PERSON; Service: Vascular; Laterality: Left; CARDIAC CATHETERIZATION 01/18/2025 Left Procedure: ANGIOGRAPHY - UNILATERAL EXTREMITY S&I [id number]; Surgeon: Stacy Chavira MD; Location: [facility] CARDIAC SERVICE PERSON; Service: Vascular; Laterality: Left; Medical devices from this surgery are in the Medical Devices section. CARDIAC CATHETERIZATION 01/18/2025 N/A Procedure: TAKER OUT FEM-POP, UNILATERAL, FIRST VESSEL [id number]; Surgeon: Stacy Chavira MD; Location: [facility] CARDIAC SERVICE PERSON; Service: Vascular; Laterality: N/A; Medical devices from this surgery are in the Medical Devices section. CARDIAC CATHETERIZATION 01/18/2025 N/A Procedure: Lytic FU and DC CATH ART OR VENOUS [id number]; Surgeon: Stacy Chavira MD; Location: [facility] CARDIAC SERVICE PERSON; Service: Vascular; Laterality: N/A; Medical devices from this surgery are in the Medical Devices section. Medical History Medical History Date Comments Hypertension History of heart attack Obesity Hyperlipidemia Bypass graft mechanical complication Legs Hiatal hernia Sleep apnea Peripheral artery disease Coronary artery disease Family History Medical History Relation Name Comments COPD Father enlarged heart Father Cancer Sister 1 Relation Name Status Comments Brother Alive Father (Age 74) Mother (Age 83) Sister 1 (Age 62) Sister 2 Alive Sister 3 Alive Social History Tobacco Use Types Packs/Day Years Used Date Smoking Tobacco: Former Cigarettes Q uit: 02/05/2019 Smokeless Tobacco: Never Tobacco Cessation:Counseling Given: Not Answered Alcohol Use Standard Drinks/Week Comments Never 0 (1 standard drink = 0.6 oz pur e alcohol) Social Connection and Isolation Panel Answer Date Recorded In a typical week, how many times do you talk on the phone with family, friends, or neighbors? More than three times a week 01/20/2025 How often do you get togethe r with friends or relatives? More than three times a week 01/20/2025 How often do you attend [facility] or restoration services? Never 01/20/2025 Do you belong to any clubs o r organizations such as anabaptism groups, unions, fraternal or athletic groups, or school groups? No 01/20/2025 How often do you attend meet ings of the clubs or organizations you belong to? Never 01/20/2025 Are you , , di vorced, , never , or living with a partner? 01/20/2025 AUDIT-C Answer Date Recorded Q1: How often do you have a drink containing alcohol? Never 01/17/2025 Q2: How many drinks containi ng alcohol do you have on a typical day when you are drinking? Patient does not drink Q3: How often do you have si x or more drinks on one occasion? Never 01/17/2025 Overall Financial Resource Strain (CARDIA) Answe r Date Recorded How hard is it for you to pa y for the very basics like food, housing, medical care, and heating? Not hard at all 01/20/2025 Hunger Vital Sign Answer Date Recorded Within the past 12 months, y ou worried that your food would run out before you got the money to buy more. Never true 01/21/20 25 Within the past 12 months, t he food you bought just didn't last and you didn't have money to get more. Never true 01/20/2025 PRAPARE - Transportation Answer Date Re corded In the past 12 months, has l ack of transportation kept you from medical appointments or from getting medications? No 01/02 In the past 12 months, has l ack of transportation kept you from meetings, work, or from getting things needed for daily living? No 01/20/2025 Housing Stability Vital Sign Answer Luis Felipe e Recorded In the last 12 months, was t here a time when you were not able to pay the mortgage or rent on time? No 01/20/2025 In the past 12 months, how m any times have you moved where you were living? 0 01/20/2025 At any time in the past 12 m onths, were you homeless or living in a m[facility]p (including now)? No 01/20/2025 [facility] Utilities Answer Date Recorded In the past 12 months has th e electric, gas, oil, or water company threatened to shut off services in your home? No 01/20/2025 Personal Safety Answer Date Recorded Have you ever been in or are you currently in a harmful physical or emotional relationship or is someone making you feel afraid or unsafe? Denies 01/17/2025 Sex and Gender Information Value Date Recorded Sex Assigned at Not on file Legal Sex Male 3:47 PM HEMMING AND TACKING MACHINE OPERATOR Gender Identity Not on file Sexual Orientation Not on file Last Filed Vital Signs Vital Sign Reading Time Taken Comments Blood Pressure 136/75 02/05/2025 8:10 AM HEMMING AND TACKING MACHINE OPERATOR Pulse 57 02/05/2025 8:10 AM HEMMING AND TACKING MACHINE OPERATOR Temperature 36.6 C (97.9 F) 01/20/2025 7:07 AM CDT Respiratory Rate 17 01/20/2025 7:07 AM CDT Oxygen Saturation 99% 02/05/2025 8:10 AM HEMMING AND TACKING MACHINE OPERATOR Inhaled Oxygen Concentration - - Weight 95.3 kg (210 lb) 02/05/2025 8:10 AM HEMMING AND TACKING MACHINE OPERATOR Height 175.3 cm (5' 9) 02/05/2025 8:10 AM HEMMING AND TACKING MACHINE OPERATOR Body Mass Index 31.01 02/05/2025 8:10 AM HEMMING AND TACKING MACHINE OPERATOR Plan of Treatment Health Maintenance Due Date Last Done Comments Albumin Creatinine Ratio, Urine 1952 Colon Cancer Screening-Colonoscopy 1952 Depression Screening 1952 Hepatitis C Screening 1952 Dilated Eye Exam 1952 Foot Exam 1952 Hepatitis B Screening 1970 Zoster Vaccine (1 of 2) 2002 Abdominal Aortic Aneurysm (A AA) Screen 2017 Well Visit 65+ 2017 Pneumococcal vaccine 65+ (2 of 2 - PCV) 12/20/2020 12/21/2019 Covid-19 Vaccine (4 - 2024-2 6 season) 2024 02/05/2021, 06/07/2020, 05/17/2020 Influenza Vaccine (#1) 2024 , 02/02/2023, 12/19/2019, Additional history exists Hemoglobin A1C 07/20/2025 01/19/2025, 01/19/2025 Lipid Panel 10/22/2025 10/22/2024, 09/01, 03/08/2023, Additional history exists Fall Risk Assessment 01/20/2026 01/20/2025 eGFR 01/20/2026 01/20/2025, 01/01, 01/19/2025, Additional history exists DTaP/Tdap/Td Vaccine (2 - Td or Tdap) 12/18/2029 12/19/2019, 04/03/2008, 06/29/2000 Medical Devices Implanted Type Area [employer] Device Identifier Shelf Expiration Date Model / Serial / Lot [employer] V[employer] System Closure Repair Femoral Artery Suture Mediated Perclose Prostyle [id number] - [id number] Implanted:Qty: 1 on 01/18/2025 by Stacy Chavira MD at [facility] [employer] 10/31/2026 [id number] / / [id number] Procedures Procedure Name Priority Date/Time Associated Diagnosis Comments US BOB Schedule Routine, Read Routine (OP Routine) 02/04/2025 11:44 AM HEMMING AND TACKING MACHINE OPERATOR Aftercare following surgery of the circulatory system US ARTERIAL DUPLEX LOWER EXTREMITY LEFT LIMITED Schedule Routine, Read Routine (OP Routine) 02/04/2025 11:43 AM HEMMING AND TACKING MACHINE OPERATOR Aftercare following surgery of the circulatory system CBC WITH AUTO DIFFERENTIAL Routine 01/21/2025 1:07 PM CDT POCT GLUCOSE DEVICE Routine 01/20/2025 11:56 AM CDT CRP (ACUTE PHASE) Timed 01/20/2025 9:41 AM CDT FERRITIN Timed 01/20/2025 9:41 AM CDT DIFFERENTIAL AUTO Timed 01/20/2025 9:41 AM CDT IRON PROFILE W/ IBC Timed 01/20/2025 9:41 AM CDT VITAMIN D 25 HYDROXY Timed 01/20/2025 9:41 AM CDT VITAMIN B12 Timed 01/20/2025 9:41 AM CDT FOLATE Timed 01/20/2025 9:41 AM CDT CBC WITH AUTO DIFFERENTIAL Timed 01/20/2025 9:41 AM CDT POCT GLUCOSE DEVICE Routine 01/20/2025 8:11 AM CDT EGFR Routine 01/20/2025 4:53 AM CDT PHOSPHORUS Routine 01/20/2025 4:53 AM CDT MAGNESIUM Routine 01/20/2025 4:53 AM CDT CBC WITHOUT DIFFERENTIAL Routine 01/20/2025 4:53 AM CDT COMPREHENSIVE METABOLIC PANEL Routine 01/20/2025 4:53 AM CDT POCT GLUCOSE DEVICE Routine 01/19/2025 8:22 PM CDT POCT GLUCOSE DEVICE Routine 01/19/2025 5:03 PM CDT HEMOGLOBIN A1C STAT 01/19/2025 12:16 PM CDT EGFR STAT 01/19/2025 12:16 PM CDT HEPARIN ANTI FACTOR XA ACTIVITY STAT 01/19/2025 12:16 PM CDT CREATININE STAT 01/19/2025 12:16 PM CDT HEPATIC FUNCTION PANEL STAT 01/19/2025 12:16 PM CDT CBC WITHOUT DIFFERENTIAL STAT 01/19/2025 12:16 PM CDT PROTIME-INR STAT 01/19/2025 12:16 PM CDT POCT GLUCOSE DEVICE Routine 01/19/2025 11:53 AM CDT POCT GLUCOSE DEVICE Routine 01/19/2025 7:59 AM CDT CRITICAL CARE Routine 01/19/2025 6:55 AM CDT Thrombosis of femoro-popliteal bypass graft, initial encounter Type 2 diabetes mellitus with other circulatory complication, without long-term current use of insulin Peripheral arterial disease with history of revascularization EGFR Routine 01/19/2025 5:01 AM CDT HEPARIN ANTI FACTOR XA ACTIVITY Timed 01/19/2025 5:01 AM CDT PHOSPHORUS Routine 01/19/2025 5:01 AM CDT MAGNESIUM Routine 01/19/2025 5:01 AM CDT CBC WITHOUT DIFFERENTIAL Routine 01/19/2025 5:01 AM CDT COMPREHENSIVE METABOLIC PANEL Routine 01/19/2025 5:01 AM CDT HEPARIN ANTI FACTOR XA ACTIVITY Timed 01/18/2025 10:19 PM CDT POCT GLUCOSE DEVICE Routine 01/18/2025 7:50 PM CDT POCT GLUCOSE DEVICE Routine 01/18/2025 4:05 PM CDT HEPARIN ANTI FACTOR XA ACTIVITY Timed 01/18/2025 2:54 PM CDT POCT GLUCOSE DEVICE Routine 01/18/2025 11:51 AM CDT HEPARIN ANTI FACTOR XA ACTIVITY STAT 01/18/2025 11:35 AM CDT CBC WITHOUT DIFFERENTIAL STAT 01/18/2025 11:35 AM CDT PROTIME-INR STAT 01/18/2025 11:35 AM CDT CARDIAC CATHETERIZATION Routine 01/18/2025 9:51 AM CDT Thrombosis of femoro-popliteal bypass graft, initial encounter REVENDVAS FEMPOP UN WPTA [id number] Routine 01/18/2025 9:51 AM CDT Thrombosis of femoro-popliteal bypass graft, initial encounter ANGIOGRAPHY UNILATERAL EXTREMITY S&I [id number] Routine 01/18/2025 9:51 AM CDT Thrombosis of femoro-popliteal bypass graft, initial encounter CREATINE KINASE (CK), TOTAL Timed 01/18/2025 7:56 AM CDT CRITICAL CARE Routine 01/18/2025 7:00 AM CDT Thrombosis of femoro-popliteal bypass graft, initial encounter CRITICAL CARE Routine 01/18/2025 5:03 AM CDT Thrombosis of femoro-popliteal bypass graft, initial encounter CREATINE KINASE (CK), TOTAL Routine 01/18/2025 3:37 AM CDT EGFR Routine 01/18/2025 3:37 AM CDT MAGNESIUM Routine 01/18/2025 3:37 AM CDT PHOSPHORUS Routine 01/18/2025 3:37 AM CDT DIFFERENTIAL AUTO Routine 01/18/2025 3:37 AM CDT COMPREHENSIVE METABOLIC PANEL Routine 01/18/2025 3:37 AM CDT FIBRINOGEN Routine 01/18/2025 3:37 AM CDT CBC WITH AUTO DIFFERENTIAL Routine 01/18/2025 3:37 AM CDT TROPONIN T HIGH-SENSITIVITY 6-HOUR Timed 01/18/2025 1:34 AM CDT TROPONIN T HIGH-SENSITIVITY 4-HR Timed 01/17/2025 11:23 PM CDT CREATINE KINASE (CK), TOTAL Timed 01/17/2025 11:23 PM CDT TROPONIN T HIGH-SENSITIVITY 2-HOUR Timed 01/17/2025 9:36 PM CDT XR CHEST 1 VIEW Critical/Life -Threatening 01/17/2025 7:30 PM CDT EGFR STAT 01/17/2025 7:19 PM CDT DIFFERENTIAL AUTO STAT 01/17/2025 7:19 PM CDT TROPONIN T HIGH-SENSITIVITY SERIES (BASELINE, 2HR, 4HR, 6HR) STAT 01/17/2025 7:19 PM CDT LACTATE STAT 01/17/2025 7:19 PM CDT PHOSPHORUS STAT 01/17/2025 7:19 PM CDT MAGNESIUM STAT 01/17/2025 7:19 PM CDT CBC WITH AUTO DIFFERENTIAL STAT 01/17/2025 7:19 PM CDT BASIC METABOLIC PANEL STAT 01/17/2025 7:19 PM CDT ECG 12-LEAD Routine 01/17/2025 7:12 PM CDT APTT Routine 01/17/2025 6:58 PM CDT CREATINE KINASE (CK), TOTAL Timed 01/17/2025 6:57 PM CDT CRITICAL CARE Routine 01/17/2025 6:24 PM CDT Thrombosis of femoro-popliteal bypass graft, initial encounter POCT GLUCOSE DEVICE Routine 01/17/2025 5:06 PM CDT POCT GLUCOSE DEVICE Routine 01/17/2025 4:40 PM CDT VASCULAR SURGERY PROCEDURE Routine 01/17/2025 3:15 PM CDT Thrombosis of femoro-popliteal bypass graft, initial encounter B ABO / RH CONFIRMATION TESTING STAT 01/17/2025 12:36 PM CDT EGFR Routine 01/17/2025 12:13 PM CDT Thrombosis of femoro-popliteal bypass graft, initial encounter DIFFERENTIAL AUTO Routine 01/17/2025 12:13 PM CDT Thrombosis of femoro-popliteal bypass graft, initial encounter ANTIBODY SCREEN Timed 01/17/2025 12:13 PM CDT Thrombosis of femoro-popliteal bypass graft, initial encounter ABO/RH Timed 01/17/2025 12:13 PM CDT Thrombosis of femoro-popliteal bypass graft, initial encounter PROTIME-INR Routine 01/17/2025 12:13 PM CDT Thrombosis of femoro-popliteal bypass graft, initial encounter Other disorder of circulatory system TYPE AND SCREEN Timed 01/17/2025 12:13 PM CDT Thrombosis of femoro-popliteal bypass graft, initial encounter APTT Routine 01/17/2025 12:13 PM CDT Thrombosis of femoro-popliteal bypass graft, initial encounter CBC WITH AUTO DIFFERENTIAL Routine 01/17/2025 12:13 PM CDT Thrombosis of femoro-popliteal bypass graft, initial encounter BASIC METABOLIC PANEL Routine 01/17/2025 12:13 PM CDT Thrombosis of femoro-popliteal bypass graft, initial encounter US BOB Schedule Routine, Read Routine (OP Routine) 01/16/2025 11:49 AM CDT Peripheral arterial disease with history of revascularization US ARTERIAL DUPLEX LOWER EXTREMITY LEFT LIMITED Schedule Routine, Read Routine (OP Routine) 01/16/2025 11:49 AM CDT Peripheral arterial disease with history of revascularization POCT LIPID PANEL Routine 10/22/2024 8:47 AM CDT Dyslipidemia, goal LDL below 70 from Last 3 Months or Most Recently Relevant to Health Maintenance Results * US BOB (02/04/2025 11:44 AM HEMMING AND TACKING MACHINE OPERATOR) Anatomical Region Laterality Modality Vascular N/A Ultrasound 02/04/2025 10:5 0 AM HEMMING AND TACKING MACHINE OPERATOR Narrative 02/05/2025 10:48 AM HEMMING AND TACKING MACHINE OPERATOR Vascular & Vein Surgery [facility] [place] [address] Lower Extremity Arterial Doppler Report Patient Name: LUCHO MANZOStephen : 1950 Study Date: 02/04/2025 10:50:00 AM Sex: M Straightener Hand: Criss Castañeda RVT Location: [facility] Ref Provider: STACY CHAVIRA Quality: Adequate Order Provider: STACY CHAVIRA PROCEDURES: Arterial Report: Ankle - Brachial Index Doppler exam. INDICATIONS: S/P thromb Lt EXCHANGE OPERATOR & BPG 01/17/25; S/P BA Lt EXCHANGE OPERATOR & pop 01/18/25; S/P Rt EXCHANGE OPERATOR-AK Pop BPG 02/11/19; S/P Lt EXCHANGE OPERATOR-AK Pop BPG 05/06/2019. HISTORY: HTN. HLD. PVD. CAD-AR S/P stent. DM. Former smoker. COMPARISONS: The previous exam was completed on 01/16/25: Rt 1.0, Lt 0.53. Compared to prior there is improvement on the left. MEASUREMENTS: Right Value Left Value Rt Brachial Pressure 114 mmHg Lt Brachial Pressure 112 mmHg Rt TAKER OUT Pressure 118 mmHg Lt TAKER OUT Pressure 128 mmHg Rt DPA Pressure 122 mmHg Lt DPA Pressure 114 mmHg Rt PT BOB Resting 1.04 Lt PT BOB Resting 1.12 Rt DP BOB Resting 1.07 Lt DP BOB Resting 1 FINDINGS: Right Posterior Tibial Artery Analysis: The posterior tibial waveform is triphasic. Right Anterior Tibial Artery Analysis: The anterior tibial waveform is triphasic. Left Posterior Tibial Artery Analysis: The posterior tibial waveform is triphasic. Left Anterior Tibial Artery Analysis: The anterior tibial waveform is triphasic. CONCLUSIONS: 1. Ankle-brachial index of 0.9-1.3 is within normal limits in the bilateral lower extremities. ATTESTATION: I have reviewed and interpreted the pertinent images and measurements of this study. I attest to the conclusions in the final report that is provided above. Electronically Signed By: Stacy Chavira MD 02/05/2025 10:32:07 AM HEMMING AND TACKING MACHINE OPERATOR Procedure Note Stacy Chavira MD - 02/05/2025 Vascular & Vein Surgery [address] [place] [address]. [place] [address] Lower Extremity Arterial Doppler Report Patient Name: LUCHO MANZO R : 1950 Study Date: 02/04/2025 10:50:00 AM Sex: M Straightener Hand: Criss Castañeda RVT Location: [facility] Ref Provider: STACY CHAVIRA Quality: Adequate Order Provider: STACY CHAVIRA PROCEDURES: Arterial Report: Ankle - Brachial Index Doppler exam. INDICATIONS: S/P thromb Lt EXCHANGE OPERATOR & BPG 01/17/25; S/P BA Lt EXCHANGE OPERATOR & pop 01/18/25; S/P Rt EXCHANGE OPERATOR-AK Pop BPG 02/11/19; S/P Lt EXCHANGE OPERATOR-AK Pop BPG 05/06/2019. HISTORY: HTN. HLD. PVD. CAD-AR S/P stent. DM. Former smoker. COMPARISONS: The previous exam was completed on 01/16/25: Rt 1.0, Lt 0.53. Compared toprior there is improvement on the left. MEASUREMENTS: Right Value Left Value Rt Brachial Pressure 114 mmHg Lt Brachial Pressure 112 mmHg Rt TAKER OUT Pressure 118 mmHg Lt TAKER OUT Pressure 128 mmHg Rt DPA Pressure 122 mmHg Lt DPA Pressure 114 mmHg Rt PT BOB Resting 1.04 Lt PT BOB Resting 1.12 Rt DP BOB Resting 1.07 Lt DP BOB Resting 1 FINDINGS: Right Posterior Tibial Artery Analysis: The posterior tibial waveform is triphasic. Right Anterior Tibial Artery Analysis: The anterior tibial waveform is triphasic. Left Posterior Tibial Artery Analysis: The posterior tibial waveform is triphasic. Left Anterior Tibial Artery Analysis: The anterior tibial waveform is triphasic. CONCLUSIONS: 1. Ankle-brachial index of 0.9-1.3 is within normal limits in thebilateral lower extremities. ATTESTATION: I have reviewed and interpreted the pertinent images and measurements ofthis study. I attest to the conclusions in the final report that is provided above. Electronically Signed By: Stacy Chavira MD 02/05/2025 10:32:07 AM HEMMING AND TACKING MACHINE OPERATOR us Stacy Chavira MD IMG US PROCEDURES Final Result * US Arterial Duplex Lower Extremity Left Limited (02/04/2025 11:43 AM HEMMING AND TACKING MACHINE OPERATOR) Anatomical Region Laterality Modality Vascular Left Ultrasound 02/04/2025 10:5 8 AM HEMMING AND TACKING MACHINE OPERATOR Narrative 02/05/2025 10:48 AM HEMMING AND TACKING MACHINE OPERATOR Vascular & Vein Surgery [address] [place] [address] Lower Extremity Arterial Duplex Report Patient Name: LUCHO MANZO R : 1950 (74y 2m) Sex: M Study Date: 02/04/2025 10:58:58 AM Ht(Inch): Wt(Lb): BSA: Straightener Hand: Location: [facility] Order Provider: STACY CHAVIRA Quality: Adequate Ref Provider: STACY CHAVIRA PROCEDURES: Arterial Report: A non-invasive vascular imaging study of the left lower extremity arteries and bypass graft was performed using B-mode ultrasound, color flow, and spectral Doppler. INDICATIONS: S/P thromb Lt EXCHANGE OPERATOR & BPG 01/17/25; S/P BA Lt EXCHANGE OPERATOR & pop 01/18/25; S/P Rt EXCHANGE OPERATOR-AK pop BPG 02/11/19; S/P Lt EXCHANGE OPERATOR-AK pop BPG 05/06/2019. HISTORY: HTN. HLD. PVD. CAD-AR S/P stent. DM. Former smoker. COMPARISONS: The previous exam was completed on 01/16/25: LLE BPG occl. Compared to prior there is improvement. MEASUREMENTS: Left Value Lt EXCHANGE OPERATOR Dst PSV 201.00 cm/sec Lt Pop Prx PSV 62.00 cm/sec Lt Pop Dst PSV 52.00 cm/sec Lt Ant Tibial Prx PSV 57.00 cm/sec Lt Post Tibial Prx PSV 68.00 cm/sec Lt Post Tibial Mid PSV 65.00 cm/sec Lt Peroneal Prx PSV 71.00 cm/sec Lt Peroneal Mid PSV 43.00 cm/sec GRAFTS: Left Value Location Lt EXCHANGE OPERATOR-AK Pop Lt BPG Inflow PSV 147.00 cm/sec Lt Anast Prx PSV 181.00 cm/sec Lt BPG Prx PSV 74.00 cm/sec Lt BPG Mid PSV 47.00 cm/sec Lt BPG Dst PSV 58.00 cm/sec Lt Anast Dst PSV 88.00 cm/sec Lt BPG Outflow PSV 91.00 cm/sec FINDINGS: Left: Triphasic arteries include the left common femoral artery, popliteal artery and peroneal artery. Biphasic arteries include the left anterior tibial artery and posterior tibial artery. Increased velocities noted of the left common femoral artery. Bypass Graft 1: The bypass graft is located in the left common femoral to above knee popliteal artery. Patent lower extremity bypass graft with no evidence of stenosis. CONCLUSION: 1. Patent left common femoral artery to above-knee popliteal artery bypass. No evidence of stenosis. ATTESTATION: I have reviewed and interpreted the pertinent images and measurements of this study. I attest to the conclusions in the final report that is provided above. Electronically Signed By: Stacy Chavira MD 02/05/2025 10:32:35 AM HEMMING AND TACKING MACHINE OPERATOR Procedure Note Stacy Chavira MD - 02/05/2025 Vascular & Vein Surgery [address] [place] [id number] Lower Extremity Arterial Duplex Report Patient Name: LUCHO MANZO R : 1950 (74y 2m) Sex: M Study Date: 02/04/2025 10:58:58 AM Ht(Inch): Wt(Lb): BSA: Straightener Hand: Location: [facility] Order Provider: STACY CHAVIRA Quality: Adequate Ref Provider: STACY CHAVIRA PROCEDURES: Arterial Report: A non-invasive vascular imaging study of the left lowerextremity arteries and bypass graft was performed using B-mode ultrasound, colorflow, and spectral Doppler. INDICATIONS: S/P thromb Lt EXCHANGE OPERATOR & BPG 01/17/25; S/P BA Lt EXCHANGE OPERATOR & pop 01/18/25; S/P Rt EXCHANGE OPERATOR-AK pop BPG 02/11/19; S/P Lt EXCHANGE OPERATOR-AK pop BPG 05/06/2019. HISTORY: HTN. HLD. PVD. CAD-AR S/P stent. DM. Former smoker. COMPARISONS: The previous exam was completed on 01/16/25: LLE BPG occl. Compared toprior there is improvement. MEASUREMENTS: Left Value Lt EXCHANGE OPERATOR Dst PSV 201.00 cm/sec Lt Pop Prx PSV 62.00 cm/sec Lt Pop Dst PSV 52.00 cm/sec Lt Ant Tibial Prx PSV 57.00 cm/sec Lt Post Tibial Prx PSV 68.00 cm/sec Lt Post Tibial Mid PSV 65.00 cm/sec Lt Peroneal Prx PSV 71.00 cm/sec Lt Peroneal Mid PSV 43.00 cm/sec GRAFTS: Left Value Location Lt EXCHANGE OPERATOR-AK Pop Lt BPG Inflow PSV 147.00 cm/sec Lt Anast Prx PSV 181.00 cm/sec Lt BPG Prx PSV 74.00 cm/sec Lt BPG Mid PSV 47.00 cm/sec Lt BPG Dst PSV 58.00 cm/sec Lt Anast Dst PSV 88.00 cm/sec Lt BPG Outflow PSV 91.00 cm/sec FINDINGS: Left: Triphasic arteries include the left common femoral artery, poplitealartery and peroneal artery. Biphasic arteries include the left anterior tibial arteryand posterior tibial artery. Increased velocities noted of the left common femoralartery. Bypass Graft 1: The bypass graft is located in the left common femoral toabove knee popliteal artery. Patent lower extremity bypass graft with no evidence ofstenosis. CONCLUSION: 1. Patent left common femoral artery to above-knee popliteal arterybypass. No evidence of stenosis. ATTESTATION: I have reviewed and interpreted the pertinent images and measurements ofthis study. I attest to the conclusions in the final report that is provided above. Electronically Signed By: Stacy Chavira MD 02/05/2025 10:32:35 AM HEMMING AND TACKING MACHINE OPERATOR Stacy Chavira [place] [facility] [place]ED[place] Final Result * (ABNORMAL) CBC with auto differential (01/21/2025 1:07 PM CDT) WBC 8.2 3.8 - 10.8 Thousand/u L [facility] RBC, POC 4.36 4.20 - 5.80 Million/uL [facility] Hgb 13.4 13.2 - 17.1 g/dL [facility] Hct 41.6 38.5 - 50.0 % [facility] MCV 95.4 80.0 - 100.0 fL [facility] MCH 30.7 27.0 - 33.0 pg [facility] MCHC 32.2 32.0 - 36.0 g/dL [facility] Comment: For adults, a slight decrease in the calculated MCHC value (in the range of 30 to 32 g/dL) is most likely not clinically significant; however, it should be interpreted with caution in correlation with other red cell parameters and the patient's clinical condition. Rdw 13.1 11.0 - 15.0 % [facility] Platelets 165 140 - 400 Thousand/u L [facility] MPV 10.2 7.5 - 12.5 fL [facility] Neutrophils, abs 5,166 1,500 - 7,800 cells/uL [facility] Lymphocytes, abs 1,804 850 - 3,900 cells/uL [facility] Monocyte abs 574 200 - 950 cells/uL [facility] Eosinophils, abs 615(H) 15 - 500 cells/uL [facility] Basophils, abs 41 0 - 200 cells/uL [facility] Neutrophils 63 % [facility] Lymphocyte pct 22.0 % [facility] Monocytes 7.0 % [facility] Eosinophils 7.5 % [facility] Basophils 0.5 % [facility] 01/21/2025 1:07 PM CDT 01/21/2025 1:07 PM CDT Stacy Chavira MD LAB BLOOD ORDERABLES Final Resul t [facility] [address] [place] [id number] * POCT glucose (01/20/2025 11:56 AM CDT) Glucose, POC 101 70 - 199 mg/dL Blood 01/20/2025 11:5 6 AM CDT 01/20/2025 11:56 AM CDT Stacy Chavira MD LAB POCT ORDERABLES - DEVICE Fin al Result MARY KAY [address] [facility] [place] [address] * Differential, auto (01/20/2025 9:41 AM CDT) Pathologist [facility] Neutrophil abs 5.75 1.50 - 6.50 K/cumm Imm gran abs 0.03 0.00 - 0.10 K/cumm [facility] Lymphocyte abs 1.57 0.80 - 3.30 K/cumm [facility] Monocyte abs 0.37 0.20 - 0.80 K/cumm [facility] Eosinophil abs 0.41 0.00 - 0.50 K/cumm [facility] Basophil abs 0.04 0.00 - 0.10 K/cumm [facility] Neutrophil pct 70.4 % [facility] Comment: Interpretive Data Percent cell count reference ranges are not reported, since discordance with absolute values may lead to misinterpretation of CBC data. Current Interpretive Data was last revised on 2017. Imm gran pct 0.4 % [facility] Comment: Interpretive Data Percent cell count reference ranges are not reported, since discordance with absolute values may lead to misinterpretation of CBC data. Current Interpretive Data was last revised on 2017. Lymphocyte pct 19.2 % [facility] Comment: Interpretive Data Percent cell count reference ranges are not reported, since discordance with absolute values may lead to misinterpretation of CBC data. Current Interpretive Data was last revised on 2017. Monocyte pct 4.5 % [facility] Comment: Interpretive Data Percent cell count reference ranges are not reported, since discordance with absolute values may lead to misinterpretation of CBC data. Current Interpretive Data was last revised on 2017. Eosinophil pct 5.0 % [facility] Comment: Interpretive Data Percent cell count reference ranges are not reported, since discordance with absolute values may lead to misinterpretation of CBC data. Current Interpretive Data was last revised on 2017. Basophil pct 0.5 % [facility] Comment: Interpretive Data Percent cell count reference ranges are not reported, since discordance with absolute values may lead to misinterpretation of CBC data. Current Interpretive Data was last revised on 2017. Blood 01/20/2025 9:41 AM CDT 01/20/2025 9:55 AM CDT Ede Quan MD LAB BLOOD ORDERABLES Final R esult Performing Organization Address [facility] Co de Phone Number [address] [place] [address] * (ABNORMAL) Iron profile w/ IBC (01/20/2025 9:41 AM CDT) [facility] Iron 44(L) 50 - 150 mcg/dL TIBC 275 250 - 400 mcg/dL [facility] Transferrin saturation 16(L) 20 - 50 % [facility] Blood 01/20/2025 9:41 AM CDT 01/20/2025 9:55 AM CDT Ede Quan MD LAB BLOOD ORDERABLES Final R esult Performing Organization Address [facility]/ZIP Co de Phone Number [address] [address] * (ABNORMAL) CBC with auto differential (01/20/2025 9:41 AM CDT) [facility] WBC 8.17 3.80 - 9.90 K/cumm Hgb 12.9(L) 13.0 - 17.5 g/dL [facility] Hct 39.6 38.9 - 50.3 % [facility] Plt 148(L) 150 - 400 K/cumm [facility] MPV 9.9 9.1 - 12.3 fL [facility] RBC 4.28(L) 4.30 - 5.80 M/cumm [facility] MCV 92.5 81.3 - 96.4 fL [facility] MCH 30.1 27.1 - 33.3 pg [facility] MCHC 32.6 32.3 - 35.7 g/dL [facility] RDW CV 13.6 11.1 - 14.9 % [facility] RDW SD 46.1 35.7 - 48.1 fL [facility] NRBC abs 0.00 0.00 - 0.01 K/cumm [facility] Blood 01/20/2025 9:41 AM CDT 01/20/2025 9:55 AM CDT Ede Quan MD LAB BLOOD ORDERABLES Final R esult Performing Organization Address [facility] Co de Phone Number [address] [place] [address] * (ABNORMAL) Vitamin D 25 hydroxy (01/20/2025 9:41 AM CDT) [facility] Vitamin D 25-OH 23.0(L) 30.0 - 80.0 ng/mL Blood 01/20/2025 9:41 AM CDT 01/20/2025 9:55 AM CDT Ede Quan MD LAB BLOOD ORDERABLES Final R esult Performing Organization Address [facility] Co de Phone Number [address] [place] [address] * (ABNORMAL) CRP (acute phase) (01/20/2025 9:41 AM CDT) Pathologist [facility] CRP 30.2(H) <=10.0 mg/L Blood 01/20/2025 9:41 AM CDT 01/20/2025 9:55 AM CDT Ede Quan MD LAB BLOOD ORDERABLES Final R esult Performing Organization Address [facility] Co de Phone Number [address] [place] [address] * Folate (01/20/2025 9:41 AM CDT) Folic acid >20.0 >=5.0 ng/mL Blood 01/20/2025 9:41 AM CDT 01/20/2025 9:55 AM CDT us Ede Quan MD LAB BLOOD ORDERABLES Final R esult Performing Organization Address [facility] Co de Phone Number [address] [place] [address] * Ferritin (01/20/2025 9:41 AM CDT) Ferritin 187 30 - 400 ng/mL Blood 01/20/2025 9:41 AM CDT 01/20/2025 9:55 AM CDT us Ede Quan MD LAB BLOOD ORDERABLES Final R esult Performing Organization Address [facility] Co de Phone Number [address] [place] [address] * Vitamin B12 (01/20/2025 9:41 AM CDT) Vitamin B12 472 230 - 1,250 pg/mL Blood 01/20/2025 9:41 AM CDT 01/20/2025 9:55 AM CDT Ede Quan MD LAB BLOOD ORDERABLES Final R esult Performing Organization Address [facility] Co de Phone Number [address] [place] [address] * POCT glucose (01/20/2025 8:11 AM CDT) Glucose, POC 116 70 - 199 mg/dL Blood 01/20/2025 8:11 AM CDT 01/20/2025 8:11 AM CDT Stacy Chavira MD LAB POCT ORDERABLES - DEVICE Fin al Result Performing Organization Address [facility] Co de Phone Number MARY KAY [address] [place] [address] * eGFR (01/20/2025 4:53 AM CDT) [facility] eGFR 64 >=60 mL/min/1. 73 m2 Comment: Interpretive Data Reference Interval Normal >/= 90 mL/min/1.73m2 Mildly decreased* 60 - 89 mL/min/1.73m2 Mildly to moderately decreased 45 - 59 mL/min/1.73m2 Moderately to severely decreased 30 - 44 mL/min/1.73m2 Severely decreased 15 - 29 mL/min/1.73m2 Kidney Failure < 15 mL/min/1.73m2 *Relative to young adult level Estimated glomerular filtration rate is determined by the 2020 CKD-EPI equation recommended by the National Kid[employer] (A Unifying Approach to GFR Estimation: Recommendations of the NKF-ASK Task Force on Reassessing the Inclusion of Race in Diagnosing Kidney Disease, JASN 2020). The CKD-EPI equation should not be used for patients with unstable renal function and has not been validated in children and those over 70. Current interpretive data was last reviewed 2021. Blood 01/20/2025 4:53 AM CDT 01/20/2025 5:13 AM CDT Stacy Chavira MD LAB BLOOD ORDERABLES Final Resul t Performing Organization Address [facility] Co de Phone Number MARY KAY [address] [employer] [place] [address] * (ABNORMAL) CBC without differential (01/20/2025 4:53 AM CDT) [facility] WBC 7.70 3.80 - 9.90 K/cumm Hgb 12.8(L) 13.0 - 17.5 g/dL [facility] Hct 38.1(L) 38.9 - 50.3 % [facility] Plt 137(L) 150 - 400 K/cumm [facility] MPV 9.7 9.1 - 12.3 fL [facility] RBC 4.13(L) 4.30 - 5.80 M/cumm [facility] MCV 92.3 81.3 - 96.4 fL [facility] MCH 31.0 27.1 - 33.3 pg [facility] MCHC 33.6 32.3 - 35.7 g/dL [facility] RDW CV 13.6 11.1 - 14.9 % [facility] RDW SD 46.0 35.7 - 48.1 fL [facility] NRBC abs 0.00 0.00 - 0.01 K/cumm [facility] Blood 01/20/2025 4:53 AM CDT 01/20/2025 5:13 AM CDT Stacy Chavira MD LAB BLOOD ORDERABLES Final Resul t Performing Organization Address [facility] Co de Phone Number [address] [place], [place] [id number] * Phosphorus (01/20/2025 4:53 AM CDT) [facility] Phosphorus, pl 3.1 2.3 - 4.5 mg/dL Blood 01/20/2025 4:53 AM CDT 01/20/2025 5:13 AM CDT Stacy Chavira MD LAB BLOOD ORDERABLES Final Resul t Performing Organization Address [facility] Co de Phone Number [address] [employer] [place], [place] [id number] * Magnesium (01/20/2025 4:53 AM CDT) [facility] Magnesium 2.2 1.4 - 2.5 mg/dL Blood 01/20/2025 4:53 AM CDT 01/20/2025 5:13 AM CDT Stacy Chavira MD LAB BLOOD ORDERABLES Final Resul t MARY KAY [address] [facility] [place] [address] * (ABNORMAL) Comprehensive metabolic panel (01/20/2025 4:53 AM CDT) Pathologist [facility] Sodium 137 135 - 145 mmol/L Potassium, pl 4.1 3.3 - 4.9 mmol/L [facility] Chloride 105 97 - 110 mmol/L [facility] CO2 24 22 - 32 mmol/L [facility] Anion gap 8 2 - 15 mmol/L [facility] BUN 21 6 - 25 mg/dL [facility] Creatinine 1.21 0.80 - 1.30 mg/dL [facility] Glucose 112 70 - 199 mg/dL [facility] Comment: Interpretive Data Fasting glucose >/= 126 mg/dl is diagnostic for diabetes. Fasting is defined as no caloric intake for at least 8 hours. Fasting glucose between 100 mg/dl to 125 mg/dl is diagnostic of prediabetes. In a patient with classic symptoms of hyperglycemia or hyperglycemic crisis, a random glucose >/= 200 mg/dl is diagnostic for diabetes. In the absence of unequivocal hyperglycemia, results should be confirmed by repeat testing. The classification and Diagnosis of Diabetes Diabetes Care 202; 46: S19-S40. Current interpretive data was last revised 2022. Calcium 8.9 8.5 - 10.3 mg/dL [facility] Bilirubin, total 0.5 0.1 - 1.2 mg/dL [facility] Protein, pl 6.2(L) 6.5 - 8.5 g/dL [facility] Albumin 3.6 3.5 - 5.0 g/dL [facility] Alk phos 52 40 - 130 Units/L [facility] ALT 14 7 - 55 Units/L [facility] AST 25 10 - 50 Units/L [facility] Blood 01/20/2025 4:53 AM CDT 01/20/2025 5:13 AM CDT Stacy Chavira MD LAB BLOOD ORDERABLES Final Resul t Performing Organization Address [facility] Co de Phone Number MARY KAY [address] [place] [address] * POCT glucose (01/19/2025 8:22 PM CDT) Glucose, POC 117 70 - 199 mg/dL Blood 01/19/2025 8:22 PM CDT 01/19/2025 8:22 PM CDT Stacy Chavira MD LAB POCT ORDERABLES - DEVICE Fin al Result Performing Organization Address [facility] [facility] Co de Phone Number MARY KAY [address] [place] [address] * POCT glucose (01/19/2025 5:03 PM CDT) Glucose, POC 99 70 - 199 mg/dL Blood 01/19/2025 5:03 PM CDT 01/19/2025 5:03 PM CDT Stacy Chavira MD LAB POCT ORDERABLES - DEVICE Fin al Result Performing Organization Address [facility] Co de Phone Number [address] [address] * eGFR (01/19/2025 12:16 PM CDT) eGFR 75 >=60 mL/min/1. 73 m2 Comment: Interpretive Data Reference Interval Normal >/= 90 mL/min/1.73m2 Mildly decreased* 60 - 89 mL/min/1.73m2 Mildly to moderately decreased 45 - 59 mL/min/1.73m2 Moderately to severely decreased 30 - 44 mL/min/1.73m2 Severely decreased 15 - 29 mL/min/1.73m2 Kidney Failure < 15 mL/min/1.73m2 *Relative to young adult level Estimated glomerular filtration rate is determined by the 2020 CKD-EPI equation recommended by the National Kidney Foundation (A Unifying Approach to GFR Estimation: Recommendations of the NKF-ASK Task Force on Reassessing the Inclusion of Race in Diagnosing Kidney Disease, JASN 2020). The CKD-EPI equation should not be used for patients with unstable renal function and has not been validated in children and those over 70. Current interpretive data was last reviewed 2021. Blood 01/19/2025 12:1 6 PM CDT 01/19/2025 12:35 PM CDT Jama Chavira MD LAB BLOOD ORDERABLES Final Result MARY KAY [address] [facility] Department [place] [address] * Heparin anti factor Xa activity (01/19/2025 12:16 PM CDT) Anti Factor Xa 0.89 IUnits/mL Comment: Interpretive Data Enoxaparin therapeutic range (peak): VTE treatment, Q12hr dosin.60-1.00 IUnits/mL VTE treatment, Q24hr dosin.00-2.00 IUnits/mL Q24hr dosing for renal impairment (CrCl <30 mL/min): 0.60-1.00 IUnits/mL VTE prevention: 0.10-0.40 IUnits/mL - Anti-Xa therapeutic ranges apply to blood samples drawn 4 hours after last dose (peak). - Unfractionated heparin (UFH) therapeutic range: 0.30-0.70 IUnits/mL - Direct factor Xa inhibitors (rivaroxaban, apixaban): Results must be interpreted qualitatively. No activity detected suggests little anticoagulant activity. - In severe antithrombin deficiency, anti-Xa measurement may be inaccurate. - Interpretive guidelines developed in adult populations. Interpretive guidelines for pediatric patients have not been rigorously defined. - Current interpretive data was last revised on 2018. Blood 01/19/2025 12:1 6 PM CDT 01/19/2025 12:35 PM CDT Stacy Chavira MD LAB BLOOD ORDERABLES Final Resul t Performing Organization Address City/[facility] Co de Phone Number [address] [address] * Protime-INR (01/19/2025 12:16 PM CDT) [facility] PT 13.60 12.00 - 14.60 sec INR 1.03 0.90 - 1.20 [facility] Comment: Interpretive data Oral anticoagulant therapeutic ranges: Venous thromboembolism prophylaxis or treatment: 2.0-3.0 CARDIOLOGY Standard range: 2.0-3.0 High-intensity range: 2.5-3.5 Refer to indication-specific guidelines for appropriate target ranges for prosthetic heart valve replacement. Current interpretive data was last revised on 2019. Blood 01/19/2025 12:1 6 PM CDT 01/19/2025 12:35 PM CDT Narrative [facility] - 01/19/2025 1:01 PM CDT Baseline prior to rivaroxaban initiation us Jama Chavira MD LAB BLOOD ORDERABLES Final Result Performing Organization Address [facility] Co de Phone Number [address] [address] * (ABNORMAL) CBC without differential (01/19/2025 12:16 PM CDT) [facility] WBC 8.44 3.80 - 9.90 K/cumm Hgb 14.8 13.0 - 17.5 g/dL [facility] Hct 44.4 38.9 - 50.3 % [facility] Plt 145(L) 150 - 400 K/cumm [facility] MPV 9.7 9.1 - 12.3 fL [facility] RBC 4.82 4.30 - 5.80 M/cumm [facility] MCV 92.1 81.3 - 96.4 fL [facility] MCH 30.7 27.1 - 33.3 pg [facility] MCHC 33.3 32.3 - 35.7 g/dL [facility] RDW CV 13.8 11.1 - 14.9 % [facility] RDW SD 46.9 35.7 - 48.1 fL [facility] NRBC abs 0.00 0.00 - 0.01 K/cumm [facility] Blood 01/19/2025 12:1 6 PM CDT 01/19/2025 12:35 PM CDT Narrative [facility] - 01/19/2025 12:43 PM CDT Baseline prior to rivaroxaban initiation Jama Chavira MD LAB BLOOD ORDERABLES Final Result Performing Organization Address [facility] de Phone Number [address] [address] * (ABNORMAL) Hemoglobin A1c (01/19/2025 12:16 PM CDT) Hgb A1C 6.2(H) 4.0 - 5.6 % Estimated Average Glucose 131 mg/dL [facility] Comment: The ADA recommends reporting an estimated Average Glucose (eAG) with all Hemoglobin A1c results using the equation derived from a study of 507 normal and diabetic adults. Minority populations were underrepresented and children were not included. (Diabetes Care 31:6832-4941, 2008). The eAG is not equivalent to a fasting glucose. Blood 01/19/2025 12:1 6 PM CDT 01/19/2025 12:35 PM CDT Ede Quan MD LAB BLOOD ORDERABLES Final R esult Performing Organization Address [facility] de Phone Number [address] [address] * Creatinine (01/19/2025 12:16 PM CDT) Creatinine 1.05 0.80 - 1.30 mg/dL Blood 01/19/2025 12:1 6 PM CDT 01/19/2025 12:35 PM CDT Narrative [facility] - 01/19/2025 1:02 PM CDT Baseline prior to rivaroxaban initiation Jama Chavira MD LAB BLOOD ORDERABLES Final Result Performing Organization Address City/[facility]/ZIP Co de Phone Number [address] [place] [address] * Hepatic function panel (01/19/2025 12:16 PM CDT) [facility] Bilirubin, total 0.4 0.1 - 1.2 mg/dL Bilirubin, direct 0.2 0.1 - 0.3 mg/dL [facility] Protein, pl 7.0 6.5 - 8.5 g/dL [facility] Albumin 4.0 3.5 - 5.0 g/dL [facility] Alk phos 63 40 - 130 Units/L [facility] ALT 15 7 - 55 Units/L [facility] AST 27 10 - 50 Units/L [facility] Blood 01/19/2025 12:1 6 PM CDT 01/19/2025 12:35 PM CDT Narrative [facility] - 01/19/2025 1:02 PM CDT Baseline prior to rivaroxaban initiation Jama Chavira MD LAB BLOOD ORDERABLES Final Result Performing Organization Address [facility]/ZIP Co de Phone Number [address] [place] [address] * POCT glucose (01/19/2025 11:53 AM CDT) Glucose, POC 105 70 - 199 mg/dL Blood 01/19/2025 11:5 3 AM CDT 01/19/2025 11:53 AM CDT Stacy Chavira MD LAB POCT ORDERABLES - DEVICE Fin al Result Performing Organization Address City/[facility]/ZIP Co de Phone Number [address] [place] [address] * POCT glucose (01/19/2025 7:59 AM CDT) Glucose, POC 104 70 - 199 mg/dL Blood 01/19/2025 7:59 AM CDT 01/19/2025 7:59 AM CDT us Stacy Chavira MD LAB POCT ORDERABLES - DEVICE Fin al Result CERNER [facility] [address] [facility] [place] [address] * Critical Care (01/19/2025 6:55 AM CDT) Narrative Linda Josue, DO - 01/19/2025 6:55 AM CDT Linda Josue, 01/19/2025 9:10 PM Critical Care Performed by: Lynsey Amador NP Authorized by: Lynsey Amador NP CRITICAL CARE: Team: CRISPIN Shift: AM Level of Billing: Subsequent Hospital Visit Level 3 My time spent with this patient was 55 minutes: Critical Provider Statement: I have seen and examined the patient on this day of service. I have reviewed and confirmed the history, physical exam, laboratory, and radiographic data as documented in the ICU note. I have reviewed and discussed my treatment plan with the patient's team and other medical/customer sales consultant staff. This time was in addition to and separate from care provided by other practitioners on this day of service. I spent time reviewing and interpreting data from bedside monitors, laboratory results, and imaging, I spent time discussing the management of this critically ill patient with consultants and the medical staff and I spent time documenting in the medical record us Lynsey Amador NP IN CLINIC/BEDSIDE ORD ERABLES Final Result * eGFR (01/19/2025 5:01 AM CDT) [facility] eGFR 74 >=60 mL/min/1. 73 m2 Comment: Interpretive Data Reference Interval Normal >/= 90 mL/min/1.73m2 Mildly decreased* 60 - 89 mL/min/1.73m2 Mildly to moderately decreased 45 - 59 mL/min/1.73m2 Moderately to severely decreased 30 - 44 mL/min/1.73m2 Severely decreased 15 - 29 mL/min/1.73m2 Kidney Failure < 15 mL/min/1.73m2 *Relative to young adult level Estimated glomerular filtration rate is determined by the 2020 CKD-EPI equation recommended by the National Kidney Foundation (A Unifying Approach to GFR Estimation: Recommendations of the NKF-ASK Task Force on Reassessing the Inclusion of Race in Diagnosing Kidney Disease, JASN 2020). The CKD-EPI equation should not be used for patients with unstable renal function and has not been validated in children and those over 70. Current interpretive data was last reviewed 2021. Blood 01/19/2025 5:01 AM CDT 01/19/2025 5:04 AM CDT us Stacy Chavira MD LAB BLOOD ORDERABLES Final Resul t MARY KAY [address] [facility] [place] [address] * (ABNORMAL) Heparin anti factor Xa activity (01/19/2025 5:01 AM CDT) Anti Factor Xa >1.10(C) IUnits/mL Comment: Critical Result called to and read back by [id number], DATE: 2025-01-19 05:57:54 BY: [id number] Interpretive Data Enoxaparin therapeutic range (peak): VTE treatment, Q12hr dosin.60-1.00 IUnits/mL VTE treatment, Q24hr dosin.00-2.00 IUnits/mL Q24hr dosing for renal impairment (CrCl <30 mL/min): 0.60-1.00 IUnits/mL VTE prevention: 0.10-0.40 IUnits/mL - Anti-Xa therapeutic ranges apply to blood samples drawn 4 hours after last dose (peak). - Unfractionated heparin (UFH) therapeutic range: 0.30-0.70 IUnits/mL - Direct factor Xa inhibitors (rivaroxaban, apixaban): Results must be interpreted qualitatively. No activity detected suggests little anticoagulant activity. - In severe antithrombin deficiency, anti-Xa measurement may be inaccurate. - Interpretive guidelines developed in adult populations. Interpretive guidelines for pediatric patients have not been rigorously defined. - Current interpretive data was last revised on 2018. Blood 01/19/2025 5:01 AM CDT 01/19/2025 5:04 AM CDT Jerardo Rios MD LAB BLOOD ORDERABLES Final R esult Performing Organization Address City/[facility] Co de Phone Number MARY KAY [address] [place] [address] * (ABNORMAL) CBC without differential (01/19/2025 5:01 AM CDT) WBC 8.23 3.80 - 9.90 K/cumm Hgb 13.9 13.0 - 17.5 g/dL [facility] Hct 41.4 38.9 - 50.3 % [facility] Plt 145(L) 150 - 400 K/cumm [facility] MPV 9.5 9.1 - 12.3 fL [facility] RBC 4.48 4.30 - 5.80 M/cumm [facility] MCV 92.4 81.3 - 96.4 fL [facility] MCH 31.0 27.1 - 33.3 pg [facility] MCHC 33.6 32.3 - 35.7 g/dL [facility] RDW CV 13.8 11.1 - 14.9 % [facility] RDW SD 46.7 35.7 - 48.1 fL [facility] NRBC abs 0.00 0.00 - 0.01 K/cumm [facility] Blood 01/19/2025 5:01 AM CDT 01/19/2025 5:04 AM CDT Stacy Chavira MD LAB BLOOD ORDERABLES Final Resul t Performing Organization Address City/[facility]/ZIP Co de Phone Number [address] [employer] [place], [place] [id number] * Phosphorus (01/19/2025 5:01 AM CDT) Phosphorus, pl 2.5 2.3 - 4.5 mg/dL Blood 01/19/2025 5:01 AM CDT 01/19/2025 5:04 AM CDT Stacy Chavira MD LAB BLOOD ORDERABLES Final Resul t Performing Organization Address City/[facility] Co de Phone Number [address] [address] * Magnesium (01/19/2025 5:01 AM CDT) [facility] Magnesium 2.0 1.4 - 2.5 mg/dL Blood 01/19/2025 5:01 AM CDT 01/19/2025 5:04 AM CDT Stacy Chavira MD LAB BLOOD ORDERABLES Final Resul t Performing Organization Address [facility] de Phone Number [address] [address] * (ABNORMAL) Comprehensive metabolic panel (01/19/2025 5:01 AM CDT) [facility] Sodium 136 135 - 145 mmol/L Potassium, pl 4.1 3.3 - 4.9 mmol/L [facility] Chloride 105 97 - 110 mmol/L [facility] CO2 21(L) 22 - 32 mmol/L [facility] Anion gap 10 2 - 15 mmol/L [facility] BUN 21 6 - 25 mg/dL [facility] Creatinine 1.07 0.80 - 1.30 mg/dL [facility] Glucose 110 70 - 199 mg/dL [facility] Comment: Interpretive Data Fasting glucose >/= 126 mg/dl is diagnostic for diabetes. Fasting is defined as no caloric intake for at least 8 hours. Fasting glucose between 100 mg/dl to 125 mg/dl is diagnostic of prediabetes. In a patient with classic symptoms of hyperglycemia or hyperglycemic crisis, a random glucose >/= 200 mg/dl is diagnostic for diabetes. In the absence of unequivocal hyperglycemia, results should be confirmed by repeat testing. The classification and Diagnosis of Diabetes Diabetes Care 2021; 46: S19-S40. Current interpretive data was last revised 2022. Calcium 8.9 8.5 - 10.3 mg/dL [facility] Bilirubin, total 0.5 0.1 - 1.2 mg/dL [facility] Protein, pl 6.3(L) 6.5 - 8.5 g/dL [facility] Albumin 3.8 3.5 - 5.0 g/dL [facility] Alk phos 56 40 - 130 Units/L [facility] ALT 14 7 - 55 Units/L [facility] AST 25 10 - 50 Units/L [facility] Blood 01/19/2025 5:01 AM CDT 01/19/2025 5:04 AM CDT us Stacy Chavira MD LAB BLOOD ORDERABLES Final Resul t MARY KAY [address] [facility] Department [place] [address] * Heparin anti factor Xa activity (01/18/2025 10:19 PM CDT) Anti Factor Xa <0.10 IUnits/mL Comment: Interpretive Data Enoxaparin therapeutic range (peak): VTE treatment, Q12hr dosin.60-1.00 IUnits/mL VTE treatment, Q24hr dosin.00-2.00 IUnits/mL Q24hr dosing for renal impairment (CrCl <30 mL/min): 0.60-1.00 IUnits/mL VTE prevention: 0.10-0.40 IUnits/mL - Anti-Xa therapeutic ranges apply to blood samples drawn 4 hours after last dose (peak). - Unfractionated heparin (UFH) therapeutic range: 0.30-0.70 IUnits/mL - Direct factor Xa inhibitors (rivaroxaban, apixaban): Results must be interpreted qualitatively. No activity detected suggests little anticoagulant activity. - In severe antithrombin deficiency, anti-Xa measurement may be inaccurate. - Interpretive guidelines developed in adult populations. Interpretive guidelines for pediatric patients have not been rigorously defined. - Current interpretive data was last revised on 2018. Blood 01/18/2025 10:1 9 PM CDT 01/18/2025 10:21 PM CDT us Lynsey Amador NP LAB BLOOD ORDERABLES Final Result Performing Organization Address [facility] Co de Phone Number [address] [address] * POCT glucose (01/18/2025 7:50 PM CDT) Glucose, POC 142 70 - 199 mg/dL Glucose comment 1 RN/MD Notified [facility] Blood 01/18/2025 7:50 PM CDT 01/18/2025 7:50 PM CDT Stacy Chavira MD LAB POCT ORDERABLES - DEVICE Fin al Result Performing Organization Address [facility] Co de Phone Number [address] [place] [address] * POCT glucose (01/18/2025 4:05 PM CDT) [facility] Glucose, POC 126 70 - 199 mg/dL Blood 01/18/2025 4:05 PM CDT 01/18/2025 4:05 PM CDT Stacy Chavira MD LAB POCT ORDERABLES - DEVICE Fin al Result Performing Organization Address [facility] Co de Phone Number [address] [address] * Heparin anti factor Xa activity (01/18/2025 2:54 PM CDT) [facility] Anti Factor Xa <0.10 IUnits/mL Comment: patient is on heparin as per [id number] Interpretive Data Enoxaparin therapeutic range (peak): VTE treatment, Q12hr dosin.60-1.00 IUnits/mL VTE treatment, Q24hr dosin.00-2.00 IUnits/mL Q24hr dosing for renal impairment (CrCl <30 mL/min): 0.60-1.00 IUnits/mL VTE prevention: 0.10-0.40 IUnits/mL - Anti-Xa therapeutic ranges apply to blood samples drawn 4 hours after last dose (peak). - Unfractionated heparin (UFH) therapeutic range: 0.30-0.70 IUnits/mL - Direct factor Xa inhibitors (rivaroxaban, apixaban): Results must be interpreted qualitatively. No activity detected suggests little anticoagulant activity. - In severe antithrombin deficiency, anti-Xa measurement may be inaccurate. - Interpretive guidelines developed in adult populations. Interpretive guidelines for pediatric patients have not been rigorously defined. - Current interpretive data was last revised on 2018. Blood 01/18/2025 2:54 PM CDT 01/18/2025 3:04 PM CDT Lynsey Amador SWINE NUTRITIONIST LAB BLOOD ORDERABLES Final Result Performing Organization Address [facility]/ZIP Co de Phone Number [address] [place] [address] * POCT glucose (01/18/2025 11:51 AM CDT) Glucose, POC 101 70 - 199 mg/dL Blood 01/18/2025 11:5 1 AM CDT 01/18/2025 11:51 AM CDT Stacy Chavira MD LAB POCT ORDERABLES - DEVICE Fin al Result Performing Organization Address [facility] Co de Phone Number [address] [address] * (ABNORMAL) Heparin anti factor Xa activity (01/18/2025 11:35 AM CDT) Anti Factor Xa >1.10(C) IUnits/mL Comment: Critical Result called to and read back by SAM [id number], DATE: 2025-01-18 12:50:27 BY: [id number] Interpretive Data Enoxaparin therapeutic range (peak): VTE treatment, Q12hr dosin.60-1.00 IUnits/mL VTE treatment, Q24hr dosin.00-2.00 IUnits/mL Q24hr dosing for renal impairment (CrCl <30 mL/min): 0.60-1.00 IUnits/mL VTE prevention: 0.10-0.40 IUnits/mL - Anti-Xa therapeutic ranges apply to blood samples drawn 4 hours after last dose (peak). - Unfractionated heparin (UFH) therapeutic range: 0.30-0.70 IUnits/mL - Direct factor Xa inhibitors (rivaroxaban, apixaban): Results must be interpreted qualitatively. No activity detected suggests little anticoagulant activity. - In severe antithrombin deficiency, anti-Xa measurement may be inaccurate. - Interpretive guidelines developed in adult populations. Interpretive guidelines for pediatric patients have not been rigorously defined. - Current interpretive data was last revised on 2018. Blood 01/18/2025 11:3 5 AM CDT 01/18/2025 12:00 PM CDT Narrative MARY KAY - 01/18/2025 12:50 PM CDT Baseline prior to heparin initiation us Stacy Chavira MD LAB BLOOD ORDERABLES Final Resul t MARY KAY [address] [facility] Department [place] [address] * (ABNORMAL) Protime-INR (01/18/2025 11:35 AM CDT) PT 15.80(H) 12.00 - 14.60 sec INR 1.25(H) 0.90 - 1.20 MARY KAY Comment: Interpretive data Oral anticoagulant therapeutic ranges: Venous thromboembolism prophylaxis or treatment: 2.0-3.0 CARDIOLOGY Standard range: 2.0-3.0 High-intensity range: 2.5-3.5 Refer to indication-specific guidelines for appropriate target ranges for prosthetic heart valve replacement. Current interpretive data was last revised on 2019. Blood 01/18/2025 11:3 5 AM CDT 01/18/2025 12:00 PM CDT Narrative MARY KAY - 01/18/2025 12:21 PM CDT Baseline prior to heparin initiation us Stacy Chavira MD LAB BLOOD ORDERABLES Final Resul t Performing Organization Address [facility] de Phone Number MARY KAY [address] [place] [address] * (ABNORMAL) CBC without differential (01/18/2025 11:35 AM CDT) Pathologist [facility] WBC 9.29 3.80 - 9.90 K/cumm Hgb 15.3 13.0 - 17.5 g/dL [facility] Hct 47.6 38.9 - 50.3 % [facility] Plt 143(L) 150 - 400 K/cumm [facility] MPV 9.5 9.1 - 12.3 fL [facility] RBC 5.03 4.30 - 5.80 M/cumm [facility] MCV 94.6 81.3 - 96.4 fL [facility] MCH 30.4 27.1 - 33.3 pg [facility] MCHC 32.1(L) 32.3 - 35.7 g/dL [facility] RDW CV 14.1 11.1 - 14.9 % [facility] RDW SD 48.7(H) 35.7 - 48.1 fL [facility] NRBC abs 0.00 0.00 - 0.01 K/cumm [facility] Blood 01/18/2025 11:3 5 AM CDT 01/18/2025 12:00 PM CDT Narrative [facility] - 01/18/2025 12:03 PM CDT Baseline prior to heparin initiation Stacy Chavira MD LAB BLOOD ORDERABLES Final Resul t Performing Organization Address [facility] Co de Phone Number MARY KAY [address] [place] [address] * Creatine kinase (CK), total (01/18/2025 7:56 AM CDT) [facility] CK 80 40 - 300 Units/L Blood 01/18/2025 7:56 AM CDT 01/18/2025 8:30 AM CDT Stacy Chavira MD LAB BLOOD ORDERABLES Final Resul t Performing Organization Address City/State/[facility] Co de Phone Number MARY KAY [address] [facility] Department [place] [address] * Critical Care (01/18/2025 7:00 AM CDT) Narrative Linda JosueDO alex - 01/18/2025 7:00 AM CDT Linda Josue DO 01/19/2025 9:09 PM Critical Care Performed by: Lynsey Amador NP Authorized by: Lynsey Amador NP CRITICAL CARE: Team: Dominic Shift: AM Level of Billing: Critical Care My time spent with this patient was 60 minutes: Critical Provider Statement: I have seen and examined the patient on this day of service. I have reviewed and confirmed the history, physical exam, laboratory and radiologic data as documented in the signed ICU note. I have reviewed and discussed my treatment plan with the ICU team and other medical/customer sales consultant staff, making frequent assessments and decisions regarding this patient's complex medical care. Critical Care time was exclusive of time spent performing separately billed procedures, treating other patients, and teaching. This time was in addition to and separate from critical care provided by other practitioners in my group on this day of service. Critical Care was necessary to treat or prevent imminent or life-threatening deterioration of the following conditions: Thromboembolism/DVT and Acute arterial occlusion This time was spent by me doing the following: Serial neurovascular exams Initiation/management of anti-platelet agents, Initiation/monitoring/titration of anticoagulants and Initiation of lytic therapy I spent time reviewing and interpreting data from bedside monitors, laboratory results, and imaging, I spent time discussing the management of this critically ill patient with consultants and the medical staff and I spent time documenting in the medical record us Lynsey Amador NP IN CLINIC/BEDSIDE ORD ERABLES Final Result * Critical Care (01/18/2025 5:03 AM CDT) Narrative Jerardo Rios MD - 01/18/2025 5:03 AM CDT Jerardo Rios MD 01/18/2025 5:10 AM Critical Care Performed by: Jerardo Rios MD Authorized by: Jerardo Rios MD CRITICAL CARE: Team: Dominic Shift: PM Level of Billing: Critical Care My time spent with this patient was 40 minutes: Critical Provider Statement: I have seen and examined the patient on this day of service. I have reviewed and confirmed the history, physical exam, laboratory and radiologic data as documented in the signed ICU note. I have reviewed and discussed my treatment plan with the ICU team and other medical/customer sales consultant staff, making frequent assessments and decisions regarding this patient's complex medical care. Critical Care time was exclusive of time spent performing separately billed procedures, treating other patients, and teaching. This time was in addition to and separate from critical care provided by other practitioners in my group on this day of service. Critical Care was necessary to treat or prevent imminent or life-threatening deterioration of the following conditions: Tachy/halle arrhythmic event and Hypotension This time was spent by me doing the following: Acute pain control Non-invasive positive pressure ventilator management Initiation/monitoring/titration of anticoagulants I spent time documenting in the medical record, I spent time discussing the management of this critically ill patient with consultants and the medical staff and I spent time reviewing and interpreting data from bedside monitors, laboratory results, and imaging us Jerardo Rios MD IN CLINIC/BEDSIDE ORDERABLES Final Result * eGFR (01/18/2025 3:37 AM CDT) eGFR 67 >=60 mL/min/1. 73 m2 Comment: Interpretive Data Reference Interval Normal >/= 90 mL/min/1.73m2 Mildly decreased* 60 - 89 mL/min/1.73m2 Mildly to moderately decreased 45 - 59 mL/min/1.73m2 Moderately to severely decreased 30 - 44 mL/min/1.73m2 Severely decreased 15 - 29 mL/min/1.73m2 Kidney Failure < 15 mL/min/1.73m2 *Relative to young adult level Estimated glomerular filtration rate is determined by the 2020 CKD-EPI equation recommended by the National Kidney Foundation (A Unifying Approach to GFR Estimation: Recommendations of the NKF-ASK Task Force on Reassessing the Inclusion of Race in Diagnosing Kidney Disease, JASN 2020). The CKD-EPI equation should not be used for patients with unstable renal function and has not been validated in children and those over 70. Current interpretive data was last reviewed 2021. Blood 01/18/2025 3:37 AM CDT 01/18/2025 3:43 AM CDT us Lynsey Amador NP LAB BLOOD ORDERABLES Final Result [facility] [address] [facility] [place] [address] * (ABNORMAL) Differential, auto (01/18/2025 3:37 AM CDT) Neutrophil abs 8.57(H) 1.50 - 6.50 K/cumm Imm gran abs 0.04 0.00 - 0.10 K/cumm [facility] Lymphocyte abs 1.19 0.80 - 3.30 K/cumm [facility] Monocyte abs 0.74 0.20 - 0.80 K/cumm [facility] Eosinophil abs 0.04 0.00 - 0.50 K/cumm [facility] Basophil abs 0.04 0.00 - 0.10 K/cumm [facility] Neutrophil pct 80.6 % [facility] Comment: Interpretive Data Percent cell count reference ranges are not reported, since discordance with absolute values may lead to misinterpretation of CBC data. Current Interpretive Data was last revised on 2017. Imm gran pct 0.4 % [facility] Comment: Interpretive Data Percent cell count reference ranges are not reported, since discordance with absolute values may lead to misinterpretation of CBC data. Current Interpretive Data was last revised on 2017. Lymphocyte pct 11.2 % [facility] Comment: Interpretive Data Percent cell count reference ranges are not reported, since discordance with absolute values may lead to misinterpretation of CBC data. Current Interpretive Data was last revised on 2017. Monocyte pct 7.0 % [facility] Comment: Interpretive Data Percent cell count reference ranges are not reported, since discordance with absolute values may lead to misinterpretation of CBC data. Current Interpretive Data was last revised on 2017. Eosinophil pct 0.4 % [facility] Comment: Interpretive Data Percent cell count reference ranges are not reported, since discordance with absolute values may lead to misinterpretation of CBC data. Current Interpretive Data was last revised on 2017. Basophil pct 0.4 % [facility] Comment: Interpretive Data Percent cell count reference ranges are not reported, since discordance with absolute values may lead to misinterpretation of CBC data. Current Interpretive Data was last revised on 2017. Blood 01/18/2025 3:37 AM CDT 01/18/2025 3:43 AM CDT Stacy Chavira MD LAB BLOOD ORDERABLES Final Resul t Performing Organization Address [facility] de Phone Number [place] [address] [facility] Department [place] [address] * (ABNORMAL) CBC with auto differential (01/18/2025 3:37 AM CDT) WBC 10.62(H) 3.80 - 9.90 K/cumm Hgb 14.3 13.0 - 17.5 g/dL [facility] Hct 44.9 38.9 - 50.3 % [facility] Plt 144(L) 150 - 400 K/cumm [facility] MPV 9.4 9.1 - 12.3 fL [facility] RBC 4.82 4.30 - 5.80 M/cumm [facility] MCV 93.2 81.3 - 96.4 fL [facility] MCH 29.7 27.1 - 33.3 pg [facility] MCHC 31.8(L) 32.3 - 35.7 g/dL [facility] RDW CV 13.8 11.1 - 14.9 % [facility] RDW SD 46.9 35.7 - 48.1 fL [facility] NRBC abs 0.00 0.00 - 0.01 K/cumm [facility] Blood 01/18/2025 3:37 AM CDT 01/18/2025 3:43 AM CDT Narrative [facility] - 01/18/2025 3:50 AM CDT Obtain CBC 8 hours after Alteplase initiation. Stacy Chavira MD LAB BLOOD ORDERABLES Final Resul t Performing Organization Address [facility] Co de Phone Number [address] [place] [address] * (ABNORMAL) Fibrinogen (01/18/2025 3:37 AM CDT) Fibrinogen 75(C) 170 - 400 mg/dL Comment:Critical Result call ed to and read back by [email or web address], DATE: 2025-01-18 04:59:36 BY: [email or web address] Blood 01/18/2025 3:37 AM CDT 01/18/2025 3:43 AM CDT Narrative [facility]ARY KAY [facility] 01/18/2025 4:59 AM CDT Obtain Fibrinogen 8 hours after Alteplase initiation. Call MD if Fibrinogen is less than 250 mg/dL. Stacy Chavira MD LAB BLOOD ORDERABLES Final Resul t Performing Organization Address [facility] Co de Phone Number [address] [place] [address] * (ABNORMAL) Phosphorus (01/18/2025 3:37 AM CDT) Pathologist [facility] Phosphorus, pl 5.4(H) 2.3 - 4.5 mg/dL Blood 01/18/2025 3:37 AM CDT 01/18/2025 3:43 AM CDT Stacy Chavira MD LAB BLOOD ORDERABLES Final Resul t Performing Organization Address [facility] Co de Phone Number [address] [place] [address] * Magnesium (01/18/2025 3:37 AM CDT) Magnesium 2.1 1.4 - 2.5 mg/dL Blood 01/18/2025 3:37 AM CDT 01/18/2025 3:43 AM CDT Stacy Chavira MD LAB BLOOD ORDERABLES Final Resul t Performing Organization Address [facility]/ZIP Co de Phone Number MARY KAY [address] [place] [address] * (ABNORMAL) Creatine kinase (CK), total (01/18/2025 3:37 AM CDT) [facility] CK 37(L) 40 - 300 Units/L Blood 01/18/2025 3:37 AM CDT 01/18/2025 3:43 AM CDT Stacy Chavira MD LAB BLOOD ORDERABLES Final Resul t Performing Organization Address [facility] de Phone Number [address] [address] * (ABNORMAL) Comprehensive metabolic panel (01/18/2025 3:37 AM CDT) [facility] Sodium 136 135 - 145 mmol/L Potassium, pl 4.9 3.3 - 4.9 mmol/L [facility] Chloride 107 97 - 110 mmol/L [facility] CO2 21(L) 22 - 32 mmol/L [facility] Anion gap 8 2 - 15 mmol/L [facility] BUN 26(H) 6 - 25 mg/dL [facility] Creatinine 1.16 0.80 - 1.30 mg/dL [facility] Glucose 127 70 - 199 mg/dL [facility] Comment: Interpretive Data Fasting glucose >/= 126 mg/dl is diagnostic for diabetes. Fasting is defined as no caloric intake for at least 8 hours. Fasting glucose between 100 mg/dl to 125 mg/dl is diagnostic of prediabetes. In a patient with classic symptoms of hyperglycemia or hyperglycemic crisis, a random glucose >/= 200 mg/dl is diagnostic for diabetes. In the absence of unequivocal hyperglycemia, results should be confirmed by repeat testing. The classification and Diagnosis of Diabetes Diabetes Care 202; 46: S19-S40. Current interpretive data was last revised 2022. Calcium 9.0 8.5 - 10.3 mg/dL [facility] Bilirubin, total 0.4 0.1 - 1.2 mg/dL [facility] Protein, pl 6.3(L) 6.5 - 8.5 g/dL [facility] Albumin 3.8 3.5 - 5.0 g/dL [facility] Alk phos 61 40 - 130 Units/L [facility] ALT 17 7 - 55 Units/L [facility] AST 20 10 - 50 Units/L [facility] Blood 01/18/2025 3:37 AM CDT 01/18/2025 3:43 AM CDT Stacy Chavira MD LAB BLOOD ORDERABLES Final Resul t Performing Organization Address [facility] de Phone Number [address] [address] * Troponin T high-sensitivity 6-hour (01/18/2025 1:34 AM CDT) Trop T hs 11 <=22 ng/L Comment: Interpretive Data For further hscTnT resources including the diagnostic algorithm and an aid in interpretation, copy and paste this link: https://nrl.[email or web address]/show/hsTrop Current Interpretive Data last revised 2020. Trop T hs delta 0 ng/L [facility] Trop T hs interp Insignificant [facility] Blood 01/18/2025 1:34 AM CDT 01/18/2025 1:37 AM CDT Jerardo Rios MD LAB BLOOD ORDERABLES Final R esult Performing Organization Address [facility] Co de Phone Number [address] [address] * Troponin T high-sensitivity 4-hour (01/17/2025 11:23 PM CDT) Trop T hs 9 <=22 ng/L Comment: Interpretive Data For further hscTnT resources including the diagnostic algorithm and an aid in interpretation, copy and paste this link: https://nrl.[employer].org/show/hsTrop Current Interpretive Data last revised 2020. Trop T hs delta -2 ng/L [facility] Trop T hs interp Insignificant [facility] Blood 01/17/2025 11:2 3 PM CDT 01/17/2025 11:30 PM CDT Jerardo Rios MD LAB BLOOD ORDERABLES Final R esult Performing Organization Address [facility] Co de Phone Number MARY KAY [address] [place] [address] * (ABNORMAL) Creatine kinase (CK), total (01/17/2025 11:23 PM CDT) CK 39(L) 40 - 300 Units/L Blood 01/17/2025 11:2 3 PM CDT 01/17/2025 11:30 PM CDT Stacy Chavira MD LAB BLOOD ORDERABLES Final Resul t Performing Organization Address [facility] de Phone Number [address] [address] * Troponin T high-sensitivity 2-hour (01/17/2025 9:36 PM CDT) Trop T hs 10 <=22 ng/L Comment: Interpretive Data For further hscTnT resources including the diagnostic algorithm and an aid in interpretation, copy and paste this link: https://nrl.testcatalog.org/show/hsTrop Current Interpretive Data last revised 2020. Trop T hs delta -1 ng/L [facility] Trop T hs interp Insignificant [facility] Blood 01/17/2025 9:36 PM CDT 01/17/2025 9:39 PM CDT Jerardo Rios MD LAB BLOOD ORDERABLES Final R esult Performing Organization Address [facility] Co de Phone Number [address] [place] [address] * XR Chest 1 View (01/17/2025 7:30 PM CDT) Anatomical Region Laterality Modality Body, Chest N/A Computed Radiogr aphy 01/17/2025 9:58 PM CDT Narrative 01/17/2025 9:59 PM CDT EXAM DESCRIPTION: XR CHEST 1 VIEW REASON FOR STUDY: Chest Pain Per Ordering MD: Chest Pain TECHNIQUE: Single frontal radiographic view(s) of the chest. COMPARISON: None FINDINGS: There are low lung volumes. The heart size is accentuated by low lung volumes. The pulmonary vasculature and mediastinum are grossly unremarkable. There is no definite evidence of a pneumothorax. There is no definite evidence of a pleural effusion. There are mild patchy left basilar airspace opacities. The osseous structures are acutely grossly unremarkable. IMPRESSION: 1. Low lung volumes with mild patchy left basilar airspace opacities, which is likely related to subsegmental atelectasis and less likely developing airspace disease. THIS IS AN ELECTRONICALLY VERIFIED FINAL REPORT 01/17/2025 9:59 PM - Electronically signed by Brian Blank D.O. PS T: Report ID: [id number] Reading Location: [id number] Procedure Note Brian Blank, DO - 01/17/2025 EXAM DESCRIPTION: XR CHEST 1 VIEW REASON FOR STUDY: Chest Pain Per Ordering MD: Chest Pain TECHNIQUE: Single frontal radiographic view(s) of the chest. COMPARISON: None FINDINGS: There are low lung volumes. The heart size is accentuated bylow lung volumes. The pulmonary vasculature and mediastinum are grossly unremarkable. There is no definite evidence of a pneumothorax. There isno definite evidence of a pleural effusion. There are mild patchy leftbasilar airspace opacities. The osseous structures are acutely grossly unremarkable. IMPRESSION: 1. Low lung volumes with mild patchy left basilar airspace opacities,which is likely related to subsegmental atelectasis and less likely developing airspace disease. THIS IS AN ELECTRONICALLY VERIFIED FINAL REPORT 01/17/2025 9:59 PM - Electronically signed by Brian Blank D.O. PS T: Report ID: [id number] Reading Location: [id number] us Jerardo Rios MD IMG XR PROCEDURES Final Resu lt * Troponin T high-sensitivity series (baseline, 2hr, 4hr, 6hr) (01/17/2025 7:19 PM CDT) Pathologist [facility] Trop T hs 11 <=22 ng/L Comment: Interpretive Data For further hscTnT resources including the diagnostic algorithm and an aid in interpretation, copy and paste this link: https://nrl.testcatalog.org/show/hsTrop Current Interpretive Data last revised 2020. Blood 01/17/2025 7:19 PM CDT 01/17/2025 7:23 PM CDT us Jerardo Rios MD LAB BLOOD ORDERABLES Final R esult Performing Organization Address [facility] Co de Phone Number [address] [place] [address] * Lactate (01/17/2025 7:19 PM CDT) [facility] Lactate 1.6 0.7 - 2.0 mmol/L Blood 01/17/2025 7:19 PM CDT 01/17/2025 7:23 PM CDT Jerardo Rios MD LAB BLOOD ORDERABLES Final R esult Performing Organization Address [facility] Co de Phone Number [address] [place] [address] * eGFR (01/17/2025 7:19 PM CDT) Pathologist [facility] eGFR 62 >=60 mL/min/1. 73 m2 Comment: Interpretive Data Reference Interval Normal >/= 90 mL/min/1.73m2 Mildly decreased* 60 - 89 mL/min/1.73m2 Mildly to moderately decreased 45 - 59 mL/min/1.73m2 Moderately to severely decreased 30 - 44 mL/min/1.73m2 Severely decreased 15 - 29 mL/min/1.73m2 Kidney Failure < 15 mL/min/1.73m2 *Relative to young adult level Estimated glomerular filtration rate is determined by the 2020 CKD-EPI equation recommended by the National Kidney Foundation (A Unifying Approach to GFR Estimation: Recommendations of the NKF-ASK Task Force on Reassessing the Inclusion of Race in Diagnosing Kidney Disease, JASN 2020). The CKD-EPI equation should not be used for patients with unstable renal function and has not been validated in children and those over 70. Current interpretive data was last reviewed 2021. Blood 01/17/2025 7:19 PM CDT 01/17/2025 7:23 PM CDT us Jerardo Rios MD LAB BLOOD ORDERABLES Final R esult [place] [address] [facility] Department [place] [address] * (ABNORMAL) Differential, auto (01/17/2025 7:19 PM CDT) Pathologist [facility] Neutrophil abs 5.79 1.50 - 6.50 K/cumm Imm gran abs 0.05 0.00 - 0.10 K/cumm [facility] Lymphocyte abs 3.41(H) 0.80 - 3.30 K/cumm [facility] Monocyte abs 0.76 0.20 - 0.80 K/cumm [facility] Eosinophil abs 0.53(H) 0.00 - 0.50 K/cumm [facility] Basophil abs 0.06 0.00 - 0.10 K/cumm [facility] Neutrophil pct 54.5 % [facility] Comment: Interpretive Data Percent cell count reference ranges are not reported, since discordance with absolute values may lead to misinterpretation of CBC data. Current Interpretive Data was last revised on 2017. Imm gran pct 0.5 % [facility] Comment: Interpretive Data Percent cell count reference ranges are not reported, since discordance with absolute values may lead to misinterpretation of CBC data. Current Interpretive Data was last revised on 2017. Lymphocyte pct 32.2 % [facility] Comment: Interpretive Data Percent cell count reference ranges are not reported, since discordance with absolute values may lead to misinterpretation of CBC data. Current Interpretive Data was last revised on 2017. Monocyte pct 7.2 % [facility] Comment: Interpretive Data Percent cell count reference ranges are not reported, since discordance with absolute values may lead to misinterpretation of CBC data. Current Interpretive Data was last revised on 2017. Eosinophil pct 5.0 % [facility] Comment: Interpretive Data Percent cell count reference ranges are not reported, since discordance with absolute values may lead to misinterpretation of CBC data. Current Interpretive Data was last revised on 2017. Basophil pct 0.6 % [facility] Comment: Interpretive Data Percent cell count reference ranges are not reported, since discordance with absolute values may lead to misinterpretation of CBC data. Current Interpretive Data was last revised on 2017. Blood 01/17/2025 7:19 PM CDT 01/17/2025 7:23 PM CDT Jerardo Rios MD LAB BLOOD ORDERABLES Final R esult [facility] [address] [facility] [place] [address] * (ABNORMAL) CBC with auto differential (01/17/2025 7:19 PM CDT) WBC 10.60(H) 3.80 - 9.90 K/cumm Hgb 15.2 13.0 - 17.5 g/dL [facility] Hct 46.2 38.9 - 50.3 % [facility] Plt 174 150 - 400 K/cumm [facility] MPV 9.7 9.1 - 12.3 fL [facility] RBC 5.03 4.30 - 5.80 M/cumm [facility] MCV 91.8 81.3 - 96.4 fL [facility] MCH 30.2 27.1 - 33.3 pg [facility] MCHC 32.9 32.3 - 35.7 g/dL [facility] RDW CV 13.8 11.1 - 14.9 % [facility] RDW SD 46.5 35.7 - 48.1 fL [facility] NRBC abs 0.00 0.00 - 0.01 K/cumm [facility] Blood 01/17/2025 7:19 PM CDT 01/17/2025 7:23 PM CDT Jerardo Rios MD LAB BLOOD ORDERABLES Final R esult Performing Organization Address [facility] Co de Phone Number [address] [place] [address] * Phosphorus (01/17/2025 7:19 PM CDT) [facility] Phosphorus, pl 3.8 2.3 - 4.5 mg/dL Blood 01/17/2025 7:19 PM CDT 01/17/2025 7:23 PM CDT Jerardo Rios MD LAB BLOOD ORDERABLES Final R esult Performing Organization Address [facility] de Phone Number [address] [place] [address] * Magnesium (01/17/2025 7:19 PM CDT) [facility] Magnesium 2.2 1.4 - 2.5 mg/dL Blood 01/17/2025 7:19 PM CDT 01/17/2025 7:23 PM CDT Jerardo Rios MD LAB BLOOD ORDERABLES Final R esult Performing Organization Address [facility] Co de Phone Number [address] [place] [address] * (ABNORMAL) Basic metabolic panel (01/17/2025 7:19 PM CDT) [facility] Sodium 138 135 - 145 mmol/L Potassium, pl 4.6 3.3 - 4.9 mmol/L [facility] Chloride 104 97 - 110 mmol/L [facility] CO2 23 22 - 32 mmol/L [facility] Anion gap 11 2 - 15 mmol/L [facility] BUN 26(H) 6 - 25 mg/dL [facility] Creatinine 1.23 0.80 - 1.30 mg/dL [facility] Glucose 97 70 - 199 mg/dL [facility] Comment: Interpretive Data Fasting glucose >/= 126 mg/dl is diagnostic for diabetes. Fasting is defined as no caloric intake for at least 8 hours. Fasting glucose between 100 mg/dl to 125 mg/dl is diagnostic of prediabetes. In a patient with classic symptoms of hyperglycemia or hyperglycemic crisis, a random glucose >/= 200 mg/dl is diagnostic for diabetes. In the absence of unequivocal hyperglycemia, results should be confirmed by repeat testing. The classification and Diagnosis of Diabetes Diabetes Care 2021; 46: S19-S40. Current interpretive data was last revised 2022. Calcium 9.5 8.5 - 10.3 mg/dL [facility] Blood 01/17/2025 7:19 PM CDT 01/17/2025 7:23 PM CDT Jerardo Rios MD LAB BLOOD ORDERABLES Final R esult [facility] [address] [facility] Department [place] [address] * ECG 12 lead (01/17/2025 7:12 PM CDT) Ventricular Rate EKG/Min 61 BPM [facility] Atrial Rate 61 BPM [facility] AK-Interval (MSEC) 168 ms [facility] QRS-Interval (MSEC) 102 ms [facility] QT-Interval (MSEC) 436 ms [facility] QTc 438 ms [facility] P Struthers 60 degrees [facility] R Struthers 72 degrees [facility] T Struthers 42 degrees [facility] Diagnosis Normal sinus rhythm Normal ECG No previous ECGs available Confirmed by SULTAN DOWLING M.D. ([id number]) on 01/18/2025 11:43:43 AM [facility] 01/17/2025 7:12 PM CDT 01/18/2025 11:43 AM CDT us Jerardo Rios MD ECG ORDERABLES Final Result Performing Organization Address [facility]/ZIP Co de Phone Number [facility] * (ABNORMAL) aPTT (01/17/2025 6:58 PM CDT) aPTT 94(H) 22 - 37 sec Comment: Interpretive data aPTT test has not been evaluated for monitoring heparin therapy. The anti-Xa is the preferred test. Current interpretive data was last revised on 2019. Blood 01/17/2025 6:58 PM CDT 01/17/2025 7:03 PM CDT Jerardo Rios MD LAB BLOOD ORDERABLES Final R esult Performing Organization Address [facility] Co de Phone Number [address] [place] [address] * Creatine kinase (CK), total (01/17/2025 6:57 PM CDT) CK 47 40 - 300 Units/L Blood 01/17/2025 6:57 PM CDT 01/17/2025 7:03 PM CDT Stacy Chavira MD LAB BLOOD ORDERABLES Final Resul t Performing Organization Address [facility] Co de Phone Number [address] [place] [address] * Critical Care (01/17/2025 6:24 PM CDT) Narrative Bernard Ortiz MD - 01/17/2025 6:24 PM CDT Bernard Ortiz MD 01/17/2025 6:30 PM Critical Care Performed by: Lynsey Amador NP Authorized by: Lynsey Amador NP CRITICAL CARE: Team: Dominic Shift: AM Level of Billing: Critical Care My time spent with this patient was 45 minutes: Critical Provider Statement: I have seen and examined the patient on this day of service. I have reviewed and confirmed the history, physical exam, laboratory and radiologic data as documented in the signed ICU note. I have reviewed and discussed my treatment plan with the ICU team and other medical/customer sales consultant staff, making frequent assessments and decisions regarding this patient's complex medical care. Critical Care time was exclusive of time spent performing separately billed procedures, treating other patients, and teaching. This time was in addition to and separate from critical care provided by other practitioners in my group on this day of service. Critical Care was necessary to treat or prevent imminent or life-threatening deterioration of the following conditions: I spent time reviewing and interpreting data from bedside monitors, laboratory results, and imaging, I spent time documenting in the medical record and I spent time discussing the management of this critically ill patient with consultants and the medical staff Lynsey Amador NP IN CLINIC/BEDSIDE ORD ERABLES Final Result * POCT glucose (01/17/2025 5:06 PM CDT) Glucose, POC 89 70 - 199 mg/dL Blood 01/17/2025 5:06 PM CDT 01/17/2025 5:06 PM CDT Stacy Chavira MD LAB POCT ORDERABLES - DEVICE Fin al Result Performing Organization Address [facility] Co de Phone Number [address] [address] * POCT glucose (01/17/2025 4:40 PM CDT) Glucose, POC 77 70 - 199 mg/dL Blood 01/17/2025 4:40 PM CDT 01/17/2025 4:40 PM CDT Stacy Chavira MD LAB POCT ORDERABLES - DEVICE Fin al Result Performing Organization Address [facility] Co de Phone Number [address] [employer] [place] [address] * THROMBECTOMY (01/17/2025 3:15 PM CDT) Anatomical Region Laterality Modality X-Ray Angiograph y Narrative 01/17/2025 3:19 PM CDT Please see OpNote for result. us Stacy Chavira MD CV CARDIAC CATH PROCEDURES Final Result * ABO / Rh Confirmation Testing (01/17/2025 12:36 PM CDT) ABO/Rh Confirmation A Positive MHB Blood 01/17/2025 12:3 6 PM CDT 01/17/2025 12:43 PM CDT us Stacy Chavira MD LAB BLOOD ORDERABLES Final Resul t Performing Organization Address City/[facility]/ZIP Co de Phone Number MARY KAY [address] Department [place] [address] MHB * eGFR (01/17/2025 12:13 PM CDT) eGFR 66 >=60 mL/min/1. 73 m2 Comment: Interpretive Data Reference Interval Normal >/= 90 mL/min/1.73m2 Mildly decreased* 60 - 89 mL/min/1.73m2 Mildly to moderately decreased 45 - 59 mL/min/1.73m2 Moderately to severely decreased 30 - 44 mL/min/1.73m2 Severely decreased 15 - 29 mL/min/1.73m2 Kidney Failure < 15 mL/min/1.73m2 *Relative to young adult level Estimated glomerular filtration rate is determined by the 2020 CKD-EPI equation recommended by the National Kidney Foundation (A Unifying Approach to GFR Estimation: Recommendations of the NKF-ASK Task Force on Reassessing the Inclusion of Race in Diagnosing Kidney Disease, JASN 2020). The CKD-EPI equation should not be used for patients with unstable renal function and has not been validated in children and those over 70. Current interpretive data was last reviewed 2021. Blood 01/17/2025 12:1 3 PM CDT 01/17/2025 12:21 PM CDT us Stacy Chavira MD LAB BLOOD ORDERABLES Final Resul t [facility] [address] [facility] Department [place] [address] * (ABNORMAL) Differential, auto (01/17/2025 12:13 PM CDT) Neutrophil abs 4.66 1.50 - 6.50 K/cumm Imm gran abs 0.03 0.00 - 0.10 K/cumm [facility] Lymphocyte abs 2.22 0.80 - 3.30 K/cumm [facility] Monocyte abs 0.65 0.20 - 0.80 K/cumm [facility] Eosinophil abs 0.54(H) 0.00 - 0.50 K/cumm [facility] Basophil abs 0.05 0.00 - 0.10 K/cumm [facility] Neutrophil pct 57.2 % [facility] Comment: Interpretive Data Percent cell count reference ranges are not reported, since discordance with absolute values may lead to misinterpretation of CBC data. Current Interpretive Data was last revised on 2017. Imm gran pct 0.4 % [facility] Comment: Interpretive Data Percent cell count reference ranges are not reported, since discordance with absolute values may lead to misinterpretation of CBC data. Current Interpretive Data was last revised on 2017. Lymphocyte pct 27.2 % [facility] Comment: Interpretive Data Percent cell count reference ranges are not reported, since discordance with absolute values may lead to misinterpretation of CBC data. Current Interpretive Data was last revised on 2017. Monocyte pct 8.0 % [facility] Comment: Interpretive Data Percent cell count reference ranges are not reported, since discordance with absolute values may lead to misinterpretation of CBC data. Current Interpretive Data was last revised on 2017. Eosinophil pct 6.6 % [facility] Comment: Interpretive Data Percent cell count reference ranges are not reported, since discordance with absolute values may lead to misinterpretation of CBC data. Current Interpretive Data was last revised on 2017. Basophil pct 0.6 % [facility] Comment: Interpretive Data Percent cell count reference ranges are not reported, since discordance with absolute values may lead to misinterpretation of CBC data. Current Interpretive Data was last revised on 2017. Blood 01/17/2025 12:1 3 PM CDT 01/17/2025 12:21 PM CDT Stacy Chavira MD LAB BLOOD ORDERABLES Final Resul t Performing Organization Address [facility] Co de Phone Number MARY KAY [address] [place] [address] * CBC with auto differential (01/17/2025 12:13 PM CDT) Pathologist [facility] WBC 8.15 3.80 - 9.90 K/cumm Hgb 16.4 13.0 - 17.5 g/dL [facility] Hct 49.9 38.9 - 50.3 % [facility] Plt 201 150 - 400 K/cumm [facility] MPV 9.7 9.1 - 12.3 fL [facility] RBC 5.39 4.30 - 5.80 M/cumm [facility] MCV 92.6 81.3 - 96.4 fL [facility] MCH 30.4 27.1 - 33.3 pg [facility] MCHC 32.9 32.3 - 35.7 g/dL [facility] RDW CV 13.7 11.1 - 14.9 % [facility] RDW SD 46.6 35.7 - 48.1 fL [facility] NRBC abs 0.00 0.00 - 0.01 K/cumm [facility] Blood 01/17/2025 12:1 3 PM CDT 01/17/2025 12:21 PM CDT Narrative [facility] - 01/17/2025 12:29 PM CDT If most recent labs were drawn prior to 4 AM, draw only prior to initiating procedure. Stacy Chavira MD LAB BLOOD ORDERABLES Final Resul t Performing Organization Address City/[facility]/ZIP Co de Phone Number [facility] [address] [place] [address] * ABO/Rh (01/17/2025 12:13 PM CDT) Pathologist [facility] ABO/Rh A Positive Blood 01/17/2025 12:1 3 PM CDT 01/17/2025 12:21 PM CDT Narrative MARY KAY - 01/17/2025 12:56 PM CDT Has the patient had Daratumumab or Isatuximab in the past 6 months?->Unknown Stacy Chavira MD LAB BLOOD BANK TEST ORDERABLES F inal Result Performing Organization Address [facility] Co de Phone Number [address] [place] [address] * aPTT (01/17/2025 12:13 PM CDT) aPTT 26 22 - 37 sec Comment: Interpretive data aPTT test has not been evaluated for monitoring heparin therapy. The anti-Xa is the preferred test. Current interpretive data was last revised on 2019. Blood 01/17/2025 12:1 3 PM CDT 01/17/2025 12:21 PM CDT Stacy Chavira MD LAB BLOOD ORDERABLES Final Resul t Performing Organization Address [facility] de Phone Number [address] [address] * Protime-INR (01/17/2025 12:13 PM CDT) PT 13.10 12.00 - 14.60 sec INR 0.98 0.90 - 1.20 MARY KAY Comment: Interpretive data Oral anticoagulant therapeutic ranges: Venous thromboembolism prophylaxis or treatment: 2.0-3.0 CARDIOLOGY Standard range: 2.0-3.0 High-intensity range: 2.5-3.5 Refer to indication-specific guidelines for appropriate target ranges for prosthetic heart valve replacement. Current interpretive data was last revised on 2019. Blood 01/17/2025 12:1 3 PM CDT 01/17/2025 12:21 PM CDT Stacy Chavira MD LAB BLOOD ORDERABLES Final Resul t Performing Organization Address City/[facility] Co de Phone Number CERNER MH [address] [facility] [place] [address] * Antibody screen (01/17/2025 12:13 PM CDT) [facility] Rafael, indirect, Gel Interpretation Negative ABSC Blood 01/17/2025 12:1 3 PM CDT 01/17/2025 12:21 PM CDT Narrative [facility] - 01/17/2025 12:56 PM CDT Has the patient had Daratumumab or Isatuximab in the past 6 months?->Unknown Stacy Chavira MD LAB BLOOD BANK TEST ORDERABLES F inal Result [place] [address] [place] [address] * (ABNORMAL) Basic metabolic panel (01/17/2025 12:13 PM CDT) [facility] Sodium 138 135 - 145 mmol/L Potassium, pl 4.6 3.3 - 4.9 mmol/L [facility] Chloride 104 97 - 110 mmol/L [facility] CO2 22 22 - 32 mmol/L [facility] Anion gap 12 2 - 15 mmol/L [facility] BUN 28(H) 6 - 25 mg/dL [facility] Creatinine 1.17 0.80 - 1.30 mg/dL [facility] Glucose 93 70 - 199 mg/dL [facility] Comment: Interpretive Data Fasting glucose >/= 126 mg/dl is diagnostic for diabetes. Fasting is defined as no caloric intake for at least 8 hours. Fasting glucose between 100 mg/dl to 125 mg/dl is diagnostic of prediabetes. In a patient with classic symptoms of hyperglycemia or hyperglycemic crisis, a random glucose >/= 200 mg/dl is diagnostic for diabetes. In the absence of unequivocal hyperglycemia, results should be confirmed by repeat testing. The classification and Diagnosis of Diabetes Diabetes Care 202; 46: S19-S40. Current interpretive data was last revised 2022. Calcium 9.8 8.5 - 10.3 mg/dL [facility] Blood 01/17/2025 12:1 3 PM CDT 01/17/2025 12:21 PM CDT us Stacy Chavira MD LAB BLOOD ORDERABLES Final Resul t MARY KAY [address] [facility] [place] [address] * US BOB (01/16/2025 11:49 AM CDT) Anatomical Region Laterality Modality Vascular N/A Ultrasound 01/16/2025 10:5 3 AM CDT Narrative 01/17/2025 2:31 PM CDT Lower Extremity Arterial Doppler Report Patient Name: LUCHO MANZO R : 1950 Study Date: 01/16/2025 10:53:00 AM Sex: M Straightener Hand: BONG CHRISTIANSON RN/RVT Ref Provider: STACY CHAVIRA Quality: Adequate Order Provider: STACY CHAVIRA PROCEDURES: Arterial Report: Ankle - Brachial Index Doppler exam. INDICATIONS: I73.9 Peripheral vascular disease, unspecified and Z98.890 Other specified postprocedural states. 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 COMPARISONS: The previous exam was completed on 10/22/2024 RT PT/DP 1.04/.87 LT PT/DP .96/.82. MEASUREMENTS: Right Value Left Value Rt Brachial Pressure 112 mmHg Lt Brachial Pressure 111 mmHg Rt TAKER OUT Pressure 112 mmHg Lt TAKER OUT Pressure 59 mmHg Rt DPA Pressure 108 mmHg Lt DPA Pressure 56 mmHg Rt PT BOB Resting 1 Lt PT BOB Resting 0.53 Rt DP BOB Resting 0.96 Lt DP BOB Resting 0.5 FINDINGS: Right Posterior Tibial Artery Analysis: The posterior tibial waveform is multiphasic. Right Dorsalis Pedis Artery Analysis: The dorsalis pedis waveform is multiphasic. Left Posterior Tibial Artery Analysis: The posterior tibial waveform is monophasic. Left Dorsalis Pedis Artery Analysis: The dorsalis pedis waveform is monophasic. - CONCLUSIONS: 1. Ankle-brachial index of 0.9-1.3 is within normal limits in the right lower extremity. 2. Ankle-brachial index of 0.5-0.8 is consistent with claudication and a moderate occlusive arterial disease in the left lower extremity. ATTESTATION: I have reviewed and interpreted the pertinent images and measurements of this study. I attest to the conclusions in the final report that is provided above. Electronically Signed By: Stacy Chavira MD 01/17/2025 1:21:54 PM CDT Procedure Note Stacy Chavira MD - 01/17/2025 Lower Extremity Arterial Doppler Report Patient Name: LUCHO MANZO R : 1950 Study Date: 01/16/2025 10:53:00 AM Sex: M Straightener Hand: BONG CHRISTIANSON RN/RVT Ref Provider: STACY CHAVIRA Quality: Adequate Order Provider: STACY CHAVIRA PROCEDURES: Arterial Report: Ankle - Brachial Index Doppler exam. INDICATIONS: I73.9 Peripheral vascular disease, unspecified and Z98.890 Other specifiedpostprocedural states. 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 COMPARISONS: The previous exam was completed on 10/22/2024 RT PT/DP 1.04/.87 LT PT/DP.96/.82. MEASUREMENTS: Right Value Left Value Rt Brachial Pressure 112 mmHg Lt Brachial Pressure 111 mmHg Rt TAKER OUT Pressure 112 mmHg Lt TAKER OUT Pressure 59 mmHg Rt DPA Pressure 108 mmHg Lt DPA Pressure 56 mmHg Rt PT BOB Resting 1 Lt PT BOB Resting 0.53 Rt DP BOB Resting 0.96 Lt DP BOB Resting 0.5 FINDINGS: Right Posterior Tibial Artery Analysis: The posterior tibial waveform is multiphasic. Right Dorsalis Pedis Artery Analysis: The dorsalis pedis waveform is multiphasic. Left Posterior Tibial Artery Analysis: The posterior tibial waveform is monophasic. Left Dorsalis Pedis Artery Analysis: The dorsalis pedis waveform is monophasic. - CONCLUSIONS: 1. Ankle-brachial index of 0.9-1.3 is within normal limits in the rightlower extremity. 2. Ankle-brachial index of 0.5-0.8 is consistent with claudication and amoderate occlusive arterial disease in the left lower extremity. ATTESTATION: I have reviewed and interpreted the pertinent images and measurements ofthis study. I attest to the conclusions in the final report that is provided above. Electronically Signed By: Stacy Chavira MD 01/17/2025 1:21:54 PM CDT us Stacy Chavira MD IMG US PROCEDURES Final Result * US Arterial Duplex Lower Extremity Left Limited (01/16/2025 11:49 AM CDT) Anatomical Region Laterality Modality Vascular Left Ultrasound 01/16/2025 10:5 2 AM CDT Narrative 01/17/2025 2:31 PM CDT Lower Extremity Arterial Duplex Report Patient Name: LUCHO MANZO R : 1950 (74y 1m) Sex: M Study Date: 01/16/2025 10:52:50 AM Ht(Inch): Wt(Lb): BSA: Straightener Hand: BONG CHRISTIANSON Provider: STACY CHAVIRA Quality: Adequate Ref Provider: STACY CHAVIRA PROCEDURES: Arterial Report: A non-invasive vascular imaging study of the left lower extremity arteries and bypass graft was performed using B-mode ultrasound, color flow, and spectral Doppler. INDICATIONS: I73.9 Peripheral vascular disease, unspecified and Z98.890 Other specified postprocedural states. HISTORY: S/P RT EXCHANGE OPERATOR-AK POP BPG 02/11/2019 S/P LT EXCHANGE OPERATOR-AK POP BPG 05/06/2019. COMPARISONS: The previous exam was completed on 10/22/2024. MEASUREMENTS: Left Value Lt EXCHANGE OPERATOR Prx PSV 150.91 cm/sec Lt Profunda Prx PSV 135.27 cm/sec Lt Pop Prx PSV 0.00 cm/sec Lt Pop Mid PSV 10.00 cm/sec Lt Pop Dst PSV 16.00 cm/sec Lt Post Tibial Prx PSV 12.00 cm/sec Lt Post Tibial Mid PSV 12.00 cm/sec Lt Peroneal Prx PSV 9.00 cm/sec Lt Peroneal Mid PSV 8.00 cm/sec GRAFTS: Left Value Lt Anast Prx PSV 75.15 cm/sec Lt BPG Prx PSV 0.00 cm/sec Lt BPG Mid PSV 0.00 cm/sec Lt BPG Dst PSV 0.00 cm/sec Lt Anast Dst PSV 0.00 cm/sec Lt BPG Outflow PSV 0.00 then 38 flow reversal cm/sec FINDINGS: Bypass Graft: The bypass graft is located in the left leg. Occluded bypass graft with extension into the popliteal artery. CONCLUSION: 1. Left lower extremity bypass is occluded. ATTESTATION: I have reviewed and interpreted the pertinent images and measurements of this study. I attest to the conclusions in the final report that is provided above. Electronically Signed By: Stacy Chavira MD 01/17/2025 1:21:36 PM CDT Procedure Note Stacy Chavira MD - 01/17/2025 Lower Extremity Arterial Duplex Report Patient Name: LUCHO MANZO R : 1950 (74y 1m) Sex: M Study Date: 01/16/2025 10:52:50 AM Ht(Inch): Wt(Lb): BSA: Straightener Hand: BONG CHRISTIANSON Provider: STACY CHAVIRA Quality: Adequate Ref Provider: STACY CHAVIRA PROCEDURES: Arterial Report: A non-invasive vascular imaging study of the left lowerextremity arteries and bypass graft was performed using B-mode ultrasound, colorflow, and spectral Doppler. INDICATIONS: I73.9 Peripheral vascular disease, unspecified and Z98.890 Other specifiedpostprocedural states. HISTORY: S/P RT EXCHANGE OPERATOR-AK POP BPG 02/11/2019 S/P LT EXCHANGE OPERATOR-AK POP BPG 05/06/2019. COMPARISONS: The previous exam was completed on 10/22/2024. MEASUREMENTS: Left Value Lt EXCHANGE OPERATOR Prx PSV 150.91 cm/sec Lt Profunda Prx PSV 135.27 cm/sec Lt Pop Prx PSV 0.00 cm/sec Lt Pop Mid PSV 10.00 cm/sec Lt Pop Dst PSV 16.00 cm/sec Lt Post Tibial Prx PSV 12.00 cm/sec Lt Post Tibial Mid PSV 12.00 cm/sec Lt Peroneal Prx PSV 9.00 cm/sec Lt Peroneal Mid PSV 8.00 cm/sec GRAFTS: Left Value Lt Anast Prx PSV 75.15 cm/sec Lt BPG Prx PSV 0.00 cm/sec Lt BPG Mid PSV 0.00 cm/sec Lt BPG Dst PSV 0.00 cm/sec Lt Anast Dst PSV 0.00 cm/sec Lt BPG Outflow PSV 0.00 then 38 flow reversal cm/sec FINDINGS: Bypass Graft: The bypass graft is located in the left leg. Occluded bypassgraft with extension into the popliteal artery. CONCLUSION: 1. Left lower extremity bypass is occluded. ATTESTATION: I have reviewed and interpreted the pertinent images and measurements ofthis study. I attest to the conclusions in the final report that is provided above. Electronically Signed By: Stacy Chavira MD 01/17/2025 1:21:36 PM CDT Stacy Chavira MD [facility] [place]ED[place] Final Result * POCT lipid panel (10/22/2024 8:47 AM CDT) Cholesterol, POC 131 <200 MG/DL HDL, POC 51 >=40 mg/dL Triglycerides, POC 113 <=149 mg/dL LDL Cholesterol POC 58 <=129 mg/dL Chol/HDL Ratio, POC 2.6 NONE Non-HDL Cholesterol, POC 81 NONE mg/dL Cholesterol Total, POC 131 30 - 199 mg/dL Capillary blood 10/22/2024 8 :47 AM CDT Ulises Koo MD POINT OF CARE TEST ORDERA BLES Final Result from Last 3 Months or Most Recently Relevant to Health Maintenance Insurance [facility] MEDICARE [facility] [place] [address] Advance Directives For more information, please contact: [phone] * Full Code (Latest Code Status on File) Date Activated Date Inactivated Comments 01/17/2025 3:21 PM 01/20/2025 6:41 PM Care Teams Special Procedures Tech Relationship Specialty Start Date End Date Manisha Farias MD PCP - General Family Practice 06/11/20
--- OUTSIDE RECORDS SUMMARY | 2025-02-13 09:47 | XMS_ITS | Clinical Summary ---
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 Dyslipidemia, [...] 36.7 C (98 F) 05/10/2019 2:20 PM NEUROLOGICAL SURGERY TEACHER Respiratory Rate 18 05/10/2019 2:20 PM NEUROLOGICAL SURGERY TEACHER Oxygen Saturation 96% 05/10/2019 2:20 PM NEUROLOGICAL SURGERY TEACHER Inhaled Oxygen Concentration - - Weight 93.9 kg (207 lb) 11/23/2022 10:36 AM CDT Height 175.3 cm (5' 9) 11/23/2022 10:36 AM CDT Body Mass Index [...] PCV) 12/20/2020 12/21/2019 COVID-19 Vaccine (2 - 2024-2 6 season) 2024 02/05/2021 Influenza Adult (#1) 2025 02/12/2019 DTaP, Tdap and Td Vaccines ( 2 - Td or Tdap) 12/18/2029 12/19/2019 Hepatitis A Vaccines Aged Out No long er eligible based on patient's age to complete this topic Meningococcal B Vaccine Aged Out No l onger eligible based on patient's age to complete this topic Meningococcal Vaccine Aged Out No sugar andra eligible based on patient's age to complete this topic RSV Immunizations Under 20 Months Aged Out No longer eligible based on patient's age to complete this topic Medical Devices Implanted Type Area Lumber Stacker Driver Device Identifier Shelf Expiration Date Model / Serial / Lot Graft Gortex 45 Access Stnd Wall Stretch 4-7mm - [id number] Implanted:Qty: 1 on 02/11/2019 by Fred Leonardo MD at [facility] Graft Right: Leg [employer] 02/05/2023 [id number] / [id number] / Description:Femoral to popli teal Propaten Vascular Graft Implanted:Qty: 1 on 05/06/2019 by Fred Leonardo MD at [facility] Graft Left: Leg [employer] 06/28/2022 [id number] / [id number] / Description:RIGHT COMMON FEM ORAL TO ABOVE KNEE POPLITEAL ARTERY BYPASS GRAFT Insurance [employer] MEDICARE Advance Directives Documents on File Type Date Recorded Patient Ent Nurse Expl anation Power of Social Services Assistant Advance Directives and Living Will 02/15/2019 1:21 [...] 3:43 PM 03/22/2019 5:49 AM Care Teams Corporate Law Specialist Relationship Specialty Start Date End Date Manisha Farias MD PCP - General FAMILY PRACTICE 01/09/19 Gt Hector DO [address] [place] [address] INTERNAL MEDICINE 02/05/19 Fred Leonardo MD [address] [place] [id number] Vascular/Ophthalmology Surgical Technician SURGERY 02/05/19
--- OUTSIDE RECORDS SUMMARY | 2025-02-13 09:47 | XMS_ITS | Encounter Summary ---
Author Organization [facility] Address [address] [place] [address] Care Team Providers Care Drywall Carrier Name Role Phone Manisha Farias MD Primary Care Provider Gt Hector DO Unavailable Fred Leonardo MD Unavailable Encounter Details Date Type Department Care Team (Late st Contact Info) Description 04/01/2019 Hospital Orders Only [facility] Med/Surg [address] [place] [address] Fred Leonardo MD [address] [place] [phone] Social History Tobacco Use Types Packs/Day [...] or climbing stairs? No 04/02/2019 8:26 PM BOATBUILDER APPRENTICE WOOD Don, Jessi , RN Active * Question [...] Assessment Author Status No 02/11/2019 2:31 PM BOATBUILDER APPRENTICE WOOD Activ e * RETIRED Are you blind or do you have serious difficulty seeing, even when wearing glasses? Answer Date of Assessment Author Status No 02/11/2019 2:31 PM BOATBUILDER APPRENTICE WOOD Acti ve * Do you have serious difficulty walking [...] on filedocumented in this encounter Care Teams Drywall Carrier Relationship Specialty Start Date End Date Manisha Farias MD PCP - General FAMILY PRACTICE 01/09/19 Gt Hector DO [address] [place] [address] INTERNAL MEDICINE 02/05/19 Fred Leonardo MD [address] [place] [id number] Vascular/Freight Receiver SURGERY 02/05/19 documented as of this encounter
[2025-02-13 12:59] LABS: Hematocrit 45.6 % (42.0-52.0); Hemoglobin 14.3 g/dL (14.0-18.0); Immature Granulocyte Percent A 0.5 % (0-0.5); Lymphocytes Absolute Auto 2.26 K/mm3 (0.9-3.2); Mean Corpuscular HGB Conc 31.4 g/dl (32-36); Mean Corpuscular Hemoglobin 30.5 pg (26-34); Mean Corpuscular Volume 97.2 fl (80-100); Nucleated Red Blood Cells Absolute Auto 0.000 K/mm3 (0.0-0.012); Nucleated Red Blood Cells Perc 0.0 % (0.0-0.2); Platelet Count Result 217 k/mm3 (150-375); Red Blood Count 4.69 M/mm3 (4.6-6.20); White Blood Count 7.7 K/mm3 (4.5-10.0)
[2025-02-13 13:08] LABS: Alanine Aminotransferase 24 U/L (6-50); Albumin Level 4.5 g/dL (3.5-5.1); Alkaline Phosphatase 66 U/L (38-126); Anion Gap 10 mmol/L (4-12); Aspartate Amino Transferase 30 U/L (17-59); Bilirubin,Total 0.8 mg/dL (0.2-1.3); Blood Urea Nitrogen 29 mg/dL (9-20); Calcium 9.4 mg/dL (8.4-10.2); Carbon Dioxide 23 mmol/L (22-30); Chloride 106 mmol/L (98-107); Cholesterol 142 mg/dL (0-200); Estimated Glomerular Filt Rate > 60; Glucose 84 mg/dL (65-110); HDL Direct 74 mg/dL; Sodium 139 mmol/L (137-145); Total Protein 7.5 g/dL (6.3-8.2); Triglycerides 95 mg/dL (<150)
[2025-02-13 13:19] LABS: Potassium 4.7 mmol/L (3.4-5.0)
[2025-02-13 13:40] LABS: Thyroid Stimulating Hormone Reflex 0.799 uIU/mL (0.465-4.68)
[2025-02-13 13:43] LABS: MALB Creatinine Ratio < 6.6 mg/g (0-30)
[2025-02-13 13:46] LABS: Prostate Specific Antigen 0.9 ng/mL (< OR = 4.0)
[2025-02-13 14:43] LABS: Vitamin B12 473.0 pg/mL (239-931)
[2025-02-13 16:04] LABS: Hemoglobin A1C 6.0 % (<5.7)
== END 2025-02-13 09:19 | disposition home or self-care (01) ==
LOC: ANHGOSHLAB 09:19
PROVIDERS: PCP Family Medicine; Visit Provider Family Medicine
DX: E11.9 Type 2 diabetes mellitus without complications (principal); I10 Essential (primary) hypertension; Z00.00 Encounter for general adult medical examination without abnormal findings; E53.8 Deficiency of other specified B group vitamins; Z12.5 Encounter for screening for malignant neoplasm of prostate; E78.5 Hyperlipidemia, unspecified; E55.9 Vitamin D deficiency, unspecified
CPT/HCPCS: 36415; 80053; 80061; 82043; 82306; 82607; 83036; 84153; 84443; 85025; G0103

== ENCOUNTER 2025-03-03 15:46 | Outpatient (CLI) | payer MEDICARE, SELFPAY ==
--- NOTE | ~2025-03-03 | CT_ITS ---
CT lung screening INDICATION: Tobacco use., Screening COMPARISON: 06/12/2022. TECHNIQUE: CT examination of the entire thorax without contrast was performed using low dose technique. Thin section axial, sagittal and coronal images were included to increase sensitivity for small lung nodules. FINDINGS: PULMONARY NODULES: There are no suspicious noncalcified pulmonary nodules. OTHER PULMONARY FINDINGS: No significant nonnodular pleural or parenchymal abnormality is noted. Moderate centrilobular emphysema are noted. There is mild interstitial lung changes with subpleural reticulation are seen. There is mild bronchiectasis. No pathologically enlarged lymph nodes are present. Normal heart size. Within the limits of this nondedicated CT. Coronary artery calcifications are noted. UPPER ABDOMEN AND PERIPHERAL SOFT TISSUE: Limited views of the upper abdomen and peripheral soft tissue demonstrated no abnormalities. Right renal cyst measures 7.4 cm. OSSEOUS STRUCTURES: Bone window shows no aggressive blastic or lytic lesions. IMPRESSION: 1. Lung-RADS category 1: No nodules or definitely benign nodules. Recommendations: 1 or 2: Annual screening with low-dose CT in 12 months. 2. Moderate emphysematous changes are present. All CT scans at this facility are performed using low dose modulation techniques as appropriate to perform exam including the following: automated exposure control; use of iterative reconstruction technique; adjustment of the mA and/or kV according to patient size (this includes techniques or standardized protocols for targeted exams where dose is matched to indication/reason for exam). Reviewed, dictated and finalized at location S. CAL AIDES TEACHER IMPRESSION: 1. Lung-RADS category 1: No nodules or definitely benign nodules. Recommendations: 1 or 2: Annual screening with low-dose CT in 12 months. 2. Moderate emphysematous changes are present. All CT scans at this facility are performed using low dose modulation techniqu es as appropriate to perform exam including the following: automated exposure c ontrol; use of iterative reconstruction technique; adjustment of the mA and/or kV according to patient size (this includes techniques or standardized protocol s for targeted exams where dose is matched to indication/reason for exam).
--- OUTSIDE RECORDS SUMMARY | 2025-03-03 16:02 | XMS_ITS | Clinical Summary ---
Author Organization [facility] Address [address] [place] [address] Care Team Providers Care Mangle Catcher Name Role Phone Unavailable Primary Care Provider [...]
--- OUTSIDE RECORDS SUMMARY | 2025-03-03 16:02 | XMS_ITS | Clinical Summary ---
Author Organization [facility] Address [address] [place] [address] Care Team Providers Care Cutting Machine Tender Helper Name Role Phone Manisha Farias MD Primary [...] artery disease of n ative artery of [place] heart with stable angina pectoris 06/23/2020 Dyslipidemia, [...] 36.7 C (98 F) 05/10/2019 2:20 PM STRAW HAT MACHINE OPERATOR Respiratory Rate 18 05/10/2019 2:20 PM STRAW HAT MACHINE OPERATOR Oxygen Saturation 96% 05/10/2019 2:20 PM STRAW HAT MACHINE OPERATOR Inhaled Oxygen Concentration - - Weight 93.9 [...] this topic Medical Devices Implanted Type Area Catch Basin Cleaner Device Identifier Shelf Expiration Date Model / Serial / Lot Graft Gortex 45 Access Stnd Wall Stretch 4-7mm - [id number] Implanted:Qty: 1 on 02/11/2019 by Fred Leonardo MD at [facility] Graft Right: Leg [employer] 02/05/2023 [id number] / [id number] / Description:Femoral to popli teal Propaten Vascular Graft Implanted:Qty: 1 on 05/06/2019 by Fred Leonardo MD at [facility] Graft Left: Leg [employer] 06/28/2022 [id number] / [id number] / Description:RIGHT COMMON FEM ORAL TO ABOVE KNEE POPLITEAL ARTERY BYPASS GRAFT Insurance [employer] MEDICARE Advance Directives Documents on File Type Date Recorded Patient Auditor In Charge Expl anation Power of City Collector Advance Directives and Living Will 02/15/2019 1:21 [...] 3:43 PM 03/22/2019 5:49 AM Care Teams Cutting Machine Tender Helper Relationship Specialty Start Date End Date Manisha Farias MD PCP - General FAMILY PRACTICE 01/09/19 Gt Hector DO [address] [place] [address] INTERNAL MEDICINE 02/05/19 Fred Leonardo MD [address] [place] [id number] Vascular/Data Warehouse Analyst SURGERY 02/05/19
--- OUTSIDE RECORDS SUMMARY | 2025-03-03 16:03 | XMS_ITS | Encounter Summary ---
Author Organization [facility] Address [address] [place] [id number] Care Team Providers Care Band Saw Marker Name Role Phone Manisha Farias MD Primary Care Provider Gt Hector DO Unavailable Fred Leonardo MD Unavailable Encounter Details Date Type Department Care Team (Late st Contact Info) Description 04/01/2019 Hospital Orders Only [facility] Med/Surg [address] [place] [address] Fred Leonardo MD [address] [place] [id number] Social History Tobacco Use Types Packs/Day [...] or climbing stairs? No 04/02/2019 8:26 PM CHEMICAL MANAGER Don, [employer] , RN Active * Question Answer Date [...] Assessment Author Status No 02/11/2019 2:31 PM CHEMICAL MANAGER Activ e * RETIRED Are you blind or do you have serious difficulty seeing, even when wearing glasses? Answer Date of Assessment Author Status No 02/11/2019 2:31 PM CHEMICAL MANAGER Acti ve * Do you have serious [...] Date Author Status No 02/11/2019 2:31 PM rAa Barton RN Active documented in this encounter Plan of Treatment Not on file documented as of this encounter Visit Diagnoses Not on filedocumented in this encounter Care Teams Band Saw Marker Relationship Specialty Start Date End Date Manisha Farias MD PCP - General FAMILY PRACTICE 01/09/19 Gt Hector DO [address] [place] [address] INTERNAL MEDICINE 02/05/19 Fred Leonardo MD [address] [place] [id number] Vascular/Rn Post Partum SURGERY 02/05/19 documented as of this encounter
--- OUTSIDE RECORDS SUMMARY | 2025-03-03 16:03 | XMS_ITS | Encounter Summary ---
Author Organization [facility] Address [address] [place] [id number] Care Team Providers Care Welfare Eligibility Worker Name Role Phone Manisha Farias MD Primary Care Provider Gt Hector DO Unavailable Fred Leonardo MD Unavailable Encounter Details Date Type Department Care Team (Late st Contact Info) Description 05/03/2019 Prep for Procedure [facility] [place] [address] Fred Leonardo MD [address] [place] [phone] Social History Tobacco Use Types Packs/Day [...] Assessment Author Status No 04/02/2019 8:26 PM SKIP OPERATOR Activ e * RETIRED Are you blind or do you have serious difficulty seeing, even when wearing glasses? Answer Date of Assessment Author Status No 04/02/2019 8:26 PM SKIP OPERATOR Activ e * Do you have serious [...] (ABNORMAL) BASIC METABOLIC PANEL (05/06/2019 9:09 AM [facility]) [facility] GLUCOSE 103(H) 70 - 99 MG/DL 05/06/2019 9:44 AM [facility] BUN 17 7 - 18 MG/DL 05/06/2019 9:44 AM [facility] CREATININE S/P/B 0.87 0.7 - 1.3 MG/DL 05/06/2019 9:44 AM [facility] SODIUM S/P/B 143 136 - 145 MMOL/L 05/06/2019 9:44 AM [facility] POTASSIUM S/P/B 4.6 3.5 - 5.1 MMOL/L 05/06/2019 9:44 AM [facility] CHLORIDE S/P/B 111(H) 100 - 108 MMOL/L 05/06/2019 9:44 AM [facility] CO2 28.4 21 - 32 MMOL/L 05/06/2019 9:44 AM [facility] CALCIUM S/P/B 9.2 8.5 - 10.1 MG/DL 05/06/2019 9:44 AM [facility] ANION GAP 3.6(L) 5 - 15 MMOL/L 05/06/2019 9:44 AM [facility] BUN CREATININE RATIO 19.6 6 - 26 05/06/2019 9:44 AM [facility] EGFR NON-AFR. AMER. 90(L) >90 ML/MIN/1.7 3 M2 05/06/2019 9:44 AM [facility] EGFR AFR. AMER. >90 >90 ML/MIN/1.7 3 M2 05/06/2019 9:44 AM [facility] Comment: NOTE: eGFR is not calculated for patients <18 years of age. This is an estimated GFR (CKD EPI) and should not be used for calculating drug doses. 05/06/2019 9:09 AM SKIP OPERATOR us Fred Leonardo MD LABORATORY Final Result [facility] [address] [place] [address], [place] [phone] * PTT, PARTIAL THROMBOPLASTIN TIME (05/06/2019 9:09 AM SKIP OPERATOR) PTT 33.4 25.5 - 37.6 SEC 05/06/2019 9:42 AM SKIP OPERATOR [facility] 05/06/2019 9:09 AM SKIP OPERATOR Fred Leonardo MD LABORATORY Final Result [facility] [address] [place] [id number], * PROTIME/INR, VENOUS (05/06/2019 9:09 AM SKIP OPERATOR) PROTIME 11.3 9.6 - 12.2 SEC 05/06/2019 9:42 AM SKIP OPERATOR [facility] INR 1.0 05/06/2019 9:42 AM SKIP OPERATOR [facility] Comment: Recommended INR Therapeutic Goals: 2.0-3.0 Routine Therapy 2.5-3.5 Mechanical Prosthetic Valves (High Risk) 3.0-4.0 Acute [place] (to prevent Systemic Embolism) The INR is used only for patients on stable oral anticoagulant therapy. It makes no significant contribution to the diagnosis or treatment of patients whose Protime is prolonged for other reasons. 05/06/2019 9:09 AM SKIP OPERATOR Fred Leonardo MD LABORATORY Final Result [address] [id number], documented in this encounter Visit Diagnoses Diagnosis Atherosclerotic PVD with intermittent claudication- Primary Atherosclerosis of [place] arteries of the extremities with intermittent claudication Preop examination Preoperative examination, unspecified documented in this encounter Care Teams Welfare Eligibility Worker Relationship Specialty Start Date End Date Manisha Farias MD PCP - General FAMILY PRACTICE 01/09/19 Gt Hector DO [address] [place] [address] INTERNAL MEDICINE 02/05/19 Fred Leonardo MD [address] [place] [phone] Vascular/Racing Secretary And Handicapper SURGERY 02/05/19 documented as of this encounter
--- OUTSIDE RECORDS SUMMARY | 2025-03-03 16:03 | XMS_ITS | Clinical Summary ---
Author Organization [facility] [address] Address [address] [place] [address] Care Team Providers Care Enrollment Counselor Name Role Phone Manisha Farias MD Primary Care Provider Allergies No known active allergies Medications multivitamin-m inerals-lutein tablet Take by mouth Active simvastatin (ZOCOR) 40 mg tablet Take 1 tablet (40 mg total) by mouth nightly 90 tablet 2 07/11/19 21 Active aspirin 81 mg enteric coated tablet Take 1 tablet (81 mg total) by mouth daily 90 tablet 09/05/19 21 Active cholecalcifero l (VITAMIN D-3) 2000 unit capsule Take 1 capsule (2,000 Units total) by mouth daily Active sildenafiL (VIAGRA) 100 mg tablet Take 1 tablet (100 mg total) by mouth as needed for erectile dysfunction Active lisinopriL (PRINIVIL,ZEST RIL) 20 mg tablet Take 1 tablet (20 mg total) by mouth daily 90 tablet 1 09/07/19 22 Active loperamide (Imodium A-D) 2 mg tablet Take 1 tablet (2 mg total) by mouth as needed for diarrhea Active tamsulosin (FLOMAX) 0.4 mg extended release capsule Take 1 capsule (0.4 mg total) by mouth 07/13/19 24 Active icosapent ethyL (VASCEPA) 1 gram capsule Take 1 capsule (1 g total) by mouth 2 (two) times a day 07/14/19 24 Active fenofibrate (TRIGLIDE) 160 mg tablet Take 1 tablet (160 mg total) by mouth daily 06/30/19 24 Active nitroglycerin (NITROSTAT) 0.[address] 1 TABLET SUBLINGUALLY EVERY 5 MINUTES NEEDED ANGINA, MAY REPEAT AFTER 5 MINUTES FOR UP TO 3 DOSES IF SYMPTOMS PERSIST 25 tablet 11 04/04/19 25 Active Jardiance 25 mg tablet Take 1 tablet (25 mg total) by mouth every morning 04/04/19 25 Active vitamins A,C,E-zinc-certified flex endoscope reprocessor per (ICAPS) 4,296 mcg-226 mg-90 mg capsule Take by mouth Active metoprolol tartrate (LOPRESSOR) 25 mg immediate release tablet TAKE 1 TABLET(25 MG) BY MOUTH TWICE DAILY 180 tablet 2 09/13/19 25 Active gabapentin (NEURONTIN) 100 mg capsule Take 1 capsule (100 mg total) by mouth 2 (two) times a day 10/17/19 25 Active rivaroxaban (XARELTO) 20 mg tabletIndicati ons:Venous Thrombosis Take 1 tablet (20 mg total) by mouth daily with dinner 30 tablet 3 01/21/20 25 Active rivaroxaban (XARELTO) 15 mg tablet Take 1 tablet (15 mg total) by mouth 2 (two) times a day for 20 days 40 tablet 01/21/20 25 Active ticagrelor (Brilinta) 60 mg tabletIndicati ons:Coronary artery disease involving [place] coronary artery of [place] heart without angina pectoris TAKE 1 TABLET(60 MG) BY MOUTH TWICE DAILY 180 tablet 2 02/14/20 25 Active Brilinta 60 mg tabletIndicati ons:Coronary artery disease involving [place] coronary artery of [place] heart without angina pectoris TAKE 1 TABLET(60 MG) BY MOUTH TWICE DAILY 180 tablet 1 08/20/19 25 025 Discontinued Active Problems Problem Noted Date Diagnosed Date [...] duplex Assessment & Plan (05/02/2024 11:02 AM RAILROAD CONDUCTOR): Patient remains asymptomatic. Is scheduled to follow-up [...] artery disease of n ative artery of [place] heart with stable angina pectoris 06/23/2020 Peripheral arterial disease with history of revascularization 06/23/2020 Assessment & Plan (02/05/2025 8:42 AM RAILROAD CONDUCTOR): Impression: Patient with a history of bilateral common femoral to [id number] popliteal bypass graft who recently underwent thrombolysis [...] a history of bilateral common femoral to [id number] popliteal bypass graft who complains of left [...] post bilateral fem-pop bypasses done by Dr. eLonardo. Noninvasives testing, bypasses are patent. Continue risk factor modification with ASA statin therapy, follow up in 1 year with repeat noninvasive testing Assessment & Plan (05/02/2024 10:59 AM RAILROAD CONDUCTOR): Patient is continuing doing well denying any [...] 06/23/2020 Assessment & Plan (02/05/2025 8:43 AM RAILROAD CONDUCTOR): Chronic and stable. Continue lisinopril, metoprolol Assessment [...] 06/23/2020 Assessment & Plan (02/05/2025 8:42 AM RAILROAD CONDUCTOR): Chronic stable. Continue fenofibrate Assessment & Plan (01/16/2025 1:36 PM CDT): Chronic and stable. Continue fenofibrate History of ST elevation myocardial infarction (S JOSUÉ) 06/11/2020 Encounters Date Type Department Care Team Description 02/05/2025 8:30 AM RAILROAD CONDUCTOR Office Visit [facility] Vascular at [address] [place] [address] Cindy Zuñiga NP Peripheral arterial disease with history of revascularization (Primary Dx); Dyslipidemia, goal LDL below 70; Essential hypertension 02/05/2025 Orders Only [facility] V[facility] at [address] [place] [address] Stacy Chavira MD 02/05/2025 Telephone [facility] Vascular and Vein Surgery [address] [place] [phone] Stacy Chavira MD 02/04/2025 11:00 AM RAILROAD CONDUCTOR Ancillary Procedure [facility] Vascular and Vein Surgery at [address] [place] [phone] Aftercare following surgery of the circulatory system 02/04/2025 11:00 AM RAILROAD CONDUCTOR Ancillary Procedure [facility] Vascular and Vein Surgery at [address] [place] [phone] Aftercare following surgery of the circulatory system 01/28/2025 Telephone [facility] Vascular and Vein Surgery [address] [place] [phone] Alicia Azul MA 01/21/2025 Orders Only [facility] Vascular and Vein Surgery [address] [place] [phone] Stacy Chavira MD 01/20/2025 Telephone [facility] Vascular at [address] [phone] Mali Brand RN 01/20/2025 Orders Only [facility] Vascular and Vein Surgery [address] [place] [phone] tSacy Chavira MD Aftercare following surgery of the circulatory system (Primary Dx) 01/18/2025 9:00 AM CDT - 01/18/2025 10:02 AM CDT Surgery [facility] [address] [place] [address] Stacy Chavira MD ANGIOGRAPHY - UNILATERAL EXTREMITY S&I [id number] 01/17/2025 2:00 PM CDT - 01/17/2025 3:25 PM CDT Surgery [facility] [employer] [address] [place] [address] Stacy Chavira MD LEFT LOWER EXTREMITY PHARMACOMECHANICAL THROMBECTOMY 01/17/2025 11:53 AM CDT - 01/20/2025 2:00 PM CDT Hospital [place] [address] [facility] [place] [address] Stacy Chavira MD Kurtz, Bernard Gorman MD [...] care 01/16/2025 1:00 PM CDT Office Visit [facility] Vascular and Vein Surgery [address] [place] [phone] Cindy Zuñiga NP Peripheral arterial disease with history of revascularization (Primary Dx); Essential hypertension; Dyslipidemia, goal LDL below 70 01/16/2025 10:48 AM CDT - 01/16/2025 11:59 PM CDT Hospital Encounter [facility] Medical Office Building [address] [place] [address] Peripheral arterial disease with history of revascularization Discharge Disposition: Discharge to home or self care 01/16/2025 10:48 AM CDT - 01/16/2025 11:59 PM CDT Hospital Encounter [facility] Medical Office Building [address] [place] [address] Peripheral arterial disease with history of revascularization Discharge Disposition: Discharge to home or self care 01/16/2025 Documentation [facility] Vascular and Vein Surgery [address] [place] [phone] Mali Brand, RN 01/16/2025 Orders Only [facility] and Vein Surgery [address] [place] [phone] Stacy Chavira MD 01/16/2025 Orders Only [facility] and Vein Surgery [address] [place] [phone] Stacy Chavira MD Peripheral arterial disease with history of revascularization (Primary Dx) 01/16/2025 Telephone [facility] Vascular and Vein Surgery [address] [place] [phone] Alicia Azul MA 01/16/2025 Orders Only [facility] Vascular and Vein Surgery [address] [facility] [address] [place] [address] Stacy Chavira MD Peripheral arterial disease with history of revascularization (Primary Dx) from Last 3 Months Surgical History Surgery Date Site/Laterality Comments FEMORAL ARTERY - POPLITEAL ARTERY BYPASS GRAFT 05/06/[address] Fred Leonardo at [facility] LEFT COMMON FEMORAL ARTERY TO ABOVE KNEE POPLITEAL ATERY BYPASS WITH POLYTETRAFLUOROETHYLENE GRAFT FEMORAL ARTERY - POPLITEAL ARTERY BYPASS GRAFT 02/11/2019 Right Right common femoral to above-knee popliteal artery bypass graft. CARDIAC CATHETERIZATION stent LCX CORONARY ANGIOPLASTY VASCULAR SURGERY PROCEDURE 01/17/2025 Left Procedure: LEFT LOWER EXTREMITY PHARMACOMECHANICAL THROMBECTOMY; Surgeon: Stacy Chavira MD; Location: [facility] CARDIAC WASHING MACHINE LOADER; Service: Vascular; Laterality: Left; CARDIAC CATHETERIZATION 01/18/2025 Left Procedure: ANGIOGRAPHY - UNILATERAL EXTREMITY S&I [id number]; Surgeon: Stacy Chavira MD; Location: [facility] CARDIAC WASHING MACHINE LOADER; Service: Vascular; Laterality: Left; Medical devices from this surgery are in the Medical Devices section. CARDIAC CATHETERIZATION 01/18/2025 N/A Procedure: PERIANESTHESIA RN FEM-POP, UNILATERAL, FIRST VESSEL [id number]; Surgeon: Stacy Chavira MD; Location: [facility] CARDIAC WASHING MACHINE LOADER; Service: Vascular; Laterality: N/A; Medical devices from this surgery are in the Medical Devices section. CARDIAC CATHETERIZATION 01/18/2025 N/A Procedure: Lytic FU and DC CATH ART OR VENOUS [id number]; Surgeon: Stacy Chavira MD; Location: [facility] CARDIAC WASHING MACHINE LOADER; Service: Vascular; Laterality: N/A; Medical devices from [...] week 01/20/2025 How often do you attend chur ch or yarsanism services? Never 01/20/2025 Do you belong to any clubs o r organizations such as worship groups, unions, fraternal or athletic groups, or [...] money to buy more. Never true 01/21/20 Within the past 12 months, t he [...] any time in the past 12 m [facility], were you homeless or living in a senior care (including now)? No 01/20/2025 [facility] Utilities Answer Date Recorded In the past 12 months has th e MOLI, gas, oil, or water [employer]IS[employer] threatened to shut off services in your home? No 01/20/2025 Personal Safety Answer Date Recorded Have you ever been in or are you currently in a harmful physical or emotional relationship or is someone making you feel afraid or unsafe? Denies 01/17/2025 Sex and Gender Information Value Date Recorded Sex Assigned at Not on file Legal Sex Male 3:47 PM RAILROAD CONDUCTOR Gender Identity Not on file Sexual Orientation Not on file Last Filed Vital Signs Vital Sign Reading Time Taken Comments Blood Pressure 136/75 02/05/2025 8:10 AM RAILROAD CONDUCTOR Pulse 57 02/05/2025 8:10 AM RAILROAD CONDUCTOR Temperature 36.6 C (97.9 F) 01/20/2025 7:07 AM CDT Respiratory Rate 17 01/20/2025 7:07 AM CDT Oxygen Saturation 99% 02/05/2025 8:10 AM RAILROAD CONDUCTOR Inhaled Oxygen Concentration - - Weight 95.3 kg (210 lb) 02/05/2025 8:10 AM RAILROAD CONDUCTOR Height 175.3 cm (5' 9) 02/05/2025 8:10 AM RAILROAD CONDUCTOR Body Mass Index 31.01 02/05/2025 8:10 AM RAILROAD CONDUCTOR Plan of Treatment Health Maintenance Due Date [...] 04/03/2008, 06/29/2000 Medical Devices Implanted Type Area Professor Of Chemical Engineering Device Identifier Shelf Expiration Date Model / Serial / Lot [employer] Vascular System Closure Repair Femoral Artery Suture Mediated Perclose Prostyle 01060-86 - [id number] Implanted:Qty: 1 on 01/18/2025 by Stacy Chavira MD at [facility] [employer] 10/31/2026 [id number] / / [id number] Procedures Procedure Name Priority Date/Time Associated Diagnosis Comments US BOB Schedule Routine, Read Routine (OP Routine) 02/04/2025 11:44 AM RAILROAD CONDUCTOR Aftercare following surgery of the circulatory system US ARTERIAL DUPLEX LOWER EXTREMITY LEFT LIMITED Schedule Routine, Read Routine (OP Routine) 02/04/2025 11:43 AM RAILROAD CONDUCTOR Aftercare following surgery of the circulatory system [...] graft, initial encounter REVENDVAS FEMPOP UN WPTA [id number] Routine 01/18/2025 9:51 AM CDT Thrombosis of femoro-popliteal bypass graft, initial encounter ANGIOGRAPHY UNILATERAL EXTREMITY S&I [id number] Routine 01/18/2025 9:51 AM CDT Thrombosis of [...] Results * US BOB (02/04/2025 11:44 AM RAILROAD CONDUCTOR) Anatomical Region Laterality Modality Vascular N/A Ultrasound 02/04/2025 10:5 0 AM RAILROAD CONDUCTOR Narrative 02/05/2025 10:48 AM RAILROAD CONDUCTOR Vascular & Vein Surgery [address] [facility] [place] [address] Lower Extremity Arterial Doppler Report Patient Name: LUCHO MANZO R : 1950 Study Date: 02/04/2025 10:50:00 AM Sex: M Ophthalmic Lens Inspector: Criss Castañeda RVT Location: [facility] Ref Provider: STACY CHAVIRA Quality: Adequate Order Provider: STACY CHAVIRA PROCEDURES: Arterial Report: Ankle - Brachial Index Doppler exam. INDICATIONS: S/P thromb Lt REMELT PAN TANK OPERATOR & BPG 01/17/25; S/P BA Lt REMELT PAN TANK OPERATOR & pop 01/18/25; S/P Rt REMELT PAN TANK OPERATOR-AK Pop BPG 02/11/19; S/P Lt REMELT PAN TANK OPERATOR-AK Pop BPG 05/06/2019. HISTORY: HTN. HLD. PVD. CAD-AL S/P stent. DM. Former smoker. COMPARISONS: The previous exam was completed on 01/16/25: Rt 1.0, Lt 0.53. Compared to prior there is improvement on the left. MEASUREMENTS: Right Value Left Value Rt Brachial Pressure 114 mmHg Lt Brachial Pressure 112 mmHg Rt PERIANESTHESIA RN Pressure 118 mmHg Lt PERIANESTHESIA RN Pressure 128 mmHg Rt DPA Pressure 122 [...] By: Stacy Chavira MD 02/05/2025 10:32:07 AM RAILROAD CONDUCTOR Procedure Note Stacy Chavira MD - 02/05/2025 Vascular & Vein Surgery [address] [place] [address]. [place] [address] Lower Extremity Arterial Doppler Report Patient Name: LUCHO MANZO R : 1950 Study Date: 02/04/2025 10:50:00 AM Sex: M Ophthalmic Lens Inspector: Criss Castañeda RVT Location: [facility] Ref Provider: STACY CHAVIRA Quality: Adequate Order Provider: STACY CHAVIRA PROCEDURES: Arterial Report: Ankle - Brachial Index Doppler exam. INDICATIONS: S/P thromb Lt REMELT PAN TANK OPERATOR & BPG 01/17/25; S/P BA Lt REMELT PAN TANK OPERATOR & pop 01/18/25; S/P Rt REMELT PAN TANK OPERATOR-AK Pop BPG 02/11/19; S/P Lt REMELT PAN TANK OPERATOR-AK Pop BPG 05/06/2019. HISTORY: HTN. HLD. PVD. CAD-AL S/P stent. DM. Former smoker. COMPARISONS: The previous exam was completed on 01/16/25: Rt 1.0, Lt 0.53. Compared toprior there is improvement on the left. MEASUREMENTS: Right Value Left Value Rt Brachial Pressure 114 mmHg Lt Brachial Pressure 112 mmHg Rt PERIANESTHESIA RN Pressure 118 mmHg Lt PERIANESTHESIA RN Pressure 128 mmHg Rt DPA Pressure 122 [...] By: Stacy Chavira MD 02/05/2025 10:32:07 AM RAILROAD CONDUCTOR us Stacy Chavira MD IMG US PROCEDURES Final Result * US Arterial Duplex Lower Extremity Left Limited (02/04/2025 11:43 AM RAILROAD CONDUCTOR) Anatomical Region Laterality Modality Vascular Left Ultrasound 02/04/2025 10:5 8 AM RAILROAD CONDUCTOR Narrative 02/05/2025 10:48 AM RAILROAD CONDUCTOR Vascular & Vein Surgery [address] [place] [address] Lower Extremity Arterial Duplex Report Patient Name: LUCHO MANZO R : 1950 (74y 2m) Sex: M Study Date: 02/04/2025 10:58:58 AM Ht(Inch): Wt(Lb): BSA: Ophthalmic Lens Inspector: Location: [facility] Order Provider: STACY CHAVIRA Quality: Adequate Ref Provider: STACY CHAVIRA PROCEDURES: Arterial Report: A non-invasive vascular imaging study of the left lower extremity arteries and bypass graft was performed using B-mode ultrasound, color flow, and spectral Doppler. INDICATIONS: S/P thromb Lt REMELT PAN TANK OPERATOR & BPG 01/17/25; S/P BA Lt REMELT PAN TANK OPERATOR & pop 01/18/25; S/P Rt REMELT PAN TANK OPERATOR-AK pop BPG 02/11/19; S/P Lt REMELT PAN TANK OPERATOR-AK pop BPG 05/06/2019. HISTORY: HTN. HLD. PVD. CAD-AL S/P stent. DM. Former smoker. COMPARISONS: The previous exam was completed on 01/16/25: LLE BPG occl. Compared to prior there is improvement. MEASUREMENTS: Left Value Lt REMELT PAN TANK OPERATOR Dst PSV 201.00 cm/sec Lt Pop Prx PSV 62.00 cm/sec Lt Pop Dst PSV 52.00 cm/sec Lt Ant Tibial Prx PSV 57.00 cm/sec Lt Post Tibial Prx PSV 68.00 cm/sec Lt Post Tibial Mid PSV 65.00 cm/sec Lt Peroneal Prx PSV 71.00 cm/sec Lt Peroneal Mid PSV 43.00 cm/sec GRAFTS: Left Value Location Lt REMELT PAN TANK OPERATOR-AK Pop Lt BPG Inflow PSV 147.00 [...] By: Stacy Chavira MD 02/05/2025 10:32:35 AM RAILROAD CONDUCTOR Procedure Note Stacy Chavira MD - 02/05/2025 Vascular & Vein Surgery [address] [place] [address] Lower Extremity Arterial Duplex Report Patient Name: LUCHO MANZO R : 1950 (74y 2m) Sex: M Study Date: 02/04/2025 10:58:58 AM Ht(Inch): Wt(Lb): BSA: Ophthalmic Lens Inspector: Location: [facility] Order Provider: STACY CHAVIRA Quality: Adequate Ref Provider: STACY CHAVIRA PROCEDURES: Arterial Report: A non-invasive vascular imaging study of the left lowerextremity arteries and bypass graft was performed using B-mode ultrasound, colorflow, and spectral Doppler. INDICATIONS: S/P thromb Lt REMELT PAN TANK OPERATOR & BPG 01/17/25; S/P BA Lt REMELT PAN TANK OPERATOR & pop 01/18/25; S/P Rt REMELT PAN TANK OPERATOR-AK pop BPG 02/11/19; S/P Lt REMELT PAN TANK OPERATOR-AK pop BPG 05/06/2019. HISTORY: HTN. HLD. PVD. CAD-AL S/P stent. DM. Former smoker. COMPARISONS: The previous exam was completed on 01/16/25: LLE BPG occl. Compared toprior there is improvement. MEASUREMENTS: Left Value Lt REMELT PAN TANK OPERATOR Dst PSV 201.00 cm/sec Lt Pop Prx PSV 62.00 cm/sec Lt Pop Dst PSV 52.00 cm/sec Lt Ant Tibial Prx PSV 57.00 cm/sec Lt Post Tibial Prx PSV 68.00 cm/sec Lt Post Tibial Mid PSV 65.00 cm/sec Lt Peroneal Prx PSV 71.00 cm/sec Lt Peroneal Mid PSV 43.00 cm/sec GRAFTS: Left Value Location Lt REMELT PAN TANK OPERATOR-AK Pop Lt BPG Inflow PSV 147.00 [...] By: Stacy Chavira MD 02/05/2025 10:32:35 AM RAILROAD CONDUCTOR us Stacy Chavira MD [facility] US PROCEDURES Final Result * (ABNORMAL) CBC with auto differential (01/21/2025 1:07 PM CDT) [facility] WBC 8.2 3.8 - 10.8 Thousand/u L [...] 1:07 PM CDT 01/21/2025 1:07 PM CDT us Satcy Chavira MD LAB BLOOD ORDERABLES Final Resul t [facility] [address] [place] [phone] * POCT glucose (01/20/2025 11:56 AM CDT) [facility] Glucose, POC 101 70 - 199 mg/dL Blood 01/20/2025 11:5 6 AM CDT 01/20/2025 11:56 AM CDT us Stacy Chavira MD LAB POCT ORDERABLES - DEVICE Fin al Result [facility] [address] [facility] [place] [address] * Differential, auto (01/20/2025 9:41 AM CDT) Pathologist [facility] Neutrophil abs 5.75 1.50 - 6.50 K/cumm Imm gran abs 0.03 0.00 - 0.10 K/cumm [facility] Lymphocyte abs 1.57 0.80 - 3.30 K/cumm [facility] Monocyte abs 0.37 0.20 - 0.80 K/cumm [facility] Eosinophil abs 0.41 0.00 - 0.50 K/cumm [facility] Basophil abs 0.04 0.00 - 0.10 K/cumm [facility] Neutrophil pct 70.4 % [facility] Comment: Interpretive Data Percent cell count reference ranges are not reported, since discordance with absolute values may lead to misinterpretation of CBC data. Current Interpretive Data was last revised on 2017. Imm gran pct 0.4 % [facility] Comment: Interpretive Data Percent cell count reference ranges are not reported, since discordance with absolute values may lead to misinterpretation of CBC data. Current Interpretive Data was last revised on 2017. Lymphocyte pct 19.2 % [facility] Comment: Interpretive Data Percent cell count reference ranges are not reported, since discordance with absolute values may lead to misinterpretation of CBC data. Current Interpretive Data was last revised on 2017. Monocyte pct 4.5 % [facility] Comment: Interpretive Data Percent cell count reference ranges are not reported, since discordance with absolute values may lead to misinterpretation of CBC data. Current Interpretive Data was last revised on 2017. Eosinophil pct 5.0 % [facility] Comment: Interpretive Data Percent cell count reference ranges are not reported, since discordance with absolute values may lead to misinterpretation of CBC data. Current Interpretive Data was last revised on 2017. Basophil pct 0.5 % [facility] Comment: Interpretive Data Percent cell count reference ranges are not reported, since discordance with absolute values may lead to misinterpretation of CBC data. Current Interpretive Data was last revised on 2017. Blood 01/20/2025 9:41 AM CDT 01/20/2025 9:55 AM CDT Ede Quan MD LAB BLOOD ORDERABLES Final R esult Performing Organization Address [facility] Co de Phone Number [address] [place] [address] * (ABNORMAL) Iron profile w/ IBC (01/20/2025 9:41 AM CDT) [facility] Iron 44(L) 50 - 150 mcg/dL TIBC 275 250 - 400 mcg/dL [facility] Transferrin saturation 16(L) 20 - 50 % [facility] Blood 01/20/2025 9:41 AM CDT 01/20/2025 9:55 AM CDT Ede Quan MD LAB BLOOD ORDERABLES Final R ult Performing Organization Address [facility] de Phone Number [address] [address] * (ABNORMAL) CBC with auto differential (01/20/2025 9:41 AM CDT) [facility] WBC 8.17 3.80 - 9.90 K/cumm Hgb 12.9(L) 13.0 - 17.5 g/dL [facility] Hct 39.6 38.9 - 50.3 % [facility] Plt 148(L) 150 - 400 K/cumm [facility] MPV 9.9 9.1 - 12.3 fL [facility] RBC 4.28(L) 4.30 - 5.80 M/cumm [facility] MCV 92.5 81.3 - 96.4 fL [facility] MCH 30.1 27.1 - 33.3 pg [facility] MCHC 32.6 32.3 - 35.7 g/dL [facility] RDW CV 13.6 11.1 - 14.9 % [facility] RDW SD 46.1 35.7 - 48.1 fL [facility] NRBC abs 0.00 0.00 - 0.01 K/cumm [facility] Blood 01/20/2025 9:41 AM CDT 01/20/2025 9:55 AM CDT Ede Quan MD LAB BLOOD ORDERABLES Final R esult Performing Organization Address [facility] Co de Phone Number [address] [place] [address] * (ABNORMAL) Vitamin D 25 hydroxy (01/20/2025 9:41 AM CDT) [facility] Vitamin D 25-OH 23.0(L) 30.0 - 80.0 ng/mL Blood 01/20/2025 9:41 AM CDT 01/20/2025 9:55 AM CDT Ede Quan MD LAB BLOOD ORDERABLES Final R esult Performing Organization Address [facility] de Phone Number [address] [place] [address] * (ABNORMAL) CRP (acute phase) (01/20/2025 9:41 AM CDT) [facility] CRP 30.2(H) <=10.0 mg/L Blood 01/20/2025 9:41 AM CDT 01/20/2025 9:55 AM CDT Ede Quan MD LAB BLOOD ORDERABLES Final R esult Performing Organization Address [facility] de Phone Number [address] [place] [address] * Folate (01/20/2025 9:41 AM CDT) Folic acid >20.0 >=5.0 ng/mL Blood 01/20/2025 9:41 AM CDT 01/20/2025 9:55 AM CDT Ede Quan MD LAB BLOOD ORDERABLES Final R esult Performing Organization Address [facility] de Phone Number [address] [place] [address] * Ferritin (01/20/2025 9:41 AM CDT) Pathologist [facility] Ferritin 187 30 - 400 ng/mL Blood 01/20/2025 9:41 AM CDT 01/20/2025 9:55 AM CDT Ede Quan MD LAB BLOOD ORDERABLES Final R esult Performing Organization Address [facility] [place] de Phone Number [address] [place] [address] * Vitamin B12 (01/20/2025 9:41 AM CDT) [facility] Vitamin B12 472 230 - 1,250 pg/mL Blood 01/20/2025 9:41 AM CDT 01/20/2025 9:55 AM CDT Ede Quan MD LAB BLOOD ORDERABLES Final R esult Performing Organization Address [facility] de Phone Number [address] [place] [address] * POCT glucose (01/20/2025 8:11 AM CDT) Pathologist [facility] Glucose, POC 116 70 - 199 mg/dL Blood 01/20/2025 8:11 AM CDT 01/20/2025 8:11 AM CDT Stacy Chavira MD LAB POCT ORDERABLES - DEVICE Fin al Result Performing Organization Address [facility]/ZIP Co de Phone Number MARY KAY [address] [place] [address] * eGFR (01/20/2025 4:53 AM CDT) [facility] eGFR 64 >=60 mL/min/1. 73 m2 [...] 4:53 AM CDT 01/20/2025 5:13 AM CDT us Stacy Chavira MD LAB BLOOD ORDERABLES Final Resul t Performing Organization Address [facility] Co de Phone Number MARY KAY [address] [place] [address] * (ABNORMAL) CBC without differential (01/20/2025 4:53 AM CDT) [facility] WBC 7.70 3.80 - 9.90 K/cumm Hgb 12.8(L) 13.0 - 17.5 g/dL [facility] Hct 38.1(L) 38.9 - 50.3 % [facility] Plt 137(L) 150 - 400 K/cumm [facility] MPV 9.7 9.1 - 12.3 fL [facility] RBC 4.13(L) 4.30 - 5.80 M/cumm [facility] MCV 92.3 81.3 - 96.4 fL [facility] MCH 31.0 27.1 - 33.3 pg [facility] MCHC 33.6 32.3 - 35.7 g/dL [facility] RDW CV 13.6 11.1 - 14.9 % [facility] RDW SD 46.0 35.7 - 48.1 fL [facility] NRBC abs 0.00 0.00 - 0.01 K/cumm [facility] Blood 01/20/2025 4:53 AM CDT 01/20/2025 5:13 AM CDT Stacy Chavira MD LAB BLOOD ORDERABLES Final Resul t Performing Organization Address City/[facility] Co de Phone Number [address] [place] [address] * Phosphorus (01/20/2025 4:53 AM CDT) Phosphorus, pl 3.1 2.3 - 4.5 mg/dL Blood 01/20/2025 4:53 AM CDT 01/20/2025 5:13 AM CDT Stacy Chavira MD LAB BLOOD ORDERABLES Final Resul t Performing Organization Address [facility] de Phone Number [address] [place] [address] * Magnesium (01/20/2025 4:53 AM CDT) Magnesium 2.2 1.4 - 2.5 mg/dL Blood 01/20/2025 4:53 AM CDT 01/20/2025 5:13 AM CDT Stacy Chavira MD LAB BLOOD ORDERABLES Final Resul t Performing Organization Address City/[facility] de Phone Number [address] [place] [address] * (ABNORMAL) Comprehensive metabolic panel (01/20/2025 4:53 AM CDT) Sodium 137 135 - 145 mmol/L Potassium, pl 4.1 3.3 - 4.9 mmol/L [facility] Chloride 105 97 - 110 mmol/L [facility] CO2 24 22 - 32 mmol/L [facility] Anion gap 8 2 - 15 mmol/L [facility] BUN 21 6 - 25 mg/dL [facility] Creatinine 1.21 0.80 - 1.30 mg/dL [facility] Glucose 112 70 - 199 mg/dL [facility] Comment: Interpretive Data Fasting glucose >/= 126 [...] 2022. Calcium 8.9 8.5 - 10.3 mg/dL [facility] Bilirubin, total 0.5 0.1 - 1.2 mg/dL [facility] Protein, pl 6.2(L) 6.5 - 8.5 g/dL [facility] Albumin 3.6 3.5 - 5.0 g/dL [facility] Alk phos 52 40 - 130 Units/L [facility] ALT 14 7 - 55 Units/L [facility] AST 25 10 - 50 Units/L [facility] Blood 01/20/2025 4:53 AM CDT 01/20/2025 5:13 AM CDT us Stacy Chavira MD LAB BLOOD ORDERABLES Final Resul t MARY KAY [address] [facility] [place] [address] * POCT glucose (01/19/2025 8:22 PM CDT) Glucose, POC 117 70 - 199 mg/dL Blood 01/19/2025 8:22 PM CDT 01/19/2025 8:22 PM CDT us Stacy Chavira MD LAB POCT ORDERABLES - DEVICE Fin al Result Performing Organization Address City/State/[facility] Co de Phone Number MARY KAY [address] [address] * POCT glucose (01/19/2025 5:03 PM CDT) Glucose, POC 99 70 - 199 mg/dL Blood 01/19/2025 5:03 PM CDT 01/19/2025 5:03 PM CDT Stacy Chavira MD LAB POCT ORDERABLES - DEVICE Fin al Result Performing Organization Address [facility] de Phone Number MARY KAY [address] [address] * eGFR (01/19/2025 12:16 PM CDT) eGFR [...] BLOOD ORDERABLES Final Result Performing Organization Address [facility] de Phone Number MARY KAY [id number] [facility] [address] * Heparin anti factor Xa activity (01/19/2025 [...] ORDERABLES Final Resul t Performing Organization Address City/[facility]/ZIP Co de Phone Number MARY KAY [address] [place] [address] * Protime-INR (01/19/2025 12:16 PM CDT) PT 13.60 12.00 - 14.60 sec INR 1.03 0.90 - 1.20 MARY KAY GOYAL Comment: Interpretive data Oral anticoagulant therapeutic ranges: Venous thromboembolism prophylaxis or treatment: 2.0-3.0 CARDIOLOGY Standard range: 2.0-3.0 High-intensity range: 2.5-3.5 Refer to indication-specific guidelines for appropriate target ranges for prosthetic heart valve replacement. Current interpretive data was last revised on 2019. Blood 01/19/2025 12:1 6 PM CDT 01/19/2025 12:35 PM CDT Narrative [facility] - 01/19/2025 1:01 PM CDT Baseline prior to rivaroxaban initiation Jama Chavira MD LAB BLOOD ORDERABLES Final Result [facility] [address] [facility] [place] [address] * (ABNORMAL) CBC without differential (01/19/2025 12:16 PM CDT) WBC 8.44 3.80 - 9.90 K/cumm Hgb 14.8 13.0 - 17.5 g/dL [facility] Hct 44.4 38.9 - 50.3 % [facility] Plt 145(L) 150 - 400 K/cumm [facility] MPV 9.7 9.1 - 12.3 fL [facility] RBC 4.82 4.30 - 5.80 M/cumm [facility] MCV 92.1 81.3 - 96.4 fL [facility] MCH 30.7 27.1 - 33.3 pg [facility] MCHC 33.3 32.3 - 35.7 g/dL [facility] RDW CV 13.8 11.1 - 14.9 % [facility] RDW SD 46.9 35.7 - 48.1 fL [facility] NRBC abs 0.00 0.00 - 0.01 K/cumm [facility] Blood 01/19/2025 12:1 6 PM CDT 01/19/2025 12:35 PM CDT Narrative [facility] - 01/19/2025 12:43 PM CDT Baseline prior to rivaroxaban initiation Jama Chavira MD LAB BLOOD ORDERABLES Final Result Performing Organization Address City/[facility] Co de Phone Number [address] [place] [address] * (ABNORMAL) Hemoglobin A1c (01/19/2025 12:16 PM CDT) Hgb A1C 6.2(H) 4.0 - 5.6 % Estimated Average Glucose 131 mg/dL [facility] Comment: The ADA recommends reporting an estimated Average Glucose (eAG) with all Hemoglobin A1c results using the equation derived from a study of 507 normal and diabetic adults. Minority populations were underrepresented and children were not included. (Diabetes Care 31:9940-5621, 2008). The eAG is not equivalent to a fasting glucose. Blood 01/19/2025 12:1 6 PM CDT 01/19/2025 12:35 PM CDT Ede Quan MD LAB BLOOD ORDERABLES Final R esult Performing Organization Address [facility] Co de Phone Number [address] [place] [address] * Creatinine (01/19/2025 12:16 PM CDT) Pathologist [facility] Creatinine 1.05 0.80 - 1.30 mg/dL Blood 01/19/2025 12:1 6 PM CDT 01/19/2025 12:35 PM CDT Narrative [facility] - 01/19/2025 1:02 PM CDT Baseline prior to rivaroxaban initiation Jama Chavira MD LAB BLOOD ORDERABLES Final Result Performing Organization Address [facility] Co de Phone Number [address] [place] [address] * Hepatic function panel (01/19/2025 12:16 PM CDT) Bilirubin, total 0.4 0.1 - 1.2 mg/dL Bilirubin, direct 0.2 0.1 - 0.3 mg/dL [facility] Protein, pl 7.0 6.5 - 8.5 g/dL [facility] Albumin 4.0 3.5 - 5.0 g/dL [facility] Alk phos 63 40 - 130 Units/L [facility] ALT 15 7 - 55 Units/L [facility] AST 27 10 - 50 Units/L [facility] Blood 01/19/2025 12:1 6 PM CDT 01/19/2025 12:35 PM CDT Narrative [facility] - 01/19/2025 1:02 PM CDT Baseline prior to rivaroxaban initiation Jama Chavira MD LAB BLOOD ORDERABLES Final Result Performing Organization Address [facility] Co de Phone Number [address] [place] [address] * POCT glucose (01/19/2025 11:53 AM CDT) Glucose, POC 105 70 - 199 mg/dL Blood 01/19/2025 11:5 3 AM CDT 01/19/2025 11:53 AM CDT Stacy Chavira MD LAB POCT ORDERABLES - DEVICE Fin al Result Performing Organization Address [facility] Co de Phone Number [address] [place] [address] * POCT glucose (01/19/2025 7:59 AM CDT) Glucose, POC 104 70 - 199 mg/dL Blood 01/19/2025 7:59 AM CDT 01/19/2025 7:59 AM CDT Stacy Chavira MD LAB POCT ORDERABLES - DEVICE Fin al Result Performing Organization Address City/[facility] Co de Phone Number [address] [place] [address] * Critical Care (01/19/2025 6:55 AM CDT) Narrative Link, Linda Hope, - 01/19/2025 6:55 AM CDT Joselo Linda Arnett DO 01/19/2025 9:10 PM Critical Care Performed by: [...] plan with the patient's team and other medical/rewards consultant staff. This time was in addition to and separate from care provided by other practitioners on this day of service. I spent time reviewing and interpreting data from bedside monitors, laboratory results, and imaging, I spent time discussing the management of this critically ill patient with consultants and the medical staff and I spent time documenting in the medical record Lynsey Amador NP IN CLINIC/BEDSIDE ORD ERABLES Final Result * eGFR (01/19/2025 5:01 AM CDT) eGFR 74 >=60 mL/min/1. 73 m2 Comment: [...] ORDERABLES Final Resul t Performing Organization Address City/[facility]/ZIP Co de Phone Number MARY KAY [address] [place] [address] * (ABNORMAL) Heparin anti factor Xa activity (01/19/2025 5:01 AM CDT) Anti Factor Xa >1.10(C) IUnits/mL Comment: Critical Result called to and read back by [id number], DATE: 2025-01-19 05:57:54 BY: [id number] Interpretive Data Enoxaparin therapeutic range (peak): VTE [...] ORDERABLES Final R esult Performing Organization Address City/[facility]/ZIP Co de Phone Number MARY KAY [address] [place] [address] * (ABNORMAL) CBC without differential (01/19/2025 5:01 AM CDT) [facility] WBC 8.23 3.80 - 9.90 K/cumm Hgb 13.9 13.0 - 17.5 g/dL [facility] Hct 41.4 38.9 - 50.3 % [facility] Plt 145(L) 150 - 400 K/cumm [facility] MPV 9.5 9.1 - 12.3 fL [facility] RBC 4.48 4.30 - 5.80 M/cumm [facility] MCV 92.4 81.3 - 96.4 fL [facility] MCH 31.0 27.1 - 33.3 pg [facility] MCHC 33.6 32.3 - 35.7 g/dL [facility] RDW CV 13.8 11.1 - 14.9 % [facility] RDW SD 46.7 35.7 - 48.1 fL [facility] NRBC abs 0.00 0.00 - 0.01 K/cumm [facility] Blood 01/19/2025 5:01 AM CDT 01/19/2025 5:04 AM CDT Stacy Chavira MD LAB BLOOD ORDERABLES Final Resul t Performing Organization Address [facility] Co de Phone Number [address] [place] [address] * Phosphorus (01/19/2025 5:01 AM CDT) [facility] Phosphorus, pl 2.5 2.3 - 4.5 mg/dL Blood 01/19/2025 5:01 AM CDT 01/19/2025 5:04 AM CDT Stacy Chavira MD LAB BLOOD ORDERABLES Final Resul t Performing Organization Address [facility] de Phone Number [address] [place] [address] * Magnesium (01/19/2025 5:01 AM CDT) [facility] Magnesium 2.0 1.4 - 2.5 mg/dL Blood 01/19/2025 5:01 AM CDT 01/19/2025 5:04 AM CDT us Stacy Chavira MD LAB BLOOD ORDERABLES Final Resul t [facility] [address] [facility] [place] [address] * (ABNORMAL) Comprehensive metabolic panel (01/19/2025 5:01 AM CDT) [facility] Sodium 136 135 - 145 mmol/L Potassium, pl 4.1 3.3 - 4.9 mmol/L [facility] Chloride 105 97 - 110 mmol/L [facility] CO2 21(L) 22 - 32 mmol/L [facility] Anion gap 10 2 - 15 mmol/L [facility] BUN 21 6 - 25 mg/dL [facility] Creatinine 1.07 0.80 - 1.30 mg/dL [facility] Glucose 110 70 - 199 mg/dL [facility] Comment: Interpretive Data Fasting glucose >/= 126 [...] 2022. Calcium 8.9 8.5 - 10.3 mg/dL [facility] Bilirubin, total 0.5 0.1 - 1.2 mg/dL [facility] Protein, pl 6.3(L) 6.5 - 8.5 g/dL [facility] Albumin 3.8 3.5 - 5.0 g/dL [facility] Alk phos 56 40 - 130 Units/L [facility] ALT 14 7 - 55 Units/L [facility] AST 25 10 - 50 Units/L [facility] Blood 01/19/2025 5:01 AM CDT 01/19/2025 5:04 AM CDT us Stacy Chavira MD LAB BLOOD ORDERABLES Final Resul t Performing Organization Address [facility] Co de Phone Number MARY KAY [address] [place] [address] * Heparin anti factor Xa activity (01/18/2025 [...] BLOOD ORDERABLES Final Result Performing Organization Address City/[facility]/ZIP Co de Phone Number MARY KAY [address] [place] [address] * POCT glucose (01/18/2025 7:50 PM CDT) Glucose, POC 142 70 - 199 mg/dL Glucose comment 1 RN/ Notified MARY KAY Blood 01/18/2025 7:50 PM CDT 01/18/2025 7:50 PM CDT Stacy Chavira MD LAB POCT ORDERABLES - DEVICE Fin al Result Performing Organization Address [facility] Co de Phone Number MARY KAY [address] [address] * POCT glucose (01/18/2025 4:05 PM CDT) Glucose, POC 126 70 - 199 mg/dL Blood 01/18/2025 4:05 PM CDT 01/18/2025 4:05 PM CDT Stacy Chavira MD LAB POCT ORDERABLES - DEVICE Fin al Result Performing Organization Address [facility] de Phone Number MARY KAY [address] [address] * Heparin anti factor Xa activity (01/18/2025 2:54 PM CDT) Anti Factor Xa <0.10 IUnits/mL Comment: patient is on heparin as per [id number] Interpretive Data Enoxaparin therapeutic range (peak): VTE [...] CDT 01/18/2025 3:04 PM CDT Lynsey Amador [employer] LAB BLOOD ORDERABLES Final Result Performing Organization Address [facility] Co de Phone Number [address] [address] * POCT glucose (01/18/2025 11:51 AM CDT) Glucose, POC 101 70 - 199 mg/dL Blood 01/18/2025 11:5 1 AM CDT 01/18/2025 11:51 AM CDT Stacy Chavira MD LAB POCT ORDERABLES - DEVICE Fin al Result Performing Organization Address [facility] de Phone Number [address] [address] * (ABNORMAL) Heparin anti factor Xa activity (01/18/2025 11:35 AM CDT) [facility] Anti Factor Xa >1.10(C) IUnits/mL Comment: Critical Result called to and read back by SAM [id number], DATE: 2025-01-18 12:50:27 BY: [id number] Interpretive Data Enoxaparin therapeutic range (peak): VTE [...] AM CDT 01/18/2025 12:00 PM CDT Narrative [facility] - 01/18/2025 12:50 PM CDT Baseline prior to heparin initiation Stacy Chavira MD LAB BLOOD ORDERABLES Final Resul t Performing Organization Address [facility] de Phone Number [address] [employer] [place], [place] [id number] * (ABNORMAL) Protime-INR (01/18/2025 11:35 AM CDT) [...] 5 AM CDT 01/18/2025 12:00 PM CDT [facility] - 01/18/2025 12:21 PM CDT Baseline prior to heparin initiation Stacy Chavira MD LAB BLOOD ORDERABLES Final Resul t Performing Organization Address [facility] de Phone Number [facility] [address] [facility] [employer] [place], [place] [id number] * (ABNORMAL) CBC without differential (01/18/2025 11:35 AM CDT) WBC 9.29 3.80 - 9.90 K/cumm Hgb 15.3 13.0 - 17.5 g/dL [facility] Hct 47.6 38.9 - 50.3 % [facility] Plt 143(L) 150 - 400 K/cumm [facility] MPV 9.5 9.1 - 12.3 fL [facility] RBC 5.03 4.30 - 5.80 M/cumm [facility] MCV 94.6 81.3 - 96.4 fL [facility] MCH 30.4 27.1 - 33.3 pg [facility] MCHC 32.1(L) 32.3 - 35.7 g/dL [facility] RDW CV 14.1 11.1 - 14.9 % [facility] RDW SD 48.7(H) 35.7 - 48.1 fL [facility] NRBC abs 0.00 0.00 - 0.01 K/cumm [facility] Blood 01/18/2025 11:3 5 AM CDT 01/18/2025 12:00 PM CDT Narrative [facility] - 01/18/2025 12:03 PM CDT Baseline prior to heparin initiation Stacy Chavira MD LAB BLOOD ORDERABLES Final Resul t Performing Organization Address [facility] Co de Phone Number [address] [place] [address] * Creatine kinase (CK), total (01/18/2025 7:56 AM CDT) CK 80 40 - 300 Units/L Blood 01/18/2025 7:56 AM CDT 01/18/2025 8:30 AM CDT Stacy Chavira MD LAB BLOOD ORDERABLES Final Resul t Performing Organization Address City/[facility] Co de Phone Number [address] [place] [address] * Critical Care (01/18/2025 7:00 AM CDT) Narrative Linda Josue DO - 01/18/2025 7:00 AM CDT Linda Josue DO 01/19/2025 9:09 PM Critical Care Performed by: Lynsey Amador NP Authorized by: Lynsey Amador NP CRITICAL CARE: Team: [facility] Shift: AM Level of Billing: Critical Care [...] plan with the ICU team and other medical/rewards consultant staff, making frequent assessments and decisions [...] spent time documenting in the medical record Lynsey Amador NP IN CLINIC/BEDSIDE ORD ERABLES Final Result * Critical Care (01/18/2025 5:03 AM CDT) Narrative Jerardo Rios MD - 01/18/2025 5:03 AM CDT Jerardo Rios MD 01/18/2025 5:10 AM Critical Care Performed by: Jerardo Rios MD Authorized by: Jerardo Rios MD CRITICAL CARE: Team: [facility] Shift: PM Level of Billing: Critical Care [...] plan with the ICU team and other medical/rewards consultant staff, making frequent assessments and decisions [...] of Race in Diagnosing Kidney Disease, JASN 202). The CKD-EPI equation should not be used for patients with unstable renal function and has not been validated in children and those over 70. Current interpretive data was last reviewed 2021. Blood 01/18/2025 3:37 AM CDT 01/18/2025 3:43 AM CDT us Lynsey Amador [employer] LAB BLOOD ORDERABLES Final Result [facility] [address] [facility] [place] [address] * (ABNORMAL) Differential, auto (01/18/2025 3:37 AM CDT) Neutrophil abs 8.57(H) 1.50 - 6.50 K/cumm Imm gran abs 0.04 0.00 - 0.10 K/cumm [facility] Lymphocyte abs 1.19 0.80 - 3.30 K/cumm [facility] Monocyte abs 0.74 0.20 - 0.80 K/cumm [facility] Eosinophil abs 0.04 0.00 - 0.50 K/cumm [facility] Basophil abs 0.04 0.00 - 0.10 K/cumm [facility] Neutrophil pct 80.6 % [facility] Comment: Interpretive Data Percent cell count reference ranges are not reported, since discordance with absolute values may lead to misinterpretation of CBC data. Current Interpretive Data was last revised on 2017. Imm gran pct 0.4 % [facility] Comment: Interpretive Data Percent cell count reference ranges are not reported, since discordance with absolute values may lead to misinterpretation of CBC data. Current Interpretive Data was last revised on 2017. Lymphocyte pct 11.2 % [facility] Comment: Interpretive Data Percent cell count reference ranges are not reported, since discordance with absolute values may lead to misinterpretation of CBC data. Current Interpretive Data was last revised on 2017. Monocyte pct 7.0 % [facility] Comment: Interpretive Data Percent cell count reference ranges are not reported, since discordance with absolute values may lead to misinterpretation of CBC data. Current Interpretive Data was last revised on 2017. Eosinophil pct 0.4 % [facility] Comment: Interpretive Data Percent cell count reference ranges are not reported, since discordance with absolute values may lead to misinterpretation of CBC data. Current Interpretive Data was last revised on 2017. Basophil pct 0.4 % [facility] Comment: Interpretive Data Percent cell count reference ranges are not reported, since discordance with absolute values may lead to misinterpretation of CBC data. Current Interpretive Data was last revised on 2017. Blood 01/18/2025 3:37 AM CDT 01/18/2025 3:43 AM CDT Stacy Chavira MD LAB BLOOD ORDERABLES Final Resul t Performing Organization Address [facility] de Phone Number MARY KAY [address] [place] [address] * (ABNORMAL) CBC with auto differential (01/18/2025 3:37 AM CDT) Pathologist [facility] WBC 10.62(H) 3.80 - 9.90 K/cumm Hgb 14.3 13.0 - 17.5 g/dL [facility] Hct 44.9 38.9 - 50.3 % [facility] Plt 144(L) 150 - 400 K/cumm [facility] MPV 9.4 9.1 - 12.3 fL [facility] RBC 4.82 4.30 - 5.80 M/cumm [facility] MCV 93.2 81.3 - 96.4 fL [facility] MCH 29.7 27.1 - 33.3 pg [facility] MCHC 31.8(L) 32.3 - 35.7 g/dL [facility] RDW CV 13.8 11.1 - 14.9 % [facility] RDW SD 46.9 35.7 - 48.1 fL [facility] NRBC abs 0.00 0.00 - 0.01 K/cumm [facility] Blood 01/18/2025 3:37 AM CDT 01/18/2025 3:43 AM CDT Narrative [facility] - 01/18/2025 3:50 AM CDT Obtain CBC 8 hours after Alteplase initiation. Stacy Chavira MD LAB BLOOD ORDERABLES Final Resul t Performing Organization Address [facility] Co de Phone Number MARY KAY [address] [place] [address] * (ABNORMAL) Fibrinogen (01/18/2025 3:37 AM CDT) Pathologist [facility] Fibrinogen 75(C) 170 - 400 mg/dL Comment:Critical Result call ed to and read back by [email or web address], DATE: 2025-01-18 04:59:36 BY: [email or web address] Blood 01/18/2025 3:37 AM CDT 01/18/2025 3:43 AM CDT Narrative MARY KAY [facility] 01/18/2025 4:59 AM CDT Obtain Fibrinogen 8 hours after Alteplase initiation. Call MD if Fibrinogen is less than 250 mg/dL. Stacy Chavira MD LAB BLOOD ORDERABLES Final Resul t Performing Organization Address City/[facility] Co de Phone Number [address] [place] [address] * (ABNORMAL) Phosphorus (01/18/2025 3:37 AM CDT) Pathologist [facility] Phosphorus, pl 5.4(H) 2.3 - 4.5 mg/dL Blood 01/18/2025 3:37 AM CDT 01/18/2025 3:43 AM CDT Stacy Chavira MD LAB BLOOD ORDERABLES Final Resul t Performing Organization Address [facility] [place] de Phone Number [address] [place] [address] * Magnesium (01/18/2025 3:37 AM CDT) Pathologist [facility] Magnesium 2.1 1.4 - 2.5 mg/dL Blood 01/18/2025 3:37 AM CDT 01/18/2025 3:43 AM CDT Stacy Chavira MD LAB BLOOD ORDERABLES Final Resul t Performing Organization Address [facility] de Phone Number [address] [place] [address] * (ABNORMAL) Creatine kinase (CK), total (01/18/2025 3:37 AM CDT) CK 37(L) 40 - 300 Units/L Blood 01/18/2025 3:37 AM CDT 01/18/2025 3:43 AM CDT Stacy Chavira MD LAB BLOOD ORDERABLES Final Resul t MARY KAY [address] [facility] [place] [address] * (ABNORMAL) Comprehensive metabolic panel (01/18/2025 3:37 AM CDT) Sodium 136 135 - 145 mmol/L Potassium, pl 4.9 3.3 - 4.9 mmol/L [facility] Chloride 107 97 - 110 mmol/L [facility] CO2 21(L) 22 - 32 mmol/L [facility] Anion gap 8 2 - 15 mmol/L [facility] BUN 26(H) 6 - 25 mg/dL [facility] Creatinine 1.16 0.80 - 1.30 mg/dL [facility] Glucose 127 70 - 199 mg/dL [facility] Comment: Interpretive Data Fasting glucose >/= 126 [...] 2022. Calcium 9.0 8.5 - 10.3 mg/dL [facility] Bilirubin, total 0.4 0.1 - 1.2 mg/dL [facility] Protein, pl 6.3(L) 6.5 - 8.5 g/dL [facility] Albumin 3.8 3.5 - 5.0 g/dL [facility] Alk phos 61 40 - 130 Units/L [facility] ALT 17 7 - 55 Units/L [facility] AST 20 10 - 50 Units/L [facility] Blood 01/18/2025 3:37 AM CDT 01/18/2025 3:43 AM CDT Stacy Chavira MD LAB BLOOD ORDERABLES Final Resul t Performing Organization Address [facility] de Phone Number [address] [address] * Troponin T high-sensitivity 6-hour (01/18/2025 1:34 AM CDT) Trop T hs 11 <=22 ng/L Comment: Interpretive Data For further hscTnT resources including the diagnostic algorithm and an aid in interpretation, copy and paste this link: https://nrl.BuyMyHome.org/show/hsTrop Current Interpretive Data last revised 2020. Trop T hs delta 0 ng/L MARY KAY Trop T hs interp Insignificant [facility] Blood 01/18/2025 1:34 AM CDT 01/18/2025 1:37 AM CDT Jerardo Rios MD LAB BLOOD ORDERABLES Final R esult Performing Organization Address [facility] de Phone Number [address] [address] * Troponin T high-sensitivity 4-hour (01/17/2025 11:23 PM CDT) Trop T hs 9 <=22 ng/L Comment: Interpretive Data For further hscTnT resources including the diagnostic algorithm and an aid in interpretation, copy and paste this link: https://nrl.[employer]MyHome.org/show/hsTrop Current Interpretive Data last revised 2020. Trop T hs delta -2 ng/L MARY KAY Trop T hs interp Insignificant [facility] Blood 01/17/2025 11:2 3 PM CDT 01/17/2025 11:30 PM CDT Jerardo Rios MD LAB BLOOD ORDERABLES Final R esult Performing Organization Address [facility] Co de Phone Number [address] [place] [address] * (ABNORMAL) Creatine kinase (CK), total (01/17/2025 11:23 PM CDT) Pathologist [facility] CK 39(L) 40 - 300 Units/L Blood 01/17/2025 11:2 3 PM CDT 01/17/2025 11:30 PM CDT Stacy Chavira MD LAB BLOOD ORDERABLES Final Resul t Performing Organization Address City/[facility] Co de Phone Number [address] [place] [address] * Troponin T high-sensitivity 2-hour (01/17/2025 9:36 PM CDT) Pathologist [facility] Trop T hs 10 <=22 ng/L Comment: Interpretive Data For further hscTnT resources including the diagnostic algorithm and an aid in interpretation, copy and paste this link: https://nrl.testcatalog.org/show/hsTrop Current Interpretive Data last revised 2020. Trop T hs delta -1 ng/L [facility] Trop T hs interp Insignificant [facility] Blood 01/17/2025 9:36 PM CDT 01/17/2025 9:39 PM CDT Jerardo Rios MD LAB BLOOD ORDERABLES Final R esult Performing Organization Address City/[facility] Co de Phone Number [address] [place] [address] * XR Chest 1 View (01/17/2025 7:30 [...] Brian Blank D.O. PS T: Report ID: [id number] Reading Location: [id number] Procedure Note Brian Blank, DO - 01/17/2025 [...] - Electronically signed by Brian Blank D.O. Brian Blank D.O. PS T: Report ID: [id number] Reading Location: [id number] Jerardo Rios MD IMG XR PROCEDURES Final Resu lt * Troponin T high-sensitivity series (baseline, 2hr, 4hr, 6hr) (01/17/2025 7:19 PM CDT) Trop T hs 11 <=22 ng/L Comment: Interpretive Data For further hscTnT resources including the diagnostic algorithm and an aid in interpretation, copy and paste this link: https://nrl.testcatalog.org/show/hsTrop Current Interpretive Data last revised 2020. Blood 01/17/2025 7:19 PM CDT 01/17/2025 7:23 PM CDT Jerardo Rios MD LAB BLOOD ORDERABLES Final R esult Performing Organization Address [facility] Co de Phone Number [address] [address] * Lactate (01/17/2025 7:19 PM CDT) Lactate 1.6 0.7 - 2.0 mmol/L Blood 01/17/2025 7:19 PM CDT 01/17/2025 7:23 PM CDT Jerardo Rios MD LAB BLOOD ORDERABLES Final R esult Performing Organization Address [facility] de Phone Number [address] [address] * eGFR (01/17/2025 7:19 PM CDT) eGFR 62 >=60 mL/min/1. 73 m2 Comment: [...] MD LAB BLOOD ORDERABLES Final R esult [facility] [address] [facility] [place] [address] * (ABNORMAL) Differential, auto (01/17/2025 7:19 PM CDT) Pathologist [facility] Neutrophil abs 5.79 1.50 - 6.50 K/cumm Imm gran abs 0.05 0.00 - 0.10 K/cumm [facility] Lymphocyte abs 3.41(H) 0.80 - 3.30 K/cumm [facility] Monocyte abs 0.76 0.20 - 0.80 K/cumm [facility] Eosinophil abs 0.53(H) 0.00 - 0.50 K/cumm [facility] Basophil abs 0.06 0.00 - 0.10 K/cumm [facility] Neutrophil pct 54.5 % [facility] Comment: Interpretive Data Percent cell count reference ranges are not reported, since discordance with absolute values may lead to misinterpretation of CBC data. Current Interpretive Data was last revised on 2017. Imm gran pct 0.5 % [facility] Comment: Interpretive Data Percent cell count reference ranges are not reported, since discordance with absolute values may lead to misinterpretation of CBC data. Current Interpretive Data was last revised on 2017. Lymphocyte pct 32.2 % [facility] Comment: Interpretive Data Percent cell count reference ranges are not reported, since discordance with absolute values may lead to misinterpretation of CBC data. Current Interpretive Data was last revised on 2017. Monocyte pct 7.2 % [facility] Comment: Interpretive Data Percent cell count reference ranges are not reported, since discordance with absolute values may lead to misinterpretation of CBC data. Current Interpretive Data was last revised on 2017. Eosinophil pct 5.0 % [facility] Comment: Interpretive Data Percent cell count reference ranges are not reported, since discordance with absolute values may lead to misinterpretation of CBC data. Current Interpretive Data was last revised on 2017. Basophil pct 0.6 % [facility] Comment: Interpretive Data Percent cell count reference ranges are not reported, since discordance with absolute values may lead to misinterpretation of CBC data. Current Interpretive Data was last revised on 2017. Blood 01/17/2025 7:19 PM CDT 01/17/2025 7:23 PM CDT Jerardo Rios MD LAB BLOOD ORDERABLES Final R esult Performing Organization Address City/[facility] Co de Phone Number MARY KAY [address] [place] [address] * (ABNORMAL) CBC with auto differential (01/17/2025 7:19 PM CDT) WBC 10.60(H) 3.80 - 9.90 K/cumm Hgb 15.2 13.0 - 17.5 g/dL [facility] Hct 46.2 38.9 - 50.3 % [facility] Plt 174 150 - 400 K/cumm [facility] MPV 9.7 9.1 - 12.3 fL [facility] RBC 5.03 4.30 - 5.80 M/cumm [facility] MCV 91.8 81.3 - 96.4 fL [facility] MCH 30.2 27.1 - 33.3 pg [facility] MCHC 32.9 32.3 - 35.7 g/dL [facility] RDW CV 13.8 11.1 - 14.9 % [facility] RDW SD 46.5 35.7 - 48.1 fL [facility] NRBC abs 0.00 0.00 - 0.01 K/cumm [facility] Blood 01/17/2025 7:19 PM CDT 01/17/2025 7:23 PM CDT Jerardo Rios MD LAB BLOOD ORDERABLES Final R esult Performing Organization Address City/[facility]/ZIP Co de Phone Number [address] [address] * Phosphorus (01/17/2025 7:19 PM CDT) [facility] Phosphorus, pl 3.8 2.3 - 4.5 mg/dL Blood 01/17/2025 7:19 PM CDT 01/17/2025 7:23 PM CDT Jerardo Rios MD LAB BLOOD ORDERABLES Final R esult Performing Organization Address [facility] de Phone Number [address] [place] [address] * Magnesium (01/17/2025 7:19 PM CDT) [facility] Magnesium 2.2 1.4 - 2.5 mg/dL Blood 01/17/2025 7:19 PM CDT 01/17/2025 7:23 PM CDT Jerardo Rios MD LAB BLOOD ORDERABLES Final R esult Performing Organization Address [facility] de Phone Number [address] [address] * (ABNORMAL) Basic metabolic panel (01/17/2025 7:19 PM CDT) [facility] Sodium 138 135 - 145 mmol/L Potassium, pl 4.6 3.3 - 4.9 mmol/L [facility] Chloride 104 97 - 110 mmol/L [facility] CO2 23 22 - 32 mmol/L [facility] Anion gap 11 2 - 15 mmol/L [facility] BUN 26(H) 6 - 25 mg/dL [facility] Creatinine 1.23 0.80 - 1.30 mg/dL [facility] Glucose 97 70 - 199 mg/dL [facility] Comment: Interpretive Data Fasting glucose >/= 126 [...] 2022. Calcium 9.5 8.5 - 10.3 mg/dL MARY KAY Blood 01/17/2025 7:19 PM CDT 01/17/2025 7:23 PM CDT Jerardo Rios MD LAB BLOOD ORDERABLES Final R esult Performing Organization Address [facility] Co de Phone Number MARY KAY [address] [facility] [place] [address] * ECG 12 lead (01/17/2025 7:12 PM CDT) Ventricular Rate EKG/Min 61 BPM [facility] Atrial Rate 61 BPM [facility] HI-Interval (MSEC) 168 ms [facility] QRS-Interval (MSEC) 102 ms [facility] QT-Interval (MSEC) 436 ms [facility] QTc 438 ms [facility] P [place] 60 degrees [facility] R [place] 72 degrees [facility] T [place] 42 degrees [facility] Diagnosis Normal sinus rhythm Normal ECG No previous ECGs available Confirmed by SULTAN DOWLING M.D. ([id number]) on 01/18/2025 11:43:43 AM [facility] 01/17/2025 7:12 PM CDT 01/18/2025 11:43 AM CDT Jerardo Rios MD ECG ORDERABLES Final Result Performing Organization Address [facility] de Phone Number [facility] * (ABNORMAL) aPTT (01/17/2025 6:58 PM CDT) aPTT 94(H) 22 - 37 sec Comment: Interpretive data aPTT test has not been evaluated for monitoring heparin therapy. The anti-Xa is the preferred test. Current interpretive data was last revised on 2019. Blood 01/17/2025 6:58 PM CDT 01/17/2025 7:03 PM CDT Jerardo Rios MD LAB BLOOD ORDERABLES Final R esult Performing Organization Address [facility] Co de Phone Number [address] [address] * Creatine kinase (CK), total (01/17/2025 6:57 PM CDT) CK 47 40 - 300 Units/L Blood 01/17/2025 6:57 PM CDT 01/17/2025 7:03 PM CDT us Stacy Chavira MD LAB BLOOD ORDERABLES Final Resul t Performing Organization Address [facility] de Phone Number MARY KAY [address] [address] * Critical Care (01/17/2025 6:24 PM CDT) Narrative Bernard Ortiz MD - 01/17/2025 6:24 PM CDT Bernard Ortiz MD 01/17/2025 6:30 PM Critical Care Performed by: Lynsey Amador NP Authorized by: Lynsey Amador NP CRITICAL CARE: Team: [facility] Shift: AM Level of Billing: Critical Care [...] plan with the ICU team and other medical/rewards consultant staff, making frequent assessments and decisions [...] patient with consultants and the medical staff Result [facility] Lynsey Amador NP IN CLINIC/BEDSIDE ORD ERABLES Final Result * POCT glucose (01/17/2025 5:06 PM CDT) Glucose, POC 89 70 - 199 mg/dL Blood 01/17/2025 5:06 PM CDT 01/17/2025 5:06 PM CDT Result [facility] Stacy Chavira MD LAB POCT ORDERABLES - DEVICE Fin al Result Performing Organization Address [facility] Co de Phone Number [address] [place] [address] * POCT glucose (01/17/2025 4:40 PM CDT) Glucose, POC 77 70 - 199 mg/dL Blood 01/17/2025 4:40 PM CDT 01/17/2025 4:40 PM CDT Result [facility] Stacy Chavira MD LAB POCT ORDERABLES - DEVICE Fin al Result Performing Organization Address [facility] Co de Phone Number [address] [address] * THROMBECTOMY (01/17/2025 3:15 PM CDT) Anatomical Region Laterality Modality X-Ray Angiograph y Narrative 01/17/2025 3:19 PM CDT Please see OpNote for result. Result [facility] Stacy Chavira MD CV CARDIAC CATH PROCEDURES Final Result * ABO / Rh Confirmation Testing (01/17/2025 12:36 PM CDT) ABO/Rh Confirmation A Positive [facility] Blood 01/17/2025 12:3 6 PM CDT 01/17/2025 12:43 PM CDT Stacy Chavira MD LAB BLOOD ORDERABLES Final Resul t Performing Organization Address [facility] Co de Phone Number MARY KAY [address] [place] [address] [facility] * eGFR (01/17/2025 12:13 PM CDT) Pathologist [facility] eGFR 66 >=60 mL/min/1. 73 m2 Comment: [...] ORDERABLES Final Resul t Performing Organization Address [facility] Co de Phone Number MARY KAY [address] [place] [address] [place] [address] * (ABNORMAL) Differential, auto (01/17/2025 12:13 PM CDT) Pathologist [facility] Neutrophil abs 4.66 1.50 - 6.50 K/cumm Imm gran abs 0.03 0.00 - 0.10 K/cumm [facility] Lymphocyte abs 2.22 0.80 - 3.30 K/cumm [facility] Monocyte abs 0.65 0.20 - 0.80 K/cumm [facility] Eosinophil abs 0.54(H) 0.00 - 0.50 K/cumm [facility] Basophil abs 0.05 0.00 - 0.10 K/cumm [facility] Neutrophil pct 57.2 % [facility] Comment: Interpretive Data Percent cell count reference ranges are not reported, since discordance with absolute values may lead to misinterpretation of CBC data. Current Interpretive Data was last revised on 2017. Imm gran pct 0.4 % [facility] Comment: Interpretive Data Percent cell count reference ranges are not reported, since discordance with absolute values may lead to misinterpretation of CBC data. Current Interpretive Data was last revised on 2017. Lymphocyte pct 27.2 % [facility] Comment: Interpretive Data Percent cell count reference ranges are not reported, since discordance with absolute values may lead to misinterpretation of CBC data. Current Interpretive Data was last revised on 2017. Monocyte pct 8.0 % [facility] Comment: Interpretive Data Percent cell count reference ranges are not reported, since discordance with absolute values may lead to misinterpretation of CBC data. Current Interpretive Data was last revised on 2017. Eosinophil pct 6.6 % [facility] Comment: Interpretive Data Percent cell count reference ranges are not reported, since discordance with absolute values may lead to misinterpretation of CBC data. Current Interpretive Data was last revised on 2017. Basophil pct 0.6 % [facility] Comment: Interpretive Data Percent cell count reference ranges are not reported, since discordance with absolute values may lead to misinterpretation of CBC data. Current Interpretive Data was last revised on 2017. Blood 01/17/2025 12:1 3 PM CDT 01/17/2025 12:21 PM CDT us Stacy Chavira MD LAB BLOOD ORDERABLES Final Resul t MARY KAY [address] [facility] [place] [address] * CBC with auto differential (01/17/2025 12:13 PM CDT) [facility] WBC 8.15 3.80 - 9.90 K/cumm Hgb 16.4 13.0 - 17.5 g/dL [facility] Hct 49.9 38.9 - 50.3 % [facility] Plt 201 150 - 400 K/cumm [facility] MPV 9.7 9.1 - 12.3 fL [facility] RBC 5.39 4.30 - 5.80 M/cumm [facility] MCV 92.6 81.3 - 96.4 fL [facility] MCH 30.4 27.1 - 33.3 pg [facility] MCHC 32.9 32.3 - 35.7 g/dL [facility] RDW CV 13.7 11.1 - 14.9 % [facility] RDW SD 46.6 35.7 - 48.1 fL [facility] NRBC abs 0.00 0.00 - 0.01 K/cumm [facility] Blood 01/17/2025 12:1 3 PM CDT 01/17/2025 12:21 PM CDT [facility] 01/17/2025 12:29 PM CDT If most recent labs were drawn prior to 4 AM, draw only prior to initiating procedure. Stacy Chavira MD LAB BLOOD ORDERABLES Final Resul t Performing Organization Address [facility] Co de Phone Number [address] [employer] [place], [place] [id number] * ABO/Rh (01/17/2025 12:13 PM CDT) [facility] ABO/Rh A Positive Blood 01/17/2025 12:1 3 PM CDT 01/17/2025 12:21 PM CDT [facility] 01/17/2025 12:56 PM CDT Has the patient had Daratumumab or Isatuximab in the past 6 months?->Unknown Stacy Chavira MD LAB BLOOD BANK TEST ORDERABLES F inal Result Performing Organization Address City/[facility]/ZIP Co de Phone Number [address] [place] [address] * aPTT (01/17/2025 12:13 PM CDT) aPTT 26 22 - 37 sec Comment: Interpretive data aPTT test has not been evaluated for monitoring heparin therapy. The anti-Xa is the preferred test. Current interpretive data was last revised on 2019. Blood 01/17/2025 12:1 3 PM CDT 01/17/2025 12:21 PM CDT Stacy Chavira MD LAB BLOOD ORDERABLES Final Resul t Performing Organization Address [facility] Co de Phone Number [facility] [address] [place] [address] * Protime-INR (01/17/2025 12:13 PM CDT) PT [...] ORDERABLES Final Resul t Performing Organization Address City/[facility]/ZIP Co de Phone Number [facility] [address] [place] [address] * Antibody screen (01/17/2025 12:13 PM CDT) Rafael, indirect, Gel Interpretation Negative [facility]SC Blood 01/17/2025 12:1 3 PM CDT 01/17/2025 12:21 PM CDT Narrative [facility] - 01/17/2025 12:56 PM CDT Has the patient had Daratumumab or Isatuximab in the past 6 months?->Unknown Stacy Chavira MD LAB BLOOD BANK TEST ORDERABLES F inal Result [id number] [place] [address] * (ABNORMAL) Basic metabolic panel (01/17/2025 12:13 PM CDT) [facility] Sodium 138 135 - 145 mmol/L Potassium, pl 4.6 3.3 - 4.9 mmol/L [facility] Chloride 104 97 - 110 mmol/L [facility] CO2 22 22 - 32 mmol/L [facility] Anion gap 12 2 - 15 mmol/L [facility] BUN 28(H) 6 - 25 mg/dL [facility] Creatinine 1.17 0.80 - 1.30 mg/dL [facility] Glucose 93 70 - 199 mg/dL [facility] Comment: Interpretive Data Fasting glucose >/= 126 [...] 2022. Calcium 9.8 8.5 - 10.3 mg/dL [facility] Blood 01/17/2025 12:1 3 PM CDT 01/17/2025 12:21 PM CDT Stacy Chavira MD LAB BLOOD ORDERABLES Final Resul t [address] [place] [address] * US BOB (01/16/2025 11:49 AM CDT) Anatomical Region Laterality Modality Vascular N/A Ultrasound 01/16/2025 10:5 3 AM CDT Narrative 01/17/2025 2:31 PM CDT Lower Extremity Arterial Doppler Report Patient Name: LUCHO MANZO R : 1950 Study Date: 01/16/2025 10:53:00 AM Sex: M Ophthalmic Lens Inspector: BONG CHRISTIANSON RN/RVT Ref Provider: STACY CHAVIRA Quality: Adequate Order Provider: STACY CHAVIRA PROCEDURES: Arterial Report: Ankle - Brachial Index Doppler exam. INDICATIONS: I73.9 Peripheral vascular disease, unspecified and Z98.890 Other specified postprocedural states. 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 COMPARISONS: The previous exam was completed on 10/22/2024 RT PT/DP 1.04/.87 LT PT/DP .96/.82. MEASUREMENTS: Right Value Left Value Rt Brachial Pressure 112 mmHg Lt Brachial Pressure 111 mmHg Rt PERIANESTHESIA RN Pressure 112 mmHg Lt PERIANESTHESIA RN Pressure 59 mmHg Rt DPA Pressure 108 [...] Study Date: 01/16/2025 10:53:00 AM Sex: M Ophthalmic Lens Inspector: BONG CHRISTIANSON RN/RVT Ref Provider: STACY CHAVIRA Quality: Adequate Order Provider: STACY CHAVIRA PROCEDURES: Arterial Report: Ankle - Brachial Index Doppler exam. INDICATIONS: I73.9 Peripheral vascular disease, unspecified and Z98.890 Other specifiedpostprocedural states. 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 COMPARISONS: The previous exam was completed on 10/22/2024 RT PT/DP 1.04/.87 LT PT/DP.96/.82. MEASUREMENTS: Right Value Left Value Rt Brachial Pressure 112 mmHg Lt Brachial Pressure 111 mmHg Rt PERIANESTHESIA RN Pressure 112 mmHg Lt PERIANESTHESIA RN Pressure 59 mmHg Rt DPA Pressure 108 [...] that is provided above. Electronically Signed By: Stcay Chavira MD 01/17/2025 1:21:54 PM CDT us [...] Date: 01/16/2025 10:52:50 AM Ht(Inch): Wt(Lb): BSA: Ophthalmic Lens Inspector: BONG CHRISTIANSON Provider: STACY CHAVIRA Quality: Adequate Ref Provider: STACY CHAVIRA PROCEDURES: Arterial Report: A non-invasive vascular imaging study of the left lower extremity arteries and bypass graft was performed using B-mode ultrasound, color flow, and spectral Doppler. INDICATIONS: I73.9 Peripheral vascular disease, unspecified and Z98.890 Other specified postprocedural states. HISTORY: S/P RT REMELT PAN TANK OPERATOR-AK POP BPG 02/11/2019 S/P LT REMELT PAN TANK OPERATOR-AK POP BPG 05/06/2019. COMPARISONS: The previous exam was completed on 10/22/2024. MEASUREMENTS: Left Value Lt REMELT PAN TANK OPERATOR Prx PSV 150.91 cm/sec Lt Profunda [...] Date: 01/16/2025 10:52:50 AM Ht(Inch): Wt(Lb): BSA: Ophthalmic Lens Inspector: BONG CHRISTIANSON Provider: STACY CHAVIRA Quality: Adequate Ref Provider: STACY CHAVIRA PROCEDURES: Arterial Report: A non-invasive vascular imaging study of the left lowerextremity arteries and bypass graft was performed using B-mode ultrasound, colorflow, and spectral Doppler. INDICATIONS: I73.9 Peripheral vascular disease, unspecified and Z98.890 Other specifiedpostprocedural states. HISTORY: S/P RT REMELT PAN TANK OPERATOR-AK POP [facility] 02/11/2019 S/P LT REMELT PAN TANK OPERATOR-[facility] 05/06/2019. COMPARISONS: The previous exam was completed on 10/22/2024. MEASUREMENTS: Left Value Lt REMELT PAN TANK OPERATOR Prx PSV 150.91 cm/sec Lt Profunda [...] 01/17/2025 1:21:36 PM CDT Stacy Chavira MD [facility] [place] US PROCEDURES Final Result * POCT lipid panel (10/22/2024 8:47 AM CDT) [facility] Cholesterol, POC 131 <200 MG/DL HDL, POC [...] Most Recently Relevant to Health Maintenance Insurance [facility] MEDICARE [facility] MEDICARE AET MEDICARE Advance Directives For more information, please contact: [phone] * Full Code (Latest Code Status on File) Date Activated Date Inactivated Comments 01/17/2025 3:21 PM 01/20/2025 6:41 PM Care Teams Enrollment Counselor Relationship Specialty Start Date End Date Manisha Farias MD PCP - General Family Practice 06/11/20
== END 2025-03-03 15:47 | disposition home or self-care (01) ==
LOC: ANHIMG 15:46
PROVIDERS: PCP Family Medicine; Visit Provider Family Medicine
DX: Z12.2 Encounter for screening for malignant neoplasm of respiratory organs (principal); Z87.891 Personal history of nicotine dependence
CPT/HCPCS: 71271

== ENCOUNTER 2025-03-13 22:04 | Inpatient (IN) | payer MEDICARE, SELFPAY ==
--- NOTE | ~2025-03-13 | NM_ITS ---
EXAMINATION: NM elba stress w perfusion DATE: 03/14/2025 13:25 INDICATION: Chest pain TECHNIQUE: Rest images were obtained following intravenous administration of 8.87 mCi Tc99m tetrofosmin (Myoview). The patient was infused intravenously with Lexiscan (Regadenoson). Then, 28.1 mCi Tc99m tetrofosmin (Myoview) was administered intravenously, and stress images were obtained comminuted swelling supine position with repeat post stress imaging obtained in the prone position. Data was reconstructed into short axis and horizontal and vertical long axis SPECT images. Gated SPECT images were also obtained. COMPARISON: None. FINDINGS: There is a moderate severity perfusion defect on both the rest and stress images consistent with infarct involving the mid inferolateral, basilar inferior and portions of the immediately adjacent mid inferior and basilar anterolateral segments. Equivocal mild reversible ischemia along the apical sides of the mid inferior segment. There is normal left ventricular chamber size, wall motion and ejection fraction. Left ventricular ejection fraction measures >70%. IMPRESSION: 1. Mild to moderate severity infarct involving the mid inferior and inferolateral and basilar inferior and inferolateral segments with equivocal mild ischemia along the apical sides of the mid inferior segment. 2. Left ventricular ejection fraction measuring >70%. Reviewed, dictated and finalized at location A. CCO SORTER IMPRESSION: 1. Mild to moderate severity infarct involving the mid inferior and inferolater al and basilar inferior and inferolateral segments with equivocal mild ischemia along the apical sides of the mid inferior segment. 2. Left ventricular ejecti on fraction measuring >70%.
--- NOTE | ~2025-03-13 | XR_ITS ---
Examination: XR chest 2V Clinical History: chest pain Comparison: 06/12/2022 Technique: PA and Lateral Findings: Cardiomediastinal silhouette normal size and configuration. Lungs clear. No acute bony abnormality. IMPRESSION: 1. No acute cardiopulmonary findings. Reviewed, dictated and finalized at location R. COURSE ASSISTANT
--- OUTSIDE RECORDS SUMMARY | 2025-03-13 22:07 | XMS_ITS | Encounter Summary ---
Author Organization [facility] Address [address] [place] [id number] Care Team Providers Care Administrative Director Name Role Phone Manisha Farias MD Primary Care Provider Gt Hector DO Unavailable Fred Leonardo MD Unavailable Encounter Details Date Type Department Care Team (Late st Contact Info) Description 04/01/2019 Hospital Orders Only [facility] Med/Surg [address] [place] [address] Fred Leonardo MD [address] [place] [id number] Social History Tobacco Use Types Packs/Day [...] or climbing stairs? No 04/02/2019 8:26 PM BRIGHT CUTTER Don, Jessi , RN Active * Question [...] Assessment Author Status No 02/11/2019 2:31 PM BRIGHT CUTTER Activ e * RETIRED Are you blind or do you have serious difficulty seeing, even when wearing glasses? Answer Date of Assessment Author Status No 02/11/2019 2:31 PM BRIGHT CUTTER Acti ve * Do you have serious [...] on filedocumented in this encounter Care Teams Administrative Director Relationship Specialty Start Date End Date Manisha Farias MD PCP - General FAMILY PRACTICE 01/09/19 Gt Hector DO [address] [place] [address] INTERNAL MEDICINE 02/05/19 Fred Leonardo MD [address] [place] [id number] Vascular/Stunt Man SURGERY 02/05/19 documented as of this encounter
--- OUTSIDE RECORDS SUMMARY | 2025-03-13 22:07 | XMS_ITS | Clinical Summary ---
Author Organization [facility] [address] Address [address] [place] [address] Care Team Providers Care Manager Beauty Name Role Phone Manisha Farias MD Primary [...] mouth every morning 04/04/19 25 Active vitamins A,C,E-zinc-endoscopy rn per (ICAPS) 4,296 mcg-226 mg-90 mg capsule [...] 60 mg tabletIndicati ons:Coronary artery disease involving ute coronary artery of ute heart without angina pectoris TAKE 1 TABLET(60 MG) BY MOUTH TWICE DAILY 180 tablet 2 02/14/20 25 Active Brilinta 60 mg tabletIndicati ons:Coronary artery disease involving ute coronary artery of ute heart without angina pectoris TAKE 1 TABLET(60 [...] duplex Assessment & Plan (05/02/2024 11:02 AM RESPITE PROVIDER): Patient remains asymptomatic. 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 Continue lisinopril, metoprolol Assessment [...] 06/23/2020 Assessment & Plan (02/05/2025 8:42 AM RESPITE PROVIDER): Chronic stable. Continue fenofibrate Assessment & Plan (01/16/2025 1:36 PM CDT): Chronic and stable. Continue fenofibrate History of ST elevation myocardial infarction (S JOSUÉ) 06/11/2020 Encounters Date Type Department Care Team Description 02/05/2025 8:30 AM RESPITE PROVIDER Office Visit [facility] Vascular at [address] [place] [address] Cindy Zuñiga NP Peripheral arterial disease with history of revascularization (Primary Dx); Dyslipidemia, goal LDL below 70; Essential hypertension 02/05/2025 Orders Only [facility] Vascular at [address] [place] [address] Stacy Chavira MD 02/05/2025 Telephone [facility] Vascular and Vein Surgery [address] [place] [phone] Stacy Chavira MD 02/04/2025 11:00 AM RESPITE PROVIDER Ancillary Procedure [facility] Vascular and Vein Surgery at [address] [place] [phone] Aftercare following surgery of the circulatory system 02/04/2025 11:00 AM RESPITE PROVIDER Ancillary Procedure [facility] Vascular and Vein Surgery at [address] [place] [phone] Aftercare following surgery of the circulatory system 01/28/2025 Telephone [facility] Vascular and Vein Surgery [address] [place] [phone] Alicia Azul MA 01/21/2025 Orders Only [facility] Vascular and Vein Surgery [address] [place] [phone] Stacy Chavira MD 01/20/2025 Telephone [facility] Vascular at [address] [phone] Mali Brand RN 01/20/2025 Orders Only [facility] Vascular and Vein Surgery [address] [place] [phone] Stacy Chavira MD Aftercare following surgery of the circulatory system (Primary Dx) 01/18/2025 9:00 AM CDT - 01/18/2025 10:02 AM CDT Surgery [facility] Cardiac Front Office Assistant [address] [place] [phone] Stacy Chavira MD ANGIOGRAPHY - UNILATERAL EXTREMITY S&I [id number] 01/17/2025 2:00 PM CDT - 01/17/2025 3:25 PM CDT Surgery [facility] Cardiac Front Office Assistant [address] [place] [address] Stacy Chavira MD LEFT LOWER EXTREMITY PHARMACOMECHANICAL THROMBECTOMY 01/17/2025 11:53 AM CDT - 01/20/2025 2:00 PM CDT Hospital [place] [address] [facility] [place] [address] Stacy Chavira MD Kurtz, Bernard Gorman MD [...] care 01/16/2025 1:00 PM CDT Office Visit [facility] Vascular and Vein Surgery [address] [place] [phone] Cindy Zuñiga NP Peripheral arterial disease with history of revascularization (Primary Dx); Essential hypertension; Dyslipidemia, goal LDL below 70 01/16/2025 10:48 AM CDT - 01/16/2025 11:59 PM CDT Hospital Encounter [facility] Medical Office Building [address] [place] [address] Peripheral arterial disease with history of revascularization Discharge Disposition: Discharge to home or self care 01/16/2025 10:48 AM CDT - 01/16/2025 11:59 PM CDT Hospital Encounter [facility] Medical Office Building [address] [place] [address] Peripheral arterial disease with history of revascularization Discharge Disposition: Discharge to home or self care 01/16/2025 Documentation [facility] Vascular and Vein Surgery [address] [place] [phone] Mali Brand, RN 01/16/2025 Orders Only [facility] Vascular and Vein Surgery [address] [place] [phone] Stacy Chavira MD 01/16/2025 Orders Only [facility] Vascular and Vein Surgery [address] [place] [phone] Stacy Chavira MD Peripheral arterial disease with history of revascularization (Primary Dx) 01/16/2025 Telephone [facility] Vascular and Vein Surgery [address] [place] [phone] Alicia Azul MA 01/16/2025 Orders Only [facility] Vascular and Vein Surgery [address] [facility] [facility] [address] [place] [address] Stacy Chavira MD Peripheral arterial disease with history of revascularization (Primary Dx) from Last 3 Months Surgical History Surgery Date Site/Laterality Comments FEMORAL ARTERY - POPLITEAL ARTERY BYPASS GRAFT 05/06/[address] Fred Leonardo at [facility] LEFT COMMON FEMORAL ARTERY TO ABOVE KNEE POPLITEAL ATERY BYPASS WITH POLYTETRAFLUOROETHYLENE GRAFT FEMORAL ARTERY - POPLITEAL ARTERY BYPASS GRAFT 02/11/2019 Right Right common femoral to above-knee popliteal artery bypass graft. CARDIAC CATHETERIZATION stent LCX CORONARY ANGIOPLASTY VASCULAR SURGERY PROCEDURE 01/17/2025 Left Procedure: LEFT LOWER EXTREMITY PHARMACOMECHANICAL THROMBECTOMY; Surgeon: Stacy Chavira MD; Location: [facility] CARDIAC DUST HANDLER; Service: Vascular; Laterality: Left; CARDIAC CATHETERIZATION 01/18/2025 Left Procedure: ANGIOGRAPHY - UNILATERAL EXTREMITY S&I [id number]; Surgeon: Stacy Chavira MD; Location: [facility] CARDIAC [facility]UST HAND[facility]; Service: Vascular; Laterality: Left; Medical devices from this surgery are in the Medical Devices section. CARDIAC CATHETERIZATION 01/18/2025 N/A Procedure: CADD INSTRUCTOR FEM-POP, UNILATERAL, FIRST VESSEL [id number]; Surgeon: Stacy Chavira MD; Location: [facility] CARDIAC DUST HAND[facility]ER; Service: Vascular; Laterality: N/A; Medical devices from this surgery are in the Medical Devices section. CARDIAC CATHETERIZATION 01/18/2025 N/A Procedure: Lytic FU and DC CATH ART OR VENOUS 28973; Surgeon: Stacy Chavira MD; Location: [facility] CARDIAC DUST HAND[facility]ER; Service: Vascular; Laterality: N/A; Medical devices from [...] often do you attend chur ch or roman catholic services? Never 01/20/2025 Do you belong to [...] any time in the past 12 m [facility], were you homeless or living in a chcf (including now)? No 01/20/2025 [facility] Utilities Answer Date Recorded In the past 12 months has th e [employer], gas, oil, or water [employer] threatened to shut off services in your home? No 01/20/2025 Personal Safety Answer Date Recorded Have you ever been in or are you currently in a harmful physical or emotional relationship or is someone making you feel afraid or unsafe? Denies 01/17/2025 Sex and Gender Information Value Date Recorded Sex Assigned at Not on file Legal Sex Male 3:47 PM RESPITE PROVIDER Gender Identity Not on file Sexual Orientation Not on file Last Filed Vital Signs Vital Sign Reading Time Taken Comments Blood Pressure 136/75 02/05/2025 8:10 AM RESPITE PROVIDER Pulse 57 02/05/2025 8:10 AM RESPITE PROVIDER Temperature 36.6 C (97.9 F) 01/20/2025 7:07 AM CDT Respiratory Rate 17 01/20/2025 7:07 AM CDT Oxygen Saturation 99% 02/05/2025 8:10 AM RESPITE PROVIDER Inhaled Oxygen Concentration - - Weight 95.3 kg (210 lb) 02/05/2025 8:10 AM RESPITE PROVIDER Height 175.3 cm (5' 9) 02/05/2025 8:10 AM RESPITE PROVIDER Body Mass Index 31.01 02/05/2025 8:10 AM RESPITE PROVIDER Plan of Treatment Health Maintenance Due Date [...] 04/03/2008, 06/29/2000 Medical Devices Implanted Type Area Oracle Manager Device Identifier Shelf Expiration Date Model / Serial / Lot [employer] V[employer] System Closure Repair Femoral Artery Suture Mediated Perclose Prostyle 25334-81 - [id number] Implanted:Qty: 1 on 01/18/2025 by Stacy Chavira MD at [facility] [employer] 10/31/2026 [id number] / / [id number] Procedures Procedure Name Priority Date/Time Associated Diagnosis Comments US BOB Schedule Routine, Read Routine (OP Routine) 02/04/2025 11:44 AM RESPITE PROVIDER Aftercare following surgery of the circulatory system US ARTERIAL DUPLEX LOWER EXTREMITY LEFT LIMITED Schedule Routine, Read Routine (OP Routine) 02/04/2025 11:43 AM RESPITE PROVIDER Aftercare following surgery of the circulatory system [...] graft, initial encounter REVENDVAS FEMPOP UN WPTA [id number] Routine 01/18/2025 9:51 AM CDT Thrombosis of femoro-popliteal bypass graft, initial encounter ANGIOGRAPHY UNILATERAL EXTREMITY S&I 15237 Routine 01/18/2025 9:51 AM CDT Thrombosis of [...] Results * US BOB (02/04/2025 11:44 AM RESPITE PROVIDER) Anatomical Region Laterality Modality Vascular N/A Ultrasound 02/04/2025 10:5 0 AM RESPITE PROVIDER Narrative 02/05/2025 10:48 AM RESPITE PROVIDER Vascular & Vein Surgery [address] [facility] [place] [address] Lower Extremity Arterial Doppler Report Patient Name: LUCHO MANZO R : 1950 Study Date: 02/04/2025 10:50:00 AM Sex: M Bat Person: Criss Castañeda RVT Location: [facility] Ref Provider: STACY CHAVIRA Quality: Adequate Order Provider: STACY CHAVIRA PROCEDURES: Arterial Report: Ankle - Brachial Index Doppler exam. INDICATIONS: S/P thromb Lt OIL BURNER SERVICER AND INSTALLER & BPG 01/17/25; S/P BA Lt OIL BURNER SERVICER AND INSTALLER & pop 01/18/25; S/P Rt OIL BURNER SERVICER AND INSTALLER-AK Pop BPG 02/11/19; S/P Lt OIL BURNER SERVICER AND INSTALLER-AK Pop BPG 05/06/2019. HISTORY: HTN. HLD. PVD. CAD-NE S/P stent. DM. Former smoker. COMPARISONS: The previous exam was completed on 01/16/25: Rt 1.0, Lt 0.53. Compared to prior there is improvement on the left. MEASUREMENTS: Right Value Left Value Rt Brachial Pressure 114 mmHg Lt Brachial Pressure 112 mmHg Rt CADD INSTRUCTOR Pressure 118 mmHg Lt CADD INSTRUCTOR Pressure 128 mmHg Rt DPA Pressure 122 [...] By: Stacy Chavira MD 02/05/2025 10:32:07 AM RESPITE PROVIDER Procedure Note Stacy Chavira MD - 02/05/2025 Vascular & Vein Surgery [address] [place] [address]. [place] [address] Lower Extremity Arterial Doppler Report Patient Name: LUCHO MANZO R : 1950 Study Date: 02/04/2025 10:50:00 AM Sex: M Bat Person: Criss Castañeda RVT Location: [facility] Ref Provider: STACY CHAVIRA Quality: Adequate Order Provider: STACY CHAVIRA PROCEDURES: Arterial Report: Ankle - Brachial Index Doppler exam. INDICATIONS: S/P thromb Lt OIL BURNER SERVICER AND INSTALLER & BPG 01/17/25; S/P BA Lt OIL BURNER SERVICER AND INSTALLER & pop 01/18/25; S/P Rt OIL BURNER SERVICER AND INSTALLER-AK Pop BPG 02/11/19; S/P Lt OIL BURNER SERVICER AND INSTALLER-AK Pop BPG 05/06/2019. HISTORY: HTN. HLD. PVD. CAD-NE S/P stent. DM. Former smoker. COMPARISONS: The previous exam was completed on 01/16/25: Rt 1.0, Lt 0.53. Compared toprior there is improvement on the left. MEASUREMENTS: Right Value Left Value Rt Brachial Pressure 114 mmHg Lt Brachial Pressure 112 mmHg Rt CADD INSTRUCTOR Pressure 118 mmHg Lt CADD INSTRUCTOR Pressure 128 mmHg Rt DPA Pressure 122 [...] By: Stacy Chavira MD 02/05/2025 10:32:07 AM RESPITE PROVIDER us Stacy Chavira MD IMG US PROCEDURES Final Result * US Arterial Duplex Lower Extremity Left Limited (02/04/2025 11:43 AM RESPITE PROVIDER) Anatomical Region Laterality Modality Vascular Left Ultrasound 02/04/2025 10:5 8 AM RESPITE PROVIDER Narrative 02/05/2025 10:48 AM RESPITE PROVIDER Vascular & Vein Surgery [address] [place] [address] Lower Extremity Arterial Duplex Report Patient Name: LUCHO MANZO R : 1950 (74y 2m) Sex: M Study Date: 02/04/2025 10:58:58 AM Ht(Inch): Wt(Lb): BSA: Bat Person: Location: [facility] Order Provider: STACY CHAVIRA Quality: Adequate Ref Provider: STACY CHAVIRA PROCEDURES: Arterial Report: A non-invasive vascular imaging study of the left lower extremity arteries and bypass graft was performed using B-mode ultrasound, color flow, and spectral Doppler. INDICATIONS: S/P thromb Lt OIL BURNER SERVICER AND INSTALLER & BPG 01/17/25; S/P BA Lt OIL BURNER SERVICER AND INSTALLER & pop 01/18/25; S/P Rt OIL BURNER SERVICER AND INSTALLER-AK pop BPG 02/11/19; S/P Lt OIL BURNER SERVICER AND INSTALLER-AK pop BPG 05/06/2019. HISTORY: HTN. HLD. PVD. CAD-NE S/P stent. DM. Former smoker. COMPARISONS: The previous exam was completed on 01/16/25: LLE BPG occl. Compared to prior there is improvement. MEASUREMENTS: Left Value Lt OIL BURNER SERVICER AND INSTALLER Dst PSV 201.00 cm/sec Lt Pop Prx PSV 62.00 cm/sec Lt Pop Dst PSV 52.00 cm/sec Lt Ant Tibial Prx PSV 57.00 cm/sec Lt Post Tibial Prx PSV 68.00 cm/sec Lt Post Tibial Mid PSV 65.00 cm/sec Lt Peroneal Prx PSV 71.00 cm/sec Lt Peroneal Mid PSV 43.00 cm/sec GRAFTS: Left Value Location Lt OIL BURNER SERVICER AND INSTALLER-AK Pop Lt BPG Inflow PSV 147.00 cm/sec [...] By: Stacy Chavira MD 02/05/2025 10:32:35 AM RESPITE PROVIDER Procedure Note Stacy Chavira MD - 02/05/2025 Vascular & Vein Surgery [address] [place] [address] Lower Extremity Arterial Duplex Report Patient Name: LUCHO MANZO R : 1950 (74y 2m) Sex: M Study Date: 02/04/2025 10:58:58 AM Ht(Inch): Wt(Lb): BSA: Bat Person: Location: [facility] Order Provider: STACY CHAVIRA Quality: Adequate Ref Provider: STACY CHAVIRA PROCEDURES: Arterial Report: A non-invasive vascular imaging study of the left lowerextremity arteries and bypass graft was performed using B-mode ultrasound, colorflow, and spectral Doppler. INDICATIONS: S/P thromb Lt OIL BURNER SERVICER AND INSTALLER & BPG 01/17/25; S/P BA Lt OIL BURNER SERVICER AND INSTALLER & pop 01/18/25; S/P Rt OIL BURNER SERVICER AND INSTALLER-AK pop BPG 02/11/19; S/P Lt OIL BURNER SERVICER AND INSTALLER-AK pop BPG 05/06/2019. HISTORY: HTN. HLD. PVD. CAD-NE S/P stent. DM. Former smoker. COMPARISONS: The previous exam was completed on 01/16/25: LLE BPG occl. Compared toprior there is improvement. MEASUREMENTS: Left Value Lt OIL BURNER SERVICER AND INSTALLER Dst PSV 201.00 cm/sec Lt Pop Prx PSV 62.00 cm/sec Lt Pop Dst PSV 52.00 cm/sec Lt Ant Tibial Prx PSV 57.00 cm/sec Lt Post Tibial Prx PSV 68.00 cm/sec Lt Post Tibial Mid PSV 65.00 cm/sec Lt Peroneal Prx PSV 71.00 cm/sec Lt Peroneal Mid PSV 43.00 cm/sec GRAFTS: Left Value Location Lt OIL BURNER SERVICER AND INSTALLER-AK Pop Lt BPG Inflow PSV 147.00 cm/sec [...] By: Stacy Chavira MD 02/05/2025 10:32:35 AM RESPITE PROVIDER us Stacy Chavira MD [facility] US PROCEDURES Final Result * (ABNORMAL) CBC with auto differential (01/21/2025 1:07 PM CDT) [facility] WBC 8.2 3.8 - 10.8 Thousand/u L [...] PM CDT 01/21/2025 1:07 PM CDT us Stacy Chavira MD LAB BLOOD ORDERABLES Final Resul t [facility] [address] [place] [phone] * POCT glucose (01/20/2025 11:56 AM CDT) [facility] Glucose, POC 101 70 - 199 mg/dL Blood 01/20/2025 11:5 6 AM CDT 01/20/2025 11:56 AM CDT us Stacy Chavira MD LAB POCT ORDERABLES - DEVICE Fin al Result [facility] [address] [facility] Department [place] [address] * Differential, auto (01/20/2025 9:41 AM CDT) Pathologist [facility] Neutrophil abs 5.75 1.50 - 6.50 K/cumm [...] R esult Performing Organization Address [facility] Co de Phone Number [address] [place] [address] * (ABNORMAL) Iron profile w/ IBC (01/20/2025 9:41 AM CDT) [facility] Iron 44(L) 50 - 150 mcg/dL TIBC 275 250 - 400 mcg/dL [facility] Transferrin saturation 16(L) 20 - 50 % [facility] Blood 01/20/2025 9:41 AM CDT 01/20/2025 9:55 AM CDT Ede Quan MD LAB BLOOD ORDERABLES Final R ult Performing Organization Address [facility] de Phone Number [address] [address] * (ABNORMAL) CBC with auto differential (01/20/2025 9:41 AM CDT) [facility] WBC 8.17 3.80 - 9.90 K/cumm Hgb [...] R esult Performing Organization Address [facility] Co de Phone Number [address] [place] [address] * (ABNORMAL) Vitamin D 25 hydroxy (01/20/2025 9:41 AM CDT) [facility] Vitamin D 25-OH 23.0(L) 30.0 - 80.0 ng/mL Blood 01/20/2025 9:41 AM CDT 01/20/2025 9:55 AM CDT Ede Quan MD LAB BLOOD ORDERABLES Final R esult Performing Organization Address [facility] de Phone Number [address] [place] [address] * (ABNORMAL) CRP (acute phase) (01/20/2025 9:41 AM CDT) [facility] CRP 30.2(H) <=10.0 mg/L Blood 01/20/2025 9:41 AM CDT 01/20/2025 9:55 AM CDT Ede Quan MD LAB BLOOD ORDERABLES Final R esult Performing Organization Address [facility] de Phone Number [address] [place] [address] * Folate (01/20/2025 9:41 AM CDT) Folic acid >20.0 >=5.0 ng/mL Blood 01/20/2025 9:41 AM CDT 01/20/2025 9:55 AM CDT Ede Quan MD LAB BLOOD ORDERABLES Final R esult Performing Organization Address [facility] de Phone Number [address] [place] [address] * Ferritin (01/20/2025 9:41 AM CDT) Pathologist [facility] Ferritin 187 30 - 400 ng/mL Blood 01/20/2025 9:41 AM CDT 01/20/2025 9:55 AM CDT Ede Quan MD LAB BLOOD ORDERABLES Final R esult Performing Organization Address [facility] de Phone Number [address] [place] [address] * Vitamin B12 (01/20/2025 9:41 AM CDT) [facility] Vitamin B12 472 230 - 1,250 pg/mL Blood 01/20/2025 9:41 AM CDT 01/20/2025 9:55 AM CDT Ede Quan MD LAB BLOOD ORDERABLES Final R esult Performing Organization Address [facility] de Phone Number [address] [place] [address] * POCT glucose (01/20/2025 8:11 AM CDT) Pathologist [facility] Glucose, POC 116 70 - 199 mg/dL Blood 01/20/2025 8:11 AM CDT 01/20/2025 8:11 AM CDT Stacy Chavira MD LAB POCT ORDERABLES - DEVICE Fin al Result Performing Organization Address [facility]/ZIP Co de Phone Number MARY KAY [address] Department [place] [address] * eGFR (01/20/2025 4:53 AM CDT) [facility] eGFR 64 >=60 mL/min/1. 73 m2 Comment: [...] Resul t Performing Organization Address [facility] Co de Phone Number MARY KAY [address] Department [place] [address] * (ABNORMAL) CBC without differential (01/20/2025 4:53 AM CDT) [facility] WBC 7.70 3.80 - 9.90 K/cumm Hgb [...] ORDERABLES Final Resul t Performing Organization Address City/[facility] Co de Phone Number [address] [place] [address] * Phosphorus (01/20/2025 4:53 AM CDT) Phosphorus, pl 3.1 2.3 - 4.5 mg/dL Blood 01/20/2025 4:53 AM CDT 01/20/2025 5:13 AM CDT Stacy Chavira MD LAB BLOOD ORDERABLES Final Resul t Performing Organization Address [facility] de Phone Number [address] [place] [address] * Magnesium (01/20/2025 4:53 AM CDT) Magnesium 2.2 1.4 - 2.5 mg/dL Blood 01/20/2025 4:53 AM CDT 01/20/2025 5:13 AM CDT Stacy Chavira MD LAB BLOOD ORDERABLES Final Resul t Performing Organization Address City/[facility] de Phone Number [address] [place] [address] * (ABNORMAL) Comprehensive metabolic panel (01/20/2025 4:53 [...] BLOOD ORDERABLES Final Resul t MARY KAY [address] [facility] Department [place] [address] * POCT glucose (01/19/2025 8:22 PM CDT) Glucose, POC 117 70 - 199 mg/dL Blood 01/19/2025 8:22 PM CDT 01/19/2025 8:22 PM CDT us Stacy Chavira MD LAB POCT ORDERABLES - DEVICE Fin al Result Performing Organization Address City/State/[facility] Co de Phone Number MARY KAY [address] [address] * POCT glucose (01/19/2025 5:03 PM CDT) Glucose, POC 99 70 - 199 mg/dL Blood 01/19/2025 5:03 PM CDT 01/19/2025 5:03 PM CDT Stacy Chavira MD LAB POCT ORDERABLES - DEVICE Fin al Result Performing Organization Address [facility] de Phone Number MARY KAY [address] [address] * eGFR (01/19/2025 12:16 PM CDT) eGFR [...] BLOOD ORDERABLES Final Result Performing Organization Address [facility] de Phone Number MARY KAY [facility] [place] [address] * Heparin anti factor Xa activity (01/19/2025 [...] ORDERABLES Final Resul t Performing Organization Address City/[facility]/ZIP Co de Phone Number MARY KAY [address] [place] [address] * Protime-INR (01/19/2025 12:16 PM CDT) PT [...] LAB BLOOD ORDERABLES Final Result [facility] [address] [facility] Department [place] [address] * (ABNORMAL) CBC without differential (01/19/2025 12:16 [...] BLOOD ORDERABLES Final Result Performing Organization Address City/[facility] Co de Phone Number [address] [place] [address] * (ABNORMAL) Hemoglobin A1c (01/19/2025 12:16 PM CDT) Hgb A1C 6.2(H) 4.0 - 5.6 % Estimated Average Glucose 131 mg/dL [facility] Comment: The ADA recommends reporting an estimated Average Glucose (eAG) with all Hemoglobin A1c results using the equation derived from a study of 507 normal and diabetic adults. Minority populations were underrepresented and children were not included. (Diabetes Care 31:6797-7545, 2008). The eAG is not equivalent to a fasting glucose. Blood 01/19/2025 12:1 6 PM CDT 01/19/2025 12:35 PM CDT Ede Quan MD LAB BLOOD ORDERABLES Final R esult Performing Organization Address [facility] Co de Phone Number [address] [place] [address] * Creatinine (01/19/2025 12:16 PM CDT) Pathologist [facility] Creatinine 1.05 0.80 - 1.30 mg/dL Blood 01/19/2025 12:1 6 PM CDT 01/19/2025 12:35 PM CDT Narrative [facility] 01/19/2025 1:02 PM CDT Baseline prior to rivaroxaban initiation Jama Chavira MD LAB BLOOD ORDERABLES Final Result Performing Organization Address [facility] Co de Phone Number [address] [place] [address] * Hepatic function panel (01/19/2025 12:16 PM [...] BLOOD ORDERABLES Final Result Performing Organization Address [facility] Co de Phone Number [address] [place] [address] * POCT glucose (01/19/2025 11:53 AM CDT) Glucose, POC 105 70 - 199 mg/dL Blood 01/19/2025 11:5 3 AM CDT 01/19/2025 11:53 AM CDT Stacy Chavira MD LAB POCT ORDERABLES - DEVICE Fin al Result Performing Organization Address [facility] Co de Phone Number [address] [place] [address] * POCT glucose (01/19/2025 7:59 AM CDT) Glucose, POC 104 70 - 199 mg/dL Blood 01/19/2025 7:59 AM CDT 01/19/2025 7:59 AM CDT Stacy Chavira MD LAB POCT ORDERABLES - DEVICE Fin al Result Performing Organization Address City/[facility] Co de Phone Number [address] [place] [address] * Critical Care (01/19/2025 6:55 AM CDT) [...] plan with the patient's team and other medical/funeral pre need consultant staff. This time was in addition [...] ORDERABLES Final Resul t Performing Organization Address City/[facility]/ZIP Co de Phone Number MARY KAY [address] [place] [address] * (ABNORMAL) Heparin anti factor Xa activity (01/19/2025 5:01 AM CDT) Anti Factor Xa >1.10(C) IUnits/mL Comment: Critical Result called to and read back by [id number], DATE: 2025-01-19 05:57:54 BY: [id number] Interpretive Data Enoxaparin therapeutic range (peak): VTE [...] ORDERABLES Final R esult Performing Organization Address City/[facility]/ZIP Co de Phone Number MARY KAY [address] [place] [address] * (ABNORMAL) CBC without differential (01/19/2025 5:01 AM CDT) [facility] WBC 8.23 3.80 - 9.90 K/cumm Hgb [...] Resul t Performing Organization Address [facility] Co de Phone Number [address] [place] [address] * Phosphorus (01/19/2025 5:01 AM CDT) [facility] Phosphorus, pl 2.5 2.3 - 4.5 mg/dL Blood 01/19/2025 5:01 AM CDT 01/19/2025 5:04 AM CDT Stacy Chavira MD LAB BLOOD ORDERABLES Final Resul t Performing Organization Address [facility] de Phone Number [address] [place] [address] * Magnesium (01/19/2025 5:01 AM CDT) [facility] Magnesium 2.0 1.4 - 2.5 mg/dL Blood 01/19/2025 5:01 AM CDT 01/19/2025 5:04 AM CDT us Stacy Chavira MD LAB BLOOD ORDERABLES Final Resul t [facility] [address] [facility] [place] [address] * (ABNORMAL) Comprehensive metabolic panel (01/19/2025 5:01 AM CDT) [facility] Sodium 136 135 - 145 mmol/L Potassium, [...] Resul t Performing Organization Address [facility] Co de Phone Number MARY KAY [address] [place] [address] * Heparin anti factor Xa activity (01/18/2025 [...] BLOOD ORDERABLES Final Result Performing Organization Address City/[facility]/ZIP Co de Phone Number MARY KAY [address] [place] [address] * POCT glucose (01/18/2025 7:50 PM CDT) Glucose, POC 142 70 - 199 mg/dL Glucose comment 1 RN/ Notified MARY KAY Blood 01/18/2025 7:50 PM CDT 01/18/2025 7:50 PM CDT Stacy Chavira MD LAB POCT ORDERABLES - DEVICE Fin al Result Performing Organization Address [facility] Co de Phone Number MARY KAY [address] [address] * POCT glucose (01/18/2025 4:05 PM CDT) Glucose, POC 126 70 - 199 mg/dL Blood 01/18/2025 4:05 PM CDT 01/18/2025 4:05 PM CDT Stacy Chavira MD LAB POCT ORDERABLES - DEVICE Fin al Result Performing Organization Address [facility] de Phone Number MARY KAY [address] [address] * Heparin anti factor Xa activity (01/18/2025 2:54 PM CDT) Anti Factor Xa <0.10 IUnits/mL Comment: patient is on heparin as per [id number] Interpretive Data Enoxaparin therapeutic range (peak): VTE [...] CDT 01/18/2025 3:04 PM CDT Lynsey Amador [employer] LAB BLOOD ORDERABLES Final Result Performing Organization Address [facility] Co de Phone Number [address] [address] * POCT glucose (01/18/2025 11:51 AM CDT) Glucose, POC 101 70 - 199 mg/dL Blood 01/18/2025 11:5 1 AM CDT 01/18/2025 11:51 AM CDT Stacy Chavira MD LAB POCT ORDERABLES - DEVICE Fin al Result Performing Organization Address [facility] de Phone Number [address] [address] * (ABNORMAL) Heparin anti factor Xa activity (01/18/2025 11:35 AM CDT) [facility] Anti Factor Xa >1.10(C) IUnits/mL Comment: Critical Result called to and read back by SAM [id number], DATE: 2025-01-18 12:50:27 BY: [id number] Interpretive Data Enoxaparin therapeutic range (peak): VTE [...] Resul t Performing Organization Address [facility] de Phone Number [address] [place], [place] [address] * (ABNORMAL) Protime-INR (01/18/2025 11:35 AM CDT) [...] 5 AM CDT 01/18/2025 12:[address] [facility] - 01/18/2025 12:21 PM CDT Baseline prior to heparin initiation Stacy Chavira MD LAB BLOOD ORDERABLES Final Resul t Performing Organization Address [facility] de Phone Number [facility] [address] [facility] [place], [place] [id number] * (ABNORMAL) CBC without differential (01/18/2025 11:35 [...] Resul t Performing Organization Address [facility] Co de Phone Number [address] [place] [address] * Creatine kinase (CK), total (01/18/2025 7:56 AM CDT) CK 80 40 - 300 Units/L Blood 01/18/2025 7:56 AM CDT 01/18/2025 8:30 AM CDT Stacy Chavira MD LAB BLOOD ORDERABLES Final Resul t Performing Organization Address City/[facility] Co de Phone Number [address] [place] [address] * Critical Care (01/18/2025 7:00 AM CDT) Narrative Linda Josue DO - 01/18/2025 7:00 AM CDT Linda Josue DO 01/19/2025 9:09 PM Critical Care Performed by: Lynsey Amador NP Authorized by: Lynsey Amador NP CRITICAL CARE: Team: [facility] Shift: AM Level of Billing: Critical Care [...] plan with the ICU team and other medical/funeral pre need consultant staff, making frequent assessments and decisions [...] by: Jerardo Rios MD CRITICAL CARE: Team: [facility] Shift: PM Level of Billing: Critical Care [...] plan with the ICU team and other medical/funeral pre need consultant staff, making frequent assessments and decisions [...] 01/18/2025 3:43 AM CDT us Lynsey Amador [employer] LAB BLOOD ORDERABLES Final Result [facility] [address] [facility] Department [place] [address] * (ABNORMAL) Differential, auto (01/18/2025 [...] Resul t Performing Organization Address [facility] de Phone Number MARY KAY [address] [place] [address] * (ABNORMAL) CBC with auto differential (01/18/2025 3:37 AM CDT) Pathologist [facility] WBC 10.62(H) 3.80 - 9.90 K/cumm Hgb [...] Resul t Performing Organization Address [facility] Co de Phone Number MARY KAY [address] [place] [address] * (ABNORMAL) Fibrinogen (01/18/2025 3:37 AM CDT) Pathologist [facility] Fibrinogen 75(C) 170 - 400 mg/dL Comment:Critical Result call ed to and read back by [email or web address], DATE: 2025-01-18 04:59:36 BY: [email or web address] Blood 01/18/2025 3:37 AM CDT 01/18/2025 3:43 AM CDT Narrative MARY KAY [facility] 01/18/2025 4:59 AM CDT Obtain Fibrinogen 8 hours after Alteplase initiation. Call MD if Fibrinogen is less than 250 mg/dL. Stacy Chavira MD LAB BLOOD ORDERABLES Final Resul t Performing Organization Address City/[facility] Co de Phone Number [address] [place] [address] * (ABNORMAL) Phosphorus (01/18/2025 3:37 AM CDT) Pathologist [facility] Phosphorus, pl 5.4(H) 2.3 - 4.5 mg/dL Blood 01/18/2025 3:37 AM CDT 01/18/2025 3:43 AM CDT Stacy Chavira MD LAB BLOOD ORDERABLES Final Resul t Performing Organization Address [facility] de Phone Number [address] [place] [address] * Magnesium (01/18/2025 3:37 AM CDT) Pathologist [facility] Magnesium 2.1 1.4 - 2.5 mg/dL Blood 01/18/2025 3:37 AM CDT 01/18/2025 3:43 AM CDT Stacy Chavira MD LAB BLOOD ORDERABLES Final Resul t Performing Organization Address [facility] de Phone Number [address] [place] [address] * (ABNORMAL) Creatine kinase (CK), total (01/18/2025 3:37 AM CDT) CK 37(L) 40 - 300 Units/L Blood 01/18/2025 3:37 AM CDT 01/18/2025 3:43 AM CDT Stacy Chavira MD LAB BLOOD ORDERABLES Final Resul t MARY KAY [address] [facility] Department [place] [address] * (ABNORMAL) Comprehensive metabolic panel (01/18/2025 3:37 [...] Resul t Performing Organization Address [facility] de Phone Number [address] [address] * Troponin T high-sensitivity 6-hour (01/18/2025 1:34 AM CDT) Trop T hs 11 <=22 ng/L Comment: Interpretive Data For further hscTnT resources including the diagnostic algorithm and an aid in interpretation, copy and paste this link: https://nrl.[employer].org/show/hsTrop Current Interpretive Data last revised 2020. Trop T hs delta 0 ng/L MARY KAY Trop T hs interp Insignificant [facility] Blood 01/18/2025 1:34 AM CDT 01/18/2025 1:37 AM CDT Jerardo Rios MD LAB BLOOD ORDERABLES Final R esult Performing Organization Address [facility] de Phone Number [address] [address] * Troponin T high-sensitivity 4-hour (01/17/2025 11:23 PM CDT) Trop T hs 9 <=22 ng/L Comment: Interpretive Data For further hscTnT resources including the diagnostic algorithm and an aid in interpretation, copy and paste this link: https://nrl.[employer].org/show/hsTrop Current Interpretive Data last revised 2020. Trop T hs delta -2 ng/L MARY KAY Trop T hs interp Insignificant [facility] Blood 01/17/2025 11:2 3 PM CDT 01/17/2025 11:30 PM CDT Jerardo Rios MD LAB BLOOD ORDERABLES Final R esult Performing Organization Address [facility] Co de Phone Number [address] [place] [address] * (ABNORMAL) Creatine kinase (CK), total (01/17/2025 11:23 PM CDT) Pathologist [facility] CK 39(L) 40 - 300 Units/L Blood 01/17/2025 11:2 3 PM CDT 01/17/2025 11:30 PM CDT Stacy Chavira MD LAB BLOOD ORDERABLES Final Resul t Performing Organization Address City/[facility] Co de Phone Number [address] [place] [address] * Troponin T high-sensitivity 2-hour (01/17/2025 9:36 PM CDT) Pathologist [facility] Trop T hs 10 <=22 ng/L Comment: [...] ORDERABLES Final R esult Performing Organization Address City/[facility] Co de Phone Number [address] [place] [address] * XR Chest 1 View (01/17/2025 7:30 [...] Brian Blank D.O. PS T: Report ID: [id number] Reading Location: [id number] Procedure Note Brian Blank, DO - 01/17/2025 [...] Brian Blank D.O. PS T: Report ID: [id number] Reading Location: [id number] us Jerrado Rios MD IMG XR PROCEDURES Final Resu [...] R esult Performing Organization Address [facility] Co de Phone Number [address] [address] * Lactate (01/17/2025 7:19 PM CDT) Lactate 1.6 0.7 - 2.0 mmol/L Blood 01/17/2025 7:19 PM CDT 01/17/2025 7:23 PM CDT Jerardo Rios MD LAB BLOOD ORDERABLES Final R esult Performing Organization Address [facility] de Phone Number [address] [address] * eGFR (01/17/2025 7:19 PM CDT) eGFR [...] BLOOD ORDERABLES Final R esult [facility] [address] [facility] Department [place] [address] * (ABNORMAL) Differential, auto (01/17/2025 7:19 PM CDT) Pathologist [facility] Neutrophil abs 5.79 1.50 - 6.50 K/cumm [...] ORDERABLES Final R esult Performing Organization Address City/[facility] Co de Phone Number MARY KAY [address] Department [place] [address] * (ABNORMAL) CBC with auto [...] ORDERABLES Final R esult Performing Organization Address City/[facility]/ZIP Co de Phone Number [address] [address] * Phosphorus (01/17/2025 7:19 PM CDT) [facility] Phosphorus, pl 3.8 2.3 - 4.5 mg/dL Blood 01/17/2025 7:19 PM CDT 01/17/2025 7:23 PM CDT Jerardo Rios MD LAB BLOOD ORDERABLES Final R esult Performing Organization Address [facility] de Phone Number [address] [place] [address] * Magnesium (01/17/2025 7:19 PM CDT) [facility] Magnesium 2.2 1.4 - 2.5 mg/dL Blood 01/17/2025 7:19 PM CDT 01/17/2025 7:23 PM CDT Jerardo Rios MD LAB BLOOD ORDERABLES Final R esult Performing Organization Address [facility] de Phone Number [address] [address] * (ABNORMAL) Basic metabolic panel (01/17/2025 7:19 PM CDT) [facility] Sodium 138 135 - 145 mmol/L Potassium, [...] R esult Performing Organization Address [facility] Co de Phone Number MARY KAY [address] [facility] Department [place] [address] * ECG 12 lead (01/17/2025 7:12 PM CDT) Ventricular Rate EKG/Min 61 BPM [facility] Atrial Rate [address] [facility] [place]-Interval (MSEC) 168 ms [facility] QRS-Interval (MSEC) [address] [facility] QT-Interval (MSEC) [address] [facility] QTc [address] [facility] P [place] 60 degrees [facility] R [place] [address] [facility] T [place] [address] [facility] Diagnosis Normal sinus rhythm Normal ECG No previous ECGs available Confirmed by SULTAN DOWLING M.D. ([id number]) on 01/18/2025 11:43:[address] [facility] 01/17/2025 7:12 PM CDT 01/18/2025 11:43 AM CDT Jerardo Rios MD ECG ORDERABLES Final Result Performing Organization Address [facility] de Phone Number [facility] * (ABNORMAL) aPTT (01/17/2025 6:58 [...] R esult Performing Organization Address [facility] Co de Phone Number [address] [address] * Creatine kinase (CK), total (01/17/2025 6:57 PM CDT) CK 47 40 - 300 Units/L Blood 01/17/2025 6:57 PM CDT 01/17/2025 7:03 PM CDT us Stacy Chavira MD LAB BLOOD ORDERABLES Final Resul t Performing Organization Address [facility] de Phone Number MARY KAY [address] [address] * Critical Care (01/17/2025 6:24 PM CDT) Narrative Bernard Ortiz MD - 01/17/2025 6:24 PM CDT Bernard Ortiz MD 01/17/2025 6:30 PM Critical Care Performed by: Lynsey Amador NP Authorized by: Lynsey Amador NP CRITICAL CARE: Team: [facility] Shift: AM Level of Billing: Critical Care [...] plan with the ICU team and other medical/funeral pre need consultant staff, making frequent assessments and decisions [...] with consultants and the medical staff Result [facility] Lynsey Amador NP IN CLINIC/BEDSIDE ORD ERABLES Final Result * POCT glucose (01/17/2025 5:06 PM CDT) Glucose, POC 89 70 - 199 mg/dL Blood 01/17/2025 5:06 PM CDT 01/17/2025 5:06 PM CDT Result [facility] Stacy Chavira MD LAB POCT ORDERABLES - DEVICE Fin al Result Performing Organization Address [facility] Co de Phone Number [address] [place] [address] * POCT glucose (01/17/2025 4:40 PM CDT) Glucose, POC 77 70 - 199 mg/dL Blood 01/17/2025 4:40 PM CDT 01/17/2025 4:40 PM CDT Result [facility] Stacy Chavira MD LAB POCT ORDERABLES - DEVICE Fin al Result Performing Organization Address [facility] Co de Phone Number [address] [address] * THROMBECTOMY (01/17/2025 3:15 PM CDT) Anatomical Region Laterality Modality X-Ray Angiograph y Narrative 01/17/2025 3:19 PM CDT Please see OpNote for result. Result [facility] Stacy Chavira MD CV CARDIAC CATH PROCEDURES Final Result * ABO / Rh Confirmation Testing (01/17/2025 12:36 PM CDT) ABO/Rh Confirmation A Positive [facility] Blood 01/17/2025 12:3 6 PM CDT 01/17/2025 12:43 PM CDT Stacy Chavira MD LAB BLOOD ORDERABLES Final Resul t Performing Organization Address [facility] Co de Phone Number MARY KAY [address] [place] [address] MHB * eGFR (01/17/2025 12:13 PM CDT) Pathologist [facility] eGFR 66 >=60 mL/min/1. 73 m2 Comment: [...] Resul t Performing Organization Address [facility] Co de Phone Number MARY KAY [address] [place] [address] Department [place] [address] * (ABNORMAL) Differential, auto (01/17/2025 12:13 PM CDT) Pathologist [facility] Neutrophil abs 4.66 1.50 - 6.50 K/cumm [...] BLOOD ORDERABLES Final Resul t MARY KAY [address] [facility] Department [place] [address] * CBC with auto differential (01/17/2025 12:13 PM CDT) [facility] WBC 8.15 3.80 - 9.90 K/cumm Hgb [...] 3 PM CDT 01/17/2025 12:21 PM CDT [facility] 01/17/2025 12:29 PM CDT If most recent labs were drawn prior to 4 AM, draw only prior to initiating procedure. Stacy Chavira MD LAB BLOOD ORDERABLES Final Resul t Performing Organization Address [facility] Co de Phone Number [address] [place], [place] [address] * ABO/Rh (01/17/2025 12:13 PM CDT) [facility] ABO/Rh A Positive Blood 01/17/2025 12:1 3 PM CDT 01/17/2025 12:21 PM CDT [facility] 01/17/2025 12:56 PM CDT Has the patient had Daratumumab or Isatuximab in the past 6 months?->Unknown Stacy Chavira MD LAB BLOOD BANK TEST ORDERABLES F inal Result Performing Organization Address City/[facility]/ZIP Co de Phone Number [address] [place] [address] * aPTT (01/17/2025 12:13 PM CDT) aPTT 26 22 - 37 sec Comment: Interpretive data aPTT test has not been evaluated for monitoring heparin therapy. The anti-Xa is the preferred test. Current interpretive data was last revised on 2019. Blood 01/17/2025 12:1 3 PM CDT 01/17/2025 12:21 PM CDT Stacy Chavira MD LAB BLOOD ORDERABLES Final Resul t Performing Organization Address [facility] Co de Phone Number [facility] [address] [place] [address] * Protime-INR (01/17/2025 12:13 PM CDT) PT [...] ORDERABLES Final Resul t Performing Organization Address City/[facility]/ZIP Co de Phone Number [facility] [address] [place] [address] * Antibody screen (01/17/2025 12:13 PM CDT) Rafael, indirect, Gel Interpretation Negative ABSC Blood 01/17/2025 12:1 3 PM CDT 01/17/2025 12:21 PM CDT Narrative [facility] - 01/17/2025 12:56 PM CDT Has the patient had Daratumumab or Isatuximab in the past 6 months?->Unknown Stacy Chavira MD LAB BLOOD BANK TEST ORDERABLES F inal Result [facility] [place] [address] * (ABNORMAL) Basic metabolic panel (01/17/2025 12:13 PM CDT) [facility] Sodium 138 135 - 145 mmol/L Potassium, [...] MD LAB BLOOD ORDERABLES Final Resul t [address] [place] [address] * US BOB (01/16/2025 11:49 AM CDT) Anatomical Region Laterality Modality Vascular N/A Ultrasound 01/16/2025 10:5 3 AM CDT Narrative 01/17/2025 2:31 PM CDT Lower Extremity Arterial Doppler Report Patient Name: LUCHO MANZO R : 1950 Study Date: 01/16/2025 10:53:00 AM Sex: M Bat Person: BONG CHRISTIANSON RN/RVT Ref Provider: STACY CHAVIRA Quality: Adequate Order Provider: STACY CHAVIRA PROCEDURES: Arterial Report: Ankle - Brachial Index Doppler exam. INDICATIONS: I73.9 Peripheral vascular disease, unspecified and Z98.890 Other specified postprocedural states. 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 COMPARISONS: The previous exam was completed on 10/22/2024 RT PT/DP 1.04/.87 LT PT/DP .96/.82. MEASUREMENTS: Right Value Left Value Rt Brachial Pressure 112 mmHg Lt Brachial Pressure 111 mmHg Rt CADD INSTRUCTOR Pressure 112 mmHg Lt CADD INSTRUCTOR Pressure 59 mmHg Rt DPA Pressure 108 [...] Study Date: 01/16/2025 10:53:00 AM Sex: M Bat Person: BONG CHRISTIANSON RN/RVT Ref Provider: STACY CHAVIRA Quality: Adequate Order Provider: STACY CHAVIRA PROCEDURES: Arterial Report: Ankle - Brachial Index Doppler exam. INDICATIONS: I73.9 Peripheral vascular disease, unspecified and Z98.890 Other specifiedpostprocedural states. 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 COMPARISONS: The previous exam was completed on 10/22/2024 RT PT/DP 1.04/.87 LT PT/DP.96/.82. MEASUREMENTS: Right Value Left Value Rt Brachial Pressure 112 mmHg Lt Brachial Pressure 111 mmHg Rt CADD INSTRUCTOR Pressure 112 mmHg Lt CADD INSTRUCTOR Pressure 59 mmHg Rt DPA Pressure 108 [...] Date: 01/16/2025 10:52:50 AM Ht(Inch): Wt(Lb): BSA: Bat Person: BONG CHRISTIANSON Provider: STACY CHAVIRA Quality: Adequate Ref Provider: STACY CHAVIRA PROCEDURES: Arterial Report: A non-invasive vascular imaging study of the left lower extremity arteries and bypass graft was performed using B-mode ultrasound, color flow, and spectral Doppler. INDICATIONS: I73.9 Peripheral vascular disease, unspecified and Z98.890 Other specified postprocedural states. HISTORY: S/P RT OIL BURNER SERVICER AND INSTALLER-AK POP BPG 02/11/2019 S/P LT OIL BURNER SERVICER AND INSTALLER-AK POP BPG 05/06/2019. COMPARISONS: The previous exam was completed on 10/22/2024. MEASUREMENTS: Left Value Lt OIL BURNER SERVICER AND INSTALLER Prx PSV 150.91 cm/sec Lt Profunda Prx [...] Date: 01/16/2025 10:52:50 AM Ht(Inch): Wt(Lb): BSA: Bat Person: BONG CHRISTIANSON Provider: STACY CHAVIRA Quality: Adequate Ref Provider: STACY CHAVIRA PROCEDURES: Arterial Report: A non-invasive vascular imaging study of the left lowerextremity arteries and bypass graft was performed using B-mode ultrasound, colorflow, and spectral Doppler. INDICATIONS: I73.9 Peripheral vascular disease, unspecified and Z98.890 Other specifiedpostprocedural states. HISTORY: S/P RT OIL BURNER SERVICER AND INSTALLER-[employer] POP BPG 02/11/2019 S/P LT OIL [employer]NER SERV[employer]ER AND INSTALLER-[employer] POP BPG 05/06/2019. COMPARISONS: The previous exam was completed on 10/22/2024. MEASUREMENTS: Left Value Lt OIL BURNER SERVICER AND INSTALLER Prx PSV 150.91 cm/sec Lt Profunda Prx [...] 01/17/2025 1:21:36 PM CDT Stacy Chavira MD [facility] US PROCEDURES Final Result * POCT lipid panel (10/22/2024 8:47 AM CDT) [facility] Cholesterol, POC 131 <200 MG/DL HDL, POC [...] Most Recently Relevant to Health Maintenance Insurance [facility] MEDICARE [facility] MEDICARE AET MEDICARE Advance Directives For more information, please contact: [phone] * Full Code (Latest Code Status on File) Date Activated Date Inactivated Comments 01/17/2025 3:21 PM 01/20/2025 6:41 PM Care Teams Manager Beauty Relationship Specialty Start Date End Date Manisha Farias MD PCP - General Family Practice 06/11/20
--- OUTSIDE RECORDS SUMMARY | 2025-03-13 22:07 | XMS_ITS | Encounter Summary ---
Author Organization [facility] Address [address] [place] [id number] Care Team Providers Care Rubber Heel And Sole Press Tender Name Role Phone Manisha Farias MD Primary Care Provider Gt Hector DO Unavailable Fred Leonardo MD Unavailable Encounter Details Date Type Department Care Team (Late st Contact Info) Description 05/03/2019 Prep for Procedure [facility] [place]-Ad[facility] Testing [place] [address] Fred Leonardo MD [address] [place] [id number] Social History Tobacco Use Types Packs/Day [...] dressing or bathing? No 05/06/2019 3:44 PM iSa Jorgensen RN Active Because of a physical, mental, or emotional condition, do you have difficulty doing errands alone such as visiting a doctor's office or shopping? No 05/06/2019 3:44 PM Sia Jorgensen RN Ac tive * RETIRED Are you deaf or do you have serious difficulty hearing Answer Date of Assessment Author Status No 04/02/2019 8:26 PM INDUSTRIAL ACCOUNTANT Activ e * RETIRED Are you blind or do you have serious difficulty seeing, even when wearing glasses? Answer Date of Assessment Author Status No 04/02/2019 8:26 PM INDUSTRIAL ACCOUNTANT Activ e * Do you have serious [...] (ABNORMAL) BASIC METABOLIC PANEL (05/06/2019 9:09 AM [facility]) [facility] GLUCOSE 103(H) 70 - 99 MG/DL 05/06/2019 9:44 AM [facility] BUN 17 7 - 18 MG/DL 05/06/2019 9:44 AM [facility] CREATININE S/P/B 0.87 0.7 - 1.3 MG/DL 05/06/2019 9:44 AM [facility] SODIUM S/P/B 143 136 - 145 MMOL/L 05/06/2019 9:44 AM [facility] POTASSIUM S/P/B 4.6 3.5 - 5.1 MMOL/L 05/06/2019 9:44 AM [facility] CHLORIDE S/P/B 111(H) 100 - 108 MMOL/L 05/06/2019 9:44 AM [facility] CO2 28.4 21 - 32 MMOL/L 05/06/2019 9:44 AM [facility] CALCIUM S/P/B 9.2 8.5 - 10.1 MG/DL 05/06/2019 9:44 AM [facility] ANION GAP 3.6(L) 5 - 15 MMOL/L 05/06/2019 9:44 AM [facility] BUN CREATININE RATIO 19.6 6 - 26 05/06/2019 9:44 AM [facility] EGFR NON-AFR. AMER. 90(L) >90 ML/MIN/1.7 3 M2 05/06/2019 9:44 AM [facility] EGFR AFR. AMER. >90 >90 ML/MIN/1.7 3 M2 05/06/2019 9:44 AM [facility] Comment: NOTE: eGFR is not calculated for patients <18 years of age. This is an estimated GFR (CKD EPI) and should not be used for calculating drug doses. 05/06/2019 9:09 AM INDUSTRIAL ACCOUNTANT us Fred Leonardo MD LABORATORY Final Result [facility] [address] [place] [address], [place] [phone] * PTT, PARTIAL THROMBOPLASTIN TIME (05/06/2019 9:09 AM INDUSTRIAL ACCOUNTANT) PTT 33.4 25.5 - 37.6 SEC 05/06/2019 9:42 AM INDUSTRIAL ACCOUNTANT [facility] 05/06/2019 9:09 AM INDUSTRIAL ACCOUNTANT Fred Leonardo MD LABORATORY Final Result [facility] [address] [place] [id number], * PROTIME/INR, VENOUS (05/06/2019 9:09 AM INDUSTRIAL ACCOUNTANT) PROTIME 11.3 9.6 - 12.2 SEC 05/06/2019 9:42 AM INDUSTRIAL ACCOUNTANT [facility] INR 1.0 05/06/2019 9:42 AM INDUSTRIAL ACCOUNTANT [facility] Comment: Recommended INR Therapeutic Goals: 2.0-3.0 Routine Therapy 2.5-3.5 Mechanical Prosthetic Valves (High Risk) 3.0-4.0 Acute W[place] (to prevent Systemic Embolism) The INR is used only for patients on stable oral anticoagulant therapy. It makes no significant contribution to the diagnosis or treatment of patients whose Protime is prolonged for other reasons. 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
--- OUTSIDE RECORDS SUMMARY | 2025-03-13 22:07 | XMS_ITS | Clinical Summary ---
Author Organization [facility] Address [facility] [place] [address] Care Team Providers Care Neurology Physician Assistant Name Role Phone Manisha Farias MD Primary [...] artery disease of n ative artery of [place] heart with stable angina pectoris 06/23/2020 Dyslipidemia, [...] 36.7 C (98 F) 05/10/2019 2:20 PM KNITTING MACHINE OPERATOR Respiratory Rate 18 05/10/2019 2:20 PM KNITTING MACHINE OPERATOR Oxygen Saturation 96% 05/10/2019 2:20 PM KNITTING MACHINE OPERATOR Inhaled Oxygen Concentration - - [...] this topic Medical Devices Implanted Type Area Back Wedger Device Identifier Shelf Expiration Date Model / Serial / Lot Graft Gortex 45 Access Stnd Wall Stretch 4-7mm - [id number] Implanted:Qty: 1 on 02/11/2019 by Fred Leonardo MD at [facility] Graft Right: Leg [employer] 02/05/2023 [id number] / [id number] / Description:Femoral to popli teal Propaten Vascular Graft Implanted:Qty: 1 on 05/06/2019 by Fred Leonardo MD at [facility] Graft Left: Leg [employer] 06/28/2022 [id number] / [id number] / Description:RIGHT COMMON FEM ORAL TO ABOVE KNEE POPLITEAL ARTERY BYPASS GRAFT Insurance [employer] MEDICARE Advance Directives Documents on File Type Date Recorded Patient Research Assistant Professor Expl anation Power of Audiovisual Lead Technician Advance Directives and Living Will 02/15/2019 1:21 [...] 3:43 PM 03/22/2019 5:49 AM Care Teams Neurology Physician Assistant Relationship Specialty Start Date End Date Manisha Farias MD PCP - General FAMILY PRACTICE 01/09/19 Gt Hector DO [address] [place] [address] INTERNAL MEDICINE 02/05/19 Fred Leonardo MD [address] [place] [id number] Vascular/Maritime Guard SURGERY 02/05/19
--- NOTE | 2025-03-13 22:08 | ECG_ITS ---
Test Date: 2025-03-13 22:11:18 Measurements Intervals [place] Rate: 85 P: 62 IA: 179 QRS: 61 QRSD: 103 T: 57 QT: 362 QTc: 431 Interpretive Statements SINUS RHYTHM LOW QRS VOLTAGE IN PRECORDIAL LEADS BASELINE WANDER- II, AVF, V1, V3-V4 BORDERLINE ECG No previous ECG available for comparison Electronically Signed On 03-14-2025 06:22:00 FILLER BLOCK INSERTER REMOVER by Gt Hector D.O.
[2025-03-13 22:12] VITALS: BP 133/78; PULSE 88; RESP 18; TEMP 36.6; O2SAT 98
[2025-03-13 22:25] LABS: Hematocrit 46.0 % (42.0-52.0); Hemoglobin 15.1 g/dL (14.0-18.0); Immature Granulocyte Percent A 0.2 % (0-0.5); Lymphocytes Absolute Auto 2.78 K/mm3 (0.9-3.2); Mean Corpuscular HGB Conc 32.8 g/dl (32-36); Mean Corpuscular Hemoglobin 30.8 pg (26-34); Mean Corpuscular Volume 93.7 fl (80-100); Nucleated Red Blood Cells Absolute Auto 0.000 K/mm3 (0.0-0.012); Nucleated Red Blood Cells Perc 0.0 % (0.0-0.2); Platelet Count Result 238 k/mm3 (150-375); Red Blood Count 4.91 M/mm3 (4.6-6.20); White Blood Count 8.1 K/mm3 (4.5-10.0)
[2025-03-13 22:35] LABS: INR 1.3; Prothrombin Time 15.9 Seconds (11.1-14.7)
[2025-03-13 22:36] LABS: Partial Thromboplastin Time 32.6 Seconds (22.3-36.8)
[2025-03-13 22:38] LABS: Alanine Aminotransferase 24 U/L (6-50); Albumin Level 4.1 g/dL (3.5-5.1); Alkaline Phosphatase 59 U/L (38-126); Anion Gap 8 mmol/L (4-12); Aspartate Amino Transferase 27 U/L (17-59); Bilirubin,Total 0.4 mg/dL (0.2-1.3); Blood Urea Nitrogen 29 mg/dL (9-20); Calcium 9.3 mg/dL (8.4-10.2); Carbon Dioxide 23 mmol/L (22-30); Chloride 107 mmol/L (98-107); Estimated CRCL calculation 45 ml/min; Estimated Glomerular Filt Rate 53; Glucose 131 mg/dL (65-110); Lipase 134 U/L (23-300); Potassium 4.1 mmol/L (3.4-5.0); Sodium 138 mmol/L (137-145); Total Protein 7.3 g/dL (6.3-8.2)
[2025-03-13 22:57] LABS: Troponin I < 0.012 ng/mL (0.000-0.034)
[2025-03-14] VITALS (32 sets, daily range): BP systolic 97–145; BP diastolic 58–77; PULSE 7–91; RESP 14–22; TEMP 36.3–36.5; O2SAT 92–100; BMI 29.0
--- NOTE | 2025-03-14 | ECHO_ITS ---
Patient Info Name: Jonathan Quijano Age: 74 years : 1950 Gender: Male Ht: 69 in Wt: 196 lbs BSA: 2.10 m2 HR: 77 bpm BP: 105 / 58 mmHg Heart Rhythm: Sinus Rhythm Technical Quality: Good Exam Date: 03/14/2025 10:43 AM Patient Status: I Admit Date: 03/14/2025 Exam Type: CA echo doppler color flow Complete two-dimensional, color flow and Doppler transthoracic echocardiogram is performed. Staff Referring Physician: Emmanuel Colón Emr Implementation Specialist: Mariana Betancourt Attending Provider: Lor Gallagher DO Summary 1. Complete two-dimensional, color flow and Doppler transthoracic echocardiogram is performed. 2. There is normal biventricular size and systolic function. 3. There are no significant valvular abnormalities. Left Ventricle The left ventricle is normal in size and systolic function. The left ventricular ejection fraction is visually estimated to be 60-65%. There is grade 2 diastolic dysfunction. Right Ventricle The right ventricle is normal in size and systolic function. Left Atria The left atrium is normal size. Right Atria The right atrium is normal size. Atrial Septum The atrial septum is normal. Aortic Valve The aortic valve is trileaflet and sclerotic. There is no aortic stenosis or regurgitation. Pulmonic Valve The pulmonic valve is grossly normal. There is no pulmonic valve regurgitation. Mitral Valve The mitral valve is normal. There is no mitral regurgitation. Tricuspid Valve The tricuspid valve is normal. There is no tricuspid regurgitation. Pericardium/Pleural Pericardium is normal in appearance with no evidence for significant pericardial effusion. Inferior Vena Cava Normal inferior vena cava with >50% collapse upon inspiration consistent with normal right atrial pressure, 3 mmHg. Aorta The aortic root at the level of the sinus of Valsalva measures 3.2 cm in diameter. Left Ventricular Outflow Tract Name Value Normal LVOT 2D LVOT Diameter 2.2 cm LVOT Doppler LVOT Peak Velocity 68 cm/s LVOT Peak Gradient 2 mmHg LVOT Mean Gradient 1 mmHg LVOT VTI 15 cm LVOT VTI/AV VTI Ratio 0.7 LVOT Stroke Volume 56 ml LVOT CO 3.6 l/min LVOT CI 1.7 l/min/m2 Pulmonic Valve Name Value Normal RVOT Doppler RVOT Peak Velocity 61 cm/s RVOT Peak Gradient 1 mmHg PV Doppler PV Peak Velocity 106 cm/s PV Peak Gradient 4 mmHg Mitral Valve Name Value Normal MV Diastolic Function MV E Peak Velocity 59 cm/s MV A Peak Velocity 77 cm/s MV E/A 0.8 MV Decel Time (PW) 209 ms MV Annular TDI MV E/e' (Septal) 14.9 MV E/e' (Lateral) 10.1 MV E/e' (Average) 12.5 Tricuspid Valve Name Value Normal Estimated PAP/RSVP RA Pressure 3 mmHg <=5 TV Annular TDI TV Lateral Jessica s' Velocity 12.9 cm/s >=9.5 Aorta Name Value Normal Ascending Aorta Ao Root Diameter (MM) 3.5 cm Ao Root Diam Index (MM) 1.7 cm/m2 Aortic Valve Name Value Normal AV Doppler AV Peak Velocity 125 cm/s AV Peak Gradient 6 mmHg AV Mean Gradient 3 mmHg AV VTI 21 cm AV Area (Cont Eq VTI) 2.7 cm2 >=3.0 AV Area (Cont Eq Miguelito) 2.1 cm2 AV DI (Miguelito) 0.54 AV Regurgitation 2D LVOT Area 3.9 cm2 Ventricles Name Value Normal LV Dimensions 2D/MM IVS Diastolic Thickness (2D) 0.8 cm 0.6-1.0 LVID Diastole (2D) 5.8 cm 4.2-5.8 LVIW Diastolic Thickness (2D) 0.8 cm 0.6-1.0 LVID Systole (2D) 3.2 cm 2.5-4.0 LVOT Diameter 2.2 cm LV Mass (2D Cubed) 179.77 g 88.00-224.00 LV Mass Index (2D Cubed) 86 g/m2 49-115 Relative Wall Thickness (2D) 0.28 <=0.42 LV Fractional Shortening/Ejection Fraction 2D/MM LV Fractional Shortening (2D) 45 % 25-43 LV EF (2D Teichholz) 76 % LV Diastolic Volume (4C MOD) 66 ml LV EF (4C MOD) 66 % LV Diastolic Volume (2C MOD) 60 ml LV EF (2C MOD) 64 % LV Diastolic Volume (BP MOD) 64 ml 62-150 LV Diastolic Volume Index (BP MOD) 31 ml/m2 34-74 LV Systolic Volume (BP MOD) 22 ml 21-61 LV Systolic Volume Index (BP MOD) 11 ml/m2 11-31 LV EF (BP MOD) 65 % 52-72 LV Diastolic Length (4C) 7.3 cm LV Systolic Length (4C) 6.0 cm LV Stroke Volume (4C MOD) 44 ml Atria Name Value Normal LA Dimensions LA Dimension (MM) 3.8 cm 3.0-4.0 LA Volume (4C A-L) 33 ml LA Volume (BP A-L) 33 ml RA Dimensions RA Area (4C) 18.5 cm2 <=18.0 Report Signatures
--- NOTE | 2025-03-14 | EST_ITS ---
Patient Info Name: Jonathan Quijano Age: 74 years : 1950 Gender: Male Ht: 69 in Wt: 197 lbs BSA: 2.11 m2 HR: 74 bpm BP: 121 / 66 mmHg Exam Date: 03/14/2025 10:39 AM Patient Status: I Admit Date: 03/14/2025 Exam Type: CA stress elba w NM A regadenoson stress test was performed. Staff Referring Physician: Emmanuel Colón Attending Provider: Lor Gallagher DO Exercise Technologist: Brianna Dorman Exercise Physician: Kori Young Summary 1. Abnormal ST segment depression consistent with myocardial ischemia. 2. Please correlate with nuclear medicine images, reported separately. Protocol: Lexiscan Stress ECG Details Stage: REST Duration (min): 0 min : 54 sec HR (bpm): 73 SBP (mmHg): 121 DBP (mmHg): 66 Stage: REST Duration (min): 3 min : 52 sec HR (bpm): 74 SBP (mmHg): 121 DBP (mmHg): 66 Stage: STAGE 1 Duration (min): 1 min : 0 sec HR (bpm): 94 SBP (mmHg): 123 DBP (mmHg): 65 Stage: RECOVERY Duration (min): 1 min : 0 sec HR (bpm): 105 SBP (mmHg): 123 DBP (mmHg): 65 Stage: RECOVERY Duration (min): 2 min : 0 sec HR (bpm): 93 SBP (mmHg): 123 DBP (mmHg): 65 Stage: RECOVERY Duration (min): 3 min : 0 sec HR (bpm): 95 SBP (mmHg): 123 DBP (mmHg): 69 Stage: RECOVERY Duration (min): 3 min : 7 sec HR (bpm): 89 SBP (mmHg): 123 DBP (mmHg): 69 Rest HR: 74 bpm Peak HR: 105 bpm Rest Sys BP: 121 mmHg Peak Sys BP: 123 mmHg Max Pred HR: 148 bpm % Max Pred HR: 71 % Target HR: 126 bpm Max RPP: 12,915 bpm*mmHg Total Time: 1 min : 0 sec Rest Mcneal BP: 66 mmHg Peak Mcneal BP: 69 mmHg Total Dose: 0.4 mg Resting ECG Normal sinus rhythm. Stress ECG ST depressions horizontal 1 mm in V5/6. Arrhythmias None. Report Signatures
--- NOTE | 2025-03-14 00:42 | ECG_ITS ---
Test Date: 2025-03-14 00:50:13 Measurements Intervals [place] Rate: 87 P: 37 NM: 174 QRS: 19 QRSD: 95 T: 31 QT: 343 QTc: 414 Interpretive Statements SINUS RHYTHM POSSIBLE LEFT ATRIAL ENLARGEMENT BORDERLINE R WAVE PROGRESSION, ANTERIOR LEADS BORDERLINE T WAVE ABNORMALITY- INFERIOR LEADS BASELINE ARTIFACT- V3, V5-V6 BORDERLINE ECG Compared to ECG 03/13/2025 22:11:18 NO SIGNIFICANT CHANGE Electronically Signed On 03-14-2025 06:25:05 COST ACCOUNTING ANALYST by Gt Hector D.O.
[2025-03-14 01:29] LABS: Troponin I < 0.012 ng/mL (0.000-0.034)
--- NOTE | 2025-03-14 01:47 | ED.CHESTPAIN ---
HPI - Chest Pain General Chief Complaint: Chest Pain Stated Complaint: chest pain Time Seen by Provider: 03/14/25 01:37 Source: patient Mode of arrival: ambulatory Limitations: no limitations History of Present Illness HPI narrative: This is a 74-year-old male with history of CAD status post stents on diabetes, TANYA, P 80 who presents to the ED for chest pain. Patient states that 4 hours ago he had chest pain while speaking to a friend. This was not a particularly stressful phone call. He described it as a sharp crushing pain to his lower sternum that did not radiate. He did have associated shortness of breath but no nausea. He did feel clammy. He states this feels similar to his prior heart attack 4 years ago. He tried taking nitro with minimal relief. He follows with Dr. Koo. His last stress test was 5 or 6 years ago. Related Data Home Medications ?Medication ?Instructions ?Recorded ?Confirmed ?Last Taken ?Type [id number]-[id number]-[id number] 1 tablet PO DAILY 11/05/19 03/14/25 03/13/25 History [Centrum Silver] ticagrelor 60 mg tablet (Brilinta) 60 mg PO Q12H 10/14/21 03/14/25 03/13/25 History cholecalciferol (vitamin D3) 50 50 mcg PO DAILY 01/05/22 03/14/25 03/13/25 History mcg (2,000 unit) tablet (Vitamin D3) metoprolol tartrate 25 mg tablet 25 mg PO BID 04/11/22 03/14/25 03/13/25 History nitroglycerin 0.4 mg sublingual 0.4 mg sublingual Q5M 06/12/22 03/14/25 03/13/25 History tablet ICaps AREDS 1 cap PO 2XD 04/20/23 03/14/25 03/13/25 History gabapentin 100 mg capsule 200 mg PO QHS 01/27/25 03/14/25 03/12/25 History loperamide 2 mg capsule 2 mg PO Q4H PRN Diarrhea 02/13/25 03/14/25 Unknown History rivaroxaban 20 mg tablet (Xarelto) 20 mg PO DAILY 02/13/25 03/14/25 03/13/25 History ibuprofen 200 mg tablet (Advil) 600 mg PO TID PRN fever or pain 03/14/25 03/14/25 Unknown History omega 2-olf-abw-fish oil 1,000 mg 1 cap PO BID 03/14/25 03/14/25 03/13/25 History (120 mg-180 mg) capsule (Fish Oil) simvastatin 40 mg tablet 40 mg PO QHS 03/14/25 03/14/25 03/13/25 History Allergies Allergy/AdvReac Type Severity Reaction Status Date / Time metformin AdvReac Mild Diarrhea Verified 03/14/25 05:07 Review of Systems Review of Systems: Gen.: Denies fevers or chills Eyes: Denies eye pain or visual change ENT: Denies congestion Respiratory: Denies shortness of breath or cough CV: As per HPI GI: Denies abdominal pain nausea, emesis or diarrhea denies burning, urgency, frequency or hematuria Musculoskeletal: Denies back pain or muscle pain Neuro: Denies numbness, tingling, weakness or focal weakness Skin: Denies rash Except as documented, all other systems reviewed and negative PMFSH Past Medical History Medical History Renal cyst, right Obesity with serious comorbidity Thrombosis of femoral popliteal artery (~01/2025) Type 2 diabetes mellitus without complications Neuropathy involving both lower extremities Emphysema, unspecified History of kidney stones History of diverticulitis Peripheral neuropathy Pre-diabetes Vitamin D deficiency History of COVID-19 02/2020 CAD (coronary artery disease) ST elevation (STEMI) myocardial infarction 06/2020 Obstructive sleep apnea Tendinitis of left rotator cuff Essential (primary) hypertension Dyslipidemia Erectile dysfunction Arthritis PAD (peripheral artery disease) Esophagitis Surgical History Surgical History History of thrombectomy (~01/2025) thrombolysis and aspiration thrombectomy of left popliteal femoral bypass(01/17/2025) balloon angioplasty left popliteal and left common femoral artery(01/18/25) History of colonoscopy Hx of vasectomy H/O heart artery stent (~06/2020) History of femoropopliteal bypass left - right - 02/19 H/O rectal sphincterotomy (~11/2010) 11/2010 H/O hemorrhoidectomy (~2009) Family History Family History Father Obstructive sleep apnea Diabetes mellitus Family history of thyroid disease Family history of chronic obstructive pulmonary disease Macular degeneration disease Grandparent Diabetes mellitus Heart attack Mother Depression Father Family history of diabetes mellitus in first degree relative Family history of emphysema Sibling Family history of malignant neoplasm of cervix Other Family history of congestive heart failure Social History Social History Social History: the patient lives with his . he has 2 children .Retired from [employer] Code status full code Smoking packs per day: 50 Smoking cigarettes per day: 1,000.0 Years smoked: 50 Smoking pack-years: 2500.00 Smoking status: Former smoker Tobacco type: cigarettes Second hand tobacco smoke exposure: No Smoking end date: 02/04/19 Alcohol intake: current Alcohol use details: occassionally 1-2 per month Substance use: never Substance use type: does not use Lack of Transportation: No Lack of Food: Never True Current Housing: I Do Not Have Housing Concerned About Future Housing: No Difficulty Paying Gas/Electric Bills: No Difficulty Paying for Meds: No Currently Unemployed: No Education: Trade/Vocational Certificate Difficulty w/ Childcare or Family Care: No Living arrangements: with family Occupation/Education: retired Additional occupation/education comments: Retired from [employer] Gender identity (if verbalized by the patient): Male Sexual Orientation (if Verbalized by the Patient): Straight or Heterosexual Spiritual care concerns: No Exam Narrative: APPEARANCE: No acute distress, nontoxic, resting in bed EYES: EOMI HEENT: Normocephalic, atraumatic, OMM RESPIRATORY: No respiratory distress Clear to auscultation bilaterally with no rhonchi wheezing or rales. CARDIOVASCULAR: Regular rate and rhythm without murmurs rubs or gallops. ABDOMINAL: Soft, nontender, nondistended, no rebound or guarding MUSCULOSKELETAl: Moves all extremities. No clubbing, cyanosis or edema. NEURO: Awake and alert. Following commands, speech normal, no focal deficits SKIN:: Warm, dry. No rashes lesions or abrasions PSYCHIATRIC: Normal affect/mood, Course Vital Signs Vital signs: Vital Signs Temperature 97.9 F 03/13/25 22:12 Pulse Rate 88 03/13/25 22:12 Respiratory Rate 18 03/13/25 22:12 Blood Pressure 133/78 03/13/25 22:12 Pulse Oximetry 98 03/13/25 22:12 Oxygen Delivery Room Air 03/13/25 22:12 Temperature 97.7 F 03/14/25 07:56 Pulse Rate 7 L 03/14/25 07:56 Respiratory Rate 18 03/14/25 07:56 Blood Pressure 105/58 L 03/14/25 07:56 Pulse Oximetry 96 03/14/25 07:56 Oxygen Delivery Room Air 03/14/25 04:48 [facility] Narrative Medical decision making narrative: 74-year-old male Presenting for chest pain. On initial evaluation patient was in no acute distress afebrile, hemodynamic stable. Differentials include but are not limited to: ACS, PE, PNA, bronchitis, costochondritis, pleurisy, viral syndrome, GERD Notable exam findings: Heart and lungs clear. Abdomen soft and nontender. No reproducible chest wall tenderness to palpation I personally reviewed the patient's lab result. Notable lab findings: CBC and CMP without significant abnormalities. Initial troponin negative. Repeat troponin negative. I personally reviewed the patient's images and interpret as follows: Chest x-ray: Normal cardiac silhouette, no consolidations, no pleural effusions, no pulmonary vascular congestion I personally reviewed the patient's EKGs: Normal sinus rhythm rate of 85, normal axis, normal intervals, no acute ST or T-wave changes. Repeat EKG: Normal sinus rhythm rate of 87, normal axis, normal intervals, no acute ST or T-wave changes Patient's story was concerning for possible ACS. Heart score 5. Patient would benefit from admission for further cardiology evaluation. Case was discussed with hospitalist who will admit the patient. Differential Diagnosis Differential Diagnosis: ACS, PE, PNA, bronchitis, costochondritis, pleurisy, viral syndrome, GERD Lab Data [facility] Lab Attestation statement: I personally reviewed the patient's lab results. 03/13/25 22:16 03/13/25 22:16 Labs: Lab Results 03/13/25 03/14/25 Range/Units 22:16 01:00 WBC 8.1 (4.5-10.0) K/mm3 RBC 4.91 (4.6-6.20) M/mm3 Hgb 15.1 (14.0-18.0) g/dL Hct 46.0 (42.0-52.0) % MCV 93.7 (80-100) fl MCH 30.8 (26-34) pg MCHC 32.8 (32-36) g/dl RDW 13.5 (11.5-14.5) % Plt Count 238 (150-375) k/mm3 MPV 9.1 (7.4-10.4) fl Immature Gran % (Auto) 0.2 (0-0.5) % Neut % (Auto) 51.2 (45.5-73.1) % Lymph % (Auto) 34.2 (18.3-44.2) % Hart % (Auto) 8.5 (2.6-8.5) % Eos % (Auto) 5.4 H (0-4.4) % Baso % (Auto) 0.5 (0.2-1.2) % Lymph # (Auto) 2.78 (0.9-3.2) K/mm3 Hart # (Auto) 0.7 H (0.1-0.6) K/mm3 Eos # (Auto) 0.4 H (0-0.3) K/mm3 Baso # (Auto) 0.0 (0.0-0.1) K/mm3 Abs Immat Gran (auto) 0.02 (0.00-0.031) K/mm3 Absolute Neuts (auto) 4.2 (1.3-6.7) K/mm3 Absolute Nucleated RBC 0.000 (0.0-0.012) K/mm3 Nucleated RBC % 0.0 (0.0-0.2) % PT 15.9 H (11.1-14.7) Seconds INR 1.3 APTT 32.6 (22.3-36.8) Seconds Sodium 138 (137-145) mmol/L Potassium 4.1 (3.4-5.0) mmol/L Chloride 107 (98-107) mmol/L Carbon Dioxide 23 (22-30) mmol/L Anion Gap 8 (4-12) mmol/L BUN 29 H (9-20) mg/dL Creatinine 1.33 H (0.7-1.3) mg/dL Estim Creat Clear Calc 45 ml/min Estimated GFR 53 L (59 - ) Glucose 131 H (65-110) mg/dL Calcium 9.3 (8.4-10.2) mg/dL Total Bilirubin 0.4 (0.2-1.3) mg/dL AST 27 (17-59) U/L ALT 24 (6-50) U/L Alkaline Phosphatase 59 (38-126) U/L Troponin I < 0.012 < 0.012 (0.000-0.034) ng/mL Total Protein 7.3 (6.3-8.2) g/dL Albumin 4.1 (3.5-5.1) g/dL Lipase 134 (23-300) U/L Imaging Data Radiologist's impression: ITS Impressions Chest X-Ray 03/14/25 06:42 IMPRESSION: 1. No acute cardiopulmonary findings. Discharge Plan Discharge Clinical Impression: Angina pectoris, unstable Patient Disposition: Still a Patient Condition: Stable
[2025-03-14] MEDS: ASPIRIN 81 MG CHEWABLE TABLET 324 MG PO (02:08)
[2025-03-14] MEDS: NITROGLYCERIN OINTMENT 1 INCH DOSE TRANSDERM (03:01)
--- NOTE | 2025-03-14 03:48 | ECG_ITS ---
Test Date: 2025-03-14 03:55:41 Measurements Intervals [place] Rate: 75 P: 62 UT: 193 QRS: 56 QRSD: 93 T: 23 QT: 380 QTc: 425 Interpretive Statements SINUS RHYTHM BORDERLINE R WAVE PROGRESSION, ANTERIOR LEADS BASELINE ARTIFACT- I, III, AVR, AVL, AVF, V1-V6 BORDERLINE ECG Compared to ECG 03/14/2025 00:50:13 NO SIGNIFICANT CHANGE Electronically Signed On 03-14-2025 06:30:37 LEATHER SPLITTER by Gt Hector D.O.
--- NOTE | 2025-03-14 04:02 | WPCEDHO ---
ED Hand Off Checklist All vitals saved: yes IV Site documented: yes All med administrations documented: yes Triage Note Triage Note Patient here with medial chest 03/13/25 22:12 pain x 1 hour -when pain increases he becomes very short of breath. [place] history in 2020 Allergies metformin Adverse Reaction (Mild, Verified 02/13/25 08:16) Diarrhea Family History (Last Reviewed 03/14/25 @ 01:50 by Dylan Nicholas DO) Father Obstructive sleep apnea Diabetes mellitus Family history of thyroid disease Family history of chronic obstructive pulmonary disease Macular degeneration disease Grandparent Diabetes mellitus Heart attack Mother Depression Father Family history of diabetes mellitus in first degree relative Family history of emphysema Sibling Family history of malignant neoplasm of cervix Other Family history of congestive heart failure Administered/Completed Medications Discontinued Medications Aspirin (Aspirin 81 Mg Chewable Tablet) 324 mg PO ONCE STA Stop: 03/13/25 22:09 Last Admin: 03/14/25 02:03 Dose: Not Given Documented By: ACS Non-Admin Reason: Duplicate Dose Aspirin (Aspirin 81 Mg Chewable Tablet) 324 mg PO ONCE STA Stop: 03/14/25 01:50 Last Admin: 03/14/25 02:08 Dose: 324 mg Documented By: ACS Nitroglycerin (Nitroglycerin Ointment 1 Inch Dose) 1 inch TRANSDERM ONCE STA Stop: 03/14/25 02:36 Last Admin: 03/14/25 03:01 Dose: 1 inch Documented By: ACS Interventions/Assessments Cardiac Monitoring Start: 03/13/25 22:05 Freq: Status: Active Protocol: Document 03/14/25 01:16 ACS (Rec: 03/14/25 01:16 ACS [id number]) Safety Instruction Police Officer Assessment Safety Instruction Police Officer Yes Applied Pulse Rate (60-100) 76 EKG Rythm Sinus Rhythm IV / Saline Lock, Insert Start: 03/13/25 22:08 Freq: STAT Status: Active Protocol: Document 03/14/25 03:56 ACS (Rec: 03/14/25 03:57 ACS [id number]) IV Assessment Peripheral Access Right Antecubital IV Catheter Access Initiated IV Insertion Date 03/14/25 IV Insertion Time 03:57 Catheter Gauge 18 IV Insertion 1 Attempts IV Site Assessment WNL IV Care and WNL Maintenance PA: Cardiovascular Assessment Start: 03/13/25 22:05 Freq: Status: Active Protocol: Document 03/14/25 03:10 ACS (Rec: 03/14/25 03:10 ACS [id number]) Cardiovascular Assessment Cardiovascular Chest Pain Symptoms Skin Description Normal Color Jugular Vein None Distention Capillary Refill Bilateral Upper Extremity Capillary Refill Normal/Less than 2 Seconds Chest Pain Assessment Chest Pain Intensity 3 Description and Ache Symptoms PA: Respiratory Assessment Start: 03/13/25 22:05 Freq: Status: Active Protocol: Document 03/14/25 03:10 ACS (Rec: 03/14/25 03:11 ACS [id number]) Respiratory Assessment Symptoms None Effort Normal Pattern Regular Depth Normal Adult Capillary Normal/Less than 2 Seconds Refill Chest Expansion Symmetrical Cough Description None Sputum Amount None Oxygen Delivery Oxygen Delivery Room Air Pulse Oximetry (90- 98 100) Last Vital Signs Temperature 97.4 F L 03/14/25 01:11 Pulse Rate 81 03/14/25 03:57 Respiratory Rate 18 03/14/25 03:57 Pulse Oximetry 100 03/14/25 03:57 Blood Pressure 97/60 L 03/14/25 03:57 Blood Pressure Mean 72 03/14/25 03:57 Oxygen Delivery Room Air 03/14/25 03:10 Weight 90.7 kg 03/13/25 22:12 Last Result - Abnormals Only Eos % (Auto) 5.4 % (0-4.4) H 03/13/25 22:16 [place] # (Auto) 0.7 K/mm3 (0.1-0.6) H 03/13/25 22:16 Eos # (Auto) 0.4 K/mm3 (0-0.3) H 03/13/25 22:16 PT 15.9 Seconds (11.1-14.7) H 03/13/25 22:16 BUN 29 mg/dL (9-20) H 03/13/25 22:16 Creatinine 1.33 mg/dL (0.7-1.3) H 03/13/25 22:16 Estimated GFR 53 (59-) L 03/13/25 22:16 Glucose 131 mg/dL (65-110) H 03/13/25 22:16 Most Recent Suicide Severity Rating Suicide Severity Rating NO RISK INDICATED 03/13/25 22:12
[2025-03-14 04:29] LABS: Troponin I < 0.012 ng/mL (0.000-0.034)
--- NOTE | 2025-03-14 04:40 | ADMGEN ---
This patient, Jonathan Quijano Jr., was admitted to IMU Room 210-01. Patient/family oriented to hospital policies and general routines including ID bracelet, bed and alarms, visiting hours, pain management, procedures, bathroom and other care routines, personal items, smoking policy, room service/diet, and visiting hours. Information on how to activate the Rapid Response Team has been discussed. Patient/Family are encouraged to report perceived risks to care and to ask questions if they do not understand what they are told or what they should do.
--- NOTE | 2025-03-14 11:08 | PC.NURSE ---
Stress lab plans on doing stress test later today, notified Dr Colón and received order to keep home medications as ordered, not to be given before test.
--- NOTE | 2025-03-14 11:08 | PM.CNCAR ---
Assessment and Plan Assessment and plan (1) Chest pain: Code(s): R07.9 - Chest pain, unspecified Status: Acute Assessment and Plan: Presents with an episode atypical chest pain. He has had negative serial troponin levels and EKG does not have any acute ischemic changes. However, because of his history and risk factors did proceed with nuclear stress test. If negative for ischemia he can be discharged later today. (2) CAD (coronary artery disease): Qualifiers: Coronary Disease-Associated Artery/Lesion type: inupiat artery [place] vs. transplanted heart: inupiat heart Associated angina: without angina Qualified Code(s): I25.10 - Atherosclerotic heart disease of inupiat coronary artery without angina pectoris Code(s): I25.10 - Atherosclerotic heart disease of inupiat coronary artery without angina pectoris Status: Acute Assessment and Plan: As detailed in the HPI. Continue with Brilinta, high-intensity statin (3) PAD (peripheral artery disease): Code(s): I73.9 - Peripheral vascular disease, unspecified Status: Acute Assessment and Plan: Lower extremity arterial occlusive disease status post thrombolysis catheter and balloon angioplasty left popliteal and left common femoral artery for thrombosis of left common fem-pop bypass graft in January of this year. Continue Brilinta and Xarelto (4) Dyslipidemia: Code(s): E78.5 - Hyperlipidemia, unspecified Status: Acute Assessment and Plan: Continue simvastatin (5) Essential (primary) hypertension: Code(s): I10 - Essential (primary) hypertension Status: Acute Assessment and Plan: At goal. History of Present Illness History of Present Illness Consult date/time: 03/14/25 11:08 Requesting physician: Dylan Nicholas DO Consult reason: chest pain Reason For Visit: chest pain Narrative: Jonathan Quijano is a 74-year-old male with peripheral arterial disease, hyperlipidemia, coronary artery disease status post PCI to the circumflex in 2020. He presents to the hospital now with a chief complaint of chest pain. Patient describes occurrence of central chest tightness and soreness occurring yesterday while he was at rest. He felt like he was having heartburn today took some Rolaids which did not provide any relief. He also took nitroglycerin x1 which did not provide any relief. At this point the pain had been constant and ongoing for several hours. He was brought to the emergency room for evaluation. States that he continued to have ongoing chest pain in the emergency department until around midnight last night. He has not had a recurrence of chest pain he just feels a ?soreness? in the middle his chest. No palpitations, shortness of breath, swelling. He reports that he is a very active person and does not experience any exertional chest pain. Currently comfortable lying in bed at the time my evaluation. Review of Systems Review of Systems: All systems reviewed & are unremarkable except as noted in HPI and below PMFSH Past Medical History Medical History Renal cyst, right Obesity with serious comorbidity Thrombosis of femoral popliteal artery (~01/2025) Type 2 diabetes mellitus without complications Neuropathy involving both lower extremities Emphysema, unspecified History of kidney stones History of diverticulitis Peripheral neuropathy Pre-diabetes Vitamin D deficiency History of COVID-19 02/2020 CAD (coronary artery disease) ST elevation (STEMI) myocardial infarction 06/2020 Obstructive sleep apnea Tendinitis of left rotator cuff Essential (primary) hypertension Dyslipidemia Erectile dysfunction Arthritis PAD (peripheral artery disease) Esophagitis Surgical History Surgical History History of thrombectomy (~01/2025) thrombolysis and aspiration thrombectomy of left popliteal femoral bypass(01/17/2025) balloon angioplasty left popliteal and left common femoral artery(01/18/25) History of colonoscopy Hx of vasectomy H/O heart artery stent (~06/2020) History of femoropopliteal bypass left - right - 02/19 H/O rectal sphincterotomy (~11/2010) 11/2010 H/O hemorrhoidectomy (~2009) Family History Family History Father Obstructive sleep apnea Diabetes mellitus Family history of thyroid disease Family history of chronic obstructive pulmonary disease Macular degeneration disease Grandparent Diabetes mellitus Heart attack Mother Depression Father Family history of diabetes mellitus in first degree relative Family history of emphysema Sibling Family history of malignant neoplasm of cervix Other Family history of congestive heart failure Social History Social History Social History: the patient lives with his . he has 2 children .Retired from [employer] Code status full code Smoking packs per day: 50 Smoking cigarettes per day: 1,000.0 Years smoked: 50 Smoking pack-years: 2500.00 Smoking status: Former smoker Tobacco type: cigarettes Second hand tobacco smoke exposure: No Smoking end date: 02/04/19 Alcohol intake: current Alcohol use details: occassionally 1-2 per month Substance use: never Substance use type: does not use Lack of Transportation: No Lack of Food: Never True Current Housing: I Do Not Have Housing Concerned About Future Housing: No Difficulty Paying Gas/Electric Bills: No Difficulty Paying for Meds: No Currently Unemployed: No Education: Trade/Vocational Certificate Difficulty w/ Childcare or Family Care: No Living arrangements: with family Occupation/Education: retired Additional occupation/education comments: Retired from [employer] and [employer] Gender identity (if verbalized by the patient): Male Sexual Orientation (if Verbalized by the Patient): Straight or Heterosexual Spiritual care concerns: No Meds Home Medications and Allergies Home Medications ?Medication ?Instructions ?Recorded ?Confirmed ?Type [id number]-[id number] 1 tablet PO DAILY 11/05/19 03/14/25 History [Centrum Silver] ticagrelor 60 mg tablet (Brilinta) 60 mg PO Q12H 10/14/21 03/14/25 History cholecalciferol (vitamin D3) 50 50 mcg PO DAILY 01/05/22 03/14/25 History mcg (2,000 unit) tablet (Vitamin D3) metoprolol tartrate 25 mg tablet 25 mg PO BID 04/11/22 03/14/25 History nitroglycerin 0.4 mg sublingual 0.4 mg sublingual Q5M 06/12/22 03/14/25 History tablet ICaps AREDS 1 cap PO 2XD 04/20/23 03/14/25 History blood sugar diagnostic (FreeStyle #100 ea 07/22/24 03/14/25 Rx Lite Strips) blood-glucose meter (FreeStyle #1 ea 07/22/24 03/14/25 Rx Lite Meter kit) lancets 33 gauge #100 ea 07/22/24 03/14/25 Rx icosapent ethyl 1 gram capsule 1 g PO BID #360 caps 09/25/24 03/14/25 Rx Held on 03/14/25. Instructions: .Provider Order empagliflozin 25 mg tablet 25 mg PO DAILY #90 tabs 10/07/24 03/14/25 Rx (Jardiance) fenofibrate 160 mg tablet 160 mg PO DAILY #90 tabs 10/07/24 03/14/25 Rx tamsulosin 0.4 mg capsule (Flomax) 0.4 mg PO QHS #90 caps 10/16/24 03/14/25 Rx lisinopril 20 mg tablet 20 mg PO DAILY #90 tabs 12/03/24 03/14/25 Rx gabapentin 100 mg capsule 200 mg PO QHS 01/27/25 03/14/25 History sildenafil 100 mg tablet 100 mg PO DAILY PRN sexual 01/27/25 03/14/25 Rx activity #30 tabs loperamide 2 mg capsule 2 mg PO Q4H PRN Diarrhea 02/13/25 03/14/25 History rivaroxaban 20 mg tablet (Xarelto) 20 mg PO DAILY 02/13/25 03/14/25 History tirzepatide (weight loss) 2.5 2.5 mg (0.5 mL) subcut WEEKLY #2 mL 03/13/25 03/14/25 Rx mg/0.5 mL subcutaneous pen injector (Zepbound) ibuprofen 200 mg tablet (Advil) 600 mg PO TID PRN fever or pain 03/14/25 03/14/25 History omega 5-zkp-are-fish oil 1,000 mg 1 cap PO BID 03/14/25 03/14/25 History (120 mg-180 mg) capsule (Fish Oil) simvastatin 40 mg tablet 40 mg PO QHS 03/14/25 03/14/25 History Allergies Allergy/AdvReac Type Severity Reaction Status Date / Time metformin AdvReac Mild Diarrhea Verified 03/14/25 05:07 Vital Signs Vital Signs - 24 hr 03/13/25 22:12 03/14/25 01:11 03/14/25 01:16 Temperature 36.6 C 36.3 C L Pulse Rate 88 86 76 Respiratory Rate 18 19 Blood Pressure 133/78 124/69 Pulse Oximetry 98 98 Oxygen Delivery Room Air 03/14/25 02:07 03/14/25 02:15 03/14/25 02:16 Temperature Pulse Rate 82 76 78 Respiratory Rate 16 17 17 Blood Pressure 113/67 Pulse Oximetry 95 96 95 Oxygen Delivery 03/14/25 02:33 03/14/25 02:58 03/14/25 03:00 Temperature Pulse Rate 75 66 76 Respiratory Rate 17 22 H 16 Blood Pressure Pulse Oximetry 96 94 98 Oxygen Delivery 03/14/25 03:01 03/14/25 03:10 03/14/25 03:57 Temperature Pulse Rate 79 81 Respiratory Rate 15 18 Blood Pressure 121/73 97/60 L Pulse Oximetry 96 98 100 Oxygen Delivery Room Air 03/14/25 04:35 03/14/25 04:40 03/14/25 04:44 Temperature 36.4 C Pulse Rate 81 91 84 Respiratory Rate 18 14 Blood Pressure 97/60 L 131/75 Pulse Oximetry 100 94 Oxygen Delivery 03/14/25 04:48 03/14/25 06:00 03/14/25 07:56 Temperature 36.5 C Pulse Rate 77 7 L Respiratory Rate 18 Blood Pressure 105/58 L Pulse Oximetry 96 Oxygen Delivery Room Air 03/14/25 08:00 03/14/25 09:00 03/14/25 10:00 Temperature Pulse Rate 66 87 Respiratory Rate Blood Pressure Pulse Oximetry Oxygen Delivery Room Air Exam Const: General: comfortable, no acute distress, alert and awake Orientation/consciousness: patient oriented x3 HENMT: Head: normal to inspection Eyes: General: appearance normal, both eyes and all related structures Pupils: Equal, round and reactive pupils present Neck: Neck: normal visual inspection, supple and no JVD Carotids: normal carotid upstroke Resp: Effort & Inspection: normal respiratory effort Auscultation: clear to auscultation bilaterally Cardio: Rate: regular rate Rhythm: regular rhythm Heart sounds: S1 normal heart sound present, S2 normal heart sound present and no murmurs GI: Auscultation: normal bowel sounds Skin: General skin exam: normal color Neuro: General: patient oriented x3 Cranial nerves: Yes Equal, round and reactive pupils present Extrem: General: normal to inspection Psych: Appearance: grossly normal Mental Status: mental status grossly normal Results Labs and Meds 03/13/25 22:16 03/13/25 22:16 Lab results: Cardiac Enzymes 03/13/25 03/14/25 03/14/25 Range/Units 22:16 01:00 03:59 AST 27 (17-59) U/L Troponin I < 0.012 < 0.012 < 0.012 (0.000-0.034) ng/mL Coagulation 03/13/25 Range/Units 22:16 PT 15.9 H (11.1-14.7) Seconds APTT 32.6 (22.3-36.8) Seconds CBC 03/13/25 Range/Units 22:16 WBC 8.1 (4.5-10.0) K/mm3 RBC 4.91 (4.6-6.20) M/mm3 Hgb 15.1 (14.0-18.0) g/dL Hct 46.0 (42.0-52.0) % Plt Count 238 (150-375) k/mm3 Lymph # (Auto) 2.78 (0.9-3.2) K/mm3 [place] # (Auto) 0.7 H (0.1-0.6) K/mm3 Eos # (Auto) 0.4 H (0-0.3) K/mm3 Baso # (Auto) 0.0 (0.0-0.1) K/mm3 Comprehensive Metabolic Panel 03/13/25 Range/Units 22:16 Sodium 138 (137-145) mmol/L Potassium 4.1 (3.4-5.0) mmol/L Chloride 107 (98-107) mmol/L Carbon Dioxide 23 (22-30) mmol/L BUN 29 H (9-20) mg/dL Creatinine 1.33 H (0.7-1.3) mg/dL Glucose 131 H (65-110) mg/dL Calcium 9.3 (8.4-10.2) mg/dL AST 27 (17-59) U/L ALT 24 (6-50) U/L Alkaline Phosphatase 59 (38-126) U/L Total Protein 7.3 (6.3-8.2) g/dL Albumin 4.1 (3.5-5.1) g/dL Intake and Output 03/13/25 03/14/25 03/14/25 23:59 07:59 15:59 Other: # Unmeasured Voids 1 Patient Weight 03/14/25 23:59 Weight 89.3 kg
--- NOTE | 2025-03-14 14:07 | PM.IMHP2 ---
H&P: HPI History of Present Illness Date/Time: 03/14/25 14:07 Chief Complaint: Chest pain Narrative: 74 yo male with PMH type 2 diabetes, COPD, peripheral artery disease, coronary artery disease status post stents, who presented to the ER on account of chest pain. Patient he was in his usual state of health until about 8 pm last night when he started having substernal chest pressure, 10/10, associated with SOB. No abd pain, vomiting, diarrhea or focal weakness. ER eval notable for stable vital signs within normal limits Labs notable for Cr 1.33, Troponin negative x2, CXR no acute changes EKG no acute changes Review of Systems Review of Systems: All other systems were reviewed and negative except as noted in the HPI above [facility] Past Medical History Medical History Renal cyst, right Obesity with serious comorbidity Thrombosis of femoral popliteal artery (~01/2025) Type 2 diabetes mellitus without complications Neuropathy involving both lower extremities Emphysema, unspecified History of kidney stones History of diverticulitis Peripheral neuropathy Pre-diabetes Vitamin D deficiency History of COVID-19 02/2020 CAD (coronary artery disease) ST elevation (STEMI) myocardial infarction 06/2020 Obstructive sleep apnea Tendinitis of left rotator cuff Essential (primary) hypertension Dyslipidemia Erectile dysfunction Arthritis PAD (peripheral artery disease) Esophagitis Surgical History Surgical History History of thrombectomy (~01/2025) thrombolysis and aspiration thrombectomy of left popliteal femoral bypass(01/17/2025) balloon angioplasty left popliteal and left common femoral artery(01/18/25) History of colonoscopy Hx of vasectomy H/O heart artery stent (~06/2020) History of femoropopliteal bypass left - right - 02/19 H/O rectal sphincterotomy (~11/2010) 11/2010 H/O hemorrhoidectomy (~2009) Family History Family History Father Obstructive sleep apnea Diabetes mellitus Family history of thyroid disease Family history of chronic obstructive pulmonary disease Macular degeneration disease Grandparent Diabetes mellitus Heart attack Mother Depression Father Family history of diabetes mellitus in first degree relative Family history of emphysema Sibling Family history of malignant neoplasm of cervix Other Family history of congestive heart failure Social History Social History Social History: the patient lives with his . he has 2 children .Retired from [employer] Code status full code Smoking packs per day: 50 Smoking cigarettes per day: 1,000.0 Years smoked: 50 Smoking pack-years: 2500.00 Smoking status: Former smoker Tobacco type: cigarettes Second hand tobacco smoke exposure: No Smoking end date: 02/04/19 Alcohol intake: current Alcohol use details: occassionally 1-2 per month Substance use: never Substance use type: does not use Lack of Transportation: No Lack of Food: Never True Current Housing: I Do Not Have Housing Concerned About Future Housing: No Difficulty Paying Gas/Electric Bills: No Difficulty Paying for Meds: No Currently Unemployed: No Education: Trade/Vocational Certificate Difficulty w/ Childcare or Family Care: No Living arrangements: with family Occupation/Education: retired Additional occupation/education comments: Retired from [employer] Gender identity (if verbalized by the patient): Male Sexual Orientation (if Verbalized by the Patient): Straight or Heterosexual Spiritual care concerns: No Meds Home Medications and Allergies Home Medications ?Medication ?Instructions ?Recorded ?Confirmed ?Type [id number]-xlsuivwx-skufoq 1 tablet PO DAILY 11/05/19 03/14/25 History [Centrum Silver] ticagrelor 60 mg tablet (Brilinta) 60 mg PO Q12H 10/14/21 03/14/25 History cholecalciferol (vitamin D3) 50 50 mcg PO DAILY 01/05/22 03/14/25 History mcg (2,000 unit) tablet (Vitamin D3) metoprolol tartrate 25 mg tablet 25 mg PO BID 04/11/22 03/14/25 History nitroglycerin 0.4 mg sublingual 0.4 mg sublingual Q5M 06/12/22 03/14/25 History tablet ICaps AREDS 1 cap PO 2XD 04/20/23 03/14/25 History blood sugar diagnostic (FreeStyle #100 ea 07/22/24 03/14/25 Rx Lite Strips) blood-glucose meter (FreeStyle #1 ea 07/22/24 03/14/25 Rx Lite Meter kit) lancets 33 gauge #100 ea 07/22/24 03/14/25 Rx icosapent ethyl 1 gram capsule 1 g PO BID #360 caps 09/25/24 03/14/25 Rx Held on 03/14/25. Instructions: .Provider Order empagliflozin 25 mg tablet 25 mg PO DAILY #90 tabs 10/07/24 03/14/25 Rx (Jardiance) fenofibrate 160 mg tablet 160 mg PO DAILY #90 tabs 10/07/24 03/14/25 Rx tamsulosin 0.4 mg capsule (Flomax) 0.4 mg PO QHS #90 caps 10/16/24 03/14/25 Rx lisinopril 20 mg tablet 20 mg PO DAILY #90 tabs 12/03/24 03/14/25 Rx gabapentin 100 mg capsule 200 mg PO QHS 01/27/25 03/14/25 History sildenafil 100 mg tablet 100 mg PO DAILY PRN sexual 01/27/25 03/14/25 Rx activity #30 tabs loperamide 2 mg capsule 2 mg PO Q4H PRN Diarrhea 02/13/25 03/14/25 History rivaroxaban 20 mg tablet (Xarelto) 20 mg PO DAILY 02/13/25 03/14/25 History tirzepatide (weight loss) 2.5 2.5 mg (0.5 mL) subcut WEEKLY #2 mL 03/13/25 03/14/25 Rx mg/0.5 mL subcutaneous pen injector (Zepbound) ibuprofen 200 mg tablet (Advil) 600 mg PO TID PRN fever or pain 03/14/25 03/14/25 History omega 2-lno-ctg-fish oil 1,000 mg 1 cap PO BID 03/14/25 03/14/25 History (120 mg-180 mg) capsule (Fish Oil) simvastatin 40 mg tablet 40 mg PO QHS 03/14/25 03/14/25 History Allergies Allergy/AdvReac Type Severity Reaction Status Date / Time metformin AdvReac Mild Diarrhea Verified 03/14/25 05:07 Vital Signs Vital Signs - 24 hr 03/13/25 22:12 03/14/25 01:11 03/14/25 01:16 Temperature 97.9 F 97.4 F L Pulse Rate 88 86 76 Respiratory Rate 18 19 Blood Pressure 133/78 124/69 Pulse Oximetry 98 98 Oxygen Delivery Room Air 03/14/25 02:07 03/14/25 02:15 03/14/25 02:16 Temperature Pulse Rate 82 76 78 Respiratory Rate 16 17 17 Blood Pressure 113/67 Pulse Oximetry 95 96 95 Oxygen Delivery 03/14/25 02:33 03/14/25 02:58 03/14/25 03:00 Temperature Pulse Rate 75 66 76 Respiratory Rate 17 22 H 16 Blood Pressure Pulse Oximetry 96 94 98 Oxygen Delivery 03/14/25 03:01 03/14/25 03:10 03/14/25 03:57 Temperature Pulse Rate 79 81 Respiratory Rate 15 18 Blood Pressure 121/73 97/60 L Pulse Oximetry 96 98 100 Oxygen Delivery Room Air 03/14/25 04:35 03/14/25 04:40 03/14/25 04:44 Temperature 97.6 F Pulse Rate 81 91 84 Respiratory Rate 18 14 Blood Pressure 97/60 L 131/75 Pulse Oximetry 100 94 Oxygen Delivery 03/14/25 04:48 03/14/25 06:00 03/14/25 07:44 Temperature Pulse Rate 77 Respiratory Rate Blood Pressure Pulse Oximetry 92 Oxygen Delivery Room Air Room Air 03/14/25 07:56 03/14/25 08:00 03/14/25 09:00 Temperature 97.7 F Pulse Rate 7 L 66 Respiratory Rate 18 Blood Pressure 105/58 L Pulse Oximetry 96 Oxygen Delivery Room Air 03/14/25 10:00 03/14/25 12:40 Temperature Pulse Rate 87 83 Respiratory Rate Blood Pressure Pulse Oximetry Oxygen Delivery Exam Narrative: General: alert and comfortable Eyes: EOMI, PERRLA ENNT External ears normal, Neck is supple, no masses, Respiratory systems: Clear to auscultation Cardiovascular S1, S2, normal rhythm, no murmur, rub, or gallop; no thrill or palpable murmurs on palpation. Gastrointestinal: soft, non-tender, and non-distended abdomen with no masses; BS present Skin: no rash, lesions, ulcerations, subcutaneous nodules or induration Musculoskeletal: no abnormality and no tenderness, normal ROM Neurologic: Alert and oriented x3, non focal Mental Status Exam: normal affect Results Labs Labs: Short CBC 03/13/25 Range/Units 22:16 WBC 8.1 (4.5-10.0) K/mm3 Hgb 15.1 (14.0-18.0) g/dL Hct 46.0 (42.0-52.0) % Plt Count 238 (150-375) k/mm3 BMP 03/13/25 22:16 Sodium 138 Potassium 4.1 Chloride 107 Carbon Dioxide 23 BUN 29 H Creatinine 1.33 H Glucose 131 H Calcium 9.3 Cardiac Enzymes 03/13/25 03/14/25 03/14/25 Range/Units 22:16 01:00 03:59 Troponin I < 0.012 < 0.012 < 0.012 (0.000-0.034) ng/mL Liver Function 03/13/25 Range/Units 22:16 Total Bilirubin 0.4 (0.2-1.3) mg/dL AST 27 (17-59) U/L ALT 24 (6-50) U/L Alkaline Phosphatase 59 (38-126) U/L Albumin 4.1 (3.5-5.1) g/dL Assessment and Plan Assessment and plan (1) Chest pain: Code(s): R07.9 - Chest pain, unspecified Status: Acute Plan Chest pain described as chest pain Troponin negative, and no acute EKG changes ECHO showed normal BiVentricular Stress test pending Dm2 SSi with accucheks, adjust with clinical course monitor PAD continue home meds CAD s/p stents continue home antiplatelets and statin monitor DVT prophylaxis on Xarelto Full code [facility] M[facility] Advance Care Plan I have confirmed that the patient's Advanced Care Plan is present, code status is documented, or surrogate decision maker is listed in patient medical record.: Yes Medication Reconciliation I have utilized all available resources to obtain, update and review the patients current medications (includes all prescriptions, OTC, herbals, cannabis, and nutritional supplements).: Yes
--- NOTE | 2025-03-14 15:17 | PC.NURSE ---
Per PT , [facility] office will be unable to perform cardiac cath for at least three weeks. Current plan was to d/c and f/u outpt for cath but due to extensive time frame the patient prefers to stay until monday for cardiac cath inpatient. Notifed Dr Colón and Dr Giron. Discontinued discharge order.
--- NOTE | 2025-03-14 15:27 | PM.DS ---
DS: Admitting Diagnosis Discharge Date 03/14/2025 Admitting Diagnosis Chest pain DS: Discharge Diagnosis Discharge Diagnosis (1) Chest pain: Code(s): R07.9 - Chest pain, unspecified Status: Acute DS: Summary Hospital Course Hospital Course: 74 yo male with PMH type 2 diabetes, COPD, peripheral artery disease, coronary artery disease status post stents, who presented to the ER on account of chest pain. Patient he was in his usual state of health until about 8 pm last night when he started having substernal chest pressure, 10/10, associated with SOB. No abd pain, vomiting, diarrhea or focal weakness. ER eval notable for stable vital signs within normal limits Labs notable for Cr 1.33, Troponin negative x2, CXR no acute changes EKG no acute changes ECHO showed normal, Stress test showed mild ischemia, discussed with Sabrina young from cardiology who stated ischemia is mild and they will follow up outpatient. Patient will continue Home Aspirin, Brilinta, Statin and Xarelto. Continue other home meds F/u [facility] cardiology as instructed F/u with PCP in 3-5 days Time Spent with Patient Time attestation: Total time spent providing and/or coordinating discharge services: DS: Data Data Completed and Pending Labs on day of discharge: Labs from last 24 hours 03/14/25 03/14/25 03/13/25 03:59 01:00 22:16 WBC 8.1 RBC 4.91 Hgb 15.1 Hct 46.0 MCV 93.7 MCH 30.8 MCHC 32.8 RDW 13.5 Plt Count 238 MPV 9.1 Immature Gran % (Auto) 0.2 Neut % (Auto) 51.2 Lymph % (Auto) 34.2 [place] % (Auto) 8.5 Eos % (Auto) 5.4 H Baso % (Auto) 0.5 Lymph # (Auto) 2.78 [place] # (Auto) 0.7 H Eos # (Auto) 0.4 H Baso # (Auto) 0.0 Abs Immat Gran (auto) 0.02 Absolute Neuts (auto) 4.2 Absolute Nucleated RBC 0.000 Nucleated RBC % 0.0 PT 15.9 H INR 1.3 APTT 32.6 Sodium 138 Potassium 4.1 Chloride 107 Carbon Dioxide 23 Anion Gap 8 BUN 29 H Creatinine 1.33 H Estim Creat Clear Calc 45 Estimated GFR 53 L Glucose 131 H Calcium 9.3 Total Bilirubin 0.4 AST 27 ALT 24 Alkaline Phosphatase 59 Troponin I < 0.012 < 0.012 < 0.012 Total Protein 7.3 Albumin 4.1 Lipase 134 Discharge Plan Discharge Attending physician on discharge: Emmanuel Colón Consulting providers: Ulises Koo; Kori Young Discharging Clinician: Emmanuel Colón Anticipated Discharge Date/Time: 03/14/25 15:09 Patient Disposition: Home Activity: as tolerated Diet: as tolerated and heart healthy Discharge Instructions: Patient to follow up with Dr Koo for Cardiac cath Patient Instructions: Antibiotic Form, Rivaroxaban (By mouth) Patient Language: [place] Stand Alone Forms: General Discharge Information Follow-up/Referrals: Ulises Koo MD [Physician, Cardiology] Referral Note: F/u with Cardiology for cardiac cath Andrea Farias MD [Primary Care Provider, [facility]] Referral Note: F/u with PCP in 3-5 days Discharge Medications: Continued Brilinta 60 mg tablet 60 mg PO Q12H metoprolol tartrate 25 mg tablet 25 mg PO BID (DME) blood-glucose meter [FreeStyle Lite Meter] Kit See Rx Instructions .Route Qty: 1 0RF Rx Instructions: check blood sugars q.dayAs directed (DME) FreeStyle Lite Strips Strip See Rx Instructions .Route Qty: 100 3RF Rx Instructions: check blood sugars q.dayAs directed (DME) lancets 33 gauge misc See Rx Instructions .ROUTE .MEDSUPPLY Qty: 100 3RF Rx Instructions: check blood sugars q.day As directed gabapentin 100 mg capsule 200 mg PO QHS sildenafil 100 mg tablet 100 mg PO DAILY PRN (Reason: sexual activity) Qty: 30 0RF Rx Instructions: administer 30 minutes to 4 hours before activity [id number] [Centrum Silver] 1 tablet PO DAILY Xarelto 20 mg tablet 20 mg PO DAILY Rx Instructions: must administer with evening meal cholecalciferol (vitamin D3) [Vitamin D3] 50 mcg (2,000 unit) Tablet 50 mcg PO DAILY nitroglycerin 0.4 mg tablet, sublingual 0.4 mg sublingual Q5M Rx Instructions: may repeat x 2 loperamide 2 mg capsule 2 mg PO Q4H PRN (Reason: Diarrhea) Rx Instructions: administer after each loose stool until symptoms controlled; do not exceed 8 mg per 24 hrs ICaps AREDS 1 cap PO 2XD omega [id number] oil [Fish Oil] 1,000 (120-180) mg capsule 1 cap PO BID ibuprofen [Advil] 200 mg tablet 600 mg PO TID PRN (Reason: fever or pain) simvastatin 40 mg tablet 40 mg PO QHS Rx Instructions: takes with evening meal icosapent ethyl 1 gram capsule 1 g PO BID Qty: 360 1RF Jardiance 25 mg tablet 25 mg PO DAILY Qty: 90 1RF fenofibrate 160 mg tablet 160 mg PO DAILY Qty: 90 1RF tamsulosin [Flomax] 0.4 mg capsule 0.4 mg PO QHS Qty: 90 1RF Patient Comments: takes with evening meal lisinopril 20 mg tablet 20 mg PO DAILY Qty: 90 1RF Zepbound 2.5 mg/0.5 mL pen injector 2.5 mg subcut WEEKLY Qty: 2 0RF Patient Comments: weekly on Mondays Rx Instructions: for 4 weeks Date of admission: 03/14/25 02:35 Primary Care Provider: Andrea Farias Admitting Provider: Lor Gallagher Attending physician on admission: Lor Gallagher Condition: Stable
--- NOTE | 2025-03-14 15:42 | PC.NURSE ---
Per Kori Young, unable to cardiac cath until april 11 so the patient will stay until monday. Notified Dr Colón. will d/c discharge order again.
[2025-03-14 16:51] LABS: CRP < 0.5 mg/dL (<1.0)
[2025-03-14] MEDS: SIMVASTATIN 20 MG TABLET 40 MG PO (18:29)
[2025-03-14] MEDS: RIVAROXABAN 20 MG TABLET PO (18:29)
[2025-03-14] MEDS: COLCHICINE 0.6 MG TABLET PO (20:27)
[2025-03-14] MEDS: METOPROLOL TARTRATE 25 MG TABLET PO (20:28)
[2025-03-14] MEDS: OMEGA 3 POLYUNSAT FATTY ACIDS 1 GM CAP PO (20:28)
[2025-03-14] MEDS: GABAPENTIN 100 MG CAPSULE 200 MG PO (20:28)
[2025-03-14] MEDS: TAMSULOSIN HCL 0.4 MG CAPSULE PO (20:29)
[2025-03-14] MEDS: TICAGRELOR 60 MG TABLET PO (20:29)
[2025-03-15] VITALS (21 sets, daily range): BP systolic 104–156; BP diastolic 58–80; PULSE 57–93; RESP 15–22; TEMP 36.3–36.5; O2SAT 94–98
[2025-03-15 05:05] LABS: Hematocrit 48.4 % (42.0-52.0); Hemoglobin 15.7 g/dL (14.0-18.0); Immature Granulocyte Percent A 0.4 % (0-0.5); Lymphocytes Absolute Auto 2.26 K/mm3 (0.9-3.2); Mean Corpuscular HGB Conc 32.4 g/dl (32-36); Mean Corpuscular Hemoglobin 30.6 pg (26-34); Mean Corpuscular Volume 94.3 fl (80-100); Nucleated Red Blood Cells Absolute Auto 0.000 K/mm3 (0.0-0.012); Nucleated Red Blood Cells Perc 0.0 % (0.0-0.2); Platelet Count Result 222 k/mm3 (150-375); Red Blood Count 5.13 M/mm3 (4.6-6.20); White Blood Count 7.7 K/mm3 (4.5-10.0)
[2025-03-15 05:23] LABS: Alanine Aminotransferase 25 U/L (6-50); Albumin Level 4.2 g/dL (3.5-5.1); Alkaline Phosphatase 63 U/L (38-126); Anion Gap 7 mmol/L (4-12); Aspartate Amino Transferase 27 U/L (17-59); Bilirubin,Total 0.6 mg/dL (0.2-1.3); Blood Urea Nitrogen 22 mg/dL (9-20); Calcium 9.6 mg/dL (8.4-10.2); Carbon Dioxide 25 mmol/L (22-30); Chloride 106 mmol/L (98-107); Estimated CRCL calculation 50 ml/min; Estimated Glomerular Filt Rate 60; Glucose 96 mg/dL (65-110); Magnesium 2.2 mg/dL (1.6-2.3); Potassium 4.5 mmol/L (3.4-5.0); Sodium 138 mmol/L (137-145); Total Protein 7.5 g/dL (6.3-8.2)
[2025-03-15] MEDS: COLCHICINE 0.6 MG TABLET PO ×2 (08:49→21:24)
[2025-03-15] MEDS: EMPAGLIFLOZIN 25 MG TABLET PO (08:49)
[2025-03-15] MEDS: METOPROLOL TARTRATE 25 MG TABLET PO ×2 (08:49→21:25)
[2025-03-15] MEDS: OMEGA 3 POLYUNSAT FATTY ACIDS 1 GM CAP PO ×2 (08:50→21:25)
[2025-03-15] MEDS: TICAGRELOR 60 MG TABLET PO ×2 (08:50→21:25)
--- NOTE | 2025-03-15 11:12 | PM.PNCARD ---
Progress Note: A&P Assessment and Plan (1) Chest pain: Code(s): R07.9 - Chest pain, unspecified Status: Acute Assessment and Plan: Presents with an episode atypical chest pain. He has had negative serial troponin levels and EKG does not have any acute ischemic changes. Stress test shows area of infarction and ischemia. Patient to get catheterization Monday. History of STEMI and left circumflex artery stent 2020. Patient to get Xarelto tonight but will hold tomorrow nights dosage (2) CAD (coronary artery disease): Qualifiers: Coronary Disease-Associated Artery/Lesion type: [place] artery [place] vs. transplanted heart: [place] heart Associated angina: without angina Qualified Code(s): I25.10 - Atherosclerotic heart disease of [place] coronary artery without angina pectoris Code(s): I25.10 - Atherosclerotic heart disease of [place] coronary artery without angina pectoris Status: Acute Assessment and Plan: As detailed in the HPI. Continue with Brilinta, high-intensity statin (3) PAD (peripheral artery disease): Code(s): I73.9 - Peripheral vascular disease, unspecified Status: Acute Assessment and Plan: Lower extremity arterial occlusive disease status post thrombolysis catheter and balloon angioplasty left popliteal and left common femoral artery for thrombosis of left common fem-pop bypass graft in January of this year. Continue Brilinta and Xarelto. Give Xarelto tonight but hold tomorrow's dose of Xarelto in anticipation for catheterization Monday (4) Dyslipidemia: Code(s): E78.5 - Hyperlipidemia, unspecified Status: Acute Assessment and Plan: Continue simvastatin (5) Essential (primary) hypertension: Code(s): I10 - Essential (primary) hypertension Status: Acute Assessment and Plan: Continue lisinopril and metoprolol Subjective Date/time seen: Date of service 03/15/25 11:12 Interval history: Jonathan Quijano is a 74-year-old male with peripheral arterial disease, hyperlipidemia, coronary artery disease status post PCI to the circumflex in 2020. Also history of peripheral vascular disease with fem-fem bypass. He presents to the hospital now with a chief complaint of chest pain. Patient describes occurrence of central chest tightness and soreness occurring yesterday while he was at rest. He felt like he was having heartburn today took some Rolaids which did not provide any relief. He also took nitroglycerin x1 which did not provide any relief. At this point the pain had been constant and ongoing for several hours. He was brought to the emergency room for evaluation. States that he continued to have ongoing chest pain in the emergency department until around midnight last night. He has not had a recurrence of chest pain he just feels a ?soreness? in the middle his chest. No palpitations, shortness of breath, swelling. He reports that he is a very active person and does not experience any exertional chest pain. Currently comfortable lying in bed at the time my evaluation. Date of service 03/15/2025: Resting comfortably in bed. No chest pain. No arrhythmia on telemetry Review of Systems Review of Systems: All systems reviewed & are unremarkable except as noted in HPI and below Exam Const: General: comfortable, no acute distress, alert and awake Orientation/consciousness: patient oriented x3 HENMT: Head: normal to inspection Eyes: General: appearance normal, both eyes and all related structures Pupils: Equal, round and reactive pupils present Neck: Neck: normal visual inspection, supple and no JVD Carotids: normal carotid upstroke Resp: Effort & Inspection: normal respiratory effort Auscultation: clear to auscultation bilaterally Cardio: Rate: regular rate Rhythm: regular rhythm Heart sounds: S1 normal heart sound present, S2 normal heart sound present and no murmurs GI: Auscultation: normal bowel sounds Skin: General skin exam: normal color Neuro: General: patient oriented x3 Cranial nerves: Yes Equal, round and reactive pupils present Extrem: General: normal to inspection Psych: Appearance: grossly normal Mental Status: mental status grossly normal Objective Data Vital Signs Vital Signs: Vital Signs - 24 hr 03/14/25 12:40 03/14/25 14:00 03/14/25 14:00 Temperature Pulse Rate 83 78 Respiratory Rate Blood Pressure Pulse Oximetry Oxygen Delivery Room Air Fraction of Inspired Oxygen 03/14/25 14:18 03/14/25 15:35 03/14/25 16:00 Temperature 36.4 C 36.3 C L Pulse Rate 73 91 Respiratory Rate 18 22 H Blood Pressure 145/77 H 128/76 Pulse Oximetry 97 95 Oxygen Delivery Room Air Fraction of Inspired Oxygen 03/14/25 16:00 03/14/25 18:00 03/14/25 20:00 Temperature 36.5 C Pulse Rate 77 79 72 Respiratory Rate 18 Blood Pressure 127/66 Pulse Oximetry 95 Oxygen Delivery Fraction of Inspired Oxygen 03/14/25 20:00 03/14/25 20:17 03/14/25 20:28 Temperature Pulse Rate 70 72 72 Respiratory Rate 18 Blood Pressure Pulse Oximetry 95 Oxygen Delivery Room Air Fraction of Inspired Oxygen 03/14/25 21:52 03/14/25 22:00 03/14/25 23:15 Temperature Pulse Rate 62 81 Respiratory Rate Blood Pressure Pulse Oximetry 98 97 Oxygen Delivery Room Air Fraction of Inspired Oxygen 03/14/25 23:38 03/15/25 00:00 03/15/25 00:00 Temperature 36.5 C Pulse Rate 81 81 80 Respiratory Rate 18 18 Blood Pressure 110/70 Pulse Oximetry 97 97 Oxygen Delivery CPAP Fraction of Inspired Oxygen 03/15/25 01:45 03/15/25 04:00 03/15/25 04:00 Temperature 36.3 C L Pulse Rate 87 59 L 84 Respiratory Rate 15 Blood Pressure 127/71 Pulse Oximetry 97 Oxygen Delivery Fraction of Inspired Oxygen 03/15/25 04:00 03/15/25 04:15 03/15/25 05:28 Temperature Pulse Rate 59 L 59 L 57 L Respiratory Rate 15 Blood Pressure Pulse Oximetry 97 97 Oxygen Delivery CPAP Fraction of Inspired Oxygen 03/15/25 07:38 03/15/25 08:00 03/15/25 08:49 Temperature 36.3 C L Pulse Rate 77 80 Respiratory Rate 22 H Blood Pressure 156/80 H Pulse Oximetry 95 Oxygen Delivery Room Air Fraction of Inspired Oxygen Intake/Output Intake/Output: Intake & Output 03/12/25 03/13/25 03/14/25 03/15/25 23:59 23:59 23:59 23:59 Intake Total 320 636 Balance 320 636 Meds/Results Medications: Active Medications Generic Name Dose Route Start Last Admin Trade Name Freq PRN Reason Stop Dose Admin Colchicine 0.6 mg 03/14/25 21:00 03/15/25 08:49 Colchicine 0.6 Mg Tablet PO 0.6 mg Q12HR YSABEL Administration Dextrose 12.5 gm 03/14/25 14:07 Dextrose 50% 25 Gm/50 Ml Syringe IV PUSH PRN PRN Hypoglycemia Protocol Empagliflozin 25 mg 03/15/25 09:00 03/15/25 08:49 Empagliflozin 25 Mg Tablet PO 25 mg DAILY YSABEL Administration Fish Oil 1 gm 03/14/25 21:00 03/15/25 08:50 [place] 3 Polyunsat Fatty Acids 1 Gm Cap PO 1 gm Q12HR YSABEL Administration Gabapentin 200 mg 03/14/25 21:00 03/14/25 20:28 Gabapentin 100 Mg Capsule PO 200 mg QHS YSABEL Administration Glucagon 1 mg 03/14/25 14:07 Glucagon For Inj 1 Mg Vial IM PRN PRN Hypoglycemia Protocol Glucose 15 gm 03/14/25 14:07 Glucose Oral Gel 15 Gm Of Glucse In 37.5 Gm Tube PO PRN PRN Hypoglycemia Protocol Dextrose 1,000 mls @ 100 mls/hr 03/14/25 14:07 Dextrose 5% 1,000 Ml IVPB PRN PRN Hypoglycemia Protocol Insulin Aspart 4 - 8 units 03/14/25 17:00 03/15/25 07:50 Insulin Aspart (*Bkc) 100 Units/Ml SUB-Q Not Given TIDWM YSABEL Protocol Insulin Aspart 2 - 4 units 03/14/25 21:00 03/14/25 20:25 Insulin Aspart (*Bkc) 100 Units/Ml SUB-Q Not Given HS YSABEL Protocol Lisinopril 20 mg 03/15/25 09:00 03/15/25 08:49 Lisinopril 20 Mg Tablet PO 20 mg DAILY YSABEL Administration Metoprolol Tartrate 25 mg 03/14/25 21:00 03/15/25 08:49 Metoprolol Tartrate 25 Mg Tablet PO 25 mg Q12HR YSABEL Administration Miscellaneous Information 0 each 03/14/25 00:01 03/14/25 22:53 Nonformulary Drug (Sildenafil 100 Mg Tablet)- Recommend Hold While Hospitalized XX 04/13/25 00:00 Not Given CLARIFY YSABEL Non-Formulary Medication 100 mg 03/14/25 14:21 Sildenafil PO DAILY PRN sexual activity Perflutren Lipid Microsphere 0 ml 03/14/25 08:54 Perflutren Lipid Microspheres 1.5 Ml Vial Diluted To 10 Ml Total Volume IV PUSH 03/17/25 08:54 ONCE PRN adequate visualization Protocol Rivaroxaban 20 mg 03/14/25 18:00 03/14/25 18:29 Rivaroxaban 20 Mg Tablet PO 20 mg QPM YSABEL Administration Simvastatin 40 mg 03/14/25 18:00 03/14/25 18:29 Simvastatin 20 Mg Tablet PO 40 mg QPM YSABEL Administration Tamsulosin HCl 0.4 mg 03/14/25 21:00 03/14/25 20:29 Tamsulosin Hcl 0.4 Mg Capsule PO 0.4 mg QHS YSABEL Administration Ticagrelor 60 mg 03/14/25 21:00 03/15/25 08:50 Ticagrelor 60 Mg Tablet PO 60 mg Q12HR YSABEL Administration Radiology Results: ITS Impressions Chest X-Ray 03/14/25 06:42 IMPRESSION: 1. No acute cardiopulmonary findings. Lexiscan Stress Test 03/14/25 14:06 IMPRESSION: 1. Mild to moderate severity infarct involving the mid inferior and inferolateral and basilar inferior and inferolateral segments with equivocal mild ischemia along the apical sides of the mid inferior segment. 2. Left ventricular ejection fraction measuring >70%. Labs Labs: Laboratory Results - last 24 hr 03/14/25 03/14/25 03/14/25 15:48 16:22 19:42 WBC RBC Hgb Hct MCV MCH MCHC RDW Plt Count MPV Immature Gran % (Auto) Neut % (Auto) Lymph % (Auto) [place] % (Auto) Eos % (Auto) Baso % (Auto) Lymph # (Auto) [place] # (Auto) Eos # (Auto) Baso # (Auto) Abs Immat Gran (auto) Absolute Neuts (auto) Absolute Nucleated RBC Nucleated RBC % ESR 3 Sodium Potassium Chloride Carbon Dioxide Anion Gap BUN Creatinine Estim Creat Clear Calc Estimated GFR Glucose POC Capillary Glucose 134 H 128 H Calcium Magnesium Total Bilirubin AST ALT Alkaline Phosphatase C-Reactive Protein < 0.5 Total Protein Albumin 03/15/25 03/15/25 04:15 07:07 WBC 7.7 RBC 5.13 Hgb 15.7 Hct 48.4 MCV 94.3 MCH 30.6 MCHC 32.4 RDW 13.4 Plt Count 222 MPV 9.4 Immature Gran % (Auto) 0.4 Neut % (Auto) 55.0 Lymph % (Auto) 29.5 [place] % (Auto) 8.6 H Eos % (Auto) 6.0 H Baso % (Auto) 0.5 Lymph # (Auto) 2.26 [place] # (Auto) 0.7 H Eos # (Auto) 0.5 H Baso # (Auto) 0.0 Abs Immat Gran (auto) 0.03 Absolute Neuts (auto) 4.2 Absolute Nucleated RBC 0.000 Nucleated RBC % 0.0 ESR Sodium 138 Potassium 4.5 Chloride 106 Carbon Dioxide 25 Anion Gap 7 BUN 22 H Creatinine 1.20 Estim Creat Clear Calc 50 Estimated GFR 60 Glucose 96 POC Capillary Glucose 105 Calcium 9.6 Magnesium 2.2 Total Bilirubin 0.6 AST 27 ALT 25 Alkaline Phosphatase 63 C-Reactive Protein Total Protein 7.5 Albumin 4.2
--- NOTE | 2025-03-15 14:04 | P.PNIM_ITS ---
Assessment and Plan Assessment and Plan (1) Chest pain: Code(s): R07.9 - Chest pain, unspecified Status: Acute Plan Chest pain described as chest pain Troponin negative, and no acute EKG changes ECHO showed normal BiVentricular Stress test positive for myocardial ischemia for Cardiac cath on Monday Cardiology following Dm2 SSi with accucheks, adjust with clinical course monitor PAD continue home meds CAD s/p stents continue home antiplatelets and statin monitor DVT prophylaxis on Xarelto Full code SDM: Yadira Quijano Subjective Date/time seen: 03/15/25 14:04 Interval history: Comfortable at bedside for Cardiac cath on monday Review of Systems Review of Systems: All other systems were reviewed and negative except as noted in the HPI above Exam Narrative: General: alert and comfortable Eyes: EOMI, PERRLA ENNT External ears normal, Neck is supple, no masses, Respiratory systems: Clear to auscultation Cardiovascular S1, S2, normal rhythm, no murmur, rub, or gallop; no thrill or palpable murmurs on palpation. Gastrointestinal: soft, non-tender, and non-distended abdomen with no masses; BS present Skin: no rash, lesions, ulcerations, subcutaneous nodules or induration Musculoskeletal: no abnormality and no tenderness, normal ROM Neurologic: Alert and oriented x3, non focal Mental Status Exam: normal affect Objective Data Vital Signs Vital Signs: Vital Signs - 24 hr 03/14/25 14:18 03/14/25 15:35 03/14/25 16:00 Temperature 97.6 F 97.4 F L Pulse Rate 73 91 Respiratory Rate 18 22 H Blood Pressure 145/77 H 128/76 Pulse Oximetry 97 95 Oxygen Delivery Room Air Fraction of Inspired Oxygen 03/14/25 16:00 03/14/25 18:00 03/14/25 20:00 Temperature 97.7 F Pulse Rate 77 79 72 Respiratory Rate 18 Blood Pressure 127/66 Pulse Oximetry 95 Oxygen Delivery Fraction of Inspired Oxygen 03/14/25 20:00 03/14/25 20:17 03/14/25 20:28 Temperature Pulse Rate 70 72 72 Respiratory Rate 18 Blood Pressure Pulse Oximetry 95 Oxygen Delivery Room Air Fraction of Inspired Oxygen 03/14/25 21:52 03/14/25 22:00 03/14/25 23:15 Temperature Pulse Rate 62 81 Respiratory Rate Blood Pressure Pulse Oximetry 98 97 Oxygen Delivery Room Air Fraction of Inspired Oxygen 03/14/25 23:38 03/15/25 00:00 03/15/25 00:00 Temperature 97.7 F Pulse Rate 81 81 80 Respiratory Rate 18 18 Blood Pressure 110/70 Pulse Oximetry 97 97 Oxygen Delivery CPAP Fraction of Inspired Oxygen 03/15/25 01:45 03/15/25 04:00 03/15/25 04:00 Temperature 97.3 F L Pulse Rate 87 59 L 84 Respiratory Rate 15 Blood Pressure 127/71 Pulse Oximetry 97 Oxygen Delivery Fraction of Inspired Oxygen 03/15/25 04:00 03/15/25 04:15 03/15/25 05:28 Temperature Pulse Rate 59 L 59 L 57 L Respiratory Rate 15 Blood Pressure Pulse Oximetry 97 97 Oxygen Delivery CPAP Fraction of Inspired Oxygen 03/15/25 07:38 03/15/25 08:00 03/15/25 08:00 Temperature 97.3 F L Pulse Rate 77 93 Respiratory Rate 22 H Blood Pressure 156/80 H Pulse Oximetry 95 Oxygen Delivery Room Air Fraction of Inspired Oxygen 03/15/25 08:49 03/15/25 10:00 03/15/25 11:33 Temperature 97.7 F Pulse Rate 80 83 65 Respiratory Rate 20 Blood Pressure 104/58 L Pulse Oximetry 98 Oxygen Delivery Fraction of Inspired Oxygen 03/15/25 12:00 03/15/25 12:00 Temperature Pulse Rate 72 Respiratory Rate Blood Pressure Pulse Oximetry Oxygen Delivery Room Air Fraction of Inspired Oxygen Intake/Output Intake/Output: Intake & Output 03/12/25 03/13/25 03/14/25 03/15/25 23:59 23:59 23:59 23:59 Intake Total 320 876 Balance 320 876 Meds/Results Medications: Active Medications Generic Name Dose Route Start Last Admin Trade Name Freq PRN Reason Stop Dose Admin Colchicine 0.6 mg 03/14/25 21:00 03/15/25 08:49 Colchicine 0.6 Mg Tablet PO 0.6 mg Q12HR YSABEL Administration Dextrose 12.5 gm 03/14/25 14:07 Dextrose 50% 25 Gm/50 Ml Syringe IV PUSH PRN PRN Hypoglycemia Protocol Empagliflozin 25 mg 03/15/25 09:00 03/15/25 08:49 Empagliflozin 25 Mg Tablet PO 25 mg DAILY YSABEL Administration Fish Oil 1 gm 03/14/25 21:00 03/15/25 08:50 [place] 3 Polyunsat Fatty Acids 1 Gm Cap PO 1 gm Q12HR YSABEL Administration Gabapentin 200 mg 03/14/25 21:00 03/14/25 20:28 Gabapentin 100 Mg Capsule PO 200 mg QHS YSABEL Administration Glucagon 1 mg 03/14/25 14:07 Glucagon For Inj 1 Mg Vial IM PRN PRN Hypoglycemia Protocol Glucose 15 gm 03/14/25 14:07 Glucose Oral Gel 15 Gm Of Glucse In 37.5 Gm Tube PO PRN PRN Hypoglycemia Protocol Dextrose 1,000 mls @ 100 mls/hr 03/14/25 14:07 Dextrose 5% 1,000 Ml IVPB PRN PRN Hypoglycemia Protocol Insulin Aspart 4 - 8 units 03/14/25 17:00 03/15/25 13:16 Insulin Aspart (*Bkc) 100 Units/Ml SUB-Q Not Given TIDWM YSABEL Protocol Insulin Aspart 2 - 4 units 03/14/25 21:00 03/14/25 20:25 Insulin Aspart (*Bkc) 100 Units/Ml SUB-Q Not Given HS YSABEL Protocol Lisinopril 20 mg 03/15/25 09:00 03/15/25 08:49 Lisinopril 20 Mg Tablet PO 20 mg DAILY YSABEL Administration Metoprolol Tartrate 25 mg 03/14/25 21:00 03/15/25 08:49 Metoprolol Tartrate 25 Mg Tablet PO 25 mg Q12HR YSABEL Administration Miscellaneous Information 0 each 03/14/25 00:01 03/14/25 22:53 Nonformulary Drug (Sildenafil 100 Mg Tablet)- Recommend Hold While Hospitalized XX 04/13/25 00:00 Not Given CLARIFY YSABEL Non-Formulary Medication 100 mg 03/14/25 14:21 Sildenafil PO DAILY PRN sexual activity Perflutren Lipid Microsphere 0 ml 03/14/25 08:54 Perflutren Lipid Microspheres 1.5 Ml Vial Diluted To 10 Ml Total Volume IV PUSH 03/17/25 08:54 ONCE PRN adequate visualization Protocol Rivaroxaban 20 mg 03/14/25 18:00 03/14/25 18:29 Rivaroxaban 20 Mg Tablet PO 20 mg QPM YSABEL Administration Simvastatin 40 mg 03/14/25 18:00 03/14/25 18:29 Simvastatin 20 Mg Tablet PO 40 mg QPM YSABEL Administration Tamsulosin HCl 0.4 mg 03/14/25 21:00 03/14/25 20:29 Tamsulosin Hcl 0.4 Mg Capsule PO 0.4 mg QHS YSABEL Administration Ticagrelor 60 mg 03/14/25 21:00 03/15/25 08:50 Ticagrelor 60 Mg Tablet PO 60 mg Q12HR YSABEL Administration Radiology Results: ITS Impressions Chest X-Ray 03/14/25 06:42 IMPRESSION: 1. No acute cardiopulmonary findings. Lexiscan Stress Test 03/14/25 14:06 IMPRESSION: 1. Mild to moderate severity infarct involving the mid inferior and inferolateral and basilar inferior and inferolateral segments with equivocal mild ischemia along the apical sides of the mid inferior segment. 2. Left ventricular ejection fraction measuring >70%. Labs Labs: Laboratory Results - last 24 hr 03/14/25 03/14/25 03/14/25 15:48 16:22 19:42 WBC RBC Hgb Hct MCV MCH MCHC RDW Plt Count MPV Immature Gran % (Auto) Neut % (Auto) Lymph % (Auto) [place] % (Auto) Eos % (Auto) Baso % (Auto) Lymph # (Auto) [place] # (Auto) Eos # (Auto) Baso # (Auto) Abs Immat Gran (auto) Absolute Neuts (auto) Absolute Nucleated RBC Nucleated RBC % ESR 3 Sodium Potassium Chloride Carbon Dioxide Anion Gap BUN Creatinine Estim Creat Clear Calc Estimated GFR Glucose POC Capillary Glucose 134 H 128 H Calcium Magnesium Total Bilirubin AST ALT Alkaline Phosphatase C-Reactive Protein < 0.5 Total Protein Albumin 03/15/25 03/15/25 03/15/25 04:15 07:07 11:19 WBC 7.7 RBC 5.13 Hgb 15.7 Hct 48.4 MCV 94.3 MCH 30.6 MCHC 32.4 RDW 13.4 Plt Count 222 MPV 9.4 Immature Gran % (Auto) 0.4 Neut % (Auto) 55.0 Lymph % (Auto) 29.5 [place] % (Auto) 8.6 H Eos % (Auto) 6.0 H Baso % (Auto) 0.5 Lymph # (Auto) 2.26 [place] # (Auto) 0.7 H Eos # (Auto) 0.5 H Baso # (Auto) 0.0 Abs Immat Gran (auto) 0.03 Absolute Neuts (auto) 4.2 Absolute Nucleated RBC 0.000 Nucleated RBC % 0.0 ESR Sodium 138 Potassium 4.5 Chloride 106 Carbon Dioxide 25 Anion Gap 7 BUN 22 H Creatinine 1.20 Estim Creat Clear Calc 50 Estimated GFR 60 Glucose 96 POC Capillary Glucose 105 104 Calcium 9.6 Magnesium 2.2 Total Bilirubin 0.6 AST 27 ALT 25 Alkaline Phosphatase 63 C-Reactive Protein Total Protein 7.5 Albumin 4.2
[2025-03-15] MEDS: SIMVASTATIN 20 MG TABLET 40 MG PO (17:15)
[2025-03-15] MEDS: GABAPENTIN 100 MG CAPSULE 200 MG PO (21:24)
[2025-03-15] MEDS: TAMSULOSIN HCL 0.4 MG CAPSULE PO (21:25)
[2025-03-16] VITALS (19 sets, daily range): BP systolic 99–130; BP diastolic 46–77; PULSE 55–90; RESP 16–20; TEMP 36.4–36.7; O2SAT 93–100
[2025-03-16 04:35] LABS: Hematocrit 52.0 % (42.0-52.0); Hemoglobin 15.7 g/dL (14.0-18.0); Immature Granulocyte Percent A 0.3 % (0-0.5); Lymphocytes Absolute Auto 2.24 K/mm3 (0.9-3.2); Mean Corpuscular HGB Conc 30.2 g/dl (32-36); Mean Corpuscular Hemoglobin 30.4 pg (26-34); Mean Corpuscular Volume 100.6 fl (80-100); Nucleated Red Blood Cells Absolute Auto 0.000 K/mm3 (0.0-0.012); Nucleated Red Blood Cells Perc 0.0 % (0.0-0.2); Platelet Count Result 212 k/mm3 (150-375); Red Blood Count 5.17 M/mm3 (4.6-6.20); White Blood Count 7.8 K/mm3 (4.5-10.0)
[2025-03-16 04:57] LABS: Alanine Aminotransferase 24 U/L (6-50); Albumin Level 4.3 g/dL (3.5-5.1); Alkaline Phosphatase 66 U/L (38-126); Anion Gap 7 mmol/L (4-12); Aspartate Amino Transferase 27 U/L (17-59); Bilirubin,Total 0.5 mg/dL (0.2-1.3); Blood Urea Nitrogen 25 mg/dL (9-20); Calcium 9.1 mg/dL (8.4-10.2); Carbon Dioxide 23 mmol/L (22-30); Chloride 107 mmol/L (98-107); Estimated CRCL calculation 51 ml/min; Estimated Glomerular Filt Rate > 60; Glucose 115 mg/dL (65-110); Magnesium 2.3 mg/dL (1.6-2.3); Potassium 4.2 mmol/L (3.4-5.0); Sodium 137 mmol/L (137-145); Total Protein 7.4 g/dL (6.3-8.2)
[2025-03-16] MEDS: TICAGRELOR 60 MG TABLET PO ×2 (08:24→20:07)
[2025-03-16] MEDS: COLCHICINE 0.6 MG TABLET PO ×2 (08:24→20:06)
[2025-03-16] MEDS: EMPAGLIFLOZIN 25 MG TABLET PO (08:24)
[2025-03-16] MEDS: METOPROLOL TARTRATE 25 MG TABLET PO ×2 (08:24→20:07)
[2025-03-16] MEDS: OMEGA 3 POLYUNSAT FATTY ACIDS 1 GM CAP PO ×2 (08:24→20:07)
--- NOTE | 2025-03-16 10:28 | PM.IMPN2 ---
Assessment and Plan Assessment and Plan (1) Chest pain: Code(s): R07.9 - Chest pain, unspecified Status: Acute Plan Chest pain described as chest pain Troponin negative, and no acute EKG changes ECHO showed normal BiVentricular Stress test positive for myocardial ischemia for Cardiac cath on Monday Cardiology following Dm2 SSi with accucheks, adjust with clinical course monitor PAD continue home meds CAD s/p stents continue home antiplatelets and statin monitor DVT prophylaxis on Xarelto Full code SDM: Yadira Quijano Subjective Date/time seen: 03/16/25 10:28 Interval history: Comfortable at bedside for Cardiac cath on monday Review of Systems Review of Systems: All other systems were reviewed and negative except as noted in the HPI above Exam Narrative: General: alert and comfortable Eyes: EOMI, PERRLA ENNT External ears normal, Neck is supple, no masses, Respiratory systems: Clear to auscultation Cardiovascular S1, S2, normal rhythm, no murmur, rub, or gallop; no thrill or palpable murmurs on palpation. Gastrointestinal: soft, non-tender, and non-distended abdomen with no masses; BS present Skin: no rash, lesions, ulcerations, subcutaneous nodules or induration Musculoskeletal: no abnormality and no tenderness, normal ROM Neurologic: Alert and oriented x3, non focal Mental Status Exam: normal affect Objective Data Vital Signs Vital Signs: Vital Signs - 24 hr 03/15/25 11:33 03/15/25 12:00 03/15/25 12:00 Temperature 97.7 F Pulse Rate 65 72 Respiratory Rate 20 Blood Pressure 104/58 L Pulse Oximetry 98 Oxygen Delivery Room Air Fraction of Inspired Oxygen 03/15/25 14:00 03/15/25 15:26 03/15/25 16:00 Temperature 97.4 F L Pulse Rate 75 74 Respiratory Rate 18 Blood Pressure 113/65 Pulse Oximetry 96 Oxygen Delivery Room Air Fraction of Inspired Oxygen 03/15/25 16:00 03/15/25 18:00 03/15/25 20:00 Temperature 97.4 F L Pulse Rate 82 78 80 Respiratory Rate 16 Blood Pressure 128/78 Pulse Oximetry 95 Oxygen Delivery Fraction of Inspired Oxygen 03/15/25 20:00 03/15/25 20:55 03/15/25 21:12 Temperature Pulse Rate 78 77 80 Respiratory Rate 20 16 Blood Pressure Pulse Oximetry 94 95 Oxygen Delivery Room Air Room Air Fraction of Inspired Oxygen 21 03/15/25 21:25 03/15/25 22:00 03/15/25 22:46 Temperature Pulse Rate 68 65 70 Respiratory Rate Blood Pressure Pulse Oximetry 97 Oxygen Delivery Fraction of Inspired Oxygen 03/16/25 00:00 03/16/25 00:00 03/16/25 00:05 Temperature 97.5 F L Pulse Rate 76 79 76 Respiratory Rate 20 20 Blood Pressure 99/77 L Pulse Oximetry 100 100 Oxygen Delivery CPAP Fraction of Inspired Oxygen 21 03/16/25 01:51 03/16/25 03:41 03/16/25 04:00 Temperature Pulse Rate 55 L 70 60 Respiratory Rate Blood Pressure Pulse Oximetry Oxygen Delivery Fraction of Inspired Oxygen 03/16/25 04:00 03/16/25 04:00 03/16/25 06:00 Temperature 97.7 F Pulse Rate 90 90 64 Respiratory Rate 16 16 Blood Pressure 112/71 Pulse Oximetry 93 93 Oxygen Delivery CPAP Fraction of Inspired Oxygen 21 03/16/25 08:00 03/16/25 08:00 03/16/25 08:00 Temperature 97.8 F Pulse Rate 79 84 Respiratory Rate 18 Blood Pressure 112/66 Pulse Oximetry 98 Oxygen Delivery Room Air Fraction of Inspired Oxygen 03/16/25 08:24 Temperature Pulse Rate 88 Respiratory Rate Blood Pressure Pulse Oximetry Oxygen Delivery Fraction of Inspired Oxygen Intake/Output Intake/Output: Intake & Output 03/13/25 03/14/25 03/15/25 03/16/25 23:59 23:59 23:59 23:59 Intake Total 320 1176 690 Balance 320 1176 690 Meds/Results Medications: Active Medications Generic Name Dose Route Start Last Admin Trade Name Freq PRN Reason Stop Dose Admin Colchicine 0.6 mg 03/14/25 21:00 03/16/25 08:24 Colchicine 0.6 Mg Tablet PO 0.6 mg Q12HR YSABEL Administration Dextrose 12.5 gm 03/14/25 14:07 Dextrose 50% 25 Gm/50 Ml Syringe IV PUSH PRN PRN Hypoglycemia Protocol Empagliflozin 25 mg 03/15/25 09:00 03/16/25 08:24 Empagliflozin 25 Mg Tablet PO 25 mg DAILY YSABEL Administration Fish Oil 1 gm 03/14/25 21:00 03/16/25 08:24 [place] 3 Polyunsat Fatty Acids 1 Gm Cap PO 1 gm Q12HR YSABEL Administration Gabapentin 200 mg 03/14/25 21:00 03/15/25 21:24 Gabapentin 100 Mg Capsule PO 200 mg QHS YSABEL Administration Glucagon 1 mg 03/14/25 14:07 Glucagon For Inj 1 Mg Vial IM PRN PRN Hypoglycemia Protocol Glucose 15 gm 03/14/25 14:07 Glucose Oral Gel 15 Gm Of Glucse In 37.5 Gm Tube PO PRN PRN Hypoglycemia Protocol Dextrose 1,000 mls @ 100 mls/hr 03/14/25 14:07 Dextrose 5% 1,000 Ml IVPB PRN PRN Hypoglycemia Protocol Insulin Aspart 4 - 8 units 03/14/25 17:00 03/16/25 08:09 Insulin Aspart (*Bkc) 100 Units/Ml SUB-Q Not Given TIDWM YSABEL Protocol Insulin Aspart 2 - 4 units 03/14/25 21:00 03/15/25 21:24 Insulin Aspart (*Bkc) 100 Units/Ml SUB-Q Not Given HS YSABEL Protocol Lisinopril 20 mg 03/15/25 09:00 03/16/25 08:24 Lisinopril 20 Mg Tablet PO 20 mg DAILY YSABEL Administration Metoprolol Tartrate 25 mg 03/14/25 21:00 03/16/25 08:24 Metoprolol Tartrate 25 Mg Tablet PO 25 mg Q12HR YSABEL Administration Perflutren Lipid Microsphere 0 ml 03/14/25 08:54 Perflutren Lipid Microspheres 1.5 Ml Vial Diluted To 10 Ml Total Volume IV PUSH 03/17/25 08:54 ONCE PRN adequate visualization Protocol Rivaroxaban 20 mg 03/14/25 18:00 03/14/25 18:29 Rivaroxaban 20 Mg Tablet PO 20 mg On Hold: 03/15/25 17:00 QPM YSABEL Administration Simvastatin 40 mg 03/14/25 18:00 03/15/25 17:15 Simvastatin 20 Mg Tablet PO 40 mg QPM YSABEL Administration Tamsulosin HCl 0.4 mg 03/14/25 21:00 03/15/25 21:25 Tamsulosin Hcl 0.4 Mg Capsule PO 0.4 mg QHS YSABEL Administration Ticagrelor 60 mg 03/14/25 21:00 03/16/25 08:24 Ticagrelor 60 Mg Tablet PO 60 mg Q12HR YSABEL Administration Radiology Results: ITS Impressions Chest X-Ray 03/14/25 06:42 IMPRESSION: 1. No acute cardiopulmonary findings. Lexiscan Stress Test 03/14/25 14:06 IMPRESSION: 1. Mild to moderate severity infarct involving the mid inferior and inferolateral and basilar inferior and inferolateral segments with equivocal mild ischemia along the apical sides of the mid inferior segment. 2. Left ventricular ejection fraction measuring >70%. Labs Labs: Laboratory Results - last 24 hr 03/15/25 03/15/25 03/15/25 11:19 16:03 20:15 WBC RBC Hgb Hct MCV MCH MCHC RDW Plt Count MPV Immature Gran % (Auto) Neut % (Auto) Lymph % (Auto) [place] % (Auto) Eos % (Auto) Baso % (Auto) Lymph # (Auto) [place] # (Auto) Eos # (Auto) Baso # (Auto) Abs Immat Gran (auto) Absolute Neuts (auto) Absolute Nucleated RBC Nucleated RBC % Sodium Potassium Chloride Carbon Dioxide Anion Gap BUN Creatinine Estim Creat Clear Calc Estimated GFR Glucose POC Capillary Glucose 104 98 106 H Calcium Magnesium Total Bilirubin AST ALT Alkaline Phosphatase Total Protein Albumin 03/16/25 03/16/25 04:07 07:23 WBC 7.8 RBC 5.17 Hgb 15.7 Hct 52.0 MCV 100.6 H D MCH 30.4 MCHC 30.2 L RDW 13.2 Plt Count 212 MPV 9.2 Immature Gran % (Auto) 0.3 Neut % (Auto) 52.2 Lymph % (Auto) 28.8 [place] % (Auto) 9.1 H Eos % (Auto) 8.7 H Baso % (Auto) 0.9 Lymph # (Auto) 2.24 [place] # (Auto) 0.7 H Eos # (Auto) 0.7 H Baso # (Auto) 0.1 Abs Immat Gran (auto) 0.02 Absolute Neuts (auto) 4.1 Absolute Nucleated RBC 0.000 Nucleated RBC % 0.0 Sodium 137 Potassium 4.2 Chloride 107 Carbon Dioxide 23 Anion Gap 7 BUN 25 H Creatinine 1.16 Estim Creat Clear Calc 51 Estimated GFR > 60 Glucose 115 H POC Capillary Glucose 128 H Calcium 9.1 Magnesium 2.3 Total Bilirubin 0.5 AST 27 ALT 24 Alkaline Phosphatase 66 Total Protein 7.4 Albumin 4.3
--- NOTE | 2025-03-16 11:21 | P.PNCA_ITS ---
Progress Note: A&P Assessment and Plan (1) Chest pain: Code(s): R07.9 - Chest pain, unspecified Status: Acute Assessment and Plan: Presents with an episode atypical chest pain. He has had negative serial tropo ruben levels and EKG does not have any acute ischemic changes. Stress test shows area of infarction and ischemia. Patient to get catheterization Monday. History of STEMI and left circumflex artery stent 2020. Hold Xarelto for tonight. Continue Brilinta (2) CAD (coronary artery disease): Qualifiers: Coronary Disease-Associated Artery/Lesion type: [place] artery [place] vs. transplanted heart: [place] heart Associated angina: without angina Qualified Code(s): I25.10 - Atherosclerotic heart disease of [place] coronary artery without angina pectoris Code(s): I25.10 - Atherosclerotic heart disease of [place] coronary artery without angina pectoris Status: Acute Assessment and Plan: As detailed in the HPI. Continue with Brilinta and simvastatin 40 mg daily (3) PAD (peripheral artery disease): Code(s): I73.9 - Peripheral vascular disease, unspecified Status: Acute Assessment and Plan: Lower extremity arterial occlusive disease status post thrombolysis catheter and balloon angioplasty left popliteal and left common femoral artery for thrombosis of left common fem-pop bypass graft in January of this year. Continue Brilinta .. Hold Xarelto for tonight in anticipation for catheterization tomorrow. Continue to assess him for statin 40 mg daily (4) Dyslipidemia: Code(s): E78.5 - Hyperlipidemia, unspecified Status: Acute Assessment and Plan: Continue simvastatin 40 mg daily (5) Essential (primary) hypertension: Code(s): I10 - Essential (primary) hypertension Status: Acute Assessment and Plan: Blood pressure is controlled. Continue lisinopril and metoprolol Subjective Date/time seen: 03/16/25 11:21 Interval history: Jonathan Quijano is a 74-year-old male with peripheral arterial disease, hyperlipidemia, coronary artery disease status post PCI to the circumflex in 2020. Also history of peripheral vascular disease with fem-fem bypass. He presents to the hospital now with a chief complaint of chest pain. Patient describes occurrence of central chest tightness and soreness occurring yesterday while he was at rest. He felt like he was having heartburn today took some Rolaids which did not provide any relief. He also took nitroglycerin x1 which did not provide any relief. At this point the pain had been constant and ongoing for several hours. He was brought to the emergency room for evaluation. States that he continued to have ongoing chest pain in the emergency department until around midnight last night. He has not had a recurrence of chest pain he just feels a ?soreness? in the middle his chest. No palpitations, shortness of breath, swelling. He reports that he is a very active person and does not experience any exertional chest pain. Currently comfortable lying in bed at the time my evaluation. Date of service 03/15/2025: Resting comfortably in bed. No chest pain. No arrhythmia on telemetry Date of service 03/16/2025: Resting comfortably in bed. No chest pain. No arrhythmia on telemetry. Review of Systems Review of Systems: All systems reviewed & are unremarkable except as noted in HPI and below Exam Const: General: comfortable, no acute distress, alert and awake Orientation/consciousness: patient oriented x3 HENMT: Head: normal to inspection Eyes: General: appearance normal, both eyes and all related structures Pupils: Equal, round and reactive pupils present Neck: Neck: normal visual inspection, supple and no JVD Carotids: normal carotid upstroke Resp: Effort & Inspection: normal respiratory effort Auscultation: clear to auscultation bilaterally Cardio: Rate: regular rate Rhythm: regular rhythm Heart sounds: S1 normal heart sound present, S2 normal heart sound present and no murmurs GI: Auscultation: normal bowel sounds Skin: General skin exam: normal color Neuro: General: patient oriented x3 Cranial nerves: Yes Equal, round and reactive pupils present Extrem: General: normal to inspection Psych: Appearance: grossly normal Mental Status: mental status grossly normal Objective Data Vital Signs Vital Signs: Vital Signs - 24 hr 03/15/25 11:33 03/15/25 12:00 03/15/25 12:00 Temperature 36.5 C Pulse Rate 65 72 Respiratory Rate 20 Blood Pressure 104/58 L Pulse Oximetry 98 Oxygen Delivery Room Air Fraction of Inspired Oxygen 03/15/25 14:00 03/15/25 15:26 03/15/25 16:00 Temperature 36.3 C L Pulse Rate 75 74 Respiratory Rate 18 Blood Pressure 113/65 Pulse Oximetry 96 Oxygen Delivery Room Air Fraction of Inspired Oxygen 03/15/25 16:00 03/15/25 18:00 03/15/25 20:00 Temperature 36.3 C L Pulse Rate 82 78 80 Respiratory Rate 16 Blood Pressure 128/78 Pulse Oximetry 95 Oxygen Delivery Fraction of Inspired Oxygen 03/15/25 20:00 03/15/25 20:55 03/15/25 21:12 Temperature Pulse Rate 78 77 80 Respiratory Rate 20 16 Blood Pressure Pulse Oximetry 94 95 Oxygen Delivery Room Air Room Air Fraction of Inspired Oxygen 21 03/15/25 21:25 03/15/25 22:00 03/15/25 22:46 Temperature Pulse Rate 68 65 70 Respiratory Rate Blood Pressure Pulse Oximetry 97 Oxygen Delivery Fraction of Inspired Oxygen 03/16/25 00:00 03/16/25 00:00 03/16/25 00:05 Temperature 36.4 C L Pulse Rate 76 79 76 Respiratory Rate 20 20 Blood Pressure 99/77 L Pulse Oximetry 100 100 Oxygen Delivery CPAP Fraction of Inspired Oxygen 21 03/16/25 01:51 03/16/25 03:41 03/16/25 04:00 Temperature Pulse Rate 55 L 70 60 Respiratory Rate Blood Pressure Pulse Oximetry Oxygen Delivery Fraction of Inspired Oxygen 03/16/25 04:00 03/16/25 04:00 03/16/25 06:00 Temperature 36.5 C Pulse Rate 90 90 64 Respiratory Rate 16 16 Blood Pressure 112/71 Pulse Oximetry 93 93 Oxygen Delivery CPAP Fraction of Inspired Oxygen 03/16/25 08:00 03/16/25 08:00 03/16/25 08:00 Temperature 36.6 C Pulse Rate 79 84 Respiratory Rate 18 Blood Pressure 112/66 Pulse Oximetry 98 Oxygen Delivery Room Air Fraction of Inspired Oxygen 03/16/25 08:24 03/16/25 10:00 Temperature Pulse Rate 88 80 Respiratory Rate Blood Pressure Pulse Oximetry Oxygen Delivery Fraction of Inspired Oxygen Intake/Output Intake/Output: Intake & Output 03/13/25 03/14/25 03/15/25 03/16/25 23:59 23:59 23:59 23:59 Intake Total 320 1176 690 Balance 320 1176 690 Meds/Results Medications: Active Medications Generic Name Dose Route Start Last Admin Trade Name Freq PRN Reason Stop Dose Admin Colchicine 0.6 mg 03/14/25 21:00 03/16/25 08:24 Colchicine 0.6 Mg Tablet PO 0.6 mg Q12HR YSABEL Administration Dextrose 12.5 gm 03/14/25 14:07 Dextrose 50% 25 Gm/50 Ml Syringe IV PUSH PRN PRN Hypoglycemia Protocol Empagliflozin 25 mg 03/15/25 09:00 03/16/25 08:24 Empagliflozin 25 Mg Tablet PO 25 mg DAILY YSABEL Administration Fish Oil 1 gm 03/14/25 21:00 03/16/25 08:24 [place] 3 Polyunsat Fatty Acids 1 Gm Cap PO 1 gm Q12HR YSABEL Administration Gabapentin 200 mg 03/14/25 21:00 03/15/25 21:24 Gabapentin 100 Mg Capsule PO 200 mg QHS YSABEL Administration Glucagon 1 mg 03/14/25 14:07 Glucagon For Inj 1 Mg Vial IM PRN PRN Hypoglycemia Protocol Glucose 15 gm 03/14/25 14:07 Glucose Oral Gel 15 Gm Of Glucse In 37.5 Gm Tube PO PRN PRN Hypoglycemia Protocol Dextrose 1,000 mls @ 100 mls/hr 03/14/25 14:07 Dextrose 5% 1,000 Ml IVPB PRN PRN Hypoglycemia Protocol Insulin Aspart 4 - 8 units 03/14/25 17:00 03/16/25 08:09 Insulin Aspart (*Bkc) 100 Units/Ml SUB-Q Not Given TIDWM YSABEL Protocol Insulin Aspart 2 - 4 units 03/14/25 21:00 03/15/25 21:24 Insulin Aspart (*Bkc) 100 Units/Ml SUB-Q Not Given HS YSABEL Protocol Lisinopril 20 mg 03/15/25 09:00 03/16/25 08:24 Lisinopril 20 Mg Tablet PO 20 mg DAILY YSABEL Administration Metoprolol Tartrate 25 mg 03/14/25 21:00 03/16/25 08:24 Metoprolol Tartrate 25 Mg Tablet PO 25 mg Q12HR YSABEL Administration Perflutren Lipid Microsphere 0 ml 03/14/25 08:54 Perflutren Lipid Microspheres 1.5 Ml Vial Diluted To 10 Ml Total Volume IV PUSH 03/17/25 08:54 ONCE PRN adequate visualization Protocol Rivaroxaban 20 mg 03/14/25 18:00 03/14/25 18:29 Rivaroxaban 20 Mg Tablet PO 20 mg On Hold: 03/15/25 17:00 QPM YSABEL Administration Simvastatin 40 mg 03/14/25 18:00 03/15/25 17:15 Simvastatin 20 Mg Tablet PO 40 mg QPM YSABEL Administration Tamsulosin HCl 0.4 mg 03/14/25 21:00 03/15/25 21:25 Tamsulosin Hcl 0.4 Mg Capsule PO 0.4 mg QHS YSABEL Administration Ticagrelor 60 mg 03/14/25 21:00 03/16/25 08:24 Ticagrelor 60 Mg Tablet PO 60 mg Q12HR YSABEL Administration Radiology Results: ITS Impressions Chest X-Ray 03/14/25 06:42 IMPRESSION: 1. No acute cardiopulmonary findings. Lexiscan Stress Test 03/14/25 14:06 IMPRESSION: 1. Mild to moderate severity infarct involving the mid inferior and inferolateral and basilar inferior and inferolateral segments with equivocal mild ischemia along the apical sides of the mid inferior segment. 2. Left ventricular ejection fraction measuring >70%. Labs Labs: Laboratory Results - last 24 hr 03/15/25 03/15/25 03/15/25 11:19 16:03 20:15 WBC RBC Hgb Hct MCV MCH MCHC RDW Plt Count MPV Immature Gran % (Auto) Neut % (Auto) Lymph % (Auto) [place] % (Auto) Eos % (Auto) Baso % (Auto) Lymph # (Auto) [place] # (Auto) Eos # (Auto) Baso # (Auto) Abs Immat Gran (auto) Absolute Neuts (auto) Absolute Nucleated RBC Nucleated RBC % Sodium Potassium Chloride Carbon Dioxide Anion Gap BUN Creatinine Estim Creat Clear Calc Estimated GFR Glucose POC Capillary Glucose 104 98 106 H Calcium Magnesium Total Bilirubin AST ALT Alkaline Phosphatase Total Protein Albumin 03/16/25 03/16/25 04:07 07:23 WBC 7.8 RBC 5.17 Hgb 15.7 Hct 52.0 MCV 100.6 H D MCH 30.4 MCHC 30.2 L RDW 13.2 Plt Count 212 MPV 9.2 Immature Gran % (Auto) 0.3 Neut % (Auto) 52.2 Lymph % (Auto) 28.8 [place] % (Auto) 9.1 H Eos % (Auto) 8.7 H Baso % (Auto) 0.9 Lymph # (Auto) 2.24 [place] # (Auto) 0.7 H Eos # (Auto) 0.7 H Baso # (Auto) 0.1 Abs Immat Gran (auto) 0.02 Absolute Neuts (auto) 4.1 Absolute Nucleated RBC 0.000 Nucleated RBC % 0.0 Sodium 137 Potassium 4.2 Chloride 107 Carbon Dioxide 23 Anion Gap 7 BUN 25 H Creatinine 1.16 Estim Creat Clear Calc 51 Estimated GFR > 60 Glucose 115 H POC Capillary Glucose 128 H Calcium 9.1 Magnesium 2.3 Total Bilirubin 0.5 AST 27 ALT 24 Alkaline Phosphatase 66 Total Protein 7.4 Albumin 4.3
[2025-03-16] MEDS: SIMVASTATIN 20 MG TABLET 40 MG PO (17:44)
[2025-03-16] MEDS: TAMSULOSIN HCL 0.4 MG CAPSULE PO (20:06)
[2025-03-16] MEDS: GABAPENTIN 100 MG CAPSULE 200 MG PO (20:07)
[2025-03-17] VITALS (24 sets, daily range): BP systolic 102–129; BP diastolic 51–92; PULSE 53–89; RESP 13–24; TEMP 36.4; O2SAT 94–100
[2025-03-17] MEDS: COLCHICINE 0.6 MG TABLET PO (08:14)
[2025-03-17] MEDS: TICAGRELOR 60 MG TABLET PO (08:14)
[2025-03-17] MEDS: METOPROLOL TARTRATE 25 MG TABLET PO (08:15)
--- NOTE | 2025-03-17 11:10 | PC.NURSE ---
[employer] laboratory director running behind, they estimate another hour or two before he will go downstairs, pt and family in room aware
--- NOTE | 2025-03-17 11:54 | PC.NURSE ---
dr gilbert has been in to review cath procedure with pt and
--- NOTE | 2025-03-17 13:34 | PM.IMPN2 ---
Assessment and Plan Assessment and Plan (1) Chest pain: Code(s): R07.9 - Chest pain, unspecified Status: Acute Plan Chest pain described as chest pain Troponin negative, and no acute EKG changes ECHO showed normal BiVentricular Stress test positive for myocardial ischemia for Cardiac cath today Cardiology following Dm2 SSi with accucheks, adjust with clinical course monitor PAD continue home meds CAD s/p stents continue home antiplatelets and statin monitor DVT prophylaxis on Xarelto Full code SDM: Yadira Quijano Subjective Date/time seen: 03/17/25 13:34 Interval history: Comfortable at bedside awaiting cardiac cath today Review of Systems Review of Systems: All other systems were reviewed and negative except as noted in the HPI above Exam Narrative: General: alert and comfortable Eyes: EOMI, PERRLA ENNT External ears normal, Neck is supple, no masses, Respiratory systems: Clear to auscultation Cardiovascular S1, S2, normal rhythm, no murmur, rub, or gallop; no thrill or palpable murmurs on palpation. Gastrointestinal: soft, non-tender, and non-distended abdomen with no masses; BS present Skin: no rash, lesions, ulcerations, subcutaneous nodules or induration Musculoskeletal: no abnormality and no tenderness, normal ROM Neurologic: Alert and oriented x3, non focal Mental Status Exam: normal affect Objective Data Vital Signs Vital Signs: Vital Signs - 24 hr 03/16/25 14:00 03/16/25 15:56 03/16/25 16:00 Temperature 98.1 F Pulse Rate 87 75 78 Respiratory Rate 16 Blood Pressure 117/66 Pulse Oximetry 98 Oxygen Delivery 03/16/25 16:00 03/16/25 18:00 03/16/25 20:00 Temperature 97.8 F Pulse Rate 90 86 Respiratory Rate 16 Blood Pressure 130/71 Pulse Oximetry 96 Oxygen Delivery Room Air 03/16/25 20:00 03/16/25 20:00 03/16/25 20:07 Temperature Pulse Rate 75 73 Respiratory Rate Blood Pressure Pulse Oximetry Oxygen Delivery Room Air 03/16/25 21:54 03/16/25 23:48 03/16/25 23:55 Temperature 97.5 F L Pulse Rate 80 78 Respiratory Rate 16 Blood Pressure 112/46 L Pulse Oximetry 99 Oxygen Delivery Room Air 03/17/25 00:00 03/17/25 02:00 03/17/25 04:00 Temperature 97.6 F Pulse Rate 59 L 68 76 Respiratory Rate 16 Blood Pressure 112/71 Pulse Oximetry 100 Oxygen Delivery 03/17/25 04:00 03/17/25 04:00 03/17/25 05:56 Temperature Pulse Rate 66 58 L Respiratory Rate 18 Blood Pressure Pulse Oximetry 97 Oxygen Delivery Room Air 03/17/25 08:00 03/17/25 08:00 03/17/25 08:15 Temperature 97.5 F L Pulse Rate 89 65 79 Respiratory Rate 18 Blood Pressure 129/70 Pulse Oximetry 99 Oxygen Delivery 03/17/25 10:00 03/17/25 12:00 03/17/25 12:00 Temperature 97.5 F L Pulse Rate 65 74 60 Respiratory Rate 18 Blood Pressure 120/72 Pulse Oximetry 100 Oxygen Delivery Intake/Output Intake/Output: Intake & Output 03/14/25 03/15/25 03/16/25 03/17/25 23:59 23:59 23:59 23:59 Intake Total 320 1176 1650 Balance 320 1176 1650 Meds/Results Medications: Active Medications Generic Name Dose Route Start Last Admin Trade Name Freq PRN Reason Stop Dose Admin Colchicine 0.6 mg 03/14/25 21:00 03/17/25 08:14 Colchicine 0.6 Mg Tablet PO 0.6 mg Q12HR YSABEL Administration Dextrose 12.5 gm 03/14/25 14:07 Dextrose 50% 25 Gm/50 Ml Syringe IV PUSH PRN PRN Hypoglycemia Protocol Empagliflozin 25 mg 03/15/25 09:00 03/16/25 08:24 Empagliflozin 25 Mg Tablet PO 25 mg DAILY YSABEL Administration Fish Oil 1 gm 03/14/25 21:00 03/17/25 12:04 [place] 3 Polyunsat Fatty Acids 1 Gm Cap PO Not Given Q12HR YSABEL Gabapentin 200 mg 03/14/25 21:00 03/16/25 20:07 Gabapentin 100 Mg Capsule PO 200 mg QHS YSABEL Administration Glucagon 1 mg 03/14/25 14:07 Glucagon For Inj 1 Mg Vial IM PRN PRN Hypoglycemia Protocol Glucose 15 gm 03/14/25 14:07 Glucose Oral Gel 15 Gm Of Glucse In 37.5 Gm Tube PO PRN PRN Hypoglycemia Protocol Dextrose 1,000 mls @ 100 mls/hr 03/14/25 14:07 Dextrose 5% 1,000 Ml IVPB PRN PRN Hypoglycemia Protocol Insulin Aspart 4 - 8 units 03/14/25 17:00 03/17/25 12:04 Insulin Aspart (*Bkc) 100 Units/Ml SUB-Q Not Given TIDWM YSABEL Protocol Insulin Aspart 2 - 4 units 03/14/25 21:00 03/16/25 20:10 Insulin Aspart (*Bkc) 100 Units/Ml SUB-Q Not Given HS YSABEL Protocol Lisinopril 20 mg 03/15/25 09:00 03/17/25 08:14 Lisinopril 20 Mg Tablet PO 20 mg DAILY YSABEL Administration Metoprolol Tartrate 25 mg 03/14/25 21:00 03/17/25 08:15 Metoprolol Tartrate 25 Mg Tablet PO 25 mg Q12HR YSABEL Administration Rivaroxaban 20 mg 03/14/25 18:00 03/14/25 18:29 Rivaroxaban 20 Mg Tablet PO 20 mg On Hold: 03/15/25 17:00 QPM YSABEL Administration Simvastatin 40 mg 03/14/25 18:00 03/16/25 17:44 Simvastatin 20 Mg Tablet PO 40 mg QPM YSABEL Administration Tamsulosin HCl 0.4 mg 03/14/25 21:00 03/16/25 20:06 Tamsulosin Hcl 0.4 Mg Capsule PO 0.4 mg QHS YSABEL Administration Ticagrelor 60 mg 03/14/25 21:00 03/17/25 08:14 Ticagrelor 60 Mg Tablet PO 60 mg Q12HR YSABEL Administration Radiology Results: ITS Impressions Chest X-Ray 03/14/25 06:42 IMPRESSION: 1. No acute cardiopulmonary findings. Lexiscan Stress Test 03/14/25 14:06 IMPRESSION: 1. Mild to moderate severity infarct involving the mid inferior and inferolateral and basilar inferior and inferolateral segments with equivocal mild ischemia along the apical sides of the mid inferior segment. 2. Left ventricular ejection fraction measuring >70%. Labs Labs: Laboratory Results - last 24 hr 03/16/25 03/16/25 03/17/25 16:13 19:52 07:24 POC Capillary Glucose 109 H 119 H 95 03/17/25 11:11 POC Capillary Glucose 83
--- NOTE | 2025-03-17 13:46 | PC.NURSE ---
labeling associate called and they will be here between 1400/1430 to take pt downstairs, pt and family aware
--- NOTE | 2025-03-17 14:31 | PC.NURSE ---
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
--- NOTE | 2025-03-17 15:09 | WPDCARDPROC ---
Cardiac Cath Procedure Note Date of procedure:: 03/17/25 Performing physician:: CATHETERIZATION LABORATORY REPORT Procedure Date: 03/17/2025 Referring Physician: Dr. Colón Anesthesia: Versed and Fentanyl were ordered and given in my presence at 1454, procedure ended at 1505. Supervision of nurse, Margie Ta monitored moderate sedation with 2mg Versed and 100mcg Fentanyl was provided for 11 minutes. Pre-op Diagnosis: Abnormal stress test Post-op Diagnosis: Abnormal stress test Procedure(s): Left heart catheterization with coronary angiography Access Site: Right radial artery Brief History and Clinical Indications: All risks, benefits and alternatives to left heart catheterization with or without percutaneous coronary intervention was discussed at length with the patient. Risk of complications including but not limited to bleeding, infection, arrhythmia, stroke, worsening kidney function, blood loss, groin hematoma, limb loss, emergency coronary artery bypass grafting, and even were discussed with the patient and all questions were answered. The patient understood and wished to proceed. Time out called, patient name, date of , medical record number, allergies, procedure performed, identify Janitor Custodian, patient and staff member concurred with accurate data, procedure carried on. Findings: LEFT HEART CATHETERIZATION FINDINGS: 1. Left main: The left main coronary artery is widely patent without any significant obstructive disease. 2. Left anterior descending: The LAD and the diagonal branches have diffuse 10% stenosis. 3. Left circumflex: The left circumflex artery is a large dominant vessel. There is a patent proximal stent. There is diffuse 10% stenosis. 4. Right coronary artery: The RCA is a small nondominant vessel. The RV marginal branch has a 50% stenosis. 5. Left ventricle: A. End-diastolic pressure 11 mmHg. B. LV gram deferred. C. No significant gradient across aortic valve on catheter pullback. 6. Opening AO pressure 98/50 and closing AO pressure 106/54 Description of Procedure: Informed consent signed and placed in the chart. Patient transferred to boot and shoe laborer room. Prepped and draped in usual sterile fashion. 2% lidocaine injected subcutaneously in right wrist area. 22-gauge venipuncture catheter used to access the right radial artery with the Seldinger technique under ultrasound guidance. 6-FR slender sheath placed in right radial artery. Nitroglycerin 200mcg, Verapamil 2.5mg, and Heparin 5000U was given intraarterial through the sheath. J wire advanced under fluoroscopy. 5F Ultra diagnostic catheter across the aortic valve for LVEDP and aortic valve gradients. After pullback, the catheter was then used to engage the right coronary artery as well as the left main coronary artery. Multiple orthogonal angiogram obtained and reviewed Hemostasis was achieved by application of TR band. Assessment: Mild CAD Post Operative Condition: Stable No significant blood loss Disposition: Home Plan: Can resume Xarelto tomorrow evening. Can stop colchicine. Continue aggressive medical therapy and risk factor modification. Can be discharged from a cardiac perspective to follow up in clinic with Dr. Hanane Giron Interventional Cardiology
--- NOTE | 2025-03-17 15:15 | WPDHPUPDATE1 ---
History and Physical Update Update Date/Time: 03/17/25 15:15 History and Physical has been reviewed, including an updated exam of the patient. There are NO changes in the patient's condition. Risks, benefits, and alternatives have been discussed and questions answered. Patient agrees to proceed with procedure.
--- NOTE | 2025-03-17 15:15 | WPDMODSED ---
Moderate Sedation Note-Pt Data Patient Data Allergies Allergy/AdvReac Type Severity Reaction Status Date / Time metformin AdvReac Mild Diarrhea Verified 03/14/25 05:07 Home Medications ?Medication ?Instructions ?Recorded ?Confirmed ?Type [id number]-[id number] 1 tablet PO DAILY 11/05/19 03/14/25 History [Centrum Silver] ticagrelor 60 mg tablet (Brilinta) 60 mg PO Q12H 10/14/21 03/14/25 History cholecalciferol (vitamin D3) 50 50 mcg PO DAILY 01/05/22 03/14/25 History mcg (2,000 unit) tablet (Vitamin D3) metoprolol tartrate 25 mg tablet 25 mg PO BID 04/11/22 03/14/25 History nitroglycerin 0.4 mg sublingual 0.4 mg sublingual Q5M 06/12/22 03/14/25 History tablet ICaps AREDS 1 cap PO 2XD 04/20/23 03/14/25 History blood sugar diagnostic (FreeStyle #100 ea 07/22/24 03/14/25 Rx Lite Strips) blood-glucose meter (FreeStyle #1 ea 07/22/24 03/14/25 Rx Lite Meter kit) lancets 33 gauge #100 ea 07/22/24 03/14/25 Rx icosapent ethyl 1 gram capsule 1 g PO BID #360 caps 09/25/24 03/14/25 Rx Held on 03/14/25. Instructions: .Provider Order empagliflozin 25 mg tablet 25 mg PO DAILY #90 tabs 10/07/24 03/14/25 Rx (Jardiance) fenofibrate 160 mg tablet 160 mg PO DAILY #90 tabs 10/07/24 03/14/25 Rx tamsulosin 0.4 mg capsule (Flomax) 0.4 mg PO QHS #90 caps 10/16/24 03/14/25 Rx lisinopril 20 mg tablet 20 mg PO DAILY #90 tabs 12/03/24 03/14/25 Rx gabapentin 100 mg capsule 200 mg PO QHS 01/27/25 03/14/25 History sildenafil 100 mg tablet 100 mg PO DAILY PRN sexual 01/27/25 03/14/25 Rx activity #30 tabs loperamide 2 mg capsule 2 mg PO Q4H PRN Diarrhea 02/13/25 03/14/25 History rivaroxaban 20 mg tablet (Xarelto) 20 mg PO DAILY 02/13/25 03/14/25 History tirzepatide (weight loss) 2.5 2.5 mg (0.5 mL) subcut WEEKLY #2 mL 03/13/25 03/14/25 Rx mg/0.5 mL subcutaneous pen injector (Zepbound) ibuprofen 200 mg tablet (Advil) 600 mg PO TID PRN fever or pain 03/14/25 03/14/25 History omega 3-jzf-jpv-fish oil 1,000 mg 1 cap PO BID 03/14/25 03/14/25 History (120 mg-180 mg) capsule (Fish Oil) simvastatin 40 mg tablet 40 mg PO QHS 03/14/25 03/14/25 History Current Medications: Active Medications Colchicine (Colchicine 0.6 Mg Tablet) 0.6 mg PO Q12HR [facility] Last Admin: 03/17/25 08:14 Dose: 0.6 mg Dextrose (Dextrose 50% 25 Gm/50 Ml Syringe) 12.5 gm IV PUSH PRN PRN; Protocol PRN Reason: Hypoglycemia Empagliflozin (Empagliflozin 25 Mg Tablet) 25 mg PO DAILY [facility] Last Admin: 03/16/25 08:24 Dose: 25 mg Fish Oil ([place] 3 Polyunsat Fatty Acids 1 Gm Cap) 1 gm PO Q12HR [facility] Last Admin: 03/17/25 12:04 Dose: Not Given Gabapentin (Gabapentin 100 Mg Capsule) 200 mg PO QHS [facility] Last Admin: 03/16/25 20:07 Dose: 200 mg Glucagon (Glucagon For Inj 1 Mg Vial) 1 mg IM PRN PRN; Protocol PRN Reason: Hypoglycemia Glucose (Glucose Oral Gel 15 Gm Of Glucse In 37.5 Gm Tube) 15 gm PO PRN PRN; Protocol PRN Reason: Hypoglycemia Dextrose (Dextrose 5% 1,000 Ml) 1,000 mls @ 100 mls/hr IVPB PRN PRN; Protocol PRN Reason: Hypoglycemia Sodium Chloride (Normal Saline Iv) 1,000 mls @ 125 mls/hr IV CONT .Q8H ONE Stop: 03/17/25 23:08 Insulin Aspart (Insulin Aspart (*Bkc) 100 Units/Ml) 4 - 8 units SUB-Q TIDWM [facility]; Protocol Last Admin: 03/17/25 12:04 Dose: Not Given Insulin Aspart (Insulin Aspart (*Bkc) 100 Units/Ml) 2 - 4 units SUB-Q HS [facility]; Protocol Last Admin: 03/16/25 20:10 Dose: Not Given Lisinopril (Lisinopril 20 Mg Tablet) 20 mg PO DAILY [facility] Last Admin: 03/17/25 08:14 Dose: 20 mg Metoprolol Tartrate (Metoprolol Tartrate 25 Mg Tablet) 25 mg PO Q12HR [facility] Last Admin: 03/17/25 08:15 Dose: 25 mg Rivaroxaban (Rivaroxaban 20 Mg Tablet) 20 mg PO QPM [facility] On Hold: 03/15/25 17:00 Last Admin: 03/14/25 18:29 Dose: 20 mg Simvastatin (Simvastatin 20 Mg Tablet) 40 mg PO QPM [facility] Last Admin: 03/16/25 17:44 Dose: 40 mg Tamsulosin HCl (Tamsulosin Hcl 0.4 Mg Capsule) 0.4 mg PO QHS [facility] Last Admin: 03/16/25 20:06 Dose: 0.4 mg Ticagrelor (Ticagrelor 60 Mg Tablet) 60 mg PO Q12HR [facility] Last Admin: 03/17/25 08:14 Dose: 60 mg Sedation/Anesthesia: No previous sedation/anesthesia problems (including family history). [facility] Past Medical History Medical History Renal cyst, right Obesity with serious comorbidity Thrombosis of femoral popliteal artery (~01/2025) Type 2 diabetes mellitus without complications Neuropathy involving both lower extremities Emphysema, unspecified History of kidney stones History of diverticulitis Peripheral neuropathy Pre-diabetes Vitamin D deficiency History of COVID-19 02/2020 CAD (coronary artery disease) ST elevation (STEMI) myocardial infarction 06/2020 Obstructive sleep apnea Tendinitis of left rotator cuff Essential (primary) hypertension Dyslipidemia Erectile dysfunction Arthritis PAD (peripheral artery disease) Esophagitis Surgical History Surgical History History of thrombectomy (~01/2025) thrombolysis and aspiration thrombectomy of left popliteal femoral bypass(01/17/2025) balloon angioplasty left popliteal and left common femoral artery(01/18/25) History of colonoscopy Hx of vasectomy H/O heart artery stent (~06/2020) History of femoropopliteal bypass left - right - 02/19 H/O rectal sphincterotomy (~11/2010) 11/2010 H/O hemorrhoidectomy (~2009) Family History Family History Father Obstructive sleep apnea Diabetes mellitus Family history of thyroid disease Family history of chronic obstructive pulmonary disease Macular degeneration disease Grandparent Diabetes mellitus Heart attack Mother Depression Father Family history of diabetes mellitus in first degree relative Family history of emphysema Sibling Family history of malignant neoplasm of cervix Other Family history of congestive heart failure Social History Social History Social History: the patient lives with his . he has 2 children .Retired from [employer] and [employer] Code status full code Smoking packs per day: 50 Smoking cigarettes per day: 1,000.0 Years smoked: 50 Smoking pack-years: 2500.00 Smoking status: Former smoker Tobacco type: cigarettes Second hand tobacco smoke exposure: No Smoking end date: 02/04/19 Alcohol intake: current Alcohol use details: occassionally 1-2 per month Substance use: never Substance use type: does not use Lack of Transportation: No Lack of Food: Never True Current Housing: I Do Not Have Housing Concerned About Future Housing: No Difficulty Paying Gas/Electric Bills: No Difficulty Paying for Meds: No Currently Unemployed: No Education: Trade/Vocational Certificate Difficulty w/ Childcare or Family Care: No Living arrangements: with family Occupation/Education: retired Additional occupation/education comments: Retired from [employer] and [employer] Gender identity (if verbalized by the patient): Male Sexual Orientation (if Verbalized by the Patient): Straight or Heterosexual Spiritual care concerns: No Mod Sed Physical Exam Physical Exam Pre Procedural Exam: Normal: Lungs, Heart Size, Heart Rate and Heart Rhythm Hours since solid foods: 15 Hours since liquid intake: 15 Mallampati Classification: class III Internal Medicine - PN: Obj Da Vital Signs Vital Signs: Vital Signs - 24 hr 03/16/25 15:56 03/16/25 16:00 03/16/25 16:00 Temperature 36.7 C Pulse Rate 75 78 Respiratory Rate 16 Blood Pressure 117/66 Pulse Oximetry 98 Oxygen Delivery Room Air 03/16/25 18:00 03/16/25 20:00 03/16/25 20:00 Temperature 36.6 C Pulse Rate 90 86 Respiratory Rate 16 Blood Pressure 130/71 Pulse Oximetry 96 Oxygen Delivery Room Air 03/16/25 20:00 03/16/25 20:07 03/16/25 21:54 Temperature Pulse Rate 75 73 80 Respiratory Rate Blood Pressure Pulse Oximetry Oxygen Delivery 03/16/25 23:48 03/16/25 23:55 03/17/25 00:00 Temperature 36.4 C L Pulse Rate 78 59 L Respiratory Rate 16 Blood Pressure 112/46 L Pulse Oximetry 99 Oxygen Delivery Room Air 03/17/25 02:00 03/17/25 04:00 03/17/25 04:00 Temperature 36.4 C Pulse Rate 68 76 66 Respiratory Rate 16 Blood Pressure 112/71 Pulse Oximetry 100 Oxygen Delivery 03/17/25 04:00 03/17/25 05:56 03/17/25 08:00 Temperature 36.4 C L Pulse Rate 58 L 89 Respiratory Rate 18 18 Blood Pressure 129/70 Pulse Oximetry 97 99 Oxygen Delivery Room Air 03/17/25 08:00 03/17/25 08:15 03/17/25 10:00 Temperature Pulse Rate 65 79 65 Respiratory Rate Blood Pressure Pulse Oximetry Oxygen Delivery 03/17/25 12:00 03/17/25 12:00 Temperature 36.4 C L Pulse Rate 74 60 Respiratory Rate 18 Blood Pressure 120/72 Pulse Oximetry 100 Oxygen Delivery Intake/Output Intake/Output: Intake & Output 03/14/25 03/15/25 03/16/25 03/17/25 23:59 23:59 23:59 23:59 Intake Total 320 1176 1650 Balance 320 1176 1650 Meds/Results Medications: Active Medications Generic Name Dose Route Start Last Admin Trade Name Freq PRN Reason Stop Dose Admin Colchicine 0.6 mg 03/14/25 21:00 03/17/25 08:14 Colchicine 0.6 Mg Tablet PO 0.6 mg Q12HR [facility] Administration Dextrose 12.5 gm 03/14/25 14:07 Dextrose 50% 25 Gm/50 Ml Syringe IV PUSH PRN PRN Hypoglycemia Protocol Empagliflozin 25 mg 03/15/25 09:00 03/16/25 08:24 Empagliflozin 25 Mg Tablet PO 25 mg DAILY [facility] Administration Fish Oil 1 gm 03/14/25 21:00 03/17/25 12:04 [place] 3 Polyunsat Fatty Acids 1 Gm Cap PO Not Given Q12HR [facility] Gabapentin 200 mg 03/14/25 21:00 03/16/25 20:07 Gabapentin 100 Mg Capsule PO 200 mg QHS [facility] Administration Glucagon 1 mg 03/14/25 14:07 Glucagon For Inj 1 Mg Vial IM PRN PRN Hypoglycemia Protocol Glucose 15 gm 03/14/25 14:07 Glucose Oral Gel 15 Gm Of Glucse In 37.5 Gm Tube PO PRN PRN Hypoglycemia Protocol Dextrose 1,000 mls @ 100 mls/hr 03/14/25 14:07 Dextrose 5% 1,000 Ml IVPB PRN PRN Hypoglycemia Protocol Sodium Chloride 1,000 mls @ 125 mls/hr 03/17/25 15:09 Normal Saline Iv IV CONT 03/17/25 23:08 .Q8H ONE Insulin Aspart 4 - 8 units 03/14/25 17:00 03/17/25 12:04 Insulin Aspart (*Bkc) 100 Units/Ml SUB-Q Not Given TIDWM [facility] Protocol Insulin Aspart 2 - 4 units 03/14/25 21:00 03/16/25 20:10 Insulin Aspart (*Bkc) 100 Units/Ml SUB-Q Not Given HS [facility] Protocol Lisinopril 20 mg 03/15/25 09:00 03/17/25 08:14 Lisinopril 20 Mg Tablet PO 20 mg DAILY [facility] Administration Metoprolol Tartrate 25 mg 03/14/25 21:00 03/17/25 08:15 Metoprolol Tartrate 25 Mg Tablet PO 25 mg Q12HR [facility] Administration Rivaroxaban 20 mg 03/14/25 18:00 03/14/25 18:29 Rivaroxaban 20 Mg Tablet PO 20 mg On Hold: 03/15/25 17:00 QPM [facility] Administration Simvastatin 40 mg 03/14/25 18:00 03/16/25 17:44 Simvastatin 20 Mg Tablet PO 40 mg QPM [facility] Administration Tamsulosin HCl 0.4 mg 03/14/25 21:00 03/16/25 20:06 Tamsulosin Hcl 0.4 Mg Capsule PO 0.4 mg QHS [facility] Administration Ticagrelor 60 mg 03/14/25 21:00 03/17/25 08:14 Ticagrelor 60 Mg Tablet PO 60 mg Q12HR [facility] Administration Radiology Results: ITS Impressions Chest X-Ray 03/14/25 06:42 IMPRESSION: 1. No acute cardiopulmonary findings. Lexiscan Stress Test 03/14/25 14:06 IMPRESSION: 1. Mild to moderate severity infarct involving the mid inferior and inferolateral and basilar inferior and inferolateral segments with equivocal mild ischemia along the apical sides of the mid inferior segment. 2. Left ventricular ejection fraction measuring >70%. Labs 03/16/25 04:07 03/16/25 04:07 Labs: Laboratory Results - last 24 hr 03/16/25 03/16/25 03/17/25 16:13 19:52 07:24 POC Capillary Glucose 109 H 119 H 95 03/17/25 11:11 POC Capillary Glucose 83 ASA Classification/Sedation ASA Classification/Sedation ASA Class: III Emergent: No Risks: Risks, benefits and alternatives explained and patient/family accepted plan for sedation. Patient re-evaluated immediately prior to sedation.
[2025-03-17] MEDS: SODIUM CHLORIDE 0.9% IV 1,000 ML 125 ML IV CONT (15:51)
--- NOTE | 2025-03-17 18:35 | P.DS_ITS ---
DS: Admitting Diagnosis Discharge Date 03/17/2025 Admitting Diagnosis Chest pain DS: Discharge Diagnosis Discharge Diagnosis (1) Chest pain: Code(s): R07.9 - Chest pain, unspecified Status: Acute DS: Summary Hospital Course Hospital Course: Discharge Diagnoses: * Mild coronary artery disease (CAD) * History of STEMI, s/p left circumflex stent (2020) * Peripheral artery disease (PAD), s/p left fem-pop bypass and recent thrombectomy/angioplasty * Type 2 diabetes mellitus * Hypertension * Dyslipidemia * Obstructive sleep apnea * Chronic obstructive pulmonary disease (COPD)/emphysema * Obesity * Chronic kidney disease, 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 No associated GI or neurologic symptoms. In the ED, he was hemodynamically stable. Serial troponins and EKGs were negative for acute ischemia. CXR was unremarkable. Labs notable for Cr 1.33, BUN 29, glucose 131. Stress test (regadenoson) revealed mild-moderate infarct in the mid inferior/inferolateral segments and equivocal mild ischemia. Cardiology recommended left heart catheterization. Hospital Course: * Cardiac Evaluation: * Serial troponins negative, EKGs without acute changes. * Echocardiogram: Normal biventricular function. * Regadenoson stress test: Mild-moderate infarct, equivocal mild ischemia. * Left heart catheterization (03/17/25): * Left main: widely patent * LAD/diagonals: diffuse 10% stenosis * Left circumflex: patent stent, diffuse 10% stenosis * RCA: small, nondominant, 50% stenosis in RV marginal branch * No significant obstructive disease; LVEDP 11 mmHg * No intervention required; hemostasis achieved, no complications. * Post-procedure: Hemodynamically stable, no recurrent chest pain, no arrhythmia. * Peripheral Artery Disease: * History of left fem-pop bypass, recent thrombectomy/angioplasty (01/2025). * No acute limb symptoms during admission. * Continue antiplatelet and anticoagulation as per vascular/cardiology recommendations. * Diabetes Mellitus: * Blood glucose monitored with sliding scale insulin as needed. * Home empagliflozin continued. * Hypertension/Dyslipidemia: * Home lisinopril, metoprolol, simvastatin continued. * Blood pressure well controlled. * Other Chronic Conditions: * COPD/emphysema: No acute exacerbation. * TANYA: On home CPAP. * Neuropathy: Continue gabapentin. * Obesity, vitamin D deficiency, erectile dysfunction, esophagitis: Continue home management. * Anticoagulation/Antiplatelet Management: * Rivaroxaban (Xarelto) held prior to cath, resume 24 hours post-procedure. * Continue ticagrelor (Brilinta). * Colchicine discontinued post-cath. Procedures * 03/17/25:?Left heart catheterization with coronary angiography via right radial artery. * Findings: Mild non-obstructive CAD, patent stent, no intervention required. * No complications. Discharge Condition * Hemodynamically stable, afebrile. * No chest pain, no arrhythmia. * Ambulating, no acute distress. * No evidence of heart failure or acute limb ischemia. * Tolerating oral intake. Discharge Medications Continue home medications unless otherwise specified: * Ticagrelor (Brilinta)?60 mg PO BID * Rivaroxaban (Xarelto)?20 mg PO daily (resume 24 hours after cath) * Simvastatin?40 mg PO QHS * Lisinopril?20 mg PO daily * Metoprolol tartrate?25 mg PO BID * Empagliflozin?25 mg PO daily * Fenofibrate?160 mg PO daily * Icosapent ethyl?1 g PO BID * Gabapentin?200 mg PO QHS * Tamsulosin?0.4 mg PO QHS * Cholecalciferol (Vitamin D3)?2000 IU PO daily * Multivitamin/minerals/lutein?1 tab PO daily * ICaps AREDS?1 cap PO BID * Fish oil?1 g PO BID * Loperamide?2 mg PO Q4H PRN diarrhea * Ibuprofen?600 mg PO TID PRN pain/fever * Sildenafil?100 mg PO PRN * Tirzepatide?2.5 mg SC weekly * Blood glucose monitoring supplies?as previously prescribed Discontinue: * Colchicine?(per collaborative physician recommendation) Discharge Instructions * Activity: * No heavy lifting or strenuous activity for 48 hours post-cath. * Monitor right wrist (access site) for bleeding, swelling, or hematoma. * Ambulate as tolerated. * Wound Care: * Keep access site clean and dry. * If bleeding occurs, apply firm pressure and seek medical attention. * Medications: * Resume rivaroxaban 24 hours after cath. * Continue all other home medications as above. * Discontinue colchicine. * Diet: * Heart-healthy, low-sodium, low-cholesterol diet. * Diabetes Management: * Continue home regimen and blood glucose monitoring. * Follow-up: * Cardiology:?Dr. Koo, within 1-2 weeks. * Primary Care:?Within 1-2 weeks. * Vascular Surgery:?As previously scheduled or if new symptoms arise. * When to Seek Medical Attention: * Chest pain, shortness of breath, palpitations, syncope. * Bleeding, swelling, or severe pain at cath site. * Signs of stroke (weakness, numbness, slurred speech). * Signs of limb ischemia (pain, pallor, pulselessness, paresthesia). Summary Mr. Quijano was admitted for evaluation of chest pain and abnormal stress test. Serial troponins and EKGs were negative for acute ischemia. Cardiac catheterization revealed only mild, non-obstructive CAD with patent stent and no intervention required. He remained stable throughout hospitalization and is safe for discharge with instructions to resume anticoagulation, continue aggressive medical therapy, and follow up with cardiology. Time Spent with Patient Time attestation: Total time spent providing and/or coordinating discharge services: DS: Data Data Completed and Pending Labs on day of discharge: Labs from last 24 hours 03/17/25 03/17/25 03/16/25 11:11 07:24 19:52 POC Capillary Glucose 83 95 119 H Discharge Plan Discharge Attending physician on discharge: Emmanuel Colón Consulting providers: Ulises Koo; Kori Young Discharging Clinician: Emmanuel Colón Anticipated Discharge Date/Time: 03/14/25 15:09 Patient Disposition: Home Activity: as tolerated Diet: as tolerated and heart healthy Discharge Instructions: Patient to follow up with Dr Koo for Cardiac cath Patient Instructions: Antibiotic Form, Rivaroxaban (By mouth) Patient Language: French Stand Alone Forms: General Discharge Information Follow-up/Referrals: Ulises Koo MD [Physician, Cardiology] Referral Note: F/u with Cardiology for cardiac cath Andrea Farias MD [Primary Care Provider, Family Practice] Referral Note: F/u with PCP in 3-5 days Discharge Medications: Continued Brilinta 60 mg tablet 60 mg PO Q12H metoprolol tartrate 25 mg tablet 25 mg PO BID (DME) blood-glucose meter [FreeStyle Lite Meter] Kit See Rx Instructions .Route Qty: 1 0RF Rx Instructions: check blood sugars q.dayAs directed (DME) FreeStyle Lite Strips Strip See Rx Instructions .Route Qty: 100 3RF Rx Instructions: check blood sugars q.dayAs directed (DME) lancets 33 gauge misc See Rx Instructions .ROUTE .MEDSUPPLY Qty: 100 3RF Rx Instructions: check blood sugars q.day As directed gabapentin 100 mg capsule 200 mg PO QHS sildenafil 100 mg tablet 100 mg PO DAILY PRN (Reason: sexual activity) Qty: 30 0RF Rx Instructions: administer 30 minutes to 4 hours before activity [id number] [Centrum Silver] 1 tablet PO DAILY Xarelto 20 mg tablet 20 mg PO DAILY Rx Instructions: must administer with evening meal cholecalciferol (vitamin D3) [Vitamin D3] 50 mcg (2,000 unit) Tablet 50 mcg PO DAILY nitroglycerin 0.4 mg tablet, sublingual 0.4 mg sublingual Q5M Rx Instructions: may repeat x 2 loperamide 2 mg capsule 2 mg PO Q4H PRN (Reason: Diarrhea) Rx Instructions: administer after each loose stool until symptoms controlled; do not exceed 8 mg per 24 hrs ICaps AREDS 1 cap PO 2XD omega 2-tbd-ofo-fish oil [Fish Oil] 1,000 (120-180) mg capsule 1 cap PO BID ibuprofen [Advil] 200 mg tablet 600 mg PO TID PRN (Reason: fever or pain) simvastatin 40 mg tablet 40 mg PO QHS Rx Instructions: takes with evening meal icosapent ethyl 1 gram capsule 1 g PO BID Qty: 360 1RF Jardiance 25 mg tablet 25 mg PO DAILY Qty: 90 1RF fenofibrate 160 mg tablet 160 mg PO DAILY Qty: 90 1RF tamsulosin [Flomax] 0.4 mg capsule 0.4 mg PO QHS Qty: 90 1RF Patient Comments: takes with evening meal lisinopril 20 mg tablet 20 mg PO DAILY Qty: 90 1RF Zepbound 2.5 mg/0.5 mL pen injector 2.5 mg subcut WEEKLY Qty: 2 0RF Patient Comments: weekly on Mondays Rx Instructions: for 4 weeks Date of admission: 03/14/25 02:35 Primary Care Provider: Andrea Farias Admitting Provider: Lor Gallagher Attending physician on admission: Lor Gallagher Condition: Stable
--- NOTE | 2025-03-17 18:35 | PM.DS ---
DS: Admitting Diagnosis Discharge Date 03/17/2025 Admitting Diagnosis Chest pain DS: Discharge Diagnosis Discharge Diagnosis (1) Chest pain: Code(s): R07.9 - Chest pain, unspecified Status: Acute DS: Summary Hospital Course Hospital Course: Discharge Diagnoses: Mild coronary artery disease (CAD) History of STEMI, s/p left circumflex stent (2020) Peripheral artery disease (PAD), s/p left fem-pop bypass and recent thrombectomy/angioplasty Type 2 diabetes mellitus Hypertension Dyslipidemia Obstructive sleep apnea Chronic obstructive pulmonary disease (COPD)/emphysema Obesity Chronic kidney disease, stage 2-3 (baseline Cr ?1.2-1.3) Erectile dysfunction Vitamin D deficiency History of diverticulitis, kidney stones Neuropathy (peripheral, diabetic) Esophagitis History of COVID-19 (2019) Hospital Course History of Present Illness: 74-year-old male with extensive cardiovascular history (CAD s/p stent, PAD, DM2, HTN, dyslipidemia, COPD) presented with acute onset substernal chest pain (01/10) and shortness of breath. No associated GI or neurologic symptoms. In the ED, he was hemodynamically stable. Serial troponins and EKGs were negative for acute ischemia. CXR was unremarkable. Labs notable for Cr 1.33, BUN 29, glucose 131. Stress test (regadenoson) revealed mild-moderate infarct in the mid inferior/inferolateral segments and equivocal mild ischemia. Cardiology recommended left heart catheterization. Hospital Course: Cardiac Evaluation: Serial troponins negative, EKGs without acute changes. Echocardiogram: Normal biventricular function. Regadenoson stress test: Mild-moderate infarct, equivocal mild ischemia. Left heart catheterization (03/17/25): Left main: widely patent LAD/diagonals: diffuse 10% stenosis Left circumflex: patent stent, diffuse 10% stenosis RCA: small, nondominant, 50% stenosis in RV marginal branch No significant obstructive disease; LVEDP 11 mmHg No intervention required; hemostasis achieved, no complications. Post-procedure: Hemodynamically stable, no recurrent chest pain, no arrhythmia. Peripheral Artery Disease: History of left fem-pop bypass, recent thrombectomy/angioplasty (01/2025). No acute limb symptoms during admission. Continue antiplatelet and anticoagulation as per vascular/cardiology recommendations. Diabetes Mellitus: Blood glucose monitored with sliding scale insulin as needed. Home empagliflozin continued. Hypertension/Dyslipidemia: Home lisinopril, metoprolol, simvastatin continued. Blood pressure well controlled. Other Chronic Conditions: COPD/emphysema: No acute exacerbation. TANYA: On home CPAP. Neuropathy: Continue gabapentin. Obesity, vitamin D deficiency, erectile dysfunction, esophagitis: Continue home management. Anticoagulation/Antiplatelet Management: Rivaroxaban (Xarelto) held prior to cath, resume 24 hours post-procedure. Continue ticagrelor (Brilinta). Colchicine discontinued post-cath. Procedures 03/17/25:?Left heart catheterization with coronary angiography via right radial artery. Findings: Mild non-obstructive CAD, patent stent, no intervention required. No complications. Discharge Condition Hemodynamically stable, afebrile. No chest pain, no arrhythmia. Ambulating, no acute distress. No evidence of heart failure or acute limb ischemia. Tolerating oral intake. Discharge Medications Continue home medications unless otherwise specified: Ticagrelor (Brilinta)?60 mg PO BID Rivaroxaban (Xarelto)?20 mg PO daily (resume 24 hours after cath) Simvastatin?40 mg PO QHS Lisinopril?20 mg PO daily Metoprolol tartrate?25 mg PO BID Empagliflozin?25 mg PO daily Fenofibrate?160 mg PO daily Icosapent ethyl?1 g PO BID Gabapentin?200 mg PO QHS Tamsulosin?0.4 mg PO QHS Cholecalciferol (Vitamin D3)?2000 IU PO daily Multivitamin/minerals/lutein?1 tab PO daily ICaps AREDS?1 cap PO BID Fish oil?1 g PO BID Loperamide?2 mg PO Q4H PRN diarrhea Ibuprofen?600 mg PO TID PRN pain/fever Sildenafil?100 mg PO PRN Tirzepatide?2.5 mg SC weekly Blood glucose monitoring supplies?as previously prescribed Discontinue: Colchicine?(per medical laboratory scientist recommendation) Discharge Instructions Activity: No heavy lifting or strenuous activity for 48 hours post-cath. Monitor right wrist (access site) for bleeding, swelling, or hematoma. Ambulate as tolerated. Wound Care: Keep access site clean and dry. If bleeding occurs, apply firm pressure and seek medical attention. Medications: Resume rivaroxaban 24 hours after cath. Continue all other home medications as above. Discontinue colchicine. Diet: Heart-healthy, low-sodium, low-cholesterol diet. Diabetes Management: Continue home regimen and blood glucose monitoring. Follow-up: Cardiology:?Dr. Koo, within 1-2 weeks. Primary Care:?Within 1-2 weeks. Vascular Surgery:?As previously scheduled or if new symptoms arise. When to Seek Medical Attention: Chest pain, shortness of breath, palpitations, syncope. Bleeding, swelling, or severe pain at cath site. Signs of stroke (weakness, numbness, slurred speech). Signs of limb ischemia (pain, pallor, pulselessness, paresthesia). Summary Mr. Quijano was admitted for evaluation of chest pain and abnormal stress test. Serial troponins and EKGs were negative for acute ischemia. Cardiac catheterization revealed only mild, non-obstructive CAD with patent stent and no intervention required. He remained stable throughout hospitalization and is safe for discharge with instructions to resume anticoagulation, continue aggressive medical therapy, and follow up with cardiology. Time Spent with Patient Time attestation: Total time spent providing and/or coordinating discharge services: DS: Data Data Completed and Pending Labs on day of discharge: Labs from last 24 hours 03/17/25 03/17/25 03/16/25 11:11 07:24 19:52 POC Capillary Glucose 83 95 119 H Discharge Plan Discharge Attending physician on discharge: Emmanuel Colón Consulting providers: Ulises Koo; Kori Young Discharging Clinician: Emmanuel Colón Anticipated Discharge Date/Time: 03/14/25 15:09 Patient Disposition: Home Activity: as tolerated Diet: as tolerated and heart healthy Discharge Instructions: Patient to follow up with Dr Koo for Cardiac cath Patient Instructions: Antibiotic Form, Rivaroxaban (By mouth) Patient Language: Fijian Stand Alone Forms: General Discharge Information Follow-up/Referrals: Ulises Koo MD [Physician, Cardiology] Referral Note: F/u with Cardiology for cardiac cath Andrea Farias MD [Primary Care Provider, Family Practice] Referral Note: F/u with PCP in 3-5 days Discharge Medications: Continued Brilinta 60 mg tablet 60 mg PO Q12H metoprolol tartrate 25 mg tablet 25 mg PO BID (DME) blood-glucose meter [FreeStyle Lite Meter] Kit See Rx Instructions .Route Qty: 1 0RF Rx Instructions: check blood sugars q.dayAs directed (DME) FreeStyle Lite Strips Strip See Rx Instructions .Route Qty: 100 3RF Rx Instructions: check blood sugars q.dayAs directed (DME) lancets 33 gauge misc See Rx Instructions .ROUTE .MEDSUPPLY Qty: 100 3RF Rx Instructions: check blood sugars q.day As directed gabapentin 100 mg capsule 200 mg PO QHS sildenafil 100 mg tablet 100 mg PO DAILY PRN (Reason: sexual activity) Qty: 30 0RF Rx Instructions: administer 30 minutes to 4 hours before activity [id number] [Centrum Silver] 1 tablet PO DAILY Xarelto 20 mg tablet 20 mg PO DAILY Rx Instructions: must administer with evening meal cholecalciferol (vitamin D3) [Vitamin D3] 50 mcg (2,000 unit) Tablet 50 mcg PO DAILY nitroglycerin 0.4 mg tablet, sublingual 0.4 mg sublingual Q5M Rx Instructions: may repeat x 2 loperamide 2 mg capsule 2 mg PO Q4H PRN (Reason: Diarrhea) Rx Instructions: administer after each loose stool until symptoms controlled; do not exceed 8 mg per 24 hrs ICaps AREDS 1 cap PO 2XD omega 8-gru-wgq-fish oil [Fish Oil] 1,000 (120-180) mg capsule 1 cap PO BID ibuprofen [Advil] 200 mg tablet 600 mg PO TID PRN (Reason: fever or pain) simvastatin 40 mg tablet 40 mg PO QHS Rx Instructions: takes with evening meal icosapent ethyl 1 gram capsule 1 g PO BID Qty: 360 1RF Jardiance 25 mg tablet 25 mg PO DAILY Qty: 90 1RF fenofibrate 160 mg tablet 160 mg PO DAILY Qty: 90 1RF tamsulosin [Flomax] 0.4 mg capsule 0.4 mg PO QHS Qty: 90 1RF Patient Comments: takes with evening meal lisinopril 20 mg tablet 20 mg PO DAILY Qty: 90 1RF Zepbound 2.5 mg/0.5 mL pen injector 2.5 mg subcut WEEKLY Qty: 2 0RF Patient Comments: weekly on Mondays Rx Instructions: for 4 weeks Date of admission: 03/14/25 02:35 Primary Care Provider: Andrea Farias Admitting Provider: Lor Gallagher Attending physician on admission: Lor Gallagher Condition: Stable
== END 2025-03-17 19:33 | disposition home or self-care (01) | DRG 287 ==
LOC: ANHED 03-14 02:36 → ANHIMU 03-14 06:21
PROVIDERS: Internal Medicine; Nurse Practitioner; Admitting Provider Internal Medicine; Emergency Provider Student in an Organized Health Care Education/Training Program; PCP Family Medicine; Visit Provider Internal Medicine
PROC: 4A023N7 Measurement of Cardiac Sampling and Pressure, Left Heart, Percutaneous Approach (ICD-10-PCS; CPT 93452; principal; 2025-03-17 10:30)
DX: I25.10 Atherosclerotic heart disease of native coronary artery without angina pectoris (principal); R07.89 Other chest pain; I12.9 Hypertensive chronic kidney disease with stage 1 through stage 4 chronic kidney disease, or unspecified chronic kidney disease; E11.22 Type 2 diabetes mellitus with diabetic chronic kidney disease; N18.30 Chronic kidney disease, stage 3 unspecified; G47.33 Obstructive sleep apnea (adult) (pediatric); I73.9 Peripheral vascular disease, unspecified; E78.5 Hyperlipidemia, unspecified; E11.42 Type 2 diabetes mellitus with diabetic polyneuropathy; I25.2 Old myocardial infarction; Z95.5 Presence of coronary angioplasty implant and graft; Z86.16 Personal history of COVID-19; Z87.891 Personal history of nicotine dependence
CPT/HCPCS: 36415; 71046; 78452; 80053; 82948; 83690; 83735; 84484; 85025; 85610; 85652; 85730; 86140; 93005; 93017; 93306; 93458; 99285; A9270; A9502; C1769; C1887; C1894; J1644; J2003; J2250; J2305; J2785; J3010; J7030; J7040